=== PATIENT | female | born 1945 | race Caucasian/White ===

== ENCOUNTER 2019-05-13 17:05 | Inpatient (IN) | payer MEDICARE ==
[2019-05-13] MEDS ORDERED: TYLENOL 325 MG PO PRN (17:15)
[2019-05-13 18:03] LABS: Absolute Neutrophil Ct (ANC) 7.57 (1.4-6.9); BASOPHIL % 0.3 % (0.0-0.4); Basophil (Absolute #) 0.03 (0-0.4); Eosinophil % 3.5 % (0.00-5.0); Eosinophil (Absolute #) 0.37 (0-0.5); Hematocrit 41.5 % (35-47); Hemoglobin 13.1 gm/dl (12.0-16.0); Lymphocyte (Absolute #) 1.43 (1.0-4.6); Lymphocytes % 13.6 % (24.0-44.0); Mean Cell Volume 96.1 fl (78-100); Mean Corpuscular Hemoglobin 30.3 pg (26-32); Mean Corpuscular Hgb Concent. 31.6 g/dl (32-36); Mean Platelet Volume 10.7 fl (7.5-11.0); Monocyte (Absolute #) 1.12 (0.0-1.3); Monocytes % 10.6 % (0.0-12.0); Platelet Count 299 K/mm3 (150-450); Red Blood Count 4.32 M/mm3 (4.1-5.4); Red Cell Distribution Width 14.1 % (11.5-14.0); White Blood Count 10.5 K/mm3 (4.0-10.5)
[2019-05-13 18:15] LABS: ALBUMIN 4.3 g/dL (3.5-5.0); ALKALINE PHOSPHATASE 70 U/L (38-126); ANION GAP 9.5 MEQ/L (5-15); BLOOD UREA NITROGEN 13 mg/dL (7-17); CHLORIDE 98 mmol/L (98-107); Calcium 9.9 mg/dL (8.4-10.2); Carbon Dioxide 32 mmol/L (22-30); Creatinine 1 0.55 mg/dL (0.52-1.04); Glucose 132 mg/dL (74-106); Potassium 3.7 mmol/L (3.5-5.1); SGOT/AST 41 U/L (14-36); SGPT/ALT 16 U/L (0-35); SODIUM 136 mmol/L (137-145)
[2019-05-13] MEDS: ROCEPHIN 1 Gm-D5w 50 ml Bag** 1 G/50 ML IVPB IV SCH (20:09)
[2019-05-13] MEDS ORDERED: OXYCODONE-ACETAMINOPHEN 10-325 PO PRN (20:38)
[2019-05-13] MEDS: Zyvox 600 MG IV PREMIX*** 300 ML IV SCH (21:20)
[2019-05-13] MEDS ORDERED: NON-FORMULARY ITEM PO PRN (21:34)
--- NOTE | 2019-05-13 21:47 | XRAY ---
Indication: Enlarging heel ulcer 2 months. Comparison: April 05, 2019. 3 nonweightbearing views of the right foot unchanged again demonstrating osteopenia, old distal 5th metatarsal fracture, and tiny heel spurs. No new/acute findings. Comment: Preliminary interpretation was made by [facility]. No critical discrepancy.
--- NOTE | 2019-05-13 21:49 | XRAY ---
Indication: Right leg swelling and erythema. Two-dimensional sonogram and color Doppler imaging of the major venous vessels of the right leg was performed. Comparison: None No thrombus seen of the examined deep venous vessels of the right leg including greater saphenous vein. Veins demonstrate normal compressibility. Venous waveforms are normal with and without augmentation. Impression: Right leg negative for DVT. Comment: Preliminary report was given.
[2019-05-13] MEDS ORDERED: NEURONTIN 300 MG PO ONE (22:00)
[2019-05-13] MEDS ORDERED: ZOCOR 20MG PO ONE (22:00)
[2019-05-13] MEDS ORDERED: Cyclobenzaprine 10 MG PO ONE (22:00)
[2019-05-13] MEDS: DESYREL 50 MG PO SCH (22:29)
[2019-05-13] MEDS: ECOTRIN 81 MG PO SCH (22:30)
[2019-05-13] MEDS: DILAUDID 2 MG INJECTION IV PRN (22:31)
[2019-05-13] MEDS: Sodium Chloride 0.9% 10 ML FLUSH Syringe IV SCH (23:28)
[2019-05-14] MEDS: Zyvox 600 MG IV PREMIX*** 300 ML IV SCH ×2 (05:40→17:49)
[2019-05-14] MEDS: Sodium Chloride 0.9% 10 ML FLUSH Syringe IV SCH ×3 (05:41→21:34)
[2019-05-14] MEDS: DILAUDID 2 MG INJECTION IV PRN ×3 (07:23→18:12)
[2019-05-14] MEDS: PERCOCET TABLET 5/325MG PO PRN ×2 (08:54→14:53)
[2019-05-14] MEDS ORDERED: MEDICATION INTERVENTION MC SCH (10:45)
[2019-05-14] MEDS: Fosamax 70 MG PO SCH (10:56)
[2019-05-14] MEDS: ROCEPHIN 1 Gm-D5w 50 ml Bag** 1 G/50 ML IVPB IV SCH (10:56)
[2019-05-14] MEDS: Cyclobenzaprine 10 MG PO SCH ×3 (11:34→21:33)
[2019-05-14] MEDS: ECOTRIN 81 MG PO SCH ×2 (11:34→21:34)
[2019-05-14] MEDS: PLAVIX 75 MG Tablet PO SCH (11:34)
[2019-05-14] MEDS: Lasix 40 MG PO SCH (11:34)
[2019-05-14] MEDS: Toprol-Xl 25MG Tablets PO SCH (11:34)
[2019-05-14] MEDS: NEURONTIN 300 MG PO SCH ×3 (11:34→21:34)
[2019-05-14] MEDS: Protonix 40MG Tablet PO SCH (12:45)
[2019-05-14] MEDS: PATIENT OWN MEDICATION PO SCH (14:53)
[2019-05-14] MEDS ORDERED: ZOCOR 20MG ONE (19:55)
[2019-05-14] MEDS: DESYREL 50 MG PO SCH (21:33)
[2019-05-14] MEDS: NovoLOG Insulin SQ PRN (21:33)
[2019-05-14] MEDS: ZOCOR 20MG PO SCH (21:34)
[2019-05-14] MEDS ORDERED: NON-FORMULARY ITEM (Pravastatin Sodium [Pravastatin Sodium] 80 MG) PO SCH (22:00)
[2019-05-15] MEDS: PERCOCET TABLET 5/325MG PO PRN ×4 (03:20→21:29)
[2019-05-15] MEDS: Zyvox 600 MG IV PREMIX*** 300 ML IV SCH ×2 (05:28→17:29)
[2019-05-15] MEDS: Sodium Chloride 0.9% 10 ML FLUSH Syringe IV SCH ×3 (05:29→21:28)
[2019-05-15] MEDS ORDERED: PHARMACY DOSING REQUEST MC ONE (08:48)
[2019-05-15] MEDS: DILAUDID 2 MG INJECTION IV PRN ×2 (09:17→14:24)
[2019-05-15] MEDS: Zosyn INJ 4.5 GM in Sodium Chloride 100ML MINI-BAG PLUS 100 ML IV SCH ×2 (09:18→16:40)
[2019-05-15] MEDS: Protonix 40MG Tablet PO SCH (09:19)
[2019-05-15] MEDS: PLAVIX 75 MG Tablet PO SCH (09:19)
[2019-05-15] MEDS: Toprol-Xl 25MG Tablets PO SCH (09:19)
[2019-05-15] MEDS: Cyclobenzaprine 10 MG PO SCH ×3 (09:19→21:27)
[2019-05-15] MEDS: ECOTRIN 81 MG PO SCH ×2 (09:19→21:27)
[2019-05-15] MEDS: Lasix 40 MG PO SCH (09:19)
[2019-05-15] MEDS: NEURONTIN 300 MG PO SCH ×3 (09:20→21:28)
[2019-05-15] MEDS: PATIENT OWN MEDICATION PO SCH (09:20)
[2019-05-15] MEDS ORDERED: DULCOLAX 5 MG PO PRN (09:47)
[2019-05-15] MEDS ORDERED: Colace 100 MG PO PRN (09:47)
--- NOTE | 2019-05-15 09:53 | PCM.NOTE ---
Date and Time: 05/15/19 0990 Subjective Assessment: Patient reports no stool since admission but feels like she may need to have one today. Continuing to have trouble with pain control and states it takes a while for percoet to work. She does not seem to want to change to oral dilaudid today. She has told nursing that higher doses of percocet such as 10 mg gives her itching. - Review of Systems Constitutional: No Symptoms Ears, Nose, & Throat: No Symptoms Respiratory: No Symptoms Cardiac: No Symptoms Abdominal/Gastrointestinal: No Symptoms Genitourinary Symptoms: No Symptoms Musculoskeletal: Other (right foot pain) Skin: Other (blue discoloration of right 2nd toe) Objective Exam General Appearance: no apparent distress Neurologic Exam: alert, cooperative, normal mood/affect Skin Exam: normal color, warm Wound Assessment: Skin/Wound Assessment Wound/Incision Assessment Start: 05/13/19 18: 36 Text: Status: Active Freq: Q6H Protocol: Document 05/15/19 08:00 BA (Rec: 05/15/19 08:32 BA [id number]) Wound/Incision Assessment Right Heel Wound Assessment Admission Wound Type Stasis Ulcer Wound Stage Non Pressure Wound Dressing Status Changed Drainage Amount Minimal Drainage Description Yellow Drainage Odor None/Absent General Appearance Draining Length (cm) (cm) 5.0 Width (cm) (cm) 2.5 Depth (cm) (cm) 0.5 Wound Bed Greatest Portion Dusky Red Wound Bed Lesser Portion Dusky Red Yellow (Slough) Surrounding Tissue Edematous Primary Dressing Non-Adherent Gauze Pads Secondary Dressing Gauze Roll/Wrap Comment barrier ointment applied to surrounding wound site. Wound Photo Photo Taken Yes Date: 05/13/19 Time: 18:50 Respiratory Exam: normal breath sounds, lungs clear, No crackles/rales, No rhonchi, No wheezing Cardiovascular Exam: regular rate/rhythm, No murmur, No friction rub, No gallop Gastrointestinal/Abdomen Exam: soft, normal bowel sounds, No tenderness, No distention, No mass Extremity Exam: other (mild swelling of right lower ext with mild redness; blueish discoloration of 2nd right toe and medial aspect of right big toe; wound dressed on heel. left above the knee amputation) OBJECTIVE DATA Vital Signs: Vital Signs - 24 hr Temp Pulse Resp BP Pulse Ox 05/15/19 08:15 98.5 F 91 H 22 162/89 93 L 05/15/19 04:42 97.7 F 101 H 20 134/62 93 L 05/15/19 00:31 98.0 F 106 H 22 114/72 93 L 05/14/19 21:16 108/56 05/14/19 20:00 98.2 F 81 24 100 05/14/19 16:23 98.4 F 102 H 20 113/56 96 05/14/19 12:16 98.1 F 87 20 127/59 90 L Pain Assessment - Last Documented Pain Intensity 8 Pain Scale Used 0-10 Pain Scale Intake and Output: Intake & Output 05/13/19 05/14/19 05/15/19 05/16/19 06:59 06:59 06:59 06:59 Intake Total 878 600 240 Output Total 450 1000 Balance 428 -400 240 Weight 69.4 kg 70.1 kg Lab Results: Accuchecks Date 05/15/19 Date 05/14/19 Date 05/14/19 Time 07:30 Time 16:30 Time 11:30 Accucheck Value: 187 Accucheck Value: 256 Accucheck Value: 143 Accucheck Value: 190 Radiology Exams: Radiology Procedures Category Date Time Status FOOT (MINIMUM 3 VIEWS) Urgent Exams 05/13/19 19:21 Completed VENOUS UNILAT/LIMITED EXTREMIT [US] Urgent Exams 05/13/19 20:09 Completed Assessment/Plan (1) Ulcer of right foot Current Visit: Yes Status: Acute Assessment & Plan: Due to PAD. PT consulted. Code(s): L97.519 - NON-PRS CHRONIC ULCER OTH PRT RIGHT FOOT W UNSP SEVERITY (2) Cellulitis of right foot due to methicillin-resistant Staphylococcus aureus Current Visit: Yes Status: Acute Assessment & Plan: Most likely colonized with pseudomonas. On linezolid (Day 3) and now zosyn ( Day 1). She has improved clinically. Code(s): L03.115 - CELLULITIS OF RIGHT LOWER LIMB; B95.62 - METHICILLIN RESIS STAPH INFCT CAUSING DISEASES CLASSD ELSWHR (3) PAD (peripheral artery disease) Current Visit: No Status: Acute Assessment & Plan: No intervention available from promotions director or CV surgeon. Continue plavix and aspirin. Code(s): I73.9 - PERIPHERAL VASCULAR DISEASE, UNSPECIFIED (4) Type II diabetes mellitus, well controlled Current Visit: Yes Status: Acute Assessment & Plan: Continue home medication. Blood glucose this am 130's. Code(s): E11.9 - TYPE 2 DIABETES MELLITUS WITHOUT COMPLICATIONS (5) Chronic pain Current Visit: Yes Status: Acute Assessment & Plan: Due to PAD; increase frequency of percocet and she still has dilaudid ordered as needed. Code(s): G89.29 - OTHER CHRONIC PAIN (6) CAD (coronary artery disease) Current Visit: Yes Status: Acute Assessment & Plan: Continue home medication. Code(s): I25.10 - ATHSCL HEART DISEASE OF [place] CORONARY ARTERY W/O ANG PCTRS
[2019-05-15] MEDS ORDERED: NON-FORMULARY ITEM (Mirabegron [Myrbetriq] 50 MG) PO SCH (10:00)
[2019-05-15] MEDS: DESYREL 50 MG PO SCH (21:27)
[2019-05-15] MEDS: ZOCOR 20MG PO SCH (21:27)
[2019-05-15] MEDS: NovoLOG Insulin SQ PRN (21:28)
[2019-05-16] MEDS: Zosyn INJ 4.5 GM in Sodium Chloride 100ML MINI-BAG PLUS 100 ML IV SCH ×3 (00:32→16:36)
[2019-05-16] MEDS: DILAUDID 2 MG INJECTION IV PRN ×5 (00:42→23:10)
[2019-05-16] MEDS: Sodium Chloride 0.9% 10 ML FLUSH Syringe IV PRN (00:43)
[2019-05-16] MEDS: PERCOCET TABLET 5/325MG PO PRN ×5 (02:45→20:55)
[2019-05-16] MEDS: Zyvox 600 MG IV PREMIX*** 300 ML IV SCH ×2 (05:43→17:19)
[2019-05-16] MEDS: Sodium Chloride 0.9% 10 ML FLUSH Syringe IV SCH ×3 (05:43→20:57)
--- NOTE | 2019-05-16 08:32 | PCM.NOTE ---
Date and Time: 05/16/19826 Subjective Assessment: Patient reports that she is having some pain just above her right ankle. PT has not been able to see her yet. Patient wants to wait on consultation with surgeon until after PT sees her. Her appetite is good; she was able to have a stool yesterday. Her nurse notes they have had to replace her IV x 2 and that she is a difficult patient to obtain IV access on. - Review of Systems Constitutional: No Symptoms Respiratory: No Symptoms Cardiac: No Symptoms Abdominal/Gastrointestinal: No Symptoms Genitourinary Symptoms: No Symptoms Musculoskeletal: Other (right ankle pain) Objective Exam General Appearance: no apparent distress, obese, other (left above the knee amputation) Neurologic Exam: alert Skin Exam: normal color, other (large open ulcer of right heel with thick yellow /white over top; left 2nd toe is blue with concern for small blister trying to develop) Wound Assessment: Skin/Wound Assessment Wound/Incision Assessment Start: 05/13/19 18: 36 Text: Status: Active Freq: Q6H Protocol: Document 05/16/19 04:00 AW (Rec: 05/16/19 05:55 AW [id number]) Wound/Incision Assessment Right Heel Wound Assessment Shift Assessment Wound Type Stasis Ulcer Wound Stage Non Pressure Wound Dressing Status Dry & Intact Drainage Odor None/Absent Length (cm) (cm) 5.0 Width (cm) (cm) 2.5 Depth (cm) (cm) 0.5 Surrounding Tissue Edematous Primary Dressing Non-Adherent Gauze Pads Secondary Dressing Gauze Roll/Wrap Comment dressing cdi Wound Photo Photo Taken Yes Date: 05/13/19 Time: 18:50 Cardiovascular Exam: regular rate/rhythm, normal heart sounds, No murmur, No friction rub, No gallop Extremity Exam: other (erythema of right lower extremity is improved) OBJECTIVE DATA Vital Signs: Vital Signs - 24 hr Temp Pulse Resp BP Pulse Ox 05/16/19 07:09 95 05/16/19 04:00 18 95 05/16/19 00:25 98.4 F 82 18 138/70 94 L 05/15/19 21:20 95 05/15/19 19:55 99.0 F 88 18 106/52 93 L 05/15/19 18:22 93 L 05/15/19 16:00 98.8 F 87 18 110/54 92 L 05/15/19 12:00 97.5 F 54 L 20 131/84 98 Oxygen-Last 24 hours Oxygen Flowrate (L/min)-RT 2 Oxygen Flowrate (L/min)-RT 2 Oxygen Flowrate (L/min)-RT 2 Pain Assessment - Last Documented Pain Intensity 4 Pain Scale Used 0-10 Pain Scale Intake and Output: Intake & Output 05/14/19 05/15/19 05/16/19 05/17/19 06:59 06:59 06:59 06:59 Intake Total 984 134 8153 Output Total 450 1000 3000 Balance 428 400 -3329 Weight 69.4 kg 71.8 kg 71.9 kg Lab Results: Accuchecks Date 05/15/19 Date 05/15/19 Date 05/15/19 Date 05/15/19 Time 07:30 Time 22:00 Time 16:30 Time 11:30 Accucheck Value: 137 Accucheck Value: 229 Accucheck Value: 173 Accucheck Value: 170 Radiology Exams: Radiology Procedures Category Date Time Status ANKLE (3 VIEWS) Routine Exams 05/16/19 Ordered PICC LINE PLACEMENT Routine Exams 05/16/19 Ordered Assessment/Plan (1) Ulcer of right foot Current Visit: Yes Status: Acute Assessment & Plan: PT consulted. Awaiting their evaluation. Patient has seen hr receptionist and CV surgeon and there is no intervention available for her PAD. Code(s): L97.519 - NON-PRS CHRONIC ULCER OTH PRT RIGHT FOOT W UNSP SEVERITY (2) Cellulitis of right foot due to methicillin-resistant Staphylococcus aureus Current Visit: Yes Status: Acute Assessment & Plan: Continue Zosyn (Day 2) and vanc (Day 4). Will ask for PICC placement today. Will check labs today. Code(s): L03.115 - CELLULITIS OF RIGHT LOWER LIMB; B95.62 - METHICILLIN RESIS STAPH INFCT CAUSING DISEASES CLASSD ELSWHR (3) PAD (peripheral artery disease) Current Visit: No Status: Acute Code(s): I73.9 - PERIPHERAL VASCULAR DISEASE , UNSPECIFIED (4) Type II diabetes mellitus, well controlled Current Visit: Yes Status: Acute Assessment & Plan: Continue to monitor; may had small dose of lantus to help better control blood glucose. Code(s): E11.9 - TYPE 2 DIABETES MELLITUS WITHOUT COMPLICATIONS (5) Chronic pain Current Visit: Yes Status: Acute Assessment & Plan: Increased frequency of percocet is helping. Code(s): G89.29 - OTHER CHRONIC PAIN (6) CAD (coronary artery disease) Current Visit: Yes Status: Acute Assessment & Plan: Stable on home medication. Code(s): I25.10 - ATHSCL HEART DISEASE OF [place] CORONARY ARTERY W/O ANG PCTRS
[2019-05-16 09:08] LABS: Hematocrit 38.5 % (35-47); Hemoglobin 12.2 gm/dl (12.0-16.0); Mean Corpuscular Hemoglobin 30.4 pg (26-32); Mean Corpuscular Hgb Concent. 31.7 g/dl (32-36); Mean Platelet Volume 10.3 fl (7.5-11.0); Platelet Count 282 K/mm3 (150-450); Red Blood Count 4.01 M/mm3 (4.1-5.4); Red Cell Distribution Width 13.7 % (11.5-14.0); White Blood Count 12.8 K/mm3 (4.0-10.5)
[2019-05-16] MEDS: Lasix 40 MG PO SCH (09:10)
[2019-05-16] MEDS: NEURONTIN 300 MG PO SCH ×3 (09:11→20:56)
[2019-05-16] MEDS: Toprol-Xl 25MG Tablets PO SCH (09:11)
[2019-05-16] MEDS: PATIENT OWN MEDICATION PO SCH (09:11)
[2019-05-16] MEDS: Cyclobenzaprine 10 MG PO SCH ×3 (09:11→20:56)
[2019-05-16] MEDS: Protonix 40MG Tablet PO SCH (09:11)
[2019-05-16 09:29] LABS: INR 1.14 (0.8-3.0); PROTIME 12.9 SECONDS (9.95-12.35)
[2019-05-16 09:31] LABS: PTT 29.4 SECONDS (25.3-37.0)
[2019-05-16 09:44] LABS: ALBUMIN 3.7 g/dL (3.5-5.0); ALKALINE PHOSPHATASE 79 U/L (38-126); ANION GAP 9.1 MEQ/L (5-15); BLOOD UREA NITROGEN 8 mg/dL (7-17); CHLORIDE 98 mmol/L (98-107); Calcium 8.6 mg/dL (8.4-10.2); Carbon Dioxide 29 mmol/L (22-30); Creatinine 1 0.56 mg/dL (0.52-1.04); Glucose 120 mg/dL (74-106); Potassium 3.6 mmol/L (3.5-5.1); SGOT/AST 69 U/L (14-36); SGPT/ALT 31 U/L (0-35); SODIUM 132 mmol/L (137-145); Total Protein 7.1 g/dL (6.3-8.2)
[2019-05-16 09:58] LABS: Eosinophil 9 % (0.00-3.0); Lymphocytes 4 % (24-44); Monocyte 5 % (0.0-12.0); Neutrophils 82 % (36.0-66.0); Total Cells Counted 100
[2019-05-16 09:59] LABS: Platelet Estimate NORMAL (NORMAL)
--- NOTE | 2019-05-16 10:56 | HP ---
HISTORY OF PRESENT ILLNESS: This is a 74 year-old patient of mine with a history of extensive peripheral artery disease in the lower extremity resulting in amputation of her left leg above the knee in 2016. She had continued problems with her right leg what appears to be clinically to be worsening disease with an ulcer opening up on her food and enlarging. She had seen Dr. Trey Shah, [employer], and they were unable to do any intervention. She then saw a cardiovascular surgeon recently, Dr. Cortes, and they could not do anything either. The patient has been following for wound care with infectious doctor, Dr. Lim, but did not see him last week as she saw the cardiovascular surgeon. She plans to see him this coming week. She has been on two different courses or oral antibiotic, as I had given her Clindamycin about a month ago and she reports that sometime since then Dr. Lim had given her doxycycline. Her home health care nurse had called the day of her appointment to let us know that her ulcer was worsening and there was redness of the skin of her leg. When I saw her in the office, she had some swelling and redness of her leg up to just below her knee as well as ulcer of her right foot that measured 6.5 x 2.5 cm. The patient had been using MediHoney on it and leaving that on for two to three days and then changing the dressing. She has home health care that comes in and sees her. REVIEW OF SYSTEMS: No chest pain. No shortness of breath. She sometimes falls asleep in her chair and falls out. She has a bruise on her left upper shoulder from this. She reports continued pain in her foot despite Percocet. She is urinating fine, good appetite. No constipation. MEDICATIONS: Please see the home medication reconciliation form which I have reviewed. ALLERGIES: CODEINE. MORPHINE. TETANUS. VANCOMYCIN. PAST MEDICAL HISTORY: Chronic obstructive pulmonary disease, congestive heart failure, diabetes mellitus type 2 well controlled. Coronary artery disease with history of atrial fibrillation in 2008, stents placed in 2008. Hypertension. Peripheral artery disease. Back pain. PAST SURGICAL HISTORY: Amputation of left leg above the knee, one month after amputation of her left leg below the knee. Right knee scope. Stents in July [address] Jesus Shah. Femoral artery replaced [address] Luis. Left carotid endarterectomy. Hysterectomy for endometriosis. Back surgery with laminectomy. Replacement of both lens of her eyes. Tonsillectomy. Femoral bypass on the right side 2014 at [facility]. Colonoscopy 2012 with one small sigmoid polyp with Dr. Thibodeaux. SOCIAL HISTORY: She lives by herself. She has family in the area. She continues to smoke one pack per day of cigarettes. FAMILY HISTORY: Noncontributory. PHYSICAL EXAMINATION: VITAL SIGNS: Temperature current 98.1F, temperature max 98.7F, heart rate 87, respiratory rate 20, blood pressure 127/58. Oxygen saturation 90% on room air. GENERAL: The patient is a pleasant talkative lady sitting up in her bed in no acute distress. One of her daughters at the bedside. CVS: She has a regular rate and rhythm. No murmurs, gallops or rubs. CHEST: Clear to auscultation bilaterally. No crackles or wheezes. ABDOMEN: Soft, nontender, nondistended with normal bowel sounds. EXTREMITIES: Her right leg ulcer is wrapped and dressed. There is a picture of it in her chart. The redness has improved from when I admitted her from the clinic. She has some mild erythema from above her ankle down. Her toes are bright red but with good capillary refill. No pulses palpable in her foot. ASSESSMENT AND PLAN: 1) RIGHT LOWER EXTREMITY ULCER DUE TO PERIPHERAL ARTERY DISEASE WITH CELLULITIS: She was started on Linezolid and Ceftriaxone. A wound culture was taken and was growing a gram-positive organism. She has had clinical improvement since admission, will plan to continue with IV antibiotics while we await the culture results. We discussed at length that she does not seem to be a candidate for any kind of intervention and will have to see how continued wound care goes. The main goal of this admission was to treat the infection and then she can continue to follow up with wound care with Dr. Lim. She is considering amputation in the future as there does not seem to be any other option if this ulcer does not heal up. She reports that she would like to either see someone in [place] or local surgeon if comes to that. 2) DIABETES MELLITUS TYPE 2: Currently well controlled. 3) CORONARY ARTERY DISEASE: Will continue on her home medications. 4) CODE STATUS: I confirmed that she does not want to have any heroic measures taken if her heart would stop beating or she would stop breathing. She would want to be allowed to occur naturally without intervention.
[2019-05-16] MEDS ORDERED: Heparin 1000 units/ml (10 Ml vial) 1,000 U in Sodium Chloride 0.9% 500 ML 500 ML IV ONE (11:20)
[2019-05-16] MEDS: PLAVIX 75 MG Tablet PO SCH (11:54)
[2019-05-16] MEDS: ECOTRIN 81 MG PO SCH ×2 (11:54→20:56)
--- NOTE | 2019-05-16 12:11 | XRAY ---
Indication: Cellulitis. Ulcer. Comparison: None 3 views of the right ankle demonstrates osteopenia, 1st tarsometatarsal degenerative changes, tiny heel spurs, old distal 5th metatarsal fracture, and diffuse soft tissue swelling. Lateral malleolus demonstrates cortical thinning/irregularity worrisome for osteomyelitis given history of cellulitis. Remaining ankle unremarkable.
--- NOTE | 2019-05-16 12:15 | XRAY ---
Indication: Long-term IV access and therapy for right leg cellulitis, ulcer, and MRSA. Informed consent obtained. Patient was placed on the fluoroscopic table in a supine position. Initial sonographic imaging of the right upper extremity was performed for localization of patent veins. The right upper extremity was then prepped and draped in sterile fashion. Tourniquet applied. 1% lidocaine plain used for local anesthesia. Using ultrasound guidance and a micropuncture needle, a basilic vein above the elbow was successfully percutaneously cannulized. A floppy tip 0.018 guidewire inserted. Tourniquet released. Needle was exchanged for a 5 Singaporean dilator peel-away sheath catheter. Ultimately a 5 [place]an double-lumen PICC line was inserted over a longer 0.018 guidewire with the tip positioned in the distal SVC using fluoroscopic guidance. Guidewire removed. Both ports flushed with heparinized saline. Catheter was secured. Postoperative instructions and orders given. Patient discharged in good condition. Impression: Technically successful right upper extremity PICC line placement using ultrasound and fluoroscopic guidance. No immediate complications. Approximately 3 cc blood loss. Approximately 0.8 minute of fluoroscopy used. Catheter length is 40 cm.
--- NOTE | 2019-05-16 13:43 | XRAY ---
Indication: Ultrasound guidance for PICC line placement. Initial sonographic imaging of the right upper extremity was performed for localization of patent veins. A patent basilic vein identified above the elbow. Ultrasound guidance was then used for PICC line insertion. Full PICC line insertion is reported separately.
[2019-05-16] MEDS ORDERED: DILAUDID 2 MG INJECTION IV ONE (14:45)
[2019-05-16] MEDS: ZOCOR 20MG PO SCH (20:56)
[2019-05-16] MEDS: DESYREL 50 MG PO SCH (20:56)
[2019-05-17] MEDS: PERCOCET TABLET 5/325MG PO PRN ×5 (00:57→21:18)
[2019-05-17] MEDS: Zosyn INJ 4.5 GM in Sodium Chloride 100ML MINI-BAG PLUS 100 ML IV SCH ×3 (00:58→16:35)
[2019-05-17] MEDS: DILAUDID 2 MG INJECTION IV PRN ×5 (02:15→23:33)
[2019-05-17] MEDS: Zyvox 600 MG IV PREMIX*** 300 ML IV SCH ×2 (05:26→18:00)
[2019-05-17] MEDS: Sodium Chloride 0.9% 10 ML FLUSH Syringe IV SCH ×3 (05:50→21:17)
[2019-05-17] MEDS ORDERED: Lasix 40 MG/4 ML IV ONE (08:44)
--- NOTE | 2019-05-17 09:00 | PCM.NOTE ---
Date and Time: 05/17/19 0845 Subjective Assessment: Patient was unable to tolerate MRI of right ankle yesterday due to pain. She is tearful talking about this today. Nursing staff reports nuclear scan cannot be done until to verify whether or not she has osteomyelitis in her right ankle. Patient notes increased swelling in her right ankle and 2 lbs weight gain. - Review of Systems Constitutional: No Symptoms Respiratory: No Symptoms Cardiac: No Symptoms Musculoskeletal: Other (right leg pain) Objective Exam General Appearance: no apparent distress, other (left above the knee amputation ; right foot dressed, blue discoloration of toes, +2 pitting edema to mid stewart, no erythema of skin above bandage.) Neurologic Exam: alert Wound Assessment: Skin/Wound Assessment Wound/Incision Assessment Start: 05/13/19 18: 36 Text: Status: Active Freq: Q6H Protocol: Document 05/17/19 04:00 AW (Rec: 05/17/19 04:42 AW [id number]) Wound/Incision Assessment Right Heel Wound Assessment Shift Assessment Wound Type Stasis Ulcer Wound Stage Non Pressure Wound Dressing Status Dry & Intact Drainage Odor None/Absent Length (cm) (cm) 5.0 Width (cm) (cm) 2.5 Depth (cm) (cm) 0.5 Surrounding Tissue Edematous Primary Dressing Non-Adherent Gauze Pads Secondary Dressing Gauze Roll/Wrap Comment dressing changed per PT on , dressing cdi Wound Photo Photo Taken Yes Respiratory Exam: normal breath sounds, lungs clear, No crackles/rales, No rhonchi, No wheezing Cardiovascular Exam: regular rate/rhythm, normal heart sounds, No murmur, No friction rub, No gallop OBJECTIVE DATA Vital Signs: Vital Signs - 24 hr Temp Pulse Resp BP BP Pulse Ox 05/17/19 07:07 98 F 111 H 18 138/62 93 L 05/17/19 04:00 98.4 F 106 H 24 136/61 91 L 05/16/19 23:25 98.4 F 96 H 18 114/56 93 L 05/16/19 20:00 97.6 F 91 H 22 119/53 05/16/19 19:48 92 L 05/16/19 17:47 77 L 05/16/19 16:00 98.5 F 92 H 18 111/56 92 L 05/16/19 12:00 97.5 F 89 18 121/58 95 Oxygen-Last 24 hours Oxygen Flowrate (L/min)-RT 2 Pain Assessment - Last Documented Pain Intensity 5 Pain Scale Used 0-10 Pain Scale Intake and Output: Intake & Output 05/15/19 05/16/19 05/17/19 05/18/19 06:59 06:59 06:59 06:59 Intake Total 600 1712 1321 Output Total 1000 3000 3200 Balance -865 -0043 -0318 Weight 71.8 kg 71.9 kg 72.4 kg Lab Results: Accuchecks Date 05/16/19 Date 05/16/19 Date 05/16/19 Time 22:00 Time 16:30 Time 11:30 Accucheck Value: 183 Accucheck Value: 167 Accucheck Value: 100 Lab Results-Last 24 Hours 05/16/19 05/16/19 05/16/19 Range/Units 08:34 08:34 08:51 WBC 12.8 H (4.0-10.5) K/mm3 RBC 4.01 L (4.1-5.4) M/mm3 Hgb 12.2 (12.0-16.0) gm/dl Hct 38.5 (35-47) % MCV 96.0 (78-100) fl MCH 30.4 (26-32) pg MCHC 31.7 L (32-36) g/dl RDW 13.7 (11.5-14.0) % Plt Count 282 (150-450) K/mm3 MPV 10.3 (7.5-11.0) fl Segmented Neutrophils 82 H (36.0-66.0) % Lymphocytes (Manual) 4 L (24-44) % Monocytes (Manual) 5 (0.0-12.0) % Eosinophils (Manual) 9 H (0.00-3.0) % Platelet Estimate NORMAL (NORMAL) RBC Morphology NORMAL PT 12.9 H (9.95-12.35) SECONDS INR 1.14 (0.8-3.0) APTT 29.4 (25.3-37.0) SECONDS Sodium 132 L (137-145) mmol/L Potassium 3.6 (3.5-5.1) mmol/L Chloride 98 (98-107) mmol/L Carbon Dioxide 29 (22-30) mmol/L Anion Gap 9.1 (5-15) MEQ/L BUN 8 (7-17) mg/dL Creatinine 0.56 (0.52-1.04) mg/dL Estimated GFR > 60.0 ML/MIN Glucose 120 H (74-106) mg/dL Calcium 8.6 (8.4-10.2) mg/dL Total Bilirubin 0.60 (0.2-1.3) mg/dL AST 69 H (14-36) U/L ALT 31 (0-35) U/L Alkaline Phosphatase 79 (38-126) U/L Serum Total Protein 7.1 (6.3-8.2) g/dL Albumin 3.7 (3.5-5.0) g/dL Radiology Exams: Radiology Procedures Category Date Time Status ANKLE (3 VIEWS) Routine Exams 05/16/19 11:50 Completed BONE THREE PHASE [NUCMED] Routine Exams 05/17/19 08:42 Ordered GUIDE FOR VASCULAR ACCESS [US] Routine Exams 05/16/19 10:21 Completed PICC LINE PLACEMENT Routine Exams 05/16/19 11:49 Completed Multi-Disciplinary Progress Notes: Multi-Disciplinary Progress Notes 05/16/19 09:25 Case Management Note by Lou De León AT [facility] NOTIFIED THAT PATIENT IS HERE INPT. SHE VERIFIED UNDERSTANDING Initialized on 05/16/19 09:25 - END OF NOTE Assessment/Plan (1) Ulcer of right foot Current Visit: Yes Status: Acute Assessment & Plan: Continue PT; Continue IV antibiotic; nuclear bone scan ordered to rule out osteomyelitis. This cannot be done until . Code(s): L97.519 - NON-PRS CHRONIC ULCER OTH PRT RIGHT FOOT W UNSP SEVERITY (2) Cellulitis of right foot due to methicillin-resistant Staphylococcus aureus Current Visit: Yes Status: Acute Assessment & Plan: Erythema has improved with IV antibiotics and bacteria grown in culture sensitive to current antibiotics. Code(s): L03.115 - CELLULITIS OF RIGHT LOWER LIMB; B95.62 - METHICILLIN RESIS STAPH INFCT CAUSING DISEASES CLASSD ELSWHR (3) PAD (peripheral artery disease) Current Visit: No Status: Acute Assessment & Plan: Severe and not candidate for intervention per bilingual manager and CV surgeon. Code(s): I73.9 - PERIPHERAL VASCULAR DISEASE, UNSPECIFIED (4) Type II diabetes mellitus, well controlled Current Visit: Yes Status: Acute Assessment & Plan: Currently well controlled. Code(s): E11.9 - TYPE 2 DIABETES MELLITUS WITHOUT COMPLICATIONS (5) Chronic pain Current Visit: Yes Status: Acute Code(s): G89.29 - OTHER CHRONIC PAIN (6) CAD (coronary artery disease) Current Visit: Yes Status: Acute Code(s): I25.10 - ATHSCL HEART DISEASE OF [place] CORONARY ARTERY W/O ANG PCTRS
[2019-05-17] MEDS: PLAVIX 75 MG Tablet PO SCH (09:53)
[2019-05-17] MEDS: Toprol-Xl 25MG Tablets PO SCH (09:53)
[2019-05-17] MEDS: Cyclobenzaprine 10 MG PO SCH ×3 (09:53→21:17)
[2019-05-17] MEDS: Protonix 40MG Tablet PO SCH (09:53)
[2019-05-17] MEDS: PATIENT OWN MEDICATION PO SCH (09:53)
[2019-05-17] MEDS: ECOTRIN 81 MG PO SCH (09:53)
[2019-05-17] MEDS: NEURONTIN 300 MG PO SCH ×3 (09:55→21:17)
[2019-05-17] MEDS: NovoLOG Insulin SQ PRN (11:41)
[2019-05-17] MEDS ORDERED: Klor Con 10 MEQ PO ONE (13:39)
[2019-05-17] MEDS: NITRO-BID 2% UD PACKETS TOP SCH (14:28)
[2019-05-17] MEDS ORDERED: HUMALOG SQ PRN (16:30)
[2019-05-17] MEDS: XARELTO 10 MG TABLET PO SCH (21:16)
[2019-05-17] MEDS: DESYREL 50 MG PO SCH (21:17)
[2019-05-17] MEDS: ZOCOR 20MG PO SCH (21:17)
[2019-05-17 22:17] LABS: Appearance CLEAR (CLEAR); Bacteria RARE /HPF (NEGATIVE); Bilirubin NEGATIVE (NEGATIVE); Blood SMALL Ery/ul (0-5); Glucose NEGATIVE (NEGATIVE); Ketones NEGATIVE (NEGATIVE); Leukocyte Esterase SMALL (NEGATIVE); Mucus SLIGHT /HPF (NEGATIVE); Nitrite NEGATIVE (NEGATIVE); Protein,Urine Dip NEGATIVE (Negative); RBC 0-2 /HPF (0-2); Specific Gravity 1.004 (1.005-1.025); Urobilinogen NEGATIVE mg/dL (0-1)
[2019-05-17] MEDS ORDERED: DILAUDID 2 MG INJECTION IV ONE (23:55)
[2019-05-18] MEDS: Ativan 2 MG/1 ML VIAL IV PRN (00:03)
[2019-05-18] MEDS: Zosyn INJ 4.5 GM in Sodium Chloride 100ML MINI-BAG PLUS 100 ML IV SCH ×3 (00:29→17:14)
[2019-05-18] MEDS: DILAUDID 2 MG INJECTION IV PRN ×4 (03:36→20:03)
[2019-05-18 05:20] LABS: BASOPHIL % 0.1 % (0.0-0.4); Basophil (Absolute #) 0.01 (0-0.4); Eosinophil (Absolute #) 1.78 (0-0.5); Hemoglobin 11.5 gm/dl (12.0-16.0); Lymphocyte (Absolute #) 0.75 (1.0-4.6); Lymphocytes % 7.6 % (24.0-44.0); Mean Cell Volume 96.9 fl (78-100); Mean Corpuscular Hemoglobin 30.1 pg (26-32); Mean Corpuscular Hgb Concent. 31.1 g/dl (32-36); Mean Platelet Volume 10.1 fl (7.5-11.0); Monocyte (Absolute #) 0.57 (0.0-1.3); Monocytes % 5.8 % (0.0-12.0); Neutrophil % 68.5 % (36.0-66.0); Platelet Count 301 K/mm3 (150-450); Red Blood Count 3.82 M/mm3 (4.1-5.4); Red Cell Distribution Width 13.7 % (11.5-14.0); White Blood Count 9.9 K/mm3 (4.0-10.5)
[2019-05-18 05:39] LABS: ANION GAP 6.7 MEQ/L (5-15); BLOOD UREA NITROGEN 8 mg/dL (7-17); CHLORIDE 98 mmol/L (98-107); Calcium 8.3 mg/dL (8.4-10.2); Carbon Dioxide 36 mmol/L (22-30); Creatinine 1 0.56 mg/dL (0.52-1.04); Glucose 107 mg/dL (74-106); Potassium 3.1 mmol/L (3.5-5.1); SODIUM 137 mmol/L (137-145)
[2019-05-18] MEDS: Zyvox 600 MG IV PREMIX*** 300 ML IV SCH ×2 (05:41→17:49)
[2019-05-18] MEDS: Sodium Chloride 0.9% 10 ML FLUSH Syringe IV SCH ×3 (05:42→21:19)
[2019-05-18] MEDS ORDERED: Klor Con 10 MEQ PO ONE (08:11)
--- NOTE | 2019-05-18 08:46 | PCM.NOTE ---
Date and Time: 05/18/19 0835 Subjective Assessment: Patient had increased pain in her foot last night. States medications helped. She is sleepy this Am. Sleeps with her leg hanging off the bed. Small stool yesterday but states probably needs stool softener today. - Review of Systems Constitutional: Fatigue Eyes: No Symptoms Ears, Nose, & Throat: No Symptoms Respiratory: No Symptoms Cardiac: No Symptoms Abdominal/Gastrointestinal: Constipation Genitourinary Symptoms: Other (catheter in place) Musculoskeletal: Other (right leg pain) Objective Exam General Appearance: no apparent distress, other (falling asleep while I am talking to her; left above the knee amputation) Neurologic Exam: cooperative, other (arouses easily) Skin Exam: other (right foot wrapped and dressed, toes dusky, +2 edema to mid stewart bilat) Wound Assessment: Skin/Wound Assessment Wound/Incision Assessment Start: 05/13/19 18: 36 Text: Status: Active Freq: Q6H Protocol: Document 05/18/19 03:49 BW (Rec: 05/18/19 03:49 BW [id number]) Wound/Incision Assessment Right Heel Wound Assessment Shift Assessment Wound Type Stasis Ulcer Wound Stage Non Pressure Wound Dressing Status Dry & Intact Drainage Amount None Drainage Odor None/Absent Surrounding Tissue Edematous Primary Dressing Non-Adherent Gauze Pads Comment dressing changed per PT on , dressing/stockinette CDI Wound Photo Photo Taken Yes Distance from Wound: bedside Respiratory Exam: normal breath sounds, lungs clear, No crackles/rales, No rhonchi, No wheezing Cardiovascular Exam: regular rate/rhythm, normal heart sounds, No murmur, No friction rub, No gallop OBJECTIVE DATA Vital Signs: Vital Signs - 24 hr Temp Pulse Resp BP Pulse Ox 05/18/19 07:25 98 F 111 H 20 142/63 93 L 05/18/19 03:47 98.2 F 100 H 18 116/55 93 L 05/18/19 00:00 97.9 F 102 H 20 122/56 92 L 05/17/19 20:00 98.5 F 85 19 117/56 93 L 05/17/19 16:23 97.9 F 86 20 144/100 91 L 05/17/19 12:11 97.8 F 80 20 144/63 92 L Pain Assessment - Last Documented Pain Intensity 3 Pain Scale Used 0-10 Pain Scale,FLACC Intake and Output: Intake & Output 05/16/19 05/17/19 05/18/19 05/19/19 06:59 06:59 06:59 06:59 Intake Total 1710 1322 2631 Output Total 8228 2633 0636 Balance -4129 -6377 -0962 Weight 71.9 kg 72.4 kg 71.2 kg Lab Results: Accuchecks Date 05/17/19 Date 05/17/19 Date 05/17/19 Time 22:00 Time 16:30 Time 11:30 Accucheck Value: 121 Accucheck Value: 112 Accucheck Value: 183 Accucheck Value: 214 Lab Results-Last 24 Hours 05/17/19 05/18/19 05/18/19 Range/Units 21:52 04:43 04:43 WBC 9.9 (4.0-10.5) K/mm3 RBC 3.82 L (4.1-5.4) M/mm3 Hgb 11.5 L (12.0-16.0) gm/dl Hct 37.0 (35-47) % MCV 96.9 (78-100) fl MCH 30.1 (26-32) pg MCHC 31.1 L (32-36) g/dl RDW 13.7 (11.5-14.0) % Plt Count 301 (150-450) K/mm3 MPV 10.1 (7.5-11.0) fl Gran % 68.5 H (36.0-66.0) % Eos # (Auto) 1.78 H (0-0.5) Absolute Lymphs (auto) 0.75 L (1.0-4.6) Absolute Monos (auto) 0.57 (0.0-1.3) Lymphocytes % 7.6 L (24.0-44.0) % Monocytes % 5.8 (0.0-12.0) % Eosinophils % 18.0 H (0.00-5.0) % Basophils % 0.1 (0.0-0.4) % Absolute Granulocytes 6.80 (1.4-6.9) Basophils # 0.01 (0-0.4) Sodium 137 (137-145) mmol/L Potassium 3.1 L (3.5-5.1) mmol/L Chloride 98 (98-107) mmol/L Carbon Dioxide 36 H (22-30) mmol/L Anion Gap 6.7 (5-15) MEQ/L BUN 8 (7-17) mg/dL Creatinine 0.56 (0.52-1.04) mg/dL Estimated GFR > 60.0 ML/MIN Glucose 107 H (74-106) mg/dL Calcium 8.3 L (8.4-10.2) mg/dL Urine Color STRAW (YELLOW) Urine Appearance CLEAR (CLEAR) Urine pH 7.0 (5-6) Ur Specific [place] 1.004 (1.005-1.025) Urine Protein NEGATIVE (Negative) Urine Ketones NEGATIVE (NEGATIVE) Urine Blood SMALL (0-5) Jose Daniel/ul Urine Nitrite NEGATIVE (NEGATIVE) Urine Bilirubin NEGATIVE (NEGATIVE) Urine Urobilinogen NEGATIVE (0-1) mg/dL Ur Leukocyte Esterase SMALL (NEGATIVE) Urine WBC (Auto) 3-5 (0-5) /HPF Urine RBC (Auto) 0-2 (0-2) /HPF U Epithel Cells (Auto) NONE (FEW) /HPF Urine Bacteria (Auto) RARE (NEGATIVE) /HPF Urine Mucus (Auto) SLIGHT (NEGATIVE) /HPF Urine Culture Reflexed ORDERED SEPARATELY (NO) Urine Glucose NEGATIVE (NEGATIVE) mg/dL Radiology Exams: Radiology Procedures Category Date Time Status ANKLE (3 VIEWS) Routine Exams 05/16/19 11:50 Completed BONE THREE PHASE [NUCMED] Routine Exams 05/19/19 08:42 Ordered GUIDE FOR VASCULAR ACCESS [US] Routine Exams 05/16/19 10:21 Completed PICC LINE PLACEMENT Routine Exams 05/16/19 11:49 Completed Multi-Disciplinary Progress Notes: Multi-Disciplinary Progress Notes 05/17/19 14:19 Case Management Note by Romelia Shepherd REVIEWED DISCHARGE PLAN WITH PT. REPORTS THAT SHE WOULD BE INTERESTED IN RETURNING HOME WITH HOSPICE. REPORTS THAT [facility] HAD DISCHARGED HER TO [facility], BUT SHE IS WANTING TO HAVE HOSPICE SERVICES SHE HAD MORE SUPPORT WITH HOSPICE. DISCUSSED THE DIFFERENT HOSPICE PROVIDERS, AND PT REPORTS THAT SHE WANTS TO STAY WITH [facility]. WILL UPDATE [facility] ON PT NEEDS WHEN CLOSER TO TIME OF DISCHARGE. [facility] CHECKED ON PT TODAY AND DISCUSSED WITH [facility] THAT PT'S NEEDS MAY CHANGE ON DISCHARGE. WILL CONTINUE TO FOLLOW FOR ALL DC NEEDS. Initialized on 05/17/19 14:19 - END OF NOTE 05/17/19 14:04 Physical Therapy Note by Lore Martines PT. SEATED ON SIDE OF BED. DR. MONTAÑO HAD JUST FINISHED ROUNDING W/ PATIENT. PT. REPORTS R FOOT PN CONTINUES; IS GETTING PN MEDS REGULARLY. DRESSING INTACT FROM YESTERDAY. DR. MONTAÑO REPORTED TO P.T. THAT DR. SHAH THOUGHT THAT SOME MINOR DEBRIDEMENT OF ESCHAR WOULD BE INDICATED. MIN SEROUS DRAINAGE NOTED ON DRESSING. CLEANSED WOUND W/ HIBICLENS/STERILE WATER, DEBRIDED LOOSE SKIN FROM 2ND, 3RD, AND 4TH TOES W/ SCISSORS WELL A VERY SMALL AMOUNT OF BROWNISH- YELLOW ESCHAR FROM PERIWOUND ON R ACHILLES' AREA. PT. HAD A VERY DIFFICULT TIME TOLERATING DEBRIDEMENT OF ACHILLES' WOUND D/T PN EVEN W/ PN MEDS. WILL CONT. W/C TOLERATED. WILL ATTEMPT TO COORDINATE PN MED DELIVERY W/ DEBRIDEMENT TO HOPEFULLY IMPROVE TOLERANCE. PT. WAS TEARY AND UPSET W/ HER PN AND CURRENT SITUATION. TO BEGIN NITRO OINTMENT TO R LL TO PROMOTE SOME INCREASE IN PERFUSION. CALL LIGHT WITHIN REACH. LORE MARTINES PT Initialized on 05/17/19 14:04 - END OF NOTE 05/17/19 09:55 Case Management Note by Lou De León NO CHANGE IN DC PLANS AT THIS TIME Initialized on 05/17/19 09:55 - END OF NOTE Assessment/Plan (1) Ulcer of right foot Current Visit: Yes Status: Acute Assessment & Plan: Continue PT, I plan to update her licensed psychiatric technician Dr. Trey Shah after bone scan tomorrow. He said he would check with a vascular surgeon in [facility] to see if they could look at her studies and see if there was anything they could offer for revascularization. Code(s): L97.519 - NON-PRS CHRONIC ULCER OTH PRT RIGHT FOOT W UNSP SEVERITY (2) Cellulitis of right foot due to methicillin-resistant Staphylococcus aureus Current Visit: Yes Status: Acute Assessment & Plan: Continue vancomycin and zosyn. Code(s): L03.115 - CELLULITIS OF RIGHT LOWER LIMB; B95.62 - METHICILLIN RESIS STAPH INFCT CAUSING DISEASES CLASSD ELSWHR (3) PAD (peripheral artery disease) Current Visit: No Status: Acute Assessment & Plan: Severe and CV surgeon in [place] said he did not have anything to offer her. Code(s): I73.9 - PERIPHERAL VASCULAR DISEASE, UNSPECIFIED (4) Type II diabetes mellitus, well controlled Current Visit: Yes Status: Acute Assessment & Plan: Continue current treatment. Code(s): E11.9 - TYPE 2 DIABETES MELLITUS WITHOUT COMPLICATIONS (5) Chronic pain Current Visit: Yes Status: Acute Assessment & Plan: Patient has had increased pain with leg and wound. Pain medication has been adjusted. Code(s): G89.29 - OTHER CHRONIC PAIN (6) CAD (coronary artery disease) Current Visit: Yes Status: Acute Assessment & Plan: Follows with licensed psychiatric technician as outpatient. Continue home medication. Code(s): I25.10 - ATHSCL HEART DISEASE OF [place] CORONARY ARTERY W/O ANG PCTRS
[2019-05-18] MEDS: ECOTRIN 81 MG PO SCH (09:03)
[2019-05-18] MEDS: PLAVIX 75 MG Tablet PO SCH (09:03)
[2019-05-18] MEDS: Protonix 40MG Tablet PO SCH (09:03)
[2019-05-18] MEDS: XARELTO 10 MG TABLET PO SCH ×2 (09:03→21:18)
[2019-05-18] MEDS: Cyclobenzaprine 10 MG PO SCH ×3 (09:04→21:19)
[2019-05-18] MEDS: Lasix 40 MG PO SCH (09:04)
[2019-05-18] MEDS: NITRO-BID 2% UD PACKETS TOP SCH (09:04)
[2019-05-18] MEDS: NEURONTIN 300 MG PO SCH ×3 (09:04→21:19)
[2019-05-18] MEDS: Toprol-Xl 25MG Tablets PO SCH (09:04)
[2019-05-18] MEDS: PATIENT OWN MEDICATION PO SCH (09:05)
[2019-05-18] MEDS: PERCOCET TABLET 5/325MG PO PRN ×2 (11:14→15:19)
[2019-05-18] MEDS: ZOCOR 20MG PO SCH (21:18)
[2019-05-18] MEDS: DESYREL 50 MG PO SCH (21:18)
[2019-05-19] MEDS: PERCOCET TABLET 5/325MG PO PRN ×5 (00:15→22:38)
[2019-05-19] MEDS: Ativan 2 MG/1 ML VIAL IV PRN ×3 (00:47→07:49)
[2019-05-19] MEDS: Zosyn INJ 4.5 GM in Sodium Chloride 100ML MINI-BAG PLUS 100 ML IV SCH ×3 (00:47→16:15)
[2019-05-19] MEDS: Sodium Chloride 0.9% 10 ML FLUSH Syringe IV SCH ×3 (05:33→22:38)
[2019-05-19] MEDS: Zyvox 600 MG IV PREMIX*** 300 ML IV SCH ×2 (05:33→17:00)
[2019-05-19] MEDS: DILAUDID 2 MG INJECTION IV PRN ×7 (07:33→23:26)
[2019-05-19] MEDS: Sodium Chloride 0.9% 10 ML FLUSH Syringe IV PRN ×2 (07:50→12:35)
[2019-05-19] MEDS ORDERED: DILAUDID 2 MG INJECTION IV ONE (08:30)
--- NOTE | 2019-05-19 08:31 | PCM.NOTE ---
Date and Time: 05/19/19823 Subjective Assessment: Patient in more pain this AM. PT notes that she is not tolerating debridement. Discussed with Dr. Trey Shah. He is asking CV surgeon at [facility], Dr. Nino, to review his films from the lab analyst to see if there is any other intervention. If he thinks there is something that can be done, she will need to be transferred to [facility] for that. If not, most likely with amount of pain will need to be seen by General Surgery for amputation. Dr. Trey Shah says if she does need surgery, that she is clear from his standpoint for this. Objective Exam General Appearance: moderate distress, other (moaning in pain, says right ankle/ leg hurts) Neurologic Exam: alert, cooperative Skin Exam: normal color, other (right foot wrapped and dressed, no swelling of right leg and no erythema of upper leg) Wound Assessment: Skin/Wound Assessment Wound/Incision Assessment Start: 05/13/19 18: 36 Text: Status: Active Freq: Q6H Protocol: Document 05/19/19 07:00 CARMELO (Rec: 05/19/19 07:40 [id number]) Wound/Incision Assessment Right Heel Wound Assessment Shift Assessment Wound Type Stasis Ulcer Wound Stage Non Pressure Wound Dressing Status Dry & Intact Drainage Amount None Drainage Odor None/Absent Surrounding Tissue Edematous Primary Dressing Non-Adherent Gauze Pads Comment dressing in place CDI Wound Photo Photo Taken Yes Distance from Wound: bedside Respiratory Exam: normal breath sounds, lungs clear, No crackles/rales, No rhonchi, No wheezing Cardiovascular Exam: regular rate/rhythm, normal heart sounds, No murmur, No friction rub, No gallop Gastrointestinal/Abdomen Exam: soft, normal bowel sounds, No tenderness, No distention, No mass Extremity Exam: other (left above knee amputation) OBJECTIVE DATA Vital Signs: Vital Signs - 24 hr Temp Pulse Resp BP Pulse Ox 05/19/19 07:34 95 05/19/19 07:24 98.5 F 122 H 20 119/95 92 L 05/19/19 04:11 97.9 F 98 H 17 135/60 92 L 05/18/19 23:53 97.8 F 92 H 18 116/56 94 L 05/18/19 20:32 97.7 F 106 H 19 135/58 92 L 05/18/19 19:26 92 L 05/18/19 17:23 97.8 F 91 H 20 127/54 92 L 05/18/19 13:53 98 F 100 H 20 143/72 92 L 05/18/19 09:24 92 L Pain Assessment - Last Documented Pain Intensity 10 Pain Scale Used 0-10 Pain Scale Intake and Output: Intake & Output 05/17/19 05/18/19 05/19/19 05/20/19 06:59 06:59 06:59 06:59 Intake Total 1321 2631 1145 Output Total 3200 5150 3100 Balance -3820 -7676 -5715 Weight 72.4 kg 73.7 kg Lab Results: Accuchecks Date 05/19/19 Date 05/18/19 Time 07:41 Time 22:00 Accucheck Value: 124 Accucheck Value: 123 Accucheck Value: 133 Accucheck Value: 173 Radiology Exams: Radiology Procedures Category Date Time Status BONE THREE PHASE [NUCMED] Routine Exams 05/19/19 08:42 Ordered Multi-Disciplinary Progress Notes: Multi-Disciplinary Progress Notes 05/18/19 15:21 Physical Therapy Note by Mir Cotto PT. IS IN SIGNIFICANT PN AGAIN TODAY. RATES 5/10 W/ DOES OF DILAUDID PRIOR TO DRESSING CHANGE. PT. IS TEARFUL AND ANXIOUS ABOUT NUCLEAR MED TEST TOMORROW. NOTED CONT. BROWNISH YELLOW ESCHAR IN WOUND BED R SCHILLES INSERTION. 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 CLEANSED WOUND W/ HIBICLENS/STERILE WATER MIXTURE AND SOAKED FOR 2-3 MINS. DEBRIDED LOOSE, MACERATED TISSUE ON DORSAL R TOES W/ SCISSORS AND FORCEPS. ALSO DEBRIDED A VERY SMALL AREA OF BROWN ESCHAR IN ACHILLES WOUND BED. PT.'S TOLERANCE TO MECHANICAL DEBRIDEMENT IS VERY POOR D/T SEVERE PN. PT. IS NOT ABLE TO HOLD STILL TO ALLOW FOR SAFE REMOVAL OF TISSUE. WILL CONT. W / WOUND MANAGEMENT. FEEL SURGICAL CONSULT MAY BE WARRANTED SOON AND/OR PN MANAGEMENT. MIR COTTO PT Initialized on 05/18/19 15:21 - END OF NOTE Assessment/Plan (1) Ulcer of right foot Current Visit: Yes Status: Acute Assessment & Plan: Dr. Trey Shah is to let me know about what CV surgeon says to know if we need to transfer her to [facility] for procedure or consider amputation here. Code(s): L97.519 - NON-PRS CHRONIC ULCER OTH PRT RIGHT FOOT W UNSP SEVERITY (2) Cellulitis of right foot due to methicillin-resistant Staphylococcus aureus Current Visit: Yes Status: Acute Assessment & Plan: Continue IV antibiotics. She is on Zosyn (Day 5) and Vancomycin (Day 7). Code(s): L03.115 - CELLULITIS OF RIGHT LOWER LIMB; B95.62 - METHICILLIN RESIS STAPH INFCT CAUSING DISEASES CLASSD ELSWHR (3) PAD (peripheral artery disease) Current Visit: No Status: Acute Assessment & Plan: She is on Xarelto 2.5 mg po bid per Dr. Trey Shah's recommendation. Continue aspirin 81 mg. Continue plavix 75 mg. Code(s): I73.9 - PERIPHERAL VASCULAR DISEASE, UNSPECIFIED (4) Type II diabetes mellitus, well controlled Current Visit: Yes Status: Acute Assessment & Plan: Currently well controlled. Code(s): E11.9 - TYPE 2 DIABETES MELLITUS WITHOUT COMPLICATIONS (5) Chronic pain Current Visit: Yes Status: Acute Assessment & Plan: On IV dilaudid and oral percocet. Code(s): G89.29 - OTHER CHRONIC PAIN (6) CAD (coronary artery disease) Current Visit: Yes Status: Acute Assessment & Plan: Stable. Code(s): I25.10 - ATHSCL HEART DISEASE OF [place] CORONARY ARTERY W/O ANG PCTRS
[2019-05-19] MEDS: Lasix 40 MG PO SCH (08:58)
[2019-05-19] MEDS: Cyclobenzaprine 10 MG PO SCH ×3 (08:58→22:38)
[2019-05-19] MEDS: Protonix 40MG Tablet PO SCH (08:59)
[2019-05-19] MEDS: NEURONTIN 300 MG PO SCH ×3 (08:59→22:38)
[2019-05-19] MEDS: PATIENT OWN MEDICATION PO SCH (08:59)
[2019-05-19] MEDS: NITRO-BID 2% UD PACKETS TOP SCH (08:59)
[2019-05-19] MEDS: Toprol-Xl 25MG Tablets PO SCH (09:00)
[2019-05-19] MEDS: XARELTO 10 MG TABLET PO SCH ×2 (09:22→22:38)
[2019-05-19] MEDS: ECOTRIN 81 MG PO SCH (09:22)
[2019-05-19] MEDS: PLAVIX 75 MG Tablet PO SCH (09:22)
[2019-05-19 09:23] LABS: Hematocrit 36.9 % (35-47); Hemoglobin 11.5 gm/dl (12.0-16.0); Mean Cell Volume 96.6 fl (78-100); Mean Corpuscular Hemoglobin 30.1 pg (26-32); Mean Corpuscular Hgb Concent. 31.2 g/dl (32-36); Mean Platelet Volume 9.5 fl (7.5-11.0); Platelet Count 288 K/mm3 (150-450); Red Blood Count 3.82 M/mm3 (4.1-5.4); Red Cell Distribution Width 13.9 % (11.5-14.0); White Blood Count 11.8 K/mm3 (4.0-10.5)
[2019-05-19 09:41] LABS: ANION GAP 9.3 MEQ/L (5-15); BLOOD UREA NITROGEN 7 mg/dL (7-17); CHLORIDE 101 mmol/L (98-107); Calcium 8.8 mg/dL (8.4-10.2); Carbon Dioxide 30 mmol/L (22-30); Glucose 123 mg/dL (74-106); Potassium 3.4 mmol/L (3.5-5.1); SODIUM 137 mmol/L (137-145)
[2019-05-19 14:14] LABS: BAND 2 % (0.0-2.0); Eosinophil 13 % (0.00-3.0); Lymphocytes 6 % (24-44); Monocyte 2 % (0.0-12.0); Neutrophils 77 % (36.0-66.0); Platelet Estimate NORMAL (NORMAL); Total Cells Counted 100
--- NOTE | 2019-05-19 15:40 | XRAY ---
Exam: Limited 3 phase radionuclide bone scan with attention to the right foot from 05/19/2019. Comparison: 3 views the right foot from 05/13/2019 and 3 views of the right ankle from 05/16/2019. Indication: Wound just proximal to right ankle joint posteriorly, positive for MRSA, has had wound since January,. Patient has severe pain in this area. Right ankle radiographs from 05/16/2019 revealed some questionable cortical thinning at the lateral margin of the distal right fibula suggesting the possibility of osteomyelitis. 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 Dose: 26 mCi of technetium 99m MDP IV. Findings: Medial and lateral blood flow images of the distal right lower leg, ankle, and foot were obtained at 3 seconds per frame for approximately 90 seconds. Subsequently, post vascular flow blood pool images were obtained in the medial and lateral projections. Lastly, three-hour delay medial and lateral images of the distal right lower leg, ankle, and foot were obtained as well as a plantar delay image of the right ankle and foot. I see no significant increased blood flow within the visualized distal right lower leg. The blood pool images appear unremarkable as well. Delay images reveal no abnormality at the level of the distal right fibula. Nor do I see any significant increased activity to suggest focal osteomyelitis. Impression: 1. No significant increased abnormal bone activity is seen to suggest osteomyelitis within the distal right lower leg, ankle, and foot. Specifically, the area of the distal right fibula at the lateral right ankle appears unremarkable.
[2019-05-19] MEDS: ZOCOR 20MG PO SCH (22:38)
[2019-05-19] MEDS: DESYREL 50 MG PO SCH (22:38)
[2019-05-20] MEDS: Zosyn INJ 4.5 GM in Sodium Chloride 100ML MINI-BAG PLUS 100 ML IV SCH ×3 (00:27→16:25)
[2019-05-20] MEDS: DILAUDID 2 MG INJECTION IV PRN ×4 (01:37→21:57)
[2019-05-20] MEDS: PERCOCET TABLET 5/325MG PO PRN ×4 (02:41→23:24)
[2019-05-20] MEDS: Sodium Chloride 0.9% 10 ML FLUSH Syringe IV SCH ×4 (05:56→23:08)
[2019-05-20] MEDS: Zyvox 600 MG IV PREMIX*** 300 ML IV SCH ×2 (05:56→17:12)
[2019-05-20] MEDS: XARELTO 10 MG TABLET PO SCH ×2 (08:10→23:05)
[2019-05-20] MEDS: NITRO-BID 2% UD PACKETS TOP SCH (08:10)
[2019-05-20] MEDS: Cyclobenzaprine 10 MG PO SCH ×3 (08:11→23:04)
[2019-05-20] MEDS: Toprol-Xl 25MG Tablets PO SCH (08:11)
[2019-05-20] MEDS: Protonix 40MG Tablet PO SCH (08:11)
[2019-05-20] MEDS: PLAVIX 75 MG Tablet PO SCH (08:12)
[2019-05-20] MEDS: NEURONTIN 300 MG PO SCH ×3 (08:13→23:04)
[2019-05-20] MEDS: ECOTRIN 81 MG PO SCH (08:13)
[2019-05-20] MEDS: Lasix 40 MG PO SCH (08:13)
[2019-05-20] MEDS: PATIENT OWN MEDICATION PO SCH (08:26)
[2019-05-20] MEDS: Sodium Chloride 0.9% 10 ML FLUSH Syringe IV PRN (11:00)
--- NOTE | 2019-05-20 11:23 | CONS ---
CONSULT DATE: 05/19/2019 HISTORY: The patient was seen and examined at the bedside. She has had amputation on the left side already. On the right side she has a 1.5 x 1.0 inch ankle ulcer. Half of this is pink and half of this is slightly foul. It is not very deep. It is 2 to 3 mm. The tendon is not exposed yet. Her foot is intact but ischemic but there are no ulcerations. She is resuming wound care for her eliezer-Achilles tendon area ulcer. She had been in [facility] recently in March. She had evaluation by her assistant credit manager, Dr. Shah. She apparently had arterial Doppler which was 0 at the ankle on the right at [facility]. She had venous Doppler at [facility]. Álvaro initial discussion concerning amputation. She is certainly totally dependent on this leg at this time. She is not very anxious for amputation. Our younger partner, Dr. Derrick Luis, is particularly interested in this subject. We will try to obtain the information that she has had and see whether she is a candidate for CT angiogram or arteriogram as I think the known course of this over the next three to six months is certainly continued deterioration and amputation.
--- NOTE | 2019-05-20 12:19 | PCM.NOTE ---
Date and Time: 05/20/19 1214 Subjective Assessment: Patient reports pain is better and wants to go home. Discussed needs to be able to have pain controlled without IV pain medication. Nurse called me later and said she was not able to control pain with oral medication. Dr. Trey Shah has not heard back from CV surgeon at yet. - Review of Systems Constitutional: No Symptoms Respiratory: No Symptoms Cardiac: No Symptoms Abdominal/Gastrointestinal: No Symptoms Musculoskeletal: Other (pain in right leg/foot) Objective Exam General Appearance: no apparent distress Neurologic Exam: alert, cooperative Skin Exam: normal color, warm, dry Wound Assessment: Skin/Wound Assessment Wound/Incision Assessment Start: 05/13/19 18: 36 Text: Status: Active Freq: Q6H Protocol: Document 05/20/19 07:00 CARMELO (Rec: 05/20/19 07:12 CARMELO [id number]) Wound/Incision Assessment Right Heel Wound Assessment Shift Assessment Wound Type Stasis Ulcer Wound Stage Non Pressure Wound Dressing Status Dry & Intact Drainage Amount None Drainage Odor None/Absent Surrounding Tissue Edematous Primary Dressing Non-Adherent Gauze Pads Comment dressing/stockinette in place CDI Wound Photo Photo Taken Yes Distance from Wound: bedside Respiratory Exam: normal breath sounds, lungs clear, No crackles/rales, No rhonchi, No wheezing Cardiovascular Exam: regular rate/rhythm, No murmur, No friction rub, No gallop Extremity Exam: other (right foot wrapped and dressed, no swelling above bandage , no redness of skin of lower leg.) OBJECTIVE DATA Vital Signs: Vital Signs - 24 hr Temp Pulse Resp BP Pulse Ox 05/20/19 09:21 94 L 05/20/19 07:16 97.7 F 58 L 20 127/65 91 L 05/20/19 03:56 97.9 F 102 H 17 137/61 91 L 05/19/19 23:52 97.7 F 116 H 19 145/65 91 L 05/19/19 21:00 97.9 F 60 17 120/60 96 05/19/19 20:16 92 L 05/19/19 16:30 98.6 F 105 H 18 123/57 92 L 05/19/19 13:00 98.7 F 91 H 18 141/64 92 L Pain Assessment - Last Documented Pain Intensity 4 Pain Scale Used 0-10 Pain Scale Intake and Output: Intake & Output 05/18/19 05/19/19 05/20/19 05/21/19 06:59 06:59 06:59 06:59 Intake Total 2631 1145 1103 Output Total 515 3108 2770 Balance -399 1954 Weight 72.4 kg 73.7 kg 73.3 kg Lab Results: Accuchecks Date 05/20/19 Date 05/20/19 Date 05/19/19 Date 05/19/19 Time 11:46 Time 08:28 Time 22:00 Time 16:24 Accucheck Value: 108 Accucheck Value: 132 Accucheck Value: 97 Accucheck Value: 83 Lab Results-Last 24 Hours 05/19/19 Range/Units 09:15 Segmented Neutrophils 77 H (36.0-66.0) % Band Neutrophils 2 (0.0-2.0) % Lymphocytes (Manual) 6 L (24-44) % Monocytes (Manual) 2 (0.0-12.0) % Eosinophils (Manual) 13 H (0.00-3.0) % Platelet Estimate NORMAL (NORMAL) RBC Morphology NORMAL Radiology Exams: Radiology Procedures Category Date Time Status BONE THREE PHASE [NUCMED] Routine Exams 05/19/19 08:42 Completed Multi-Disciplinary Progress Notes: Multi-Disciplinary Progress Notes 05/20/19 10:53 Nutrition Note by Rachel Almeida F/u Note: 1800 ADA diet with prostat 64 con't. Pt refused meals yesterday; pt in a lot of pain. Consumed 75% of breakfast this morning. Admission weight 72.4 kg; current weight 73.3 kg. neg fluid balance 1847 mls. Labs 05/19= K+ 3.4, Cr 0.50 , glu 123, hgb 11.5. goals not met and ongoing. Will con't to monitor and f/u prn. T.BELINDA Almeida Initialized on 05/20/19 10:53 - END OF NOTE 05/20/19 10:34 Case Management Note by Lou De León AFTER Kermit ORTEGA SEEN PATIENT HE SUGGESTED THAT PATIENT NEEDS REHAB FOR PROPER WOUND CARE. S/W PATIENT ABOUT THAT AND IS AWARE OF HER NEED FOR REHAB. PATIENT WOULD LIKE TO S/W HER DAUGHTER THEN LET US KNOW WHICH REHAB FACILITY SHE WOULD LIKE TO GO TO Initialized on 05/20/19 10:34 - END OF NOTE Assessment/Plan (1) Ulcer of right foot Current Visit: Yes Status: Acute Assessment & Plan: General surgeon consulted and nursing staff reports saw patient. Discussing possible debridement. Code(s): L97.519 - NON-PRS CHRONIC ULCER OTH PRT RIGHT FOOT W UNSP SEVERITY (2) Cellulitis of right foot due to methicillin-resistant Staphylococcus aureus Current Visit: Yes Status: Acute Assessment & Plan: This is Day 6 of zosyn and Day 8 of vancomycin. At this time, will plan on 10 day course of antibiotics for both. Bone scan was negative for osteomyelitis. Code(s): L03.115 - CELLULITIS OF RIGHT LOWER LIMB; B95.62 - METHICILLIN RESIS STAPH INFCT CAUSING DISEASES CLASSD ELSWHR (3) PAD (peripheral artery disease) Current Visit: No Status: Acute Assessment & Plan: Dr. Trey Shah has not heard back yet from CV surgeon at reviewing images from lab courier that he took recently of her vasculature. Code(s): I73.9 - PERIPHERAL VASCULAR DISEASE, UNSPECIFIED (4) Type II diabetes mellitus, well controlled Current Visit: Yes Status: Acute Assessment & Plan: Well controlled; continue currrent treatment. Code(s): E11.9 - TYPE 2 DIABETES MELLITUS WITHOUT COMPLICATIONS (5) Chronic pain Current Visit: Yes Status: Acute Code(s): G89.29 - OTHER CHRONIC PAIN (6) CAD (coronary artery disease) Current Visit: Yes Status: Acute Assessment & Plan: Stable. Dr. Trey Shah said she was stable from his standpoint for surgery if needed. Code(s): I25.10 - ATHSCL HEART DISEASE OF [place] CORONARY ARTERY W/O ANG PCTRS
--- NOTE | 2019-05-20 17:17 | PCM.NOTE ---
Date and Time: 05/20/19 1710 Subjective Assessment: no acute issues overnight. redness of foot improved. some pain right foot. before admission was at home alone, using right leg for transfers from bed to wheelchair, able to fix herself food and live independently with home health aids 3x per week. wound in january. had arteriogram with covington. No endovascular option. Sent to [facility] and no bypass possible per patient. - Review of Systems Constitutional: No Fever, No Chills Respiratory: No Symptoms Cardiac: No Symptoms Abdominal/Gastrointestinal: No Abdominal Pain Skin: Skin Lesions Objective Exam Wound Assessment: Skin/Wound Assessment Wound/Incision Assessment Start: 05/13/19 18: 36 Text: Status: Active Freq: Q6H Protocol: Document 05/20/19 13:00 CARMELO (Rec: 05/20/19 13:37 CARMELO [id number]) Wound/Incision Assessment Right Heel Wound Assessment Shift Assessment Wound Type Stasis Ulcer Wound Stage Non Pressure Wound Dressing Status Dry & Intact Drainage Amount None Drainage Odor None/Absent Surrounding Tissue Edematous Primary Dressing Non-Adherent Gauze Pads Comment dressing/stockinette in place CDI Wound Photo Photo Taken Yes Distance from Wound: bedside OBJECTIVE DATA Vital Signs: Vital Signs - 24 hr Temp Pulse Resp BP Pulse Ox 05/20/19 15:20 97.8 F 104 H 20 139/66 93 L 05/20/19 12:21 98 F 68 20 116/62 92 L 05/20/19 09:21 94 L 05/20/19 07:16 97.7 F 58 L 20 127/65 91 L 05/20/19 03:56 97.9 F 102 H 17 137/61 91 L 05/19/19 23:52 97.7 F 116 H 19 145/65 91 L 05/19/19 21:00 97.9 F 60 17 120/60 96 05/19/19 20:16 92 L Pain Assessment - Last Documented Pain Intensity 7 Pain Scale Used 0-10 Pain Scale Intake and Output: Intake & Output 05/18/19 05/19/19 05/20/19 05/21/19 06:59 06:59 06:59 06:59 Intake Total 2631 1145 1103 120 Output Total 5375 3100 2950 Balance -3293 -0288 -1875 120 Weight 72.4 kg 73.7 kg 73.3 kg Lab Results: Accuchecks Date 05/20/19 Date 05/20/19 Date 05/20/19 Date 05/19/19 Time 16:13 Time 11:46 Time 08:28 Time 22:00 Accucheck Value: 136 Accucheck Value: 108 Accucheck Value: 132 Accucheck Value: 97 Radiology Exams: Radiology Procedures Category Date Time Status BONE THREE PHASE [NUCMED] Routine Exams 05/19/19 08:42 Completed Multi-Disciplinary Progress Notes: Multi-Disciplinary Progress Notes 05/20/19 16:10 Physical Therapy Note by Lore Martines DRESSING INSTRUCTIONS FOR NURSING OVER THE WEEKEND - 05/21 1.CLEANSE WOUND W/ HIBICLENS/STERILE WATER - MAY HAVE TO USE THIS SOLUTION TO SOAK OFF GAUZE 2. APPLY BARRIER CREAM TO PERIPHERY OF ACHILLES' WOUND AND TOES 3. USE BETADYNE SWABS TO APPLY BETADYNE TO WOUND BED AND SQUEEZE SOME OF THE BETADYNE FROM ANOTHER SWAB ONTO A 4X4 (CAN ALSO GET SOME OF THE BETADYNE FROM THE BOTTOM OF THE PACKAGING) PLACE 1-2 DRY 4X4S ON TOP AND COVER W/ KERLIX ( JUST 1-2 TURNS/LAYERS) 4. SECURE W/ TAPE AND DON TUBIGRIP SOCK IF EDEMA STILL PRESENT - WATCH FOR INDENTATION IN LL FROM SOCK. USING BETADYNE TO MAINTAIN LEATHER CARVER WOUND BED D/T POOR ARTERIAL FLOW. LORE MARTINES, PT Initialized on 05/20/19 16:10 - END OF NOTE 05/20/19 15:35 Physical Therapy Note by Lore Martines PT REPORTS R FOOT PN AT 7-9/10 UPON P.T. ARRIVAL TO ROOM. PT. UPSET RE: DISCUSSION W/ NEIL ORTEGA RE: POTENTIAL R LE AMPUTATION/SURGICAL DEBRIDMENT. NO DRAINAGE NOTED ON DRESSING BUT NSG HAD CHANGED DRSG AFTER SUGERY CONSULT THIS A.M. ALL TOES ARE PURPLISH IN COLOR. WOUND BED STILL COVERED IN 95% BROWN ESCHAR. HAS SOME SLIGHT GRANULATION IN DISTAL WOUND BED. CLEANSED WOUND W/ HIBICLENS/STERILE WATER, DEBRIDED A VERY SMALL AMOUNT OF BROWN ESCHAR FROM PERIPHERU OF WOUND W/ SCISSORS AND FORCEPS. SCORED WOUND BED W/ SCALPAL TO PROMOTE ESCHAR SLOUGHING. DRESSED W/ BETADYNE SOAKED 4 X 4, KERLIX, AND SIZE "G " TUBIGRIP SOCK. NOTED AREA ON INDENTATION MID CALF D/T EDEMA SO FELT SOCK SIZE NEEDED TO BE LARGER. PT. STILL IS NOT TOLERATING MECHANICAL DEBRIDEMENT WELL D/T PN EVEN W/ PN MEDS. WILL CONT. P.T. FOR WOUND MG'T. LORE MARTINES, PT Initialized on 05/20/19 15:35 - END OF NOTE 05/20/19 10:53 Nutrition Note by Rachel Almeida F/u Note: 1800 ADA diet with prostat 64 con't. Pt refused meals yesterday; pt in a lot of pain. Consumed 75% of breakfast this morning. Admission weight 72.4 kg; current weight 73.3 kg. neg fluid balance 1847 mls. Labs 05/19= K+ 3.4, Cr 0.50 , glu 123, hgb 11.5. goals not met and ongoing. Will con't to monitor and f/u prn. T.BELINDA Almeida Initialized on 05/20/19 10:53 - END OF NOTE 05/20/19 10:34 Case Management Note by Lou De León AFTER Kerimt ORTEGA SEEN PATIENT HE SUGGESTED THAT PATIENT NEEDS REHAB FOR PROPER WOUND CARE. S/W PATIENT ABOUT THAT AND IS AWARE OF HER NEED FOR REHAB. PATIENT WOULD LIKE TO S/W HER DAUGHTER THEN LET US KNOW WHICH REHAB FACILITY SHE WOULD LIKE TO GO TO Initialized on 05/20/19 10:34 - END OF NOTE Assessment/Plan (1) Cellulitis of right foot due to methicillin-resistant Staphylococcus aureus Current Visit: Yes Status: Acute Assessment & Plan: 74yo female nonhealing right foot wound 3cm posterior heel due to PVD. Still actively smoking prior to coming in. Pt states she has had arteriogram with adria and saw keyona for possible surgery and they said there was nothing that could be done and that they would just manage the wound. -obtaining Arteriogram, duplex reports -I discussed with the patient that if there is no revascularization option that she would need either amputation (AKA) as BKA is not recommended in nonambulating patients vs wound debridement with daily wound care to maintain some level of independence in transfers. However she will undoubtedly progress and eventually need amputation. -will rediscuss with patient after studies reviewed. Code(s): L03.115 - CELLULITIS OF RIGHT LOWER LIMB; B95.62 - METHICILLIN RESIS STAPH INFCT CAUSING DISEASES CLASSD ELSWHR
--- NOTE | 2019-05-20 18:02 | PCM.NOTE ---
Date and Time: 05/20/19 175 Objective Exam Wound Assessment: Skin/Wound Assessment Wound/Incision Assessment Start: 05/13/19 18: 36 Text: Status: Active Freq: Q6H Protocol: Document 05/20/19 13:00 CARMELO (Rec: 05/20/19 13:37 CARMELO [id number]) Wound/Incision Assessment Right Heel Wound Assessment Shift Assessment Wound Type Stasis Ulcer Wound Stage Non Pressure Wound Dressing Status Dry & Intact Drainage Amount None Drainage Odor None/Absent Surrounding Tissue Edematous Primary Dressing Non-Adherent Gauze Pads Comment dressing/stockinette in place CDI Wound Photo Photo Taken Yes Distance from Wound: bedside OBJECTIVE DATA Vital Signs: Vital Signs - 24 hr Temp Pulse Resp BP Pulse Ox 05/20/19 15:20 97.8 F 104 H 20 139/66 93 L 05/20/19 12:21 98 F 68 20 116/62 92 L 05/20/19 09:21 94 L 05/20/19 07:16 97.7 F 58 L 20 127/65 91 L 05/20/19 03:56 97.9 F 102 H 17 137/61 91 L 05/19/19 23:52 97.7 F 116 H 19 145/65 91 L 05/19/19 21:00 97.9 F 60 17 120/60 96 05/19/19 20:16 92 L Pain Assessment - Last Documented Pain Intensity 7 Pain Scale Used 0-10 Pain Scale Intake and Output: Intake & Output 05/18/19 05/19/19 05/20/19 05/21/19 06:59 06:59 06:59 06:59 Intake Total 2631 1145 1103 120 Output Total 4265 3107 4654 Balance -3702 -3386 -9474 120 Weight 72.4 kg 73.7 kg 73.3 kg Lab Results: Accuchecks Date 05/20/19 Date 05/20/19 Date 05/20/19 Date 05/19/19 Time 16:13 Time 11:46 Time 08:28 Time 22:00 Accucheck Value: 136 Accucheck Value: 108 Accucheck Value: 132 Accucheck Value: 97 Radiology Exams: Radiology Procedures Category Date Time Status BONE THREE PHASE [NUCMED] Routine Exams 05/19/19 08:42 Completed CTA ABD/PEL W FEM RUNOFF [CT] Routine Exams 05/20/19 17:49 Ordered Multi-Disciplinary Progress Notes: Multi-Disciplinary Progress Notes 05/20/19 16:10 Physical Therapy Note by Lore Martines DRESSING INSTRUCTIONS FOR NURSING OVER THE WEEKEND - 05/21 1.CLEANSE WOUND W/ HIBICLENS/STERILE WATER - MAY HAVE TO USE THIS SOLUTION TO SOAK OFF GAUZE 2. APPLY BARRIER CREAM TO PERIPHERY OF ACHILLES' WOUND AND TOES 3. USE BETADYNE SWABS TO APPLY BETADYNE TO WOUND BED AND SQUEEZE SOME OF THE BETADYNE FROM ANOTHER SWAB ONTO A 4X4 (CAN ALSO GET SOME OF THE BETADYNE FROM THE BOTTOM OF THE PACKAGING) PLACE 1-2 DRY 4X4S ON TOP AND COVER W/ KERLIX ( JUST 1-2 TURNS/LAYERS) 4. SECURE W/ TAPE AND DON TUBIGRIP SOCK IF EDEMA STILL PRESENT - WATCH FOR INDENTATION IN LL FROM SOCK. USING BETADYNE TO MAINTAIN VECTOR CONTROL SPECIALIST WOUND BED D/T POOR ARTERIAL FLOW. LORE MARTINES PT Initialized on 05/20/19 16:10 - END OF NOTE 05/20/19 15:35 Physical Therapy Note by Lore Martines PT REPORTS R FOOT PN AT 7-9/10 UPON P.T. ARRIVAL TO ROOM. PT. UPSET RE: DISCUSSION W/ NEIL ORTEGA RE: POTENTIAL R LE AMPUTATION/SURGICAL DEBRIDMENT. NO DRAINAGE NOTED ON DRESSING BUT NSG HAD CHANGED DRSG AFTER SUGERY CONSULT THIS A.M. ALL TOES ARE PURPLISH IN COLOR. WOUND BED STILL COVERED IN 95% BROWN ESCHAR. HAS SOME SLIGHT GRANULATION IN DISTAL WOUND BED. CLEANSED WOUND W/ HIBICLENS/STERILE WATER, DEBRIDED A VERY SMALL AMOUNT OF BROWN ESCHAR FROM PERIPHERU OF WOUND W/ SCISSORS AND FORCEPS. SCORED WOUND BED W/ SCALPAL TO PROMOTE ESCHAR SLOUGHING. DRESSED W/ BETADYNE SOAKED 4 X 4, KERLIX, AND SIZE "G " TUBIGRIP SOCK. NOTED AREA ON INDENTATION MID CALF D/T EDEMA SO FELT SOCK SIZE NEEDED TO BE LARGER. PT. STILL IS NOT TOLERATING MECHANICAL DEBRIDEMENT WELL D/T PN EVEN W/ PN MEDS. WILL CONT. P.T. FOR WOUND MG'T. LORE MARTINES PT Initialized on 05/20/19 15:35 - END OF NOTE 05/20/19 10:53 Nutrition Note by Ray,Rachel F/u Note: 1800 ADA diet with prostat 64 con't. Pt refused meals yesterday; pt in a lot of pain. Consumed 75% of breakfast this morning. Admission weight 72.4 kg; current weight 73.3 kg. neg fluid balance 1847 mls. Labs 05/19= K+ 3.4, Cr 0.50 , glu 123, hgb 11.5. goals not met and ongoing. Will con't to monitor and f/u prn. BELINDA Manzo Initialized on 05/20/19 10:53 - END OF NOTE 05/20/19 10:34 Case Management Note by Lou De León AFTER Kermit ORTEGA SEEN PATIENT HE SUGGESTED THAT PATIENT NEEDS REHAB FOR PROPER WOUND CARE. S/W PATIENT ABOUT THAT AND IS AWARE OF HER NEED FOR REHAB. PATIENT WOULD LIKE TO S/W HER DAUGHTER THEN LET US KNOW WHICH REHAB FACILITY SHE WOULD LIKE TO GO TO Initialized on 05/20/19 10:34 - END OF NOTE Assessment/Plan (1) Cellulitis of right foot due to methicillin-resistant Staphylococcus aureus Current Visit: Yes Status: Acute Assessment & Plan: arteriogram from jan 2019 reviewed. at that time L common femoral severe stenosis. patent left fem to right profunda graft. occluded right common fem, sfa. 2 vessel runoff to foot. On physical exam today right profunda dop, pop monophasic, unable to obtain ankle signals. maybe a faint pt monophasic. does wiggle her toes. and sensation in tact. -will get CTA to reevaluate. May benefit from left femoral endart to try and improve inflow. Code(s): L03.115 - CELLULITIS OF RIGHT LOWER LIMB; B95.62 - METHICILLIN RESIS STAPH INFCT CAUSING DISEASES CLASSD ELSR
[2019-05-20] MEDS: DESYREL 50 MG PO SCH (23:04)
[2019-05-20] MEDS: ZOCOR 20MG PO SCH (23:06)
[2019-05-21] MEDS: Zosyn INJ 4.5 GM in Sodium Chloride 100ML MINI-BAG PLUS 100 ML IV SCH ×3 (01:02→16:32)
[2019-05-21] MEDS: DILAUDID 2 MG INJECTION IV PRN ×6 (01:22→22:50)
[2019-05-21] MEDS: PERCOCET TABLET 5/325MG PO PRN ×5 (04:09→20:49)
[2019-05-21] MEDS: Zyvox 600 MG IV PREMIX*** 300 ML IV SCH ×2 (06:05→17:28)
[2019-05-21] MEDS: Sodium Chloride 0.9% 10 ML FLUSH Syringe IV SCH ×2 (06:05→22:50)
[2019-05-21] MEDS: Fosamax 70 MG PO SCH (06:54)
[2019-05-21] MEDS: Lasix 40 MG PO SCH (09:05)
[2019-05-21] MEDS: Cyclobenzaprine 10 MG PO SCH ×3 (09:05→22:32)
[2019-05-21] MEDS: ECOTRIN 81 MG PO SCH (09:05)
[2019-05-21] MEDS: PLAVIX 75 MG Tablet PO SCH (09:06)
[2019-05-21] MEDS: Toprol-Xl 25MG Tablets PO SCH (09:06)
[2019-05-21] MEDS: NEURONTIN 300 MG PO SCH ×3 (09:06→22:34)
[2019-05-21] MEDS: Protonix 40MG Tablet PO SCH (09:06)
[2019-05-21] MEDS: PATIENT OWN MEDICATION PO SCH (09:06)
[2019-05-21] MEDS: XARELTO 10 MG TABLET PO SCH ×2 (09:08→22:32)
--- NOTE | 2019-05-21 09:19 | XRAY ---
Indication: Right ankle ulcer with possible osteomyelitis. Elevated WBC. Conventional contrast enhanced CTA abdomen/pelvis with bilateral runoff was performed using 100 cc Isovue 370 contrast. Two-dimensional sagittal and coronal reformatted images obtained. Additional 3-dimensional reformatted images obtained using a separate workstation. Comparison: None Abdominal aorta is moderately arteriosclerotic/ectatic. Just inferior to the renal arteries is focal eccentric calcified plaquing producing 40-50% stenosis. Superior mesenteric artery also demonstrates moderate calcified plaquing with focal plaquing in the proximal segment producing 60-70% stenosis. Minimal scattered arteriosclerotic calcification of the celiac artery. Inferior mesenteric artery appears normal in CTA appearance. A single renal artery supplies each kidney with mild/moderate scattered arteriosclerotic calcifications without critical stenosis/obstruction. Right leg runoff demonstrates moderate/advanced arteriosclerotic calcifications. The iliac arteries are occluded. Left femoral to femoral bypass stent graft appears patent.. Deep femoral artery appears normal in CTA appearance. Superficial and majority of the popliteal arteries are occluded along its entire length. There is reconstitution in the distal popliteal artery which appears attenuated. Trifurcation vessels demonstrates minimal calcifications proximally without critical stenosis/occlusion. Peroneal artery tapers off by ankle level. Only the anterior and posterior tibial arteries cross the ankle joint to supply the right foot. Left leg runoff demonstrates moderate/advanced calcifications of the iliac vessels. Distal common femoral artery just proximal to the stent graft anastomosis demonstrates significant arteriosclerotic calcifications. Remaining superficial femoral artery appears occluded. Deep femoral artery appears normal in CTA appearance. 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 Noncontrasted stomach and bowel loops appear nonobstructed. Numerous tiny calcified splenic granulomas. 4 mm left upper renal cortical cyst. Farmer balloon catheter in situ. Remaining liver, gallbladder, pancreas, adrenal glands, kidneys, and ureters appear unremarkable. No pathologic retroperitoneal lymphadenopathy. Osseous structures demonstrates osteopenia, moderate/advanced degenerative changes throughout the spine, and moderate right knee tricompartmental degenerative changes. Moderate levorotoscoliosis centered at L4. Right ankle demonstrates soft tissue swelling/edema but no suspicious bony lesions or osseous destructive process. Lung bases demonstrates bibasilar subsegmental atelectasis/scarring, right greater than left. Heart is not enlarged. Impression: 1. Moderately arteriosclerotic abdominal aorta with focal infrarenal stenosis. Additional arteriosclerotic disease predominantly in the celiac, superior mesenteric, and both main renal arteries as detailed. 2. Patent femoral to femoral bypass graft. 3. Right leg runoff demonstrates occluded femoral to popliteal bypass. There is reconstitution in the distal popliteal artery which appears attenuated. Minimal disease in the proximal trifurcation vessels with 2 vessel runoff into the right foot. 4. Left leg runoff demonstrates moderate/advanced disease in the iliac vessels and occlusion of the superficial femoral artery. Only deep femoral artery is normal in CTA appearance. There has been above-knee amputation with indeterminate fluid collection around the femur stump. 5. Incidental tiny left renal cyst, calcified splenic granulomas, and bibasilar atelectasis/scarring. Comment: Preliminary interpretation was made by C. No critical discrepancy.
--- NOTE | 2019-05-21 10:22 | PCM.NOTE ---
Date and Time: 05/21/19 1016 Subjective Assessment: no acute issues overnight. right foot pain. Objective Exam Wound Assessment: Skin/Wound Assessment Wound/Incision Assessment Start: 05/13/19 18: 36 Text: Status: Active Freq: Q6H Protocol: Document 05/21/19 07:00 RDUHNE (Rec: 05/21/19 09:43 RDUHNE [id number]) Wound/Incision Assessment Right Heel Wound Assessment Shift Assessment Wound Type Stasis Ulcer Wound Stage Non Pressure Wound Dressing Status Dry & Intact Drainage Amount None Drainage Odor None/Absent Surrounding Tissue Edematous Primary Dressing Non-Adherent Gauze Pads Comment dressing/stockinette in place, CDI Wound Photo Photo Taken Yes Distance from Wound: bedside Comments: 05/21/19 10:17 cap refill 2sec wiggles toes. OBJECTIVE DATA Vital Signs: Vital Signs - 24 hr Temp Pulse Resp BP Pulse Ox 05/21/19 07:51 98.8 F 94 H 18 143/66 92 L 05/21/19 06:46 94 L 05/21/19 04:00 99.0 F 105 H 20 128/60 92 L 05/21/19 00:00 99.2 F 91 H 20 145/65 94 L 05/20/19 19:57 98.9 F 111 H 18 112/61 91 L 05/20/19 18:45 92 L 05/20/19 15:20 97.8 F 104 H 20 139/66 93 L 05/20/19 12:21 98 F 68 20 116/62 92 L Pain Assessment - Last Documented Pain Intensity 8 Pain Scale Used 0-10 Pain Scale Intake and Output: Intake & Output 05/19/19 05/20/19 05/21/19 05/22/19 06:59 06:59 06:59 06:59 Intake Total 1145 1103 1137 Output Total 3100 2950 2200 Balance -1952 -1827 -2653 Weight 73.7 kg 72.7 kg Lab Results: Accuchecks Date 05/20/19 Date 05/20/19 Time 16:13 Time 11:46 Accucheck Value: 118 Accucheck Value: 157 Accucheck Value: 136 Accucheck Value: 108 Radiology Exams: Radiology Procedures Category Date Time Status CTA ABD/PEL W FEM RUNOFF [CT] Routine Exams 05/20/19 17:49 Completed Multi-Disciplinary Progress Notes: Multi-Disciplinary Progress Notes 05/20/19 16:10 Physical Therapy Note by Lore Martines DRESSING INSTRUCTIONS FOR NURSING OVER THE WEEKEND - 05/21 1.CLEANSE WOUND W/ HIBICLENS/STERILE WATER - MAY HAVE TO USE THIS SOLUTION TO SOAK OFF GAUZE 2. APPLY BARRIER CREAM TO PERIPHERY OF ACHILLES' WOUND AND TOES 3. USE BETADYNE SWABS TO APPLY BETADYNE TO WOUND BED AND SQUEEZE SOME OF THE BETADYNE FROM ANOTHER SWAB ONTO A 4X4 (CAN ALSO GET SOME OF THE BETADYNE FROM THE BOTTOM OF THE PACKAGING) PLACE 1-2 DRY 4X4S ON TOP AND COVER W/ KERLIX ( JUST 1-2 TURNS/LAYERS) 4. SECURE W/ TAPE AND DON TUBIGRIP SOCK IF EDEMA STILL PRESENT - WATCH FOR INDENTATION IN LL FROM SOCK. USING BETADYNE TO MAINTAIN COYOTE HUNTER WOUND BED D/T POOR ARTERIAL FLOW. LORE MARTINES PT Initialized on 05/20/19 16:10 - END OF NOTE 05/20/19 15:35 Physical Therapy Note by Lore Martines PT REPORTS R FOOT PN AT 7-9/10 UPON P.T. ARRIVAL TO ROOM. PT. UPSET RE: DISCUSSION W/ NIEL ORTEGA RE: POTENTIAL R LE AMPUTATION/SURGICAL DEBRIDMENT. NO DRAINAGE NOTED ON DRESSING BUT NSG HAD CHANGED DRSG AFTER SUGERY CONSULT THIS A.M. ALL TOES ARE PURPLISH IN COLOR. WOUND BED STILL COVERED IN 95% BROWN ESCHAR. HAS SOME SLIGHT GRANULATION IN DISTAL WOUND BED. CLEANSED WOUND W/ HIBICLENS/STERILE WATER, DEBRIDED A VERY SMALL AMOUNT OF BROWN ESCHAR FROM PERIPHERU OF WOUND W/ SCISSORS AND FORCEPS. SCORED WOUND BED W/ SCALPAL TO PROMOTE ESCHAR SLOUGHING. DRESSED W/ BETADYNE SOAKED 4 X 4, KERLIX, AND SIZE "G " TUBIGRIP SOCK. NOTED AREA ON INDENTATION MID CALF D/T EDEMA SO FELT SOCK SIZE NEEDED TO BE LARGER. PT. STILL IS NOT TOLERATING MECHANICAL DEBRIDEMENT WELL D/T PN EVEN W/ PN MEDS. WILL CONT. P.T. FOR WOUND MG'T. LORE MARTINES PT Initialized on 05/20/19 15:35 - END OF NOTE 05/20/19 10:53 Nutrition Note by Rachel Almeida F/u Note: 1800 ADA diet with prostat 64 con't. Pt refused meals yesterday; pt in a lot of pain. Consumed 75% of breakfast this morning. Admission weight 72.4 kg; current weight 73.3 kg. neg fluid balance 1847 mls. Labs 05/19= K+ 3.4, Cr 0.50 , glu 123, hgb 11.5. goals not met and ongoing. Will con't to monitor and f/u prn. BELINDA Manzo Initialized on 05/20/19 10:53 - END OF NOTE 05/20/19 10:34 Case Management Note by Lou De León AFTER Kermit ORTEGA SEEN PATIENT HE SUGGESTED THAT PATIENT NEEDS REHAB FOR PROPER WOUND CARE. S/W PATIENT ABOUT THAT AND IS AWARE OF HER NEED FOR REHAB. PATIENT WOULD LIKE TO S/W HER DAUGHTER THEN LET US KNOW WHICH REHAB FACILITY SHE WOULD LIKE TO GO TO Initialized on 05/20/19 10:34 - END OF NOTE Assessment/Plan (1) Cellulitis of right foot due to methicillin-resistant Staphylococcus aureus Current Visit: Yes Status: Acute Assessment & Plan: 74 yo female nonhealing right foot wound, cellulitis improve with abx, pvd. cta reviewed. case discussed with leeroy covington who did her arteriogram. arteriogram results reviewed. She has extensive common femoral disease on the left proximal to her left femoral to right profunda bypass. Profunda is supplying the right leg. there is reconstitution of pt, at distally. -will plan for transfer to [facility] tomorrow, schedule for right femoral endarterectomy revision of fem-profunda bypass. Improved inflow should allow this wound to heal. otherwise she is looking at fem distal bypass not sure if she has vein to use. -she says she is completely done with smoking. >60minutes reviewing films, coordinating care Code(s): L03.115 - CELLULITIS OF RIGHT LOWER LIMB; B95.62 - METHICILLIN RESIS STAPH INFCT CAUSING DISEASES CLASSD [id number]
--- NOTE | 2019-05-21 10:46 | PCM.NOTE ---
Date and Time: 05/21/19 1009 Subjective Assessment: Dr Derrick Luis is here seeing patient today and has phoned patient's Clinical Writer, Dr Brandon Shah to discuss treatment plan,trying to preserve right LE. Plan is to transfer patient to [place] to Dr Kermit Luis's service for surgery, left femoral endarterectomy, which will improve flow to right LE . Patient is pleased with this plan . Transfer tomorrow is in the works. Patient is a daily smoker but had quit for 17 months in the past on Chantix. She will reach out if she needs . Patient states she has a smokers cough in the morning but has not had an increase in mucus or shortness of breath or chest pain. BM daily ,is eating but had decreased appetite. Pain is releived if laying still and pain med on board but goes up to 6 with movement . Objective Exam General Appearance: mild distress (a little anxious after talking about surgey) Neurologic Exam: alert, oriented x 3, cooperative Skin Exam: warm, dry, other (skin is dusky) Wound Assessment: Skin/Wound Assessment Wound/Incision Assessment Start: 05/13/19 18: 36 Text: Status: Active Freq: Q6H Protocol: Document 05/21/19 07:00 RDUHNE (Rec: 05/21/19 09:43 [email or web address] [id number]) Wound/Incision Assessment Right Heel Wound Assessment Shift Assessment Wound Type Stasis Ulcer Wound Stage Non Pressure Wound Dressing Status Dry & Intact Drainage Amount None Drainage Odor None/Absent Surrounding Tissue Edematous Primary Dressing Non-Adherent Gauze Pads Comment dressing/stockinette in place, CDI Wound Photo Photo Taken Yes Distance from Wound: bedside Eye Exam: eyes nml inspection Respiratory Exam: diminished breath sounds (bases,no wheeze,no rales,no ronchi) Cardiovascular Exam: regular rate/rhythm Gastrointestinal/Abdomen Exam: soft (nontender) Extremity Exam: other (left LE amputee, right ankle/foot dressing is clean and dry- toes red,chronic discoloration(open wound lateral foot/ankle not viewed today) ,dressing change and description -see wound care note 05/20/2019) OBJECTIVE DATA Vital Signs: Vital Signs - 24 hr Temp Pulse Resp BP Pulse Ox 05/21/19 07:51 98.8 F 94 H 18 143/66 92 L 02/29/20 06:46 94 L 05/21/19 04:00 99.0 F 105 H 20 128/60 92 L 05/21/19 00:00 99.2 F 91 H 20 145/65 94 L 05/20/19 19:57 98.9 F 111 H 18 112/61 91 L 05/20/19 18:45 92 L 05/20/19 15:20 97.8 F 104 H 20 139/66 93 L 05/20/19 12:21 98 F 68 20 116/62 92 L Pain Assessment - Last Documented Pain Intensity 8 Pain Scale Used 0-10 Pain Scale Intake and Output: Intake & Output 05/18/19 05/19/19 05/20/19 05/21/19 11:59 11:59 11:59 11:59 Intake Total 2751 1025 1103 1137 Output Total 4350 3100 2950 2200 Balance -1599 -2075 -1847 -1063 Weight 71.2 kg 73.7 kg 73.3 kg 72.7 kg Lab Results: Accuchecks Date 05/20/19 Date 05/20/19 Time 16:13 Time 11:46 Accucheck Value: 118 Accucheck Value: 157 Accucheck Value: 136 Accucheck Value: 108 Radiology Exams: Radiology Procedures Category Date Time Status CTA ABD/PEL W FEM RUNOFF [CT] Routine Exams 05/20/19 17:49 Completed Multi-Disciplinary Progress Notes: Multi-Disciplinary Progress Notes 05/20/19 16:10 Physical Therapy Note by Lore Martines DRESSING INSTRUCTIONS FOR NURSING OVER THE WEEKEND - 05/21 1.CLEANSE WOUND W/ HIBICLENS/STERILE WATER - MAY HAVE TO USE THIS SOLUTION TO SOAK OFF GAUZE 2. APPLY BARRIER CREAM TO PERIPHERY OF ACHILLES' WOUND AND TOES 3. USE BETADYNE SWABS TO APPLY BETADYNE TO WOUND BED AND SQUEEZE SOME OF THE BETADYNE FROM ANOTHER SWAB ONTO A 4X4 (CAN ALSO GET SOME OF THE BETADYNE FROM THE BOTTOM OF THE PACKAGING) PLACE 1-2 DRY 4X4S ON TOP AND COVER W/ KERLIX ( JUST 1-2 TURNS/LAYERS) 4. SECURE W/ TAPE AND DON TUBIGRIP SOCK IF EDEMA STILL PRESENT - WATCH FOR INDENTATION IN LL FROM SOCK. USING BETADYNE TO MAINTAIN TRIAL CONSULTANT WOUND BED D/T POOR ARTERIAL FLOW. LORE MARTINES PT Initialized on 05/20/19 16:10 - END OF NOTE 05/20/19 15:35 Physical Therapy Note by Lore Martines PT REPORTS R FOOT PN AT 7-9/10 UPON P.T. ARRIVAL TO ROOM. PT. UPSET RE: DISCUSSION W/ DERRICK LUIS RE: POTENTIAL R LE AMPUTATION/SURGICAL DEBRIDMENT. NO DRAINAGE NOTED ON DRESSING BUT NSG HAD CHANGED DRSG AFTER SUGERY CONSULT THIS A.M. ALL TOES ARE PURPLISH IN COLOR. WOUND BED STILL COVERED IN 95% BROWN ESCHAR. HAS SOME SLIGHT GRANULATION IN DISTAL WOUND BED. CLEANSED WOUND W/ HIBICLENS/STERILE WATER, DEBRIDED A VERY SMALL AMOUNT OF BROWN ESCHAR FROM PERIPHERU OF WOUND W/ SCISSORS AND FORCEPS. SCORED WOUND BED W/ SCALPAL TO PROMOTE ESCHAR SLOUGHING. DRESSED W/ BETADYNE SOAKED 4 X 4, KERLIX, AND SIZE "G " TUBIGRIP SOCK. NOTED AREA ON INDENTATION MID CALF D/T EDEMA SO FELT SOCK SIZE NEEDED TO BE LARGER. PT. STILL IS NOT TOLERATING MECHANICAL DEBRIDEMENT WELL D/T PN EVEN W/ PN MEDS. WILL CONT. P.T. FOR WOUND MG'T. LORE MARTINES PT Initialized on 05/20/19 15:35 - END OF NOTE 05/20/19 10:53 Nutrition Note by Rachel Almeida F/u Note: 1800 ADA diet with prostat 64 con't. Pt refused meals yesterday; pt in a lot of pain. Consumed 75% of breakfast this morning. Admission weight 72.4 kg; current weight 73.3 kg. neg fluid balance 1847 mls. Labs 05/19= K+ 3.4, Cr 0.50 , glu 123, hgb 11.5. goals not met and ongoing. Will con't to monitor and f/u prn. T.BELINDA Almeida Initialized on 05/20/19 10:53 - END OF NOTE 05/20/19 10:34 Case Management Note by Lou De León AFTER Kermit LUIS SEEN PATIENT HE SUGGESTED THAT PATIENT NEEDS REHAB FOR PROPER WOUND CARE. S/W PATIENT ABOUT THAT AND IS AWARE OF HER NEED FOR REHAB. PATIENT WOULD LIKE TO S/W HER DAUGHTER THEN LET US KNOW WHICH REHAB FACILITY SHE WOULD LIKE TO GO TO Initialized on 05/20/19 10:34 - END OF NOTE Assessment/Plan (1) Cellulitis of right foot due to methicillin-resistant Staphylococcus aureus Current Visit: Yes Status: Acute Assessment & Plan: on IV antibiotics,recent Bone scan was negative for bone involvement Code(s): L03.115 - CELLULITIS OF RIGHT LOWER LIMB; B95.62 - METHICILLIN RESIS STAPH INFCT CAUSING DISEASES CLASSD ELSWHR (2) Ulcer of right foot Current Visit: Yes Status: Acute Assessment & Plan: due to PVD-plan is to do vascular surgery to improve flow to RLE,transfer to [facility] per Dr Luis. Code(s): L97.519 - NON-PRS CHRONIC ULCER OTH PRT RIGHT FOOT W UNSP SEVERITY (3) DM2 (diabetes mellitus, type 2) Current Visit: Yes Status: Chronic Assessment & Plan: A1C today,has had hypoglycemia
[2019-05-21 14:17] LABS: Absolute Neutrophil Ct (ANC) 6.63 (1.4-6.9); BASOPHIL % 0.3 % (0.0-0.4); Basophil (Absolute #) 0.03 (0-0.4); Eosinophil % 12.3 % (0.00-5.0); Eosinophil (Absolute #) 1.25 (0-0.5); Hematocrit 34.6 % (35-47); Hemoglobin 10.9 gm/dl (12.0-16.0); Lymphocyte (Absolute #) 1.35 (1.0-4.6); Lymphocytes % 13.3 % (24.0-44.0); Mean Cell Volume 96.1 fl (78-100); Mean Corpuscular Hemoglobin 30.3 pg (26-32); Mean Corpuscular Hgb Concent. 31.5 g/dl (32-36); Mean Platelet Volume 8.9 fl (7.5-11.0); Monocyte (Absolute #) 0.88 (0.0-1.3); Monocytes % 8.7 % (0.0-12.0); Neutrophil % 65.4 % (36.0-66.0); Platelet Count 265 K/mm3 (150-450); Red Cell Distribution Width 13.8 % (11.5-14.0); White Blood Count 10.1 K/mm3 (4.0-10.5)
[2019-05-21 14:57] LABS: ALBUMIN 3.2 g/dL (3.5-5.0); ALKALINE PHOSPHATASE 60 U/L (38-126); ANION GAP 8.3 MEQ/L (5-15); BLOOD UREA NITROGEN 10 mg/dL (7-17); CHLORIDE 95 mmol/L (98-107); Calcium 8.6 mg/dL (8.4-10.2); Carbon Dioxide 35 mmol/L (22-30); Creatinine 1 0.61 mg/dL (0.52-1.04); Glucose 143 mg/dL (74-106); SGOT/AST 41 U/L (14-36); SGPT/ALT 26 U/L (0-35); SODIUM 135 mmol/L (137-145); Total Protein 6.3 g/dL (6.3-8.2)
[2019-05-21] MEDS ORDERED: K-LYTE 25 MEQ PO ONE ×2 (15:06→17:30)
[2019-05-21] MEDS: NITRO-BID 2% UD PACKETS TOP SCH (18:02)
[2019-05-21] MEDS: ZOCOR 20MG PO SCH (22:32)
[2019-05-21] MEDS: DESYREL 50 MG PO SCH (22:34)
[2019-05-22] MEDS: PERCOCET TABLET 5/325MG PO PRN ×3 (01:16→11:13)
[2019-05-22] MEDS: Zosyn INJ 4.5 GM in Sodium Chloride 100ML MINI-BAG PLUS 100 ML IV SCH ×2 (01:16→08:25)
[2019-05-22] MEDS: DILAUDID 2 MG INJECTION IV PRN ×3 (03:44→12:42)
[2019-05-22] MEDS: Zyvox 600 MG IV PREMIX*** 300 ML IV SCH (06:00)
[2019-05-22] MEDS: Sodium Chloride 0.9% 10 ML FLUSH Syringe IV SCH ×2 (07:29→08:26)
[2019-05-22] MEDS ORDERED: Klor Con 10 MEQ PO SCH (10:00)
[2019-05-22] MEDS: XARELTO 10 MG TABLET PO SCH (10:09)
[2019-05-22] MEDS: Cyclobenzaprine 10 MG PO SCH (10:11)
[2019-05-22] MEDS: NEURONTIN 300 MG PO SCH (10:12)
[2019-05-22] MEDS: Lasix 40 MG PO SCH (10:12)
[2019-05-22] MEDS: PLAVIX 75 MG Tablet PO SCH (10:12)
[2019-05-22] MEDS: ECOTRIN 81 MG PO SCH (10:12)
[2019-05-22] MEDS: PATIENT OWN MEDICATION PO SCH (10:12)
[2019-05-22] MEDS: Protonix 40MG Tablet PO SCH (10:13)
[2019-05-22] MEDS: Toprol-Xl 25MG Tablets PO SCH (10:13)
[2019-05-22] MEDS: NITRO-BID 2% UD PACKETS TOP SCH (11:59)
--- NOTE | 2019-05-22 12:28 | PCM.NOTE ---
Date and Time: 05/22/19 1228 Objective Exam Wound Assessment: Skin/Wound Assessment Wound/Incision Assessment Start: 05/13/19 18: 36 Text: Status: Active Freq: Q6H Protocol: Document 05/22/19 07:00 AR (Rec: 05/22/19 08:46 AR [id number]) Wound/Incision Assessment Right Heel Wound Assessment Shift Assessment Wound Type Stasis Ulcer Wound Stage Non Pressure Wound Dressing Status Dry & Intact Surrounding Tissue Edematous Primary Dressing Non-Adherent Gauze Pads Comment Dressing CDI Wound Photo Photo Taken Yes Distance from Wound: bedside OBJECTIVE DATA Vital Signs: Vital Signs - 24 hr Temp Pulse Resp BP Pulse Ox 05/22/19 08:05 94 L 05/22/19 08:00 98.3 F 93 H 22 127/60 94 L 05/22/19 04:00 98.0 F 91 H 18 118/63 95 05/22/19 00:00 98.5 F 95 H 20 127/65 94 L 05/21/19 20:48 95 05/21/19 20:00 98.6 F 98 H 20 107/63 93 L 05/21/19 16:00 98.6 F 94 H 18 129/71 91 L Pain Assessment - Last Documented Pain Intensity 8 Pain Scale Used 0-10 Pain Scale Intake and Output: Intake & Output 05/20/19 05/21/19 05/22/19 05/23/19 06:59 06:59 06:59 06:59 Intake Total 1103 1137 1769 240 Output Total 2950 2200 1726 Balance -1847 -1063 43 240 Weight 72.7 kg 73.3 kg Lab Results: Accuchecks Date 05/22/19 Time 08:00 Accucheck Value: 172 Accucheck Value: 172 Accucheck Value: 137 Lab Results-Last 24 Hours 05/21/19 05/21/19 05/21/19 Range/Units 14:00 14:00 14:00 WBC 10.1 (4.0-10.5) K/mm3 RBC 3.60 L (4.1-5.4) M/mm3 Hgb 10.9 L (12.0-16.0) gm/dl Hct 34.6 L (35-47) % MCV 96.1 (78-100) fl MCH 30.3 (26-32) pg MCHC 31.5 L (32-36) g/dl RDW 13.8 (11.5-14.0) % Plt Count 265 (150-450) K/mm3 MPV 8.9 (7.5-11.0) fl Gran % 65.4 (36.0-66.0) % Eos # (Auto) 1.25 H (0-0.5) Absolute Lymphs (auto) 1.35 (1.0-4.6) Absolute Monos (auto) 0.88 (0.0-1.3) Lymphocytes % 13.3 L (24.0-44.0) % Monocytes % 8.7 (0.0-12.0) % Eosinophils % 12.3 H (0.00-5.0) % Basophils % 0.3 (0.0-0.4) % Absolute Granulocytes 6.63 (1.4-6.9) Basophils # 0.03 (0-0.4) Sodium 135 L (137-145) mmol/L Potassium 3.0 L (3.5-5.1) mmol/L Chloride 95 L (98-107) mmol/L Carbon Dioxide 35 H (22-30) mmol/L Anion Gap 8.3 (5-15) MEQ/L BUN 10 (7-17) mg/dL Creatinine 0.61 (0.52-1.04) mg/dL Estimated GFR > 60.0 ML/MIN Glucose 143 H (74-106) mg/dL Hemoglobin A1c 6.18 H (4.5-6.0) % Calcium 8.6 (8.4-10.2) mg/dL Total Bilirubin 0.50 (0.2-1.3) mg/dL AST 41 H (14-36) U/L ALT 26 (0-35) U/L Alkaline Phosphatase 60 (38-126) U/L Serum Total Protein 6.3 (6.3-8.2) g/dL Albumin 3.2 L (3.5-5.0) g/dL TSH 3rd Generation (0.47-4.68) mIU/L 05/21/19 Range/Units 14:00 WBC (4.0-10.5) K/mm3 RBC (4.1-5.4) M/mm3 Hgb (12.0-16.0) gm/dl Hct (35-47) % MCV (78-100) fl MCH (26-32) pg MCHC (32-36) g/dl RDW (11.5-14.0) % Plt Count (150-450) K/mm3 MPV (7.5-11.0) fl Gran % (36.0-66.0) % Eos # (Auto) (0-0.5) Absolute Lymphs (auto) (1.0-4.6) Absolute Monos (auto) (0.0-1.3) Lymphocytes % (24.0-44.0) % Monocytes % (0.0-12.0) % Eosinophils % (0.00-5.0) % Basophils % (0.0-0.4) % Absolute Granulocytes (1.4-6.9) Basophils # (0-0.4) Sodium (137-145) mmol/L Potassium (3.5-5.1) mmol/L Chloride (98-107) mmol/L Carbon Dioxide (22-30) mmol/L Anion Gap (5-15) MEQ/L BUN (7-17) mg/dL Creatinine (0.52-1.04) mg/dL Estimated GFR ML/MIN Glucose (74-106) mg/dL Hemoglobin A1c (4.5-6.0) % Calcium (8.4-10.2) mg/dL Total Bilirubin (0.2-1.3) mg/dL AST (14-36) U/L ALT (0-35) U/L Alkaline Phosphatase (38-126) U/L Serum Total Protein (6.3-8.2) g/dL Albumin (3.5-5.0) g/dL TSH 3rd Generation 1.590 (0.47-4.68) mIU/L Radiology Exams: Radiology Procedures Category Date Time Status CTA ABD/PEL W FEM RUNOFF [CT] Routine Exams 05/20/19 17:49 Completed Assessment/Plan (1) Cellulitis of right foot due to methicillin-resistant Staphylococcus aureus Current Visit: Yes Status: Acute Assessment & Plan: no change to plan. transfer to [facility] today. likely left FEA revision fem fem tomorrow vs thursday. Code(s): L03.115 - CELLULITIS OF RIGHT LOWER LIMB; B95.62 - METHICILLIN RESIS STAPH INFCT CAUSING DISEASES CLASSD ELSWHR
[2019-05-22 13:36] VITALS: BP 122/81; PULSE 97; O2SAT 93
== END 2019-05-22 13:30 | disposition home or self-care (01) | DRG 593 ==
LOC: MED SURG 17:05 → OBSVTOIN 05-15 09:47
PROVIDERS: ADMIT Internal Medicine; ATTEND Internal Medicine
DX: L97.519 Non-pressure chronic ulcer of other part of right foot with unspecified severity (principal); L03.115 Cellulitis of right lower limb; I73.9 Peripheral vascular disease, unspecified; E11.9 Type 2 diabetes mellitus without complications; I25.10 Atherosclerotic heart disease of native coronary artery without angina pectoris; Z89.612 Acquired absence of left leg above knee; B95.62 Methicillin resistant Staphylococcus aureus infection as the cause of diseases classified elsewhere; G89.29 Other chronic pain; J44.9 Chronic obstructive pulmonary disease, unspecified; I10 Essential (primary) hypertension; F17.210 Nicotine dependence, cigarettes, uncomplicated
CPT/HCPCS: 36415; 36573; 73610; 73630; 75635; 76937; 77001; 78315; 80048; 80053; 81001; 82962; 83036; 84134; 84443; 85025; 85610; 85730; 87070; 87077; 87086; 87186; 93005; 93971; 94760; 97161; 97597; A9503; G0378; A6457; C1769; J0696; J1170; J1642; J1644; J1940; J2020; J2060; J2543; A9270-GY

== ENCOUNTER 2019-07-06 06:22 | Inpatient (IN) | payer MEDICARE ==
--- NOTE | 2019-07-06 06:39 | ERPHSYRPT ---
- History of Present Illness Source: patient, EMS Exam Limitations: no limitations Occurred: just prior to arrival Reason for Fall: fell from height (Fell asleep in a recliner onto her left hip) Injuries/Pain Location: pelvis, lower extremity (Left hip) Loss of Consciousness: no loss of consciousness Quality: throbbing Severity of Pain-Max: moderate Severity of Pain-Current: moderate Modifying Factors: Improves With: movement, other (Palpation, pressure) Associated Symptoms (Fall): denies symptoms Hx Tetanus, Diphtheria Vaccination/Date Given: No Hx Influenza Vaccination/Date Given: Yes Hx Pneumococcal Vaccination/Date Given: Yes <JC TINSLEY - Last Filed: 07/06/19 06:51> <JOSE ELIZONDO - Last Filed: 07/06/19 10:47> - History of Present Illness Time Seen by Provider: 07/06/19 06:36 Physician History: This is a 74-year-old white female who is diabetic, has hypertension and elevated cholesterol. She has history of peripheral vascular disease and coronary artery disease. Patient presents via EMS because of left sided hip and pelvis pain that came on suddenly after she slipped and fell out of her recliner that she was sleeping on. This occurred prior to arrival. Patient also has an open wound in the right Achilles area that is draining fluid. Patient is allergic to morphine and vancomycin. However, patient states that she has had Dilaudid in the past that helped her pain and she did not have any problems with. Does take Percocet and her last medication was taken last evening. She is also on Plavix. Patient does not monitor her blood sugar. Patient continues to smoke approximately 1 pack a day of cigarettes. Patient started clindamycin yesterday. Patient had an appointment this morning to see Dr. Sampson, general surgeon. (JC TINSLEY) Allergies/Adverse Reactions: morphine Allergy (Intermediate, Verified 07/06/19 09:48) severe itching, SOB- decreased resp rate Tetanus Vaccines and Toxoid [Tetanus Vaccines & Toxoid] Allergy (Intermediate, Verified 07/06/19 09:48) localized swelling codeine Allergy (Mild, Verified 07/06/19 09:48) Itching vancomycin Allergy (Verified 07/06/19 09:48) Home Medications: Clopidogrel Bisulfate 75 mg [PLAVIX 75 MG Tablet] 75 mg PO DAILY 04/22/15 [History] Alendronate Sodium 70 mg [Fosamax 70 MG] 70 mg PO Q7D@0600 05/13/19 [ History] Aspirin EC 81 mg [Ecotrin 81 mg] 81 mg PO BID 05/13/19 [History] Cyclobenzaprine HCl 10 mg [Cyclobenzaprine 10 MG] 10 mg PO TID 05/13/19 [ History] Gabapentin [Neurontin] 300 mg PO TID 05/13/19 [History] Metoprolol Succinate 25 mg Xl* [Toprol-Xl 25MG Tablets] 25 mg PO DAILY [History] Mirabegron [Myrbetriq] 50 mg PO DAILY 05/13/19 [History] Oxycodone HCl/Acetaminophen [Percocet 7.5-325 mg Tablet] 1 tab PO QIDPRN PRN [History] Pravastatin Sodium 80 mg PO HS 05/13/19 [History] Trazodone HCl 50 mg [Desyrel 50 mg] 50 mg PO HS 05/13/19 [History] Clindamycin HCl 300 mg PO QID 07/06/19 [History] Travel Risk - International Travel Have you traveled outside of the country in past 3 weeks: No Have you or anyone close to you been diagnosed with or: No Do your reside in a community with a known COVID-19 case?: Yes If Yes where:: [facility] <JC TINSLEY - Last Filed: 07/06/19 06:51> - Review of Systems Constitutional: No Symptoms Eyes: No Symptoms Ears, Nose, & Throat: No Symptoms Respiratory: No Symptoms Cardiac: No Symptoms Abdominal/Gastrointestinal: No Symptoms Genitourinary Symptoms: No Symptoms Musculoskeletal: Injury (Left hip and pelvis) Skin: Cellulitis (Right foot and ankle and lower extremity), Other (Open wound/ ulcer right Achilles region) Neurological: No Symptoms Psychological: No Symptoms Endocrine: No Symptoms Hematologic/Lymphatic: No Symptoms Immunological/Allergic: No Symptoms All Other Systems: Reviewed and Negative <JC TINSLEY - Last Filed: 07/06/19 06:51> - Past Medical History Pertinent Past Medical History: Yes Neurological History: No Pertinent History ENT History: Cataracts Cardiac History: Congestive Heart Failure, High Cholesterol, Hypertension, Other Respiratory History: Asthma Endocrine Medical History: Diabetes Type II Musculoskeletal History: Osteoarthritis GI Medical History: No Pertinent History History: Other Psycho-Social History: No Pertinent History Female Reproductive Disorders: Endometriosis Other Medical History: femorial artery graft in R LE, nearly lost that leg. Heart stent - Past Surgical History Past Surgical History: Yes Neuro Surgical History: No Pertinent History Cardiac: Cardiac Catheterization, Cardiac Stent Respiratory: No Pertinent History Gastrointestinal: No Pertinent History Genitourinary: No Pertinent History Musculoskeletal: Orthopedic Surgery Female Surgical History: Hysterectomy Other Surgical History: stentx1, carotid endardectomy, foot , tonsil, back surgery, femeral artery replaced UPDATED 05/24/15 aka left 06/27/2015 cataract surgery with implants bilat - Social History Smoking Status: Current every day smoker How long have you smoked: 50 y Exposure to second hand smoke: No Drug Use: none Patient Lives Alone: No <JC TINSLEY - Last Filed: 07/06/19 06:51> - [place] Coma Score Best Eye Response ([place]): (4) open spontaneously Best Verbal Response ([place]): (5) oriented Best Motor Response ([place]): (6) obeys commands [place] Total: 15 - Physical Exam General Appearance: moderate distress, alert, anxiety Head Injury: no evidence of injury Eye Exam: PERRL/EOMI, eyes nml inspection ENT Exam: airway nml Neck Exam: supple, trachea midline, full range of motion, normal alignment, normal inspection Respiratory/Chest Exam: normal breath sounds, respiratory distress, No chest tenderness Cardiovascular Exam: normal heart sounds, tachycardia Gastrointestinal Exam: soft, normal bowel sounds, No tenderness Rectal Exam: not done Back Exam: normal inspection, normal range of motion, No CVA tenderness, No vertebral tenderness Extremity Exam: bony point tenderness (Left hip), hip tenderness, tenderness ( Left hip and left side of pelvis.) Neurologic Exam: alert, oriented x 3 Skin Exam: other (Wound with drainage present right Achilles region.) SpO2 Interpretation: borderline oxygenation SpO2: 91 O2 Delivery: Room Air <JC TINSLEY - Last Filed: 07/06/19 06:51> - Nursing Vital Signs Nursing Vital Signs: Initial Vital Signs Temperature 98.3 F 07/06/19 06:26 Pulse Rate 114 H 07/06/19 06:26 Respiratory Rate 18 07/06/19 06:26 Blood Pressure 147/64 07/06/19 06:26 O2 Sat by Pulse Oximetry 91 L 07/06/19 06:26 Pain Scale Pain Intensity 8 - Radiology Exams Hip X-ray Interpretation: Teleradiologist Report (Nondisplaced left intertrochanteric fracture.) Femur X-ray Interpretation: Teleradiologist Report (Nondisplaced left intertrochanteric fracture.) - CT Exams Lower Extremity CT Interpretation: Tele-radiologist Report (Nondisplaced left intertrochanteric fracture.) <JOSE ELIZONDO - Last Filed: 07/06/19 10:47> Ordered Tests: Active Orders 24 hr Category Date Time Status Catheter-Parker Farmer STAT Care 07/06/19 06:48 Active Isolation, Initiate & Maintain Q4H Care 07/06/19 06:36 Active Pulse Oximetry (ED) STAT Care 07/06/19 06:48 Active FEMUR Stat Exams 07/06/19 06:56 Completed HIP UNI (2V) INCL PEL IF DONE Stat Exams 07/06/19 06:55 Completed LOWER EXTREMITY WO CONTRAST [CT] Stat Exams 07/06/19 09:54 Completed BLOOD CULTURE Stat Lab 07/06/19 07:10 Received CBC W DIFF Stat Lab 07/06/19 06:35 Completed CK (IN-HOUSE) [CK-Creatinine Phosphokinase] Stat Lab 07/06/19 08:30 Completed CMP Stat Lab 07/06/19 06:35 Completed CULTURE,WOUND Stat Lab 07/06/19 06:35 Received Lactic Acid Stat Lab 07/06/19 07:21 Completed UA W/RFX UR CULTURE Stat Lab 07/06/19 07:15 Completed Transfer Order Routine Transfer 07/06/19 Ordered Medication Summary Generic Name Dose Route Start Last Admin Trade Name Freq PRN Reason Stop Dose Admin Sodium Chloride 1,000 mls @ 100 mls/hr 07/06/19 07:00 07/06/19 06:54 Sodium Chloride 0.9% 1000 Ml IV 08/05/19 06:59 100 mls/hr .Q10H AYE Administration Clindamycin HCl/Dextrose 600 mg in 50 mls @ 100 mls/hr 07/06/19 10:27 10:37 Clindamycin-D5w 600 Mg/50 Ml IV 07/06/19 10:56 100 ml/hr STAT STA 100 mls/hr Administration Discontinued Medications Generic Name Dose Route Start Last Admin Trade Name Gregq PRN Reason Stop Dose Admin Hydromorphone HCl 1 mg 07/06/19 06:50 07/06/19 06:54 Hydromorphone 1 Mg/Ml Ampule IV 07/06/19 06:51 1 mg STAT ONE Administration Hydromorphone HCl Confirm 07/06/19 06:53 Hydromorphone 1 Mg/Ml Ampule Administered 07/06/19 06:54 Dose 1 mg .ROUTE .STK-MED ONE Hydromorphone HCl 0.5 mg 07/06/19 07:55 07/06/19 07:59 Hydromorphone 1 Mg/Ml Ampule IV 07/06/19 07:56 0.5 mg STAT ONE Administration Hydromorphone HCl Confirm 07/06/19 07:58 Hydromorphone 1 Mg/Ml Ampule Administered 07/06/19 07:59 Dose 1 mg .ROUTE .STK-MED ONE Ondansetron HCl 4 mg 07/06/19 06:48 07/06/19 06:55 Zofran 4 Mg/2 Ml Vial IV 07/06/19 06:49 4 mg STAT STA Administration Ondansetron HCl Confirm 07/06/19 06:53 Zofran 4 Mg/2 Ml Vial Administered 07/06/19 06:54 Dose 4 mg .ROUTE .STK-MED ONE Lab/Rad Data: Laboratory Result Diagrams 07/06/19 06:35 07/06/19 06:35 Laboratory Results 07/06/19 07/06/19 07/06/19 Range/Units 08:30 07:21 07:15 WBC (4.0-10.5) K/mm3 RBC (4.1-5.4) M/mm3 Hgb (12.0-16.0) gm/dl Hct (35-47) % MCV (78-100) fl MCH (26-32) pg MCHC (32-36) g/dl RDW (11.5-14.0) % Plt Count (150-450) K/mm3 MPV (7.5-11.0) fl Gran % (36.0-66.0) % Eos # (Auto) (0-0.5) Absolute Lymphs (auto) (1.0-4.6) Absolute Monos (auto) (0.0-1.3) Lymphocytes % (24.0-44.0) % Monocytes % (0.0-12.0) % Eosinophils % (0.00-5.0) % Basophils % (0.0-0.4) % Absolute Granulocytes (1.4-6.9) Basophils # (0-0.4) Sodium (137-145) mmol/L Potassium (3.5-5.1) mmol/L Chloride (98-107) mmol/L Carbon Dioxide (22-30) mmol/L Anion Gap (5-15) MEQ/L BUN (7-17) mg/dL Creatinine (0.52-1.04) mg/dL Estimated GFR ML/MIN Glucose (74-106) mg/dL Lactic Acid 1.4 (0.4-2.0) Calcium (8.4-10.2) mg/dL Total Bilirubin (0.2-1.3) mg/dL AST (14-36) U/L ALT (0-35) U/L Alkaline Phosphatase (38-126) U/L Creatine Kinase 97 (30-135) U/L Serum Total Protein (6.3-8.2) g/dL Albumin (3.5-5.0) g/dL Urine Color YELLOW (YELLOW) Urine Appearance CLEAR (CLEAR) Urine pH 7.0 (5-6) Ur Specific [place] 1.006 (1.005-1.025) Urine Protein NEGATIVE (Negative) Urine Ketones NEGATIVE (NEGATIVE) Urine Blood NEGATIVE (0-5) Jose Daniel/ul Urine Nitrite NEGATIVE (NEGATIVE) Urine Bilirubin NEGATIVE (NEGATIVE) Urine Urobilinogen NEGATIVE (0-1) mg/dL Ur Leukocyte Esterase NEGATIVE (NEGATIVE) Urine WBC (Auto) NONE (0-5) /HPF Urine RBC (Auto) NONE (0-2) /HPF U Epithel Cells (Auto) NONE (FEW) /HPF Urine Bacteria (Auto) NONE (NEGATIVE) /HPF Urine Mucus (Auto) SLIGHT (NEGATIVE) /HPF Urine Culture Reflexed NO (NO) Urine Glucose NEGATIVE (NEGATIVE) mg/dL 07/06/19 07/06/19 Range/Units 06:35 06:35 WBC 10.5 (4.0-10.5) K/mm3 RBC 4.24 (4.1-5.4) M/mm3 Hgb 12.5 (12.0-16.0) gm/dl Hct 39.8 (35-47) % MCV 93.9 (78-100) fl MCH 29.5 (26-32) pg MCHC 31.4 L (32-36) g/dl RDW 15.2 H (11.5-14.0) % Plt Count 415 (150-450) K/mm3 MPV 9.5 (7.5-11.0) fl Gran % 72.5 H (36.0-66.0) % Eos # (Auto) 0.49 (0-0.5) Absolute Lymphs (auto) 1.44 (1.0-4.6) Absolute Monos (auto) 0.94 (0.0-1.3) Lymphocytes % 13.7 L (24.0-44.0) % Monocytes % 8.9 (0.0-12.0) % Eosinophils % 4.6 (0.00-5.0) % Basophils % 0.3 (0.0-0.4) % Absolute Granulocytes 7.64 H (1.4-6.9) Basophils # 0.03 (0-0.4) Sodium 138 (137-145) mmol/L Potassium 3.9 (3.5-5.1) mmol/L Chloride 100 (98-107) mmol/L Carbon Dioxide 29 (22-30) mmol/L Anion Gap 13.8 (5-15) MEQ/L BUN 10 (7-17) mg/dL Creatinine 0.55 (0.52-1.04) mg/dL Estimated GFR > 60.0 ML/MIN Glucose 126 H (74-106) mg/dL Lactic Acid (0.4-2.0) Calcium 9.8 (8.4-10.2) mg/dL Total Bilirubin 0.90 (0.2-1.3) mg/dL AST 33 (14-36) U/L ALT 16 (0-35) U/L Alkaline Phosphatase 97 (38-126) U/L Creatine Kinase (30-135) U/L Serum Total Protein 8.6 H (6.3-8.2) g/dL Albumin 4.5 (3.5-5.0) g/dL Urine Color (YELLOW) Urine Appearance (CLEAR) Urine pH (5-6) Ur Specific [place] (1.005-1.025) Urine Protein (Negative) Urine Ketones (NEGATIVE) Urine Blood (0-5) Jose Daniel/ul Urine Nitrite (NEGATIVE) Urine Bilirubin (NEGATIVE) Urine Urobilinogen (0-1) mg/dL Ur Leukocyte Esterase (NEGATIVE) Urine WBC (Auto) (0-5) /HPF Urine RBC (Auto) (0-2) /HPF U Epithel Cells (Auto) (FEW) /HPF Urine Bacteria (Auto) (NEGATIVE) /HPF Urine Mucus (Auto) (NEGATIVE) /HPF Urine Culture Reflexed (NO) Urine Glucose (NEGATIVE) mg/dL <JC TINSLEY - Last Filed: 07/06/19 06:51> - Progress Counseled pt/family regarding: lab results, diagnosis, rad results <JOSE ELIZONDO - Last Filed: 07/06/19 10:47> - Progress Progress Note: 07/06/19 06:46 Patient patient care and pending laboratory and radiographic studies that are pending was discussed with Dr. Elizondo at shift change. He is assuming care of this patient. (JC TINSLEY) Patient endorsed to Dr. Elizondo at approximately [address] Elizondo advised to follow- up on pending x-rays of left hip. Patient to be admitted for further evaluation and treatment of right foot wound and cellulitis. Work-up reveals a nondisplaced left intertrochanteric fracture. Case discussed with orthopedic surgeon Dr. Portillo out of . In light of patient's nondisplaced fracture, wheelchair-bound status, and minimal pain at this time we will treat patient conservatively. We will admit patient to [facility] and treat her right leg pain and cellulitis. If patient's left hip fracture becomes displaced or if she develops worsening pain we will transfer her over to for a hip pinning per Dr. Flores. Plan of care discussed with Dr. Combs who accepts admission to observation. Plan of care discussed with patient. She agrees to plan of care. Patient agrees admission to [facility] for further evaluation and treatment. Patient received her clindamycin dose today via IV piggyback Dr. Portillo requested a CT of the left hip fracture. 07/06/19 10:39 (JOSE ELIZONDO) <JC TINSLEY - Last Filed: 07/06/19 06:51> - Departure Departure Disposition: Transfer Critical Care Time: No <JOSE ELIZONDO - Last Filed: 07/06/19 10:47> - Departure Clinical Impression: Cellulitis, Wound of foot, Intertrochanteric fracture of left femur, Vascular calcification, Constipation, Limb pain Condition: Stable Referrals: SUSANA MONTAÑO [Primary Care Provider] -
[2019-07-06] MEDS ORDERED: Zofran 4 MG/2 ML VIAL IV STA (06:48)
[2019-07-06] MEDS ORDERED: Hydromorphone 1 mg/ml Ampule IV ONE ×2 (06:50→07:55)
[2019-07-06] MEDS ORDERED: Sodium Chloride 0.9% 1000 ML 1,000 ML ONE (06:52)
[2019-07-06] MEDS ORDERED: Hydromorphone 1 mg/ml Ampule ONE ×2 (06:53→07:58)
[2019-07-06] MEDS ORDERED: Zofran 4 MG/2 ML VIAL ONE (06:53)
[2019-07-06] MEDS ORDERED: Sodium Chloride 0.9% 1000 ML 1,000 ML IV SCH (07:00)
[2019-07-06 07:22] LABS: Absolute Neutrophil Ct (ANC) 7.64 (1.4-6.9); BASOPHIL % 0.3 % (0.0-0.4); Basophil (Absolute #) 0.03 (0-0.4); Eosinophil % 4.6 % (0.00-5.0); Eosinophil (Absolute #) 0.49 (0-0.5); Hematocrit 39.8 % (35-47); Hemoglobin 12.5 gm/dl (12.0-16.0); Lymphocyte (Absolute #) 1.44 (1.0-4.6); Lymphocytes % 13.7 % (24.0-44.0); Mean Cell Volume 93.9 fl (78-100); Mean Corpuscular Hemoglobin 29.5 pg (26-32); Mean Corpuscular Hgb Concent. 31.4 g/dl (32-36); Mean Platelet Volume 9.5 fl (7.5-11.0); Monocyte (Absolute #) 0.94 (0.0-1.3); Monocytes % 8.9 % (0.0-12.0); Neutrophil % 72.5 % (36.0-66.0); Platelet Count 415 K/mm3 (150-450); Red Blood Count 4.24 M/mm3 (4.1-5.4); Red Cell Distribution Width 15.2 % (11.5-14.0); White Blood Count 10.5 K/mm3 (4.0-10.5)
[2019-07-06 07:28] LABS: ALBUMIN 4.5 g/dL (3.5-5.0); ALKALINE PHOSPHATASE 97 U/L (38-126); ANION GAP 13.8 MEQ/L (5-15); BLOOD UREA NITROGEN 10 mg/dL (7-17); CHLORIDE 100 mmol/L (98-107); Calcium 9.8 mg/dL (8.4-10.2); Carbon Dioxide 29 mmol/L (22-30); Creatinine 1 0.55 mg/dL (0.52-1.04); Glucose 126 mg/dL (74-106); Potassium 3.9 mmol/L (3.5-5.1); SGOT/AST 33 U/L (14-36); SGPT/ALT 16 U/L (0-35); SODIUM 138 mmol/L (137-145); Total Protein 8.6 g/dL (6.3-8.2)
[2019-07-06 07:28] LABS: Appearance CLEAR (CLEAR); Bilirubin NEGATIVE (NEGATIVE); Blood NEGATIVE Ery/ul (0-5); Glucose NEGATIVE (NEGATIVE); Ketones NEGATIVE (NEGATIVE); Leukocyte Esterase NEGATIVE (NEGATIVE); Mucus SLIGHT /HPF (NEGATIVE); Nitrite NEGATIVE (NEGATIVE); Protein,Urine Dip NEGATIVE (Negative); Specific Gravity 1.006 (1.005-1.025); Urobilinogen NEGATIVE mg/dL (0-1)
--- NOTE | 2019-07-06 08:13 | XRAY ---
Indication: Pain following fall. Comparison: None 2 views of the left femur demonstrates nondisplaced intertrochanteric fracture. Elsewhere osteopenia, above knee amputation, extensive vascular calcifications, and inguinal vascular clips.
--- NOTE | 2019-07-06 08:16 | XRAY ---
Indication: Pain following fall. Comparison: None AP pelvis and 2 views of the left hip demonstrates nondisplaced left intertrochanteric fracture. Elsewhere osteopenia, advanced lower lumbar degenerative spondylosis with levorotoscoliosis, extensive scattered vascular calcifications, bilateral inguinal vascular clips, and fecal stasis.
[2019-07-06] MEDS ORDERED: CLINDAMYCIN-D5W 600 MG/50 ML*** 600 MG/50 ML BAG IV STA (10:27)
--- NOTE | 2019-07-06 10:28 | XRAY ---
Indication: Pain following fall. Multiple contiguous axial images obtained through the left hip. Two-dimensional sagittal and coronal reformatted images obtained. Comparison: None Age-related osteopenia. There is nondisplaced non-angulated intertrochanteric fracture. No other acute fracture, dislocation, or suspicious bony lesions. Extensive scattered vascular calcifications including partially visualized femoral-femoral bypass stent graft. Farmer balloon catheter drains empty urinary bladder. Remaining visualized noncontrasted soft tissues unremarkable. Impression: 1. Nondisplaced intertrochanteric fracture. 2. Osteopenia and extensive arteriosclerotic disease.
[2019-07-06] MEDS ORDERED: CLINDAMYCIN-D5W 600 MG/50 ML*** 600 MG/50 ML BAG IV ONE (10:35)
[2019-07-06] MEDS ORDERED: DILAUDID 2 MG INJECTION IV PRN (11:02)
[2019-07-06] MEDS ORDERED: DILAUDID 2 MG INJECTION IV STA (11:46)
[2019-07-06] MEDS ORDERED: DILAUDID 2 MG INJECTION ONE (11:59)
[2019-07-06] MEDS ORDERED: DILAUDID 1 MG/1ML PCA IV PRN (12:13)
--- NOTE | 2019-07-06 12:18 | PCM.BN ---
Brief Admission Note - Admission Note Brief Admisson Note: Patient admitted @ 07/06/19 11:00 to [facility] SUR[facility]. Medication List reviewed and reconciled.Patient is pain 8-10/10 left foot ulcer,severe PVD. [employer] pain pump ordered. Dr Luis gen surg group has been following-consult requested.
[2019-07-06 12:58] LABS: Hematocrit 36.5 % (35-47); Hemoglobin 11.2 gm/dl (12.0-16.0); Mean Cell Volume 96.3 fl (78-100); Mean Corpuscular Hemoglobin 29.6 pg (26-32); Mean Corpuscular Hgb Concent. 30.7 g/dl (32-36); Mean Platelet Volume 9.3 fl (7.5-11.0); Platelet Count 338 K/mm3 (150-450); Red Blood Count 3.79 M/mm3 (4.1-5.4); Red Cell Distribution Width 15.2 % (11.5-14.0); White Blood Count 12.3 K/mm3 (4.0-10.5)
[2019-07-06] MEDS: NEURONTIN 300 MG PO SCH ×3 (13:51→23:09)
[2019-07-06] MEDS: Toprol-Xl 25MG Tablets PO SCH (13:52)
[2019-07-06] MEDS: CLINDAMYCIN-D5W 600 MG/50 ML*** 600 MG/50 ML BAG IV SCH ×2 (13:52→22:25)
[2019-07-06] MEDS: Lasix 40 MG PO SCH (13:52)
[2019-07-06] MEDS: MYRBETRIQ PO SCH (13:52)
[2019-07-06 14:04] LABS: ANION GAP 10.8 MEQ/L (5-15); BLOOD UREA NITROGEN 10 mg/dL (7-17); CHLORIDE 102 mmol/L (98-107); Calcium 8.9 mg/dL (8.4-10.2); Carbon Dioxide 30 mmol/L (22-30); Creatinine 1 0.54 mg/dL (0.52-1.04); Glucose 114 mg/dL (74-106); PREALBUMIN 13.23 mg/dL (17.6-36.0); Potassium 3.7 mmol/L (3.5-5.1); SODIUM 138 mmol/L (137-145)
[2019-07-06] MEDS ORDERED: NEURONTIN 300 MG PO SCH (15:00)
[2019-07-06] MEDS: Cyclobenzaprine 10 MG PO SCH ×3 (16:38→22:25)
[2019-07-06] MEDS: Sodium Chloride 0.9% 1000 ML 1,000 ML IV SCH (17:50)
[2019-07-06] MEDS ORDERED: NON-FORMULARY ITEM (Pravastatin Sodium [Pravastatin Sodium] 80 MG) PO SCH (22:00)
[2019-07-06] MEDS: ZOCOR 20MG PO SCH (22:25)
[2019-07-06] MEDS: ECOTRIN 81 MG PO SCH (22:25)
[2019-07-06] MEDS: DESYREL 50 MG PO SCH (22:25)
[2019-07-07 04:39] LABS: Absolute Neutrophil Ct (ANC) 9.72 (1.4-6.9); BASOPHIL % 0.3 % (0.0-0.4); Basophil (Absolute #) 0.03 (0-0.4); Eosinophil % 4.4 % (0.00-5.0); Eosinophil (Absolute #) 0.51 (0-0.5); Hematocrit 33.4 % (35-47); Hemoglobin 10.3 gm/dl (12.0-16.0); Lymphocyte (Absolute #) 0.55 (1.0-4.6); Lymphocytes % 4.8 % (24.0-44.0); Mean Cell Volume 97.4 fl (78-100); Mean Corpuscular Hgb Concent. 30.8 g/dl (32-36); Monocyte (Absolute #) 0.67 (0.0-1.3); Monocytes % 5.8 % (0.0-12.0); Neutrophil % 84.7 % (36.0-66.0); Platelet Count 309 K/mm3 (150-450); Red Blood Count 3.43 M/mm3 (4.1-5.4); Red Cell Distribution Width 15.2 % (11.5-14.0); White Blood Count 11.5 K/mm3 (4.0-10.5)
[2019-07-07 04:58] LABS: ALBUMIN 3.5 g/dL (3.5-5.0); ALKALINE PHOSPHATASE 63 U/L (38-126); ANION GAP 11.1 MEQ/L (5-15); BLOOD UREA NITROGEN 8 mg/dL (7-17); CHLORIDE 102 mmol/L (98-107); Calcium 8.2 mg/dL (8.4-10.2); Carbon Dioxide 28 mmol/L (22-30); Creatinine 1 0.51 mg/dL (0.52-1.04); Glucose 97 mg/dL (74-106); SGOT/AST 23 U/L (14-36); SGPT/ALT 11 U/L (0-35); SODIUM 139 mmol/L (137-145); Total Protein 6.9 g/dL (6.3-8.2)
[2019-07-07 05:12] LABS: Potassium 2.9 mmol/L (3.5-5.1)
[2019-07-07] MEDS: CLINDAMYCIN-D5W 600 MG/50 ML*** 600 MG/50 ML BAG IV SCH ×3 (05:32→21:38)
[2019-07-07] MEDS: NEURONTIN 300 MG PO SCH ×4 (05:32→23:57)
[2019-07-07] MEDS: POTASSIUM CHLORIDE 20 mEq IN WATER 100ML 20 MEQ/100 ML BAG IV SCH ×2 (06:54→09:11)
[2019-07-07] MEDS: Toprol-Xl 25MG Tablets PO SCH (09:10)
[2019-07-07] MEDS: PLAVIX 75 MG Tablet PO SCH (09:10)
[2019-07-07] MEDS: Lasix 40 MG PO SCH (09:10)
[2019-07-07] MEDS: ECOTRIN 81 MG PO SCH ×2 (09:10→21:38)
[2019-07-07] MEDS: Cyclobenzaprine 10 MG PO SCH ×3 (09:10→21:38)
[2019-07-07] MEDS: MYRBETRIQ PO SCH (09:11)
[2019-07-07] MEDS ORDERED: NON-FORMULARY ITEM (Mirabegron [Myrbetriq] 50 MG) PO SCH (10:00)
[2019-07-07 10:18] LABS: Slide Review 1 YES
[2019-07-07] MEDS: ROCEPHIN 1 Gm-D5w 50 ml Bag** 1 G/50 ML IVPB IV SCH (11:06)
[2019-07-07] MEDS: Sodium Chloride 0.9% W/ 20 mEq KCl/LITER 1,000 ML IV SCH (12:47)
[2019-07-07] MEDS: TYLENOL 325 MG PO PRN (16:58)
--- NOTE | 2019-07-07 17:56 | PCM.CONS ---
History of Present Illness - Reason for Consult Chief Complaint: fall, left hip pain Reason for Consult: right ankle wound Requesting Provider: DANISHA KIMBLE DO Consulting Provider: NEIL ORTEGA MD History of Present Illness: is a 74 year old female was in her wheelchair when she fell asleep and fell out of the wheel chair. left intertroch fx. no plan for orthopedic fixation. she is well known to me for PVD, recent left femoral endarterectomy revision of left to right fem-fem bypass for nonheeling right ankle wound. there has been exposed achilles. the rest of the wound has improved, but unable to heal over the tendon. She has left hip pain as well asright ankle pain but it is quite bearable other than during dressing changes. - Review of Systems Constitutional: No Fever, No Chills Eyes: No Vision Changes Respiratory: No No Symptoms Cardiac: No No Symptoms Abdominal/Gastrointestinal: No Abdominal Pain Musculoskeletal: Fall, Injury, Joint Pain Skin: Skin Lesions, Other Neurological: No Dizziness, No Focal Weakness Medications & Allergies Home Medications: Home Medication List Furosemide 40 mg PO QAM #30 tablet 05/25/13 [Rx Confirmed 07/06/19] Clopidogrel Bisulfate 75 mg [PLAVIX 75 MG Tablet] 75 mg PO DAILY 04/22/15 [History Confirmed 07/06/19] Alendronate Sodium 70 mg [Fosamax 70 MG] 70 mg PO Q7D@0600 05/13/19 [ History Confirmed 07/06/19] Aspirin EC 81 mg [Ecotrin 81 mg] 81 mg PO BID 05/13/19 [History Confirmed 07/06/19] Cyclobenzaprine HCl 10 mg [Cyclobenzaprine 10 MG] 10 mg PO TID 05/13/19 [ History Confirmed 07/06/19] Gabapentin [Neurontin] 300 mg PO TID 05/13/19 [History Confirmed 07/06/19] Metoprolol Succinate 25 mg Xl* [Toprol-Xl 25MG Tablets] 25 mg PO DAILY [History Confirmed 07/06/19] Mirabegron [Myrbetriq] 50 mg PO DAILY 05/13/19 [History Confirmed 07/06/19] Oxycodone HCl/Acetaminophen [Percocet 7.5-325 mg Tablet] 1 tab PO QIDPRN PRN [History Confirmed 07/06/19] Pravastatin Sodium 80 mg PO HS 05/13/19 [History Confirmed 07/06/19] Trazodone HCl 50 mg [Desyrel 50 mg] 50 mg PO HS 05/13/19 [History Confirmed 07/06/19] Clindamycin HCl 300 mg PO QID 07/06/19 [History Confirmed 07/06/19] Allergies/Adverse Reactions: Allergies Allergy/AdvReac Type Severity Reaction Status Date / Time morphine Allergy Intermediate severe Verified 07/06/19 09:48 itching, SOB- decreased resp rate Tetanus Vaccines and Toxoid Allergy Intermediate localized Verified 07/06/19 09: 48 [Tetanus Vaccines & Toxoid] swelling codeine Allergy Mild Itching Verified 07/06/19 09:48 vancomycin Allergy Verified 07/06/19 09:48 - Past Medical History Past Medical History: Yes Neurological History: No Pertinent History ENT History: Cataracts Cardiac History: Congestive Heart Failure, High Cholesterol, Hypertension, Other Respiratory History: Asthma Endocrine Medical History: Diabetes Type II Musculoskelatal History: Osteoarthritis GI Medical History: No Pertinent History History: Other Pyscho-Social History: No Pertinent History Reproductive Disorders: Endometriosis Comment: femorial artery graft in R LE, nearly lost that leg. Heart stent - Female History Are you now?: No - Past Surgical History Past Surgical History: Yes Neuro Surgical History: No Pertinent History Cardiac History: Cardiac Catheterization, Cardiac Stent Respiratory Surgery: No Pertinent History GI Surgical History: No Pertinent History Genitourinary Surgical Hx: No Pertinent History Musculskeletal Surgical Hx: Orthopedic Surgery Female Surgical History: Hysterectomy Other Surgical History: stentx1, carotid endardectomy, foot , tonsil, back surgery, femeral artery replaced UPDATED 05/24/15 aka left 06/27/2015 cataract surgery with implants bilat - Social History Smoking Status: Current every day smoker How long have you smoked: 50 y Exposure to second hand smoke: No Alcohol: Rarely Drug Use: none - Physical Exam Vital Signs: Vital Signs - 24 hr Temp Pulse Resp BP Pulse Ox 07/07/19 16:00 101.3 F 107 H 20 142/58 94 L 07/07/19 12:00 91 L 07/07/19 11:48 99.1 F 89 18 130/60 91 L 07/07/19 08:00 91 L 07/07/19 07:23 100.6 F 112 H 18 119/53 91 L 07/07/19 06:45 92 L 07/07/19 04:30 99.4 F 104 H 22 124/60 93 L 07/07/19 04:00 93 L 07/07/19 00:00 91 L 07/06/19 23:58 99.6 F 95 H 18 99/43 91 L 07/06/19 21:00 92 L 07/06/19 20:57 92 L 07/06/19 20:00 99.7 F 105 H 18 118/56 92 L 07/06/19 18:37 93 L Oxygen-Last 24 hours Oxygen Flowrate (L/min)-RT 4 Oxygen Flowrate (L/min)-RT 4 General Appearance: no apparent distress Neurologic Exam: alert, oriented x 3, cooperative, normal mood/affect Eye Exam: eyes nml inspection Neck Exam: normal inspection Respiratory Exam: No respiratory distress Gastrointestinal/Abdomen Exam: soft, No tenderness (left hip ecchymosis, local tenderness. left groin incision completely healed. right foot motorsens intact cap refill <1sec, right heel wound with ~2cm area exposed fibrinous achilles) Wound Assessment: Skin/Wound Assessment Wound/Incision Assessment Start: 07/06/19 11: 58 Text: Status: Active Freq: Q6H Protocol: Document 07/07/19 10:00 AR (Rec: 07/07/19 10:12 AR [id number]) Wound/Incision Assessment Right Heel Wound Assessment Shift Assessment Wound Type Stasis Ulcer Dressing Status Changed Drainage Amount None Wound Bed Lesser Portion Yellow (Slough) Surrounding Tissue [place] Primary Dressing wet to dry Secondary Dressing Gauze Roll/Wrap Comment Cleaned with hibiclens, wet to dry dressing applied and wrapped with gauze fluff roll Wound Photo Photo Taken Yes Results - Labs Lab/Micro Results: Accuchecks Date 07/06/19 Time 21:00 Accucheck Value: 161 Accucheck Value: 102 Accucheck Value: 110 Lab Results-Last 24 Hours 07/07/19 07/07/19 07/07/19 Range/Units 04:30 04:30 14:10 WBC 11.5 H (4.0-10.5) K/mm3 RBC 3.43 L (4.1-5.4) M/mm3 Hgb 10.3 L (12.0-16.0) gm/dl Hct 33.4 L (35-47) % MCV 97.4 (78-100) fl MCH 30.0 (26-32) pg MCHC 30.8 L (32-36) g/dl RDW 15.2 H (11.5-14.0) % Plt Count 309 (150-450) K/mm3 MPV 9.0 (7.5-11.0) fl Gran % 84.7 H (36.0-66.0) % Eos # (Auto) 0.51 H (0-0.5) Absolute Lymphs (auto) 0.55 L (1.0-4.6) Absolute Monos (auto) 0.67 (0.0-1.3) Lymphocytes % 4.8 L (24.0-44.0) % Monocytes % 5.8 (0.0-12.0) % Eosinophils % 4.4 (0.00-5.0) % Basophils % 0.3 (0.0-0.4) % Absolute Granulocytes 9.72 H (1.4-6.9) Basophils # 0.03 (0-0.4) Sodium 139 (137-145) mmol/L Potassium 2.9 L* D 3.5 D (3.5-5.1) mmol/L Chloride 102 (98-107) mmol/L Carbon Dioxide 28 (22-30) mmol/L Anion Gap 11.1 (5-15) MEQ/L BUN 8 (7-17) mg/dL Creatinine 0.51 L (0.52-1.04) mg/dL Estimated GFR > 60.0 ML/MIN Glucose 97 (74-106) mg/dL Calcium 8.2 L (8.4-10.2) mg/dL Total Bilirubin 0.60 (0.2-1.3) mg/dL AST 23 (14-36) U/L ALT 11 (0-35) U/L Alkaline Phosphatase 63 (38-126) U/L Serum Total Protein 6.9 (6.3-8.2) g/dL Albumin 3.5 (3.5-5.0) g/dL Slides for Path Review YES Microbiology 04/15/20 06:35 Wound Culture - Preliminary Ankle - Right GRAM NEGATIVE ID AND SENSITIVITY PENDING Accuchecks Date 07/06/19 Time 21:00 Accucheck Value: 161 Accucheck Value: 102 Accucheck Value: 110 - Radiology Impressions Radiology Exams & Impressions: Radiology Procedures Category Date Time Status FEMUR Stat Exams 07/06/19 06:56 Completed HIP UNI (2V) INCL PEL IF DONE Stat Exams 07/06/19 06:55 Completed LOWER EXTREMITY WO CONTRAST [CT] Stat Exams 07/06/19 09:54 Completed Assessment/Plan (1) PAD (peripheral artery disease) Current Visit: Yes Status: Acute Assessment & Plan: 74yo female fall from wheelchair while sleeping with left introch fracture, no plans for orthopedic intervention. also with slowly healing right ankle wound. The wound made initial progress after revascularization but unable to heal over exposed tendon. -on a nonurgent basis she will need right ankle debridement likely excision of the achilles with possible skin graft. As the goal of treatment is wound closure and continued use for transfers wheelchair to bed etc, tendon will likely be sacrificed. -continue moist to dry dressing changes BID for now. we will arrange a time for debridement in OR as she is quite sensate. Code(s): I73.9 - PERIPHERAL VASCULAR DISEASE, UNSPECIFIED (2) Ulcer of right foot Current Visit: Yes Status: Acute Code(s): L97.519 - NON-PRS CHRONIC ULCER OTH PRT RIGHT FOOT W UNSP SEVERITY
[2019-07-07] MEDS: ZOCOR 20MG PO SCH (21:38)
[2019-07-07] MEDS: DESYREL 50 MG PO SCH (21:38)
[2019-07-08] MEDS: Sodium Chloride 0.9% W/ 20 mEq KCl/LITER 1,000 ML IV SCH ×2 (00:02→10:17)
[2019-07-08] MEDS: NEURONTIN 300 MG PO SCH ×3 (05:09→18:32)
[2019-07-08] MEDS: TYLENOL 325 MG PO PRN ×3 (05:09→19:39)
[2019-07-08] MEDS: CLINDAMYCIN-D5W 600 MG/50 ML*** 600 MG/50 ML BAG IV SCH (05:09)
[2019-07-08 08:52] LABS: Absolute Neutrophil Ct (ANC) 17.11 (1.4-6.9); BASOPHIL % 0.2 % (0.0-0.4); Basophil (Absolute #) 0.03 (0-0.4); Eosinophil % 4.4 % (0.00-5.0); Eosinophil (Absolute #) 0.86 (0-0.5); Hematocrit 30.7 % (35-47); Hemoglobin 9.6 gm/dl (12.0-16.0); Lymphocyte (Absolute #) 0.62 (1.0-4.6); Lymphocytes % 3.2 % (24.0-44.0); Mean Cell Volume 96.5 fl (78-100); Mean Corpuscular Hemoglobin 30.2 pg (26-32); Mean Corpuscular Hgb Concent. 31.3 g/dl (32-36); Mean Platelet Volume 9.3 fl (7.5-11.0); Monocyte (Absolute #) 0.77 (0.0-1.3); Neutrophil % 88.2 % (36.0-66.0); Platelet Count 253 K/mm3 (150-450); Red Blood Count 3.18 M/mm3 (4.1-5.4); Red Cell Distribution Width 14.9 % (11.5-14.0); White Blood Count 19.4 K/mm3 (4.0-10.5)
[2019-07-08 09:03] LABS: ANION GAP 9.3 MEQ/L (5-15); BLOOD UREA NITROGEN 11 mg/dL (7-17); CHLORIDE 103 mmol/L (98-107); Calcium 7.7 mg/dL (8.4-10.2); Carbon Dioxide 28 mmol/L (22-30); Creatinine 1 0.63 mg/dL (0.52-1.04); Glucose 133 mg/dL (74-106); Potassium 3.9 mmol/L (3.5-5.1); SODIUM 136 mmol/L (137-145)
[2019-07-08] MEDS: Toprol-Xl 25MG Tablets PO SCH ×3 (10:10→15:24)
[2019-07-08] MEDS: Lasix 40 MG PO SCH (10:10)
[2019-07-08] MEDS: ECOTRIN 81 MG PO SCH ×2 (10:10→19:40)
[2019-07-08] MEDS: Cyclobenzaprine 10 MG PO SCH ×3 (10:10→19:40)
[2019-07-08] MEDS: PLAVIX 75 MG Tablet PO SCH (10:10)
[2019-07-08] MEDS: MYRBETRIQ PO SCH (10:11)
[2019-07-08] MEDS: ROCEPHIN 1 Gm-D5w 50 ml Bag** 1 G/50 ML IVPB IV SCH (10:32)
[2019-07-08] MEDS: Levofloxacin 500MG/100ML D5W 500 MG/100 ML BAG IV SCH (11:01)
[2019-07-08] MEDS: LOTRIMIN CREAM 30 GM TP PRN (11:02)
--- NOTE | 2019-07-08 12:11 | XRAY ---
Indication: Worsening O2 saturation. Comparison: April 23, 2015. Portable chest is rotated. No focal infiltrate, consolidation, or large effusion. Heart is not enlarged for AP portable technique. Stable mediastinal calcified nodes. Bony thorax intact again with mild osteopenia and degenerative changes. Impression: Continued nonacute chest with chronic features.
--- NOTE | 2019-07-08 16:39 | PCM.HP ---
History of Present Illness - Chief Complaint Chief Complaint: fall, left hip pain Date: 07/07/19 History of Present Illness: is a 74 year old female with IDDM ,severe PVD and COPD and continues to smoke. She fell at home,slid out of her chair and suffered a non displaced left femoral intertrochanteric fracture.It is nondisplaced and patient does not weight bear on this amputated leg so Ortho will not to surgical intervention. She has intractable pain due to her left hip and right heel stasis ulcer. Her left leg is amputated and she had vascular surgery with Dr. Kermit Luis several weeks ago trying to save her right foot. The large right heel ulcer was debrided by Dr Sepulveda and cultures were pending on admission.She has been on oral Clindamycin. - Review of Systems Constitutional: Chills, Weakness Eyes: Other (no discharge or irritation ) Ears, Nose, & Throat: No Symptoms Respiratory: Other (COPD aactive smoker and has chronic mild cough) Cardiac: No Symptoms Abdominal/Gastrointestinal: No Symptoms Genitourinary Symptoms: No Symptoms Musculoskeletal: Fall (fracture left femur, remote left AKA) Skin: Cellulitis Neurological: No Symptoms Psychological: No Symptoms Endocrine: Other (IDDM2) Hematologic/Lymphatic: No Symptoms Immunological/Allergic: No Symptoms Medications & Allergies Home Medications: Home Medication List Furosemide 40 mg PO QAM #30 tablet 05/25/13 [Rx Confirmed 07/06/19] Clopidogrel Bisulfate 75 mg [PLAVIX 75 MG Tablet] 75 mg PO DAILY 04/22/15 [History Confirmed 07/06/19] Alendronate Sodium 70 mg [Fosamax 70 MG] 70 mg PO Q7D@0600 05/13/19 [ History Confirmed 07/06/19] Aspirin EC 81 mg [Ecotrin 81 mg] 81 mg PO BID 05/13/19 [History Confirmed 07/06/19] Cyclobenzaprine HCl 10 mg [Cyclobenzaprine 10 MG] 10 mg PO TID 05/13/19 [ History Confirmed 07/06/19] Gabapentin [Neurontin] 300 mg PO TID 05/13/19 [History Confirmed 07/06/19] Metoprolol Succinate 25 mg Xl* [Toprol-Xl 25MG Tablets] 25 mg PO DAILY [History Confirmed 07/06/19] Mirabegron [Myrbetriq] 50 mg PO DAILY 05/13/19 [History Confirmed 07/06/19] Oxycodone HCl/Acetaminophen [Percocet 7.5-325 mg Tablet] 1 tab PO QIDPRN PRN [History Confirmed 07/06/19] Pravastatin Sodium 80 mg PO HS 05/13/19 [History Confirmed 07/06/19] Trazodone HCl 50 mg [Desyrel 50 mg] 50 mg PO HS 05/13/19 [History Confirmed 07/06/19] Clindamycin HCl 300 mg PO QID 07/06/19 [History Confirmed 07/06/19] Allergies/Adverse Reactions: Allergies Allergy/AdvReac Type Severity Reaction Status Date / Time morphine Allergy Intermediate severe Verified 07/06/19 09:48 itching, SOB- decreased resp rate Tetanus Vaccines and Toxoid Allergy Intermediate localized Verified 07/06/19 09: 48 [Tetanus Vaccines & Toxoid] swelling codeine Allergy Mild Itching Verified 07/06/19 09:48 vancomycin Allergy Verified 07/06/19 09:48 - Past Medical History Past Medical History: Yes Neurological History: No Pertinent History ENT History: Cataracts Cardiac History: Congestive Heart Failure, High Cholesterol, Hypertension, Other Respiratory History: Asthma Endocrine Medical History: Diabetes Type II Musculoskelatal History: Osteoarthritis GI Medical History: No Pertinent History History: Other Pyscho-Social History: No Pertinent History Reproductive Disorders: Endometriosis Comment: femorial artery graft in R LE, nearly lost that leg. Heart stent - Female History Are you now?: No - Past Surgical History Past Surgical History: Yes Neuro Surgical History: No Pertinent History Cardiac History: Cardiac Catheterization, Cardiac Stent Respiratory Surgery: No Pertinent History GI Surgical History: No Pertinent History Genitourinary Surgical Hx: No Pertinent History Musculskeletal Surgical Hx: Orthopedic Surgery Female Surgical History: Hysterectomy Other Surgical History: stentx1, carotid endardectomy, foot , tonsil, back surgery, femeral artery replaced UPDATED 05/24/15 aka left 06/27/2015 cataract surgery with implants bilat - Social History Smoking Status: Current every day smoker How long have you smoked: 50 y Exposure to second hand smoke: No Alcohol: Rarely Drug Use: none - Physical Exam Vital Signs: Vital Signs - 24 hr Temp Pulse Resp BP Pulse Ox 07/08/19 14:00 90 L 07/08/19 12:00 99 F 102 H 18 110/51 90 L 07/08/19 10:00 92 L 07/08/19 08:00 98.9 F 91 H 18 104/54 92 L 07/08/19 06:54 91 L 07/08/19 05:59 94 L 07/08/19 04:00 99.9 F 112 H 22 120/63 94 L 07/08/19 02:00 94 L 07/08/19 00:00 97.7 F 94 H 18 91/46 94 L 07/07/19 22:00 92 L 07/07/19 19:53 98.6 F 97 H 18 95/44 92 L 07/07/19 19:44 92 L 07/07/19 18:07 94 L Oxygen-Last 24 hours Oxygen Flowrate (L/min)-RT 5 General Appearance: moderate distress (in pain right leg cellulitis ,right heel ulcer and dressing change painful) Eye Exam: PERRL/EOMI Ears, Nose, Throat Exam: normal ENT inspection Neck Exam: normal inspection Respiratory Exam: diminished breath sounds (bibasilar no ronchi or rales ,fine eew left mid) Cardiovascular Exam: regular rate/rhythm Gastrointestinal/Abdomen Exam: soft (nontender) Extremity Exam: inflammation (right low leg ,large ulcer right heel S/P debridement), swelling (lateral hip with ecchymosis ,skin intact) Wound Assessment: Skin/Wound Assessment Wound/Incision Assessment Start: 07/06/19 11: 58 Text: Status: Active Freq: Q6H Protocol: Document 07/08/19 10:00 BE (Rec: 07/08/19 11:57 BE [id number]) Wound/Incision Assessment Posterior Sacrum Wound Assessment New Finding Wound Type Pressure Ulcer Wound Stage Stage II Drainage Amount None Drainage Odor None/Absent General Appearance Open to air Clean/Dry Surrounding Tissue [place] Comment open to air, non blanchable, small open area, barrier cream applied at this time Right Heel Wound Assessment Shift Assessment Wound Type Stasis Ulcer Dressing Status Dry & Intact Changed Drainage Amount None Primary Dressing wet to dry Secondary Dressing Gauze Roll/Wrap Comment W/D dressing/dressing CDI- extremity up on pillow. Results - Labs Lab/Micro Results: Accuchecks Date 07/08/19 Date 07/08/19 Time 11:30 Time 08:00 Accucheck Value: 143 Accucheck Value: 109 Accucheck Value: 158 Lab Results-Last 24 Hours 07/08/19 07/08/19 Range/Units 08:45 08:45 WBC 19.4 H (4.0-10.5) K/mm3 RBC 3.18 L (4.1-5.4) M/mm3 Hgb 9.6 L (12.0-16.0) gm/dl Hct 30.7 L (35-47) % MCV 96.5 (78-100) fl MCH 30.2 (26-32) pg MCHC 31.3 L (32-36) g/dl RDW 14.9 H (11.5-14.0) % Plt Count 253 (150-450) K/mm3 MPV 9.3 (7.5-11.0) fl Gran % 88.2 H (36.0-66.0) % Eos # (Auto) 0.86 H (0-0.5) Absolute Lymphs (auto) 0.62 L (1.0-4.6) Absolute Monos (auto) 0.77 (0.0-1.3) Lymphocytes % 3.2 L (24.0-44.0) % Monocytes % 4.0 (0.0-12.0) % Eosinophils % 4.4 (0.00-5.0) % Basophils % 0.2 (0.0-0.4) % Absolute Granulocytes 17.11 H (1.4-6.9) Basophils # 0.03 (0-0.4) Sodium 136 L (137-145) mmol/L Potassium 3.9 (3.5-5.1) mmol/L Chloride 103 (98-107) mmol/L Carbon Dioxide 28 (22-30) mmol/L Anion Gap 9.3 (5-15) MEQ/L BUN 11 (7-17) mg/dL Creatinine 0.63 (0.52-1.04) mg/dL Estimated GFR > 60.0 ML/MIN Glucose 133 H (74-106) mg/dL Calcium 7.7 L (8.4-10.2) mg/dL Microbiology 07/06/19 06:35 Wound Culture - Final Ankle - Right Pseudomonas Aeruginosa 07/06/19 07:10 Blood Culture - Preliminary Blood NO GROWTH TO DATE 07/06/19 07:00 Blood Culture - Preliminary Blood NO GROWTH TO DATE Accuchecks Date 07/08/19 Date 07/08/19 Time 11:30 Time 08:00 Accucheck Value: 143 Accucheck Value: 109 Accucheck Value: 158 - Radiology Impressions Radiology Exams & Impressions: Radiology Procedures Category Date Time Status CHEST 1 VIEW (PORTABLE) Urgent Exams 07/08/19 11:24 Completed Assessment/Plan (1) Fall at home Current Visit: Yes Status: Acute Qualifiers: Encounter type: subsequent encounter Qualified Code(s): W19.XXXD - Unspecified fall, subsequent encounter; Y92.009 - Unspecified place in unspecified non-institutional (private) residence as the place of occurrence of the external cause Assessment & Plan: slide out of recliner and fractured left hip,Ortho evaluated,no surgery Code(s): W19.XXXA - UNSPECIFIED FALL, INITIAL ENCOUNTER; Y92.009 - UNSP PLACE IN UNSP NON-INSTITUT (PRIVATE) RESIDENCE PLACE (2) Intertrochanteric fracture of left femur Current Visit: Yes Status: Acute Qualifiers: Encounter type: subsequent encounter Fracture type: closed Fracture alignment: nondisplaced Assessment & Plan: nonweightbearing due to AKA same side so no Ortho surgery Code(s): S72.142A - DISPLACED INTERTROCHANTERIC FRACTURE OF LEFT FEMUR, INIT (3) Peripheral vascular disease Current Visit: Yes Status: Chronic Assessment & Plan: followed by Dr Derrick Luis,recent vascular surgery to improve flow to [facility]. Code(s): I73.9 - PERIPHERAL VASCULAR DISEASE, UNSPECIFIED (4) COPD (chronic obstructive pulmonary disease) Current Visit: Yes Status: Chronic Assessment & Plan: smoke cessation discussed (5) IDDM (insulin dependent diabetes mellitus) Current Visit: Yes Status: Chronic Assessment & Plan: controlled Code(s): [id number] - (6) Cellulitis of right lower leg Current Visit: Yes Status: Acute Code(s): L03.115 - CELLULITIS OF RIGHT LOWER LIMB (7) Chronic heel ulcer Current Visit: Yes Status: Chronic Qualifiers: Laterality: right Assessment & Plan: dressing changes wet to dry Code(s): L97.409 - NON-PRS CHRONIC ULCER OF UNSP HEEL AND MIDFOOT W UNSP SEVERT
--- NOTE | 2019-07-08 17:09 | PCM.NOTE ---
Date and Time: 07/08/19 1649 Subjective Assessment: Med Surg nurse called to report patient's O2 sats were dropping and her temp was 100.4 .She has coughed some cloudy mucus but does have some cough chronically from COPD. STAT portable CXR did not show effusion or infiltrate. Cultures right heel grew gram neg while on Clindamycin so Rocephin was added yesterday but Pseudamonas reported today and IV Levaquin was started in place of Rocephin and Clindamycin.I discussed case with Dr Jean and he agreed patient should have Covid testing and patient was transferred to negative pressure room . Patient is on [employer] pump to help control pain from right heel ulcer and left intertrochanteric nondisplaced femur fracture in her right amputated leg.No Ortho surgery for the nondisplaced fracture. Patient had vascular surgery with Dr Shari Luis a month or more ago and was in Rehab for 20 days last month. See Dr Luis consult from yesterday for spaecifics. Objective Exam Neurologic Exam: alert, oriented x 3 Wound Assessment: Skin/Wound Assessment Wound/Incision Assessment Start: 07/06/19 11: 58 Text: Status: Active Freq: Q6H Protocol: Document 07/08/19 10:00 BE (Rec: 07/08/19 11:57 BE [id number]) Wound/Incision Assessment Posterior Sacrum Wound Assessment New Finding Wound Type Pressure Ulcer Wound Stage Stage II Drainage Amount None Drainage Odor None/Absent General Appearance Open to air Clean/Dry Surrounding Tissue [place] Comment open to air, non blanchable, small open area, barrier cream applied at this time Right Heel Wound Assessment Shift Assessment Wound Type Stasis Ulcer Dressing Status Dry & Intact Changed Drainage Amount None Primary Dressing wet to dry Secondary Dressing Gauze Roll/Wrap Comment W/D dressing/dressing CDI- extremity up on pillow. Respiratory Exam: diminished breath sounds (see RT note) Cardiovascular Exam: tachycardia Extremity Exam: other (right heel ulcer dressed dry clean wet to dry dressing in place, See cult and sens reported today) OBJECTIVE DATA Vital Signs: Vital Signs - 24 hr Temp Pulse Resp BP Pulse Ox 07/08/19 16:00 99.8 F 108 H 17 112/63 93 L 07/08/19 14:00 90 L 07/08/19 12:00 99 F 102 H 18 110/51 90 L 07/08/19 10:00 92 L 07/08/19 08:00 98.9 F 91 H 18 104/54 92 L 07/08/19 06:54 91 L 07/08/19 05:59 94 L 07/08/19 04:00 99.9 F 112 H 22 120/63 94 L 07/08/19 02:00 94 L 07/08/19 00:00 97.7 F 94 H 18 91/46 94 L 07/07/19 22:00 92 L 07/07/19 19:53 98.6 F 97 H 18 95/44 92 L 07/07/19 19:44 92 L 07/07/19 18:07 94 L Oxygen-Last 24 hours Oxygen Flowrate (L/min)-RT 5 Pain Assessment - Last Documented Pain Intensity 4 Pain Scale Used 0-10 Pain Scale,FLACC Intake and Output: Intake & Output 07/06/19 07/07/19 07/08/19 07/09/19 11:59 11:59 11:59 11:59 Intake Total 2005 3581 Output Total 1799 1500 Balance 206 2082 Weight 71.2 kg Lab Results: Accuchecks Date 07/08/19 Date 07/08/19 Date 07/08/19 Time 16:30 Time 11:30 Time 08:00 Accucheck Value: 111 Accucheck Value: 143 Accucheck Value: 109 Accucheck Value: 158 Lab Results-Last 24 Hours 07/08/19 07/08/19 Range/Units 08:45 08:45 WBC 19.4 H (4.0-10.5) K/mm3 RBC 3.18 L (4.1-5.4) M/mm3 Hgb 9.6 L (12.0-16.0) gm/dl Hct 30.7 L (35-47) % MCV 96.5 (78-100) fl MCH 30.2 (26-32) pg MCHC 31.3 L (32-36) g/dl RDW 14.9 H (11.5-14.0) % Plt Count 253 (150-450) K/mm3 MPV 9.3 (7.5-11.0) fl Gran % 88.2 H (36.0-66.0) % Eos # (Auto) 0.86 H (0-0.5) Absolute Lymphs (auto) 0.62 L (1.0-4.6) Absolute Monos (auto) 0.77 (0.0-1.3) Lymphocytes % 3.2 L (24.0-44.0) % Monocytes % 4.0 (0.0-12.0) % Eosinophils % 4.4 (0.00-5.0) % Basophils % 0.2 (0.0-0.4) % Absolute Granulocytes 17.11 H (1.4-6.9) Basophils # 0.03 (0-0.4) Sodium 136 L (137-145) mmol/L Potassium 3.9 (3.5-5.1) mmol/L Chloride 103 (98-107) mmol/L Carbon Dioxide 28 (22-30) mmol/L Anion Gap 9.3 (5-15) MEQ/L BUN 11 (7-17) mg/dL Creatinine 0.63 (0.52-1.04) mg/dL Estimated GFR > 60.0 ML/MIN Glucose 133 H (74-106) mg/dL Calcium 7.7 L (8.4-10.2) mg/dL Radiology Exams: Radiology Procedures Category Date Time Status CHEST 1 VIEW (PORTABLE) Urgent Exams 07/08/19 11:24 Completed Multi-Disciplinary Progress Notes: Multi-Disciplinary Progress Notes 07/08/19 13:19 Physical Therapy Note by Lore Martines P.T. EVAL HELD THIS DATE PT. IS BEING TESTED FOR COVID-19 D/T INCREASED DIFFICULTY BREATHING AND FEVER. PT. NOT MEDICALLY APPOPRIATE FOR P.T. INTERVENTION TODAY. WILL EVAL NEXT WEEK TO HELP ASSESS APPROPRIATE D/C PLACEMENT. LORE MARTINES, PT Initialized on 07/08/19 13:19 - END OF NOTE 07/08/19 09:53 Case Management Note by Lou De León S/W PATIENT- SHE IS STILL VERY RESISTENT TO THE IDEA OF GOING TO A FACILITY FOR REHAB. SHE STATES SHE HAS PEOPLE THAT COME HELP HER WITH DRESSING CHANGES IF NEEDED. WILL CONTINUE TO FOLLOW FOR NEEDS Initialized on 07/08/19 09:53 - END OF NOTE 07/08/19 01:39 Respiratory Note by Tomás Deleon NURSING CALLED FOR RT TO ASSESS PT SATS APPEARED TO BE DROPPING. I MOVED BAND AID PROBE TO DIFFERENT FINGERS BUT IT GETS THE BEST READING ON HER THUMB. SATS WERE IN THE HIGH 80'S ON 4LPM OXYMASK. I INCREASED PT FROM 4LPM TO 5LPM AND SATS MAINTAINED AROUND 93-93%. INFORMED NURSING. Initialized on 07/08/19 01:39 - END OF NOTE Assessment/Plan (1) Acute respiratory failure with hypoxemia Current Visit: Yes Status: Acute Assessment & Plan: transfer to to [facility] pressure room for Covid testing. RT moitoring . Code(s): J96.01 - ACUTE RESPIRATORY FAILURE WITH HYPOXIA (2) Fever Current Visit: Yes Status: Acute Assessment & Plan: patient was afebrile on addmission 07/07/2019,spiked today Code(s): R50.9 - FEVER, UNSPECIFIED (3) Cellulitis Current Visit: Yes Status: Chronic Qualifiers: Site of cellulitis: extremity Site of cellulitis of extremity: lower extremity Laterality: right Qualified Code(s): L03.115 - Cellulitis of right lower limb Assessment & Plan: recent debridement by Dr Sepulveda right heel ulcer and was on oral Clindamycin prior to admission Code(s): L03.90 - CELLULITIS, UNSPECIFIED (4) Intertrochanteric fracture of left femur Current Visit: Yes Status: Acute Qualifiers: Encounter type: subsequent encounter Fracture alignment: displaced Assessment & Plan: plan no surgery for fixation since patient does not weight bear on left leg due to remote amputation. Code(s): S72.142A - DISPLACED INTERTROCHANTERIC FRACTURE OF LEFT FEMUR, INIT (5) PAD (peripheral artery disease) Current Visit: Yes Status: Chronic Assessment & Plan: recent surgery early May 2019-see Dr Luis note Code(s): I73.9 - PERIPHERAL VASCULAR DISEASE, UNSPECIFIED (6) Diabetes mellitus type 2 Current Visit: No Status: Chronic Assessment & Plan: IDDM2 Code(s): E11.9 - TYPE 2 DIABETES MELLITUS WITHOUT COMPLICATIONS
[2019-07-08] MEDS ORDERED: VENTOLIN COMMON CANISTER IH PRN (17:22)
[2019-07-08] MEDS ORDERED: Toprol-Xl 25MG Tablets PO ONE (18:42)
[2019-07-08] MEDS: ZOCOR 20MG PO SCH (19:40)
[2019-07-08] MEDS: DESYREL 50 MG PO SCH (19:40)
[2019-07-09] MEDS: NEURONTIN 300 MG PO SCH ×5 (00:27→22:46)
[2019-07-09] MEDS: Sodium Chloride 0.9% W/ 20 mEq KCl/LITER 1,000 ML IV SCH ×2 (03:07→09:11)
[2019-07-09 05:32] LABS: Absolute Neutrophil Ct (ANC) 11.16 (1.4-6.9); BASOPHIL % 0.1 % (0.0-0.4); Basophil (Absolute #) 0.02 (0-0.4); Eosinophil % 9.7 % (0.00-5.0); Eosinophil (Absolute #) 1.37 (0-0.5); Hematocrit 30.8 % (35-47); Hemoglobin 9.4 gm/dl (12.0-16.0); Lymphocyte (Absolute #) 0.78 (1.0-4.6); Lymphocytes % 5.5 % (24.0-44.0); Mean Cell Volume 97.2 fl (78-100); Mean Corpuscular Hemoglobin 29.7 pg (26-32); Mean Corpuscular Hgb Concent. 30.5 g/dl (32-36); Mean Platelet Volume 9.8 fl (7.5-11.0); Monocyte (Absolute #) 0.74 (0.0-1.3); Monocytes % 5.3 % (0.0-12.0); Neutrophil % 79.4 % (36.0-66.0); Platelet Count 240 K/mm3 (150-450); Red Blood Count 3.17 M/mm3 (4.1-5.4); Red Cell Distribution Width 14.9 % (11.5-14.0); White Blood Count 14.1 K/mm3 (4.0-10.5)
[2019-07-09] MEDS ORDERED: Fosamax 70 MG PO SCH (06:00)
[2019-07-09 06:33] LABS: ANION GAP 10.4 MEQ/L (5-15); BLOOD UREA NITROGEN 11 mg/dL (7-17); CHLORIDE 100 mmol/L (98-107); Calcium 7.8 mg/dL (8.4-10.2); Carbon Dioxide 28 mmol/L (22-30); Creatinine 1 0.62 mg/dL (0.52-1.04); Glucose 91 mg/dL (74-106); NT PRO BNP 6080 pg/mL (0-900); Potassium 3.8 mmol/L (3.5-5.1); SODIUM 135 mmol/L (137-145)
[2019-07-09] MEDS: Levofloxacin 500MG/100ML D5W 500 MG/100 ML BAG IV SCH (09:02)
[2019-07-09] MEDS: ECOTRIN 81 MG PO SCH ×2 (09:03→20:17)
[2019-07-09] MEDS: PLAVIX 75 MG Tablet PO SCH (09:03)
[2019-07-09] MEDS: Cyclobenzaprine 10 MG PO SCH ×3 (09:04→20:17)
[2019-07-09] MEDS: Toprol-Xl 25MG Tablets PO SCH (09:04)
[2019-07-09] MEDS: Lasix 40 MG PO SCH (09:04)
[2019-07-09] MEDS: MYRBETRIQ PO SCH (09:07)
[2019-07-09] MEDS: Sodium Chloride 0.9% 1000 ML 1,000 ML IV SCH (10:23)
--- NOTE | 2019-07-09 11:45 | PCM.NOTE ---
Date and Time: 07/09/19 1140 Subjective Assessment: patient reports her breathing is comfortable on oxygen via facemask, she continues to have significant pain in her stump on the left but her pain is currently well controlled. Objective Exam General Appearance: no apparent distress Neurologic Exam: alert, oriented x 3, cooperative Wound Assessment: Skin/Wound Assessment Wound/Incision Assessment Start: 07/06/19 11: 58 Text: Status: Active Freq: Q6H Protocol: Document 07/09/19 10:00 CARMELO (Rec: 07/09/19 10:03 CARMELO [id number]) Wound/Incision Assessment Posterior Sacrum Wound Assessment Shift Assessment Wound Type Pressure Ulcer Wound Stage Stage II Dressing Status Dry & Intact Drainage Amount None Drainage Odor None/Absent Surrounding Tissue [place] Comment open to air, non blanchable, small open area, barrier cream applied at this time Right Heel Wound Assessment Shift Assessment Wound Type Stasis Ulcer Dressing Status Dry & Intact Changed Drainage Amount Minimal Drainage Description Yellow Drainage Odor None/Absent Wound Bed Greatest Portion Yellow (Slough) Wound Bed Lesser Portion Red (Granulation) % Granulated (Red) 10 % Slough (Yellow) 90 Surrounding Tissue [place] Primary Dressing wet to dry Secondary Dressing Gauze Roll/Wrap Comment W/D dressing/dressing CDI- extremity up on pillow. Respiratory Exam: crackles/rales Cardiovascular Exam: regular rate/rhythm, normal heart sounds Gastrointestinal/Abdomen Exam: soft, No tenderness, No mass Extremity Exam: other (right foot with dressing clean/dry/intact. has been monitored so not undressed today.) OBJECTIVE DATA Vital Signs: Vital Signs - 24 hr Temp Pulse Resp BP Pulse Ox 07/09/19 11:00 99.2 F 101 H 18 106/49 99 07/09/19 10:00 98.6 F 108 H 101/65 95 07/09/19 09:00 98.6 F 108 H 18 101/65 92 L 07/09/19 07:44 84 18 95 07/09/19 06:05 97.8 F 87 18 122/61 100 07/09/19 06:00 100 07/09/19 04:58 98.2 F 78 17 102/60 96 07/09/19 03:02 98.0 F 80 18 95 07/09/19 02:23 76 12 94 L 07/09/19 01:56 95 04/17/20 23:44 98.5 F 99 H 14 95/51 95 07/08/19 21:37 92 L 07/08/19 21:22 110 H 22 92 L 07/08/19 19:41 101.3 F 67 12 106/41 93 L 07/08/19 18:49 92 L 07/08/19 18:00 98 07/08/19 17:25 96 H 18 98 07/08/19 16:00 99.8 F 108 H 17 112/63 93 L 07/08/19 14:00 90 L 07/08/19 12:00 99 F 102 H 18 110/51 90 L Pain Assessment - Last Documented Pain Intensity 3 Pain Scale Used 0-10 Pain Scale Intake and Output: Intake & Output 07/06/19 07/07/19 07/08/19 07/09/19 11:59 11:59 11:59 11:59 Intake Total 2005 3582 2100 Output Total 1800 1500 1450 Balance 206 2082 650 Weight 71.2 kg Lab Results: Accuchecks Date 07/09/19 Date 07/08/19 Date 07/08/19 Time 07:20 Time 20:00 Time 16:30 Accucheck Value: 137 Accucheck Value: 111 Lab Results-Last 24 Hours 07/09/19 07/09/19 Range/Units 05:20 05:20 WBC 14.1 H (4.0-10.5) K/mm3 RBC 3.17 L (4.1-5.4) M/mm3 Hgb 9.4 L (12.0-16.0) gm/dl Hct 30.8 L (35-47) % MCV 97.2 (78-100) fl MCH 29.7 (26-32) pg MCHC 30.5 L (32-36) g/dl RDW 14.9 H (11.5-14.0) % Plt Count 240 (150-450) K/mm3 MPV 9.8 (7.5-11.0) fl Gran % 79.4 H (36.0-66.0) % Eos # (Auto) 1.37 H (0-0.5) Absolute Lymphs (auto) 0.78 L (1.0-4.6) Absolute Monos (auto) 0.74 (0.0-1.3) Lymphocytes % 5.5 L (24.0-44.0) % Monocytes % 5.3 (0.0-12.0) % Eosinophils % 9.7 H (0.00-5.0) % Basophils % 0.1 (0.0-0.4) % Absolute Granulocytes 11.16 H (1.4-6.9) Basophils # 0.02 (0-0.4) Sodium 135 L (137-145) mmol/L Potassium 3.8 (3.5-5.1) mmol/L Chloride 100 (98-107) mmol/L Carbon Dioxide 28 (22-30) mmol/L Anion Gap 10.4 (5-15) MEQ/L BUN 11 (7-17) mg/dL Creatinine 0.62 (0.52-1.04) mg/dL Estimated GFR > 60.0 ML/MIN Glucose 91 (74-106) mg/dL Calcium 7.8 L (8.4-10.2) mg/dL NT-Pro-B Natriuret Pep 6080 H (0-900) pg/mL Radiology Exams: Radiology Procedures Category Date Time Status CHEST 1 VIEW (PORTABLE) Urgent Exams 07/08/19 11:24 Completed Multi-Disciplinary Progress Notes: Multi-Disciplinary Progress Notes 07/08/19 13:19 Physical Therapy Note by Mir Cotto P.T. EVAL HELD THIS DATE PT. IS BEING TESTED FOR COVID-19 D/T INCREASED DIFFICULTY BREATHING AND FEVER. PT. NOT MEDICALLY APPOPRIATE FOR P.T. INTERVENTION TODAY. WILL EVAL NEXT WEEK TO HELP ASSESS APPROPRIATE D/C PLACEMENT. MIR COTTO, PT Initialized on 07/08/19 13:19 - END OF NOTE Assessment/Plan (1) Acute respiratory failure with hypoxemia Current Visit: Yes Status: Acute Assessment & Plan: appears volume overloaded, consistent with elevated pro-bnp and history. will d/ c fluids and change to IV lasix today in attempt to diurese. Code(s): J96.01 - ACUTE RESPIRATORY FAILURE WITH HYPOXIA (2) Wound of foot Current Visit: Yes Status: Acute Assessment & Plan: on levaquin for pseudomonas in wound but feel she would benefit from something with more direct anti-pseudomonal activity, change to Fortaz 1g IV q8hrs Code(s): S91.309A - UNSPECIFIED OPEN WOUND, UNSPECIFIED FOOT, INITIAL ENCOUNTER (3) DM2 (diabetes mellitus, type 2) Current Visit: Yes Status: Chronic (4) Peripheral vascular disease Current Visit: Yes Status: Chronic Code(s): I73.9 - PERIPHERAL VASCULAR DISEASE, UNSPECIFIED (5) CAD (coronary artery disease) Current Visit: No Status: Acute Code(s): I25.10 - ATHSCL HEART DISEASE OF [place] CORONARY ARTERY W/O ANG PCTRS (6) Congestive heart failure Current Visit: No Status: Chronic Code(s): I50.9 - HEART FAILURE, UNSPECIFIED
[2019-07-09] MEDS: Klor Con 10 MEQ PO SCH ×2 (12:22→20:17)
[2019-07-09] MEDS: Fortaz/Tazicef 1 GM** 1 G in Dextrose 5%/Water IV Soln. 100ML PLUS BAG 100 ML IV SCH ×2 (13:39→20:17)
[2019-07-09] MEDS: Lasix 40 MG/4 ML IV SCH (17:05)
[2019-07-09] MEDS: TYLENOL 325 MG PO PRN ×2 (18:37→22:46)
[2019-07-09] MEDS: ZOCOR 20MG PO SCH (20:17)
[2019-07-09] MEDS: DESYREL 50 MG PO SCH (20:17)
[2019-07-10] MEDS: NEURONTIN 300 MG PO SCH ×3 (05:33→17:16)
[2019-07-10 05:55] LABS: BASOPHIL % 0.1 % (0.0-0.4); Basophil (Absolute #) 0.01 (0-0.4); Eosinophil % 16.8 % (0.00-5.0); Eosinophil (Absolute #) 1.46 (0-0.5); Hematocrit 30.8 % (35-47); Hemoglobin 9.5 gm/dl (12.0-16.0); Lymphocyte (Absolute #) 0.82 (1.0-4.6); Lymphocytes % 9.4 % (24.0-44.0); Mean Corpuscular Hemoglobin 29.6 pg (26-32); Mean Corpuscular Hgb Concent. 30.8 g/dl (32-36); Mean Platelet Volume 10.1 fl (7.5-11.0); Monocytes % 8.1 % (0.0-12.0); Neutrophil % 65.6 % (36.0-66.0); Platelet Count 258 K/mm3 (150-450); Red Blood Count 3.21 M/mm3 (4.1-5.4); Red Cell Distribution Width 14.7 % (11.5-14.0); White Blood Count 8.7 K/mm3 (4.0-10.5)
[2019-07-10 06:08] LABS: ANION GAP 10.9 MEQ/L (5-15); BLOOD UREA NITROGEN 9 mg/dL (7-17); CHLORIDE 100 mmol/L (98-107); Calcium 8.1 mg/dL (8.4-10.2); Carbon Dioxide 31 mmol/L (22-30); Creatinine 1 0.44 mg/dL (0.52-1.04); Glucose 111 mg/dL (74-106); Potassium 3.3 mmol/L (3.5-5.1); SODIUM 139 mmol/L (137-145)
[2019-07-10] MEDS: Fortaz/Tazicef 1 GM** 1 G in Dextrose 5%/Water IV Soln. 100ML PLUS BAG 100 ML IV SCH ×3 (06:26→23:35)
[2019-07-10] MEDS: Lasix 40 MG/4 ML IV SCH ×2 (08:47→17:16)
[2019-07-10] MEDS: ECOTRIN 81 MG PO SCH ×2 (08:48→21:42)
[2019-07-10] MEDS: Toprol-Xl 25MG Tablets PO SCH (08:48)
[2019-07-10] MEDS: Klor Con 10 MEQ PO SCH ×4 (08:48→21:44)
[2019-07-10] MEDS: PLAVIX 75 MG Tablet PO SCH (08:48)
[2019-07-10] MEDS: Cyclobenzaprine 10 MG PO SCH ×3 (08:48→21:42)
[2019-07-10] MEDS: MYRBETRIQ PO SCH (08:49)
--- NOTE | 2019-07-10 09:03 | PCM.NOTE ---
Date and Time: 07/10/19 09 Subjective Assessment: patient denies shortness of breath. oxygen sat has been higher on oxymask. states she is doing well today Objective Exam General Appearance: no apparent distress Neurologic Exam: alert, oriented x 3 Skin Exam: normal color, warm, dry Wound Assessment: Skin/Wound Assessment Wound/Incision Assessment Start: 07/06/19 11: 58 Text: Status: Active Freq: Q6H Protocol: Document 07/10/19 08:23 MW (Rec: 07/10/19 08:43 MW [id number]) Wound/Incision Assessment Posterior Sacrum Wound Assessment Shift Assessment Wound Type Pressure Ulcer Wound Stage Stage II Dressing Status Dry & Intact Drainage Amount None Drainage Odor None/Absent Surrounding Tissue [place] Comment open to air, non blanchable, small open area, barrier cream applied at this time Right Heel Wound Assessment Shift Assessment Wound Type Stasis Ulcer Dressing Status Dry & Intact Changed Drainage Amount Minimal Drainage Description Yellow Drainage Odor None/Absent Wound Bed Greatest Portion Yellow (Slough) Wound Bed Lesser Portion Red (Granulation) % Granulated (Red) 10 % Slough (Yellow) 90 Surrounding Tissue [place] Primary Dressing wet to dry Secondary Dressing Gauze Roll/Wrap Comment W/D dressing CDI to right foot . Wound Photo Photo Taken Yes Comment: on chart Respiratory Exam: crackles/rales, No respiratory distress, No accessory muscle use Cardiovascular Exam: regular rate/rhythm, normal heart sounds Gastrointestinal/Abdomen Exam: soft, No tenderness, No mass Extremity Exam: other (dressing to right heel intact) OBJECTIVE DATA Vital Signs: Vital Signs - 24 hr Temp Pulse Resp BP Pulse Ox 07/10/19 07:57 97.4 F 98 H 16 07/10/19 06:50 91 H 16 97 07/10/19 05:44 97.8 F 99 H 13 143/66 92 L 07/10/19 05:29 96 07/10/19 04:34 95 H 16 96 07/10/19 03:56 97.8 F 128 H 25 H 111/67 90 L 07/10/19 02:51 90 12 93 L 07/10/19 01:54 88 21 93 L 07/10/19 01:52 87 22 93 L 07/10/19 00:50 100 H 22 89 L 07/10/19 00:00 91 H 20 91 L 07/09/19 22:56 97.9 F 120 H 12 123/72 92 L 07/09/19 22:00 98.0 F 97 H 14 93/49 92 L 07/09/19 21:24 92 L 07/09/19 21:00 99.1 F 110 H 17 95/58 92 L 07/09/19 20:24 100 H 20 91 L 07/09/19 20:00 98.8 F 115 H 17 115/64 93 L 07/09/19 19:00 88 12 93 L 07/09/19 18:00 100.0 F 115 H 23 87/52 90 L 07/09/19 17:19 99.7 F 112 H 14 100/56 85 L 07/09/19 15:47 98.4 F 98 H 16 117/75 93 L 07/09/19 15:17 98.0 F 92 H 16 137/78 07/09/19 14:59 99 H 18 96 07/09/19 14:00 103 H 18 93 L 07/09/19 13:00 99.5 F 80 18 112/53 96 07/09/19 11:42 99.1 F 83 18 113/59 97 07/09/19 11:00 99.2 F 101 H 18 106/49 99 07/09/19 10:00 98.6 F 108 H 101/65 95 Oxygen-Last 24 hours Oxygen Flowrate (L/min)-RT 3 Pain Assessment - Last Documented Pain Intensity 4 Pain Scale Used 0-10 Pain Scale Intake and Output: Intake & Output 07/07/19 07/08/19 07/09/19 07/10/19 11:59 11:59 11:59 11:59 Intake Total 2005 3582 2100 586 Output Total 1799 1500 1450 4800 Balance 206 4879 011 -2437 Lab Results: Accuchecks Date 07/10/19 Date 07/09/19 Date 07/09/19 Date 07/09/19 Time 08:03 Time 21:00 Time 16:24 Time 11:41 Accucheck Value: 111 Accucheck Value: 147 Accucheck Value: 118 Accucheck Value: 144 Lab Results-Last 24 Hours 07/10/19 07/10/19 07/10/19 Range/Units 04:45 04:45 04:45 WBC 8.7 (4.0-10.5) K/mm3 RBC 3.21 L (4.1-5.4) M/mm3 Hgb 9.5 L (12.0-16.0) gm/dl Hct 30.8 L (35-47) % MCV 96.0 (78-100) fl MCH 29.6 (26-32) pg MCHC 30.8 L (32-36) g/dl RDW 14.7 H (11.5-14.0) % Plt Count 258 (150-450) K/mm3 MPV 10.1 (7.5-11.0) fl Gran % 65.6 (36.0-66.0) % Eos # (Auto) 1.46 H (0-0.5) Absolute Lymphs (auto) 0.82 L (1.0-4.6) Absolute Monos (auto) 0.70 (0.0-1.3) Lymphocytes % 9.4 L (24.0-44.0) % Monocytes % 8.1 (0.0-12.0) % Eosinophils % 16.8 H (0.00-5.0) % Basophils % 0.1 (0.0-0.4) % Absolute Granulocytes 5.70 (1.4-6.9) Basophils # 0.01 (0-0.4) Sodium 139 (137-145) mmol/L Potassium 3.3 L (3.5-5.1) mmol/L Chloride 100 (98-107) mmol/L Carbon Dioxide 31 H (22-30) mmol/L Anion Gap 10.9 (5-15) MEQ/L BUN 9 (7-17) mg/dL Creatinine 0.44 L (0.52-1.04) mg/dL Estimated GFR > 60.0 ML/MIN Glucose 111 H (74-106) mg/dL Calcium 8.1 L (8.4-10.2) mg/dL Magnesium 1.9 (1.6-2.3) mg/dL Radiology Exams: Radiology Procedures Category Date Time Status CHEST 1 VIEW (PORTABLE) Urgent Exams 07/08/19 11:24 Completed Assessment/Plan (1) Acute respiratory failure with hypoxemia Current Visit: Yes Status: Acute Assessment & Plan: improved with diuresis, continue Code(s): J96.01 - ACUTE RESPIRATORY FAILURE WITH HYPOXIA (2) Congestive heart failure Current Visit: No Status: Chronic Code(s): I50.9 - HEART FAILURE, UNSPECIFIED (3) Wound of foot Current Visit: Yes Status: Acute Assessment & Plan: on fortaz for pseudomonas in wound Code(s): S91.309A - UNSPECIFIED OPEN WOUND, UNSPECIFIED FOOT, INITIAL ENCOUNTER (4) DM2 (diabetes mellitus, type 2) Current Visit: Yes Status: Chronic (5) Peripheral vascular disease Current Visit: Yes Status: Chronic Code(s): I73.9 - PERIPHERAL VASCULAR DISEASE, UNSPECIFIED (6) CAD (coronary artery disease) Current Visit: No Status: Acute Code(s): I25.10 - ATHSCL HEART DISEASE OF [place] CORONARY ARTERY W/O ANG PCTRS
[2019-07-10] MEDS: ZOCOR 20MG PO SCH (21:42)
[2019-07-10] MEDS: DESYREL 50 MG PO SCH (21:42)
[2019-07-10] MEDS: TYLENOL 325 MG PO PRN (23:30)
[2019-07-11 04:38] LABS: Absolute Neutrophil Ct (ANC) 5.28 (1.4-6.9); BASOPHIL % 0.2 % (0.0-0.4); Basophil (Absolute #) 0.02 (0-0.4); Eosinophil % 19.3 % (0.00-5.0); Eosinophil (Absolute #) 1.71 (0-0.5); Hematocrit 29.7 % (35-47); Hemoglobin 9.1 gm/dl (12.0-16.0); Lymphocyte (Absolute #) 1.07 (1.0-4.6); Lymphocytes % 12.1 % (24.0-44.0); Mean Cell Volume 95.5 fl (78-100); Mean Corpuscular Hemoglobin 29.3 pg (26-32); Mean Corpuscular Hgb Concent. 30.6 g/dl (32-36); Mean Platelet Volume 9.8 fl (7.5-11.0); Monocyte (Absolute #) 0.77 (0.0-1.3); Monocytes % 8.7 % (0.0-12.0); Neutrophil % 59.7 % (36.0-66.0); Platelet Count 285 K/mm3 (150-450); Red Blood Count 3.11 M/mm3 (4.1-5.4); Red Cell Distribution Width 14.9 % (11.5-14.0); White Blood Count 8.9 K/mm3 (4.0-10.5)
[2019-07-11] MEDS: NEURONTIN 300 MG PO SCH ×5 (04:45→23:21)
[2019-07-11 05:23] LABS: ANION GAP 7.4 MEQ/L (5-15); BLOOD UREA NITROGEN 6 mg/dL (7-17); CHLORIDE 98 mmol/L (98-107); Calcium 8.6 mg/dL (8.4-10.2); Carbon Dioxide 35 mmol/L (22-30); Glucose 123 mg/dL (74-106); MAGNESIUM 1.7 mg/dL (1.6-2.3); Potassium 3.7 mmol/L (3.5-5.1); SODIUM 137 mmol/L (137-145)
[2019-07-11] MEDS: Fortaz/Tazicef 1 GM** 1 G in Dextrose 5%/Water IV Soln. 100ML PLUS BAG 100 ML IV SCH ×3 (05:23→21:03)
--- NOTE | 2019-07-11 08:32 | PCM.NOTE ---
Date and Time: 07/11/19828 Subjective Assessment: patient denies shortness of breath but requiring 5L via oxygen mask, she is having a lot of pain in her left hip region. no other new complaints Objective Exam General Appearance: no apparent distress Wound Assessment: Skin/Wound Assessment Wound/Incision Assessment Start: 07/06/19 11: 58 Text: Status: Active Freq: Q6H Protocol: Document 07/11/19 04:00 LM (Rec: 07/11/19 04:21 LM [id number]) Wound/Incision Assessment Posterior Sacrum Wound Assessment Shift Assessment Wound Type Pressure Ulcer Wound Stage Stage II Dressing Status Dry & Intact Drainage Amount None Drainage Odor None/Absent General Appearance Reddened Blackened Surrounding Tissue [place] Packing Type Gauze Pads Primary Dressing Gauze Pads Secondary Dressing Gauze Roll/Wrap Comment Barrier cream applied Right Heel Wound Assessment Shift Assessment Wound Type Stasis Ulcer Dressing Status Dry & Intact Changed Drainage Amount Minimal Drainage Description Yellow Drainage Odor None/Absent Wound Bed Greatest Portion Yellow (Slough) Wound Bed Lesser Portion Red (Granulation) % Granulated (Red) 10 % Slough (Yellow) 90 Surrounding Tissue [place] Primary Dressing wet to dry Secondary Dressing Gauze Roll/Wrap Wound Photo Photo Taken Yes Comment: on chart, no photo taken during am assessment Respiratory Exam: crackles/rales Cardiovascular Exam: regular rate/rhythm, normal heart sounds Gastrointestinal/Abdomen Exam: soft, No tenderness, No mass Extremity Exam: other (dressing clean/dry/intact to right foot. no streaking) OBJECTIVE DATA Vital Signs: Vital Signs - 24 hr Temp Pulse Resp BP Pulse Ox 07/11/19 07:34 107 H 20 93 L 07/11/19 05:37 91 L 07/11/19 04:00 99.2 F 102 H 12 103/64 92 L 07/11/19 02:00 92 L 07/10/19 23:33 99.2 F 102 H 16 103/64 90 L 07/10/19 22:00 91 L 07/10/19 21:00 97.9 F 104 H 20 141/72 91 L 07/10/19 20:57 103 H 16 93 L 07/10/19 19:00 97.9 F 96 H 14 126/66 91 L 07/10/19 18:00 98.4 F 100 H 16 103/76 93 L 07/10/19 17:28 91 L 07/10/19 16:09 98.8 F 91 H 131/63 07/10/19 15:00 98.7 F 102 H 07/10/19 14:00 92 L 07/10/19 13:00 97.4 F 105 H 16 135/66 92 L 07/10/19 10:41 97.6 F 106 H 18 116/65 07/10/19 10:00 93 L 07/10/19 09:16 98.0 F 108 H 18 104/58 92 L Oxygen-Last 24 hours Oxygen Flowrate (L/min)-RT 5 Pain Assessment - Last Documented Pain Intensity 2 Pain Scale Used 0-10 Pain Scale Intake and Output: Intake & Output 07/08/19 07/09/19 07/10/19 07/11/19 11:59 11:59 11:59 11:59 Intake Total 3582 2100 586 1038 Output Total 1500 1450 4800 4850 Balance 2082 789 -3494 -3634 Lab Results: Accuchecks Date 07/11/19 Date 07/10/19 Date 07/10/19 Date 07/10/19 Time 21:00 Time 16:13 Time 11:30 Accucheck Value: 171 Accucheck Value: 225 Accucheck Value: 218 Lab Results-Last 24 Hours 07/09/19 07/11/19 07/11/19 Range/Units 04:30 04:15 04:15 WBC 8.9 (4.0-10.5) K/mm3 RBC 3.11 L (4.1-5.4) M/mm3 Hgb 9.1 L (12.0-16.0) gm/dl Hct 29.7 L (35-47) % MCV 95.5 (78-100) fl MCH 29.3 (26-32) pg MCHC 30.6 L (32-36) g/dl RDW 14.9 H (11.5-14.0) % Plt Count 285 (150-450) K/mm3 MPV 9.8 (7.5-11.0) fl Gran % 59.7 (36.0-66.0) % Eos # (Auto) 1.71 H (0-0.5) Absolute Lymphs (auto) 1.07 (1.0-4.6) Absolute Monos (auto) 0.77 (0.0-1.3) Lymphocytes % 12.1 L (24.0-44.0) % Monocytes % 8.7 (0.0-12.0) % Eosinophils % 19.3 H (0.00-5.0) % Basophils % 0.2 (0.0-0.4) % Absolute Granulocytes 5.28 (1.4-6.9) Basophils # 0.02 (0-0.4) Sodium 137 (137-145) mmol/L Potassium 3.7 (3.5-5.1) mmol/L Chloride 98 (98-107) mmol/L Carbon Dioxide 35 H (22-30) mmol/L Anion Gap 7.4 (5-15) MEQ/L BUN 6 L (7-17) mg/dL Creatinine 0.50 L (0.52-1.04) mg/dL Estimated GFR > 60.0 ML/MIN Glucose 123 H (74-106) mg/dL Calcium 8.6 (8.4-10.2) mg/dL Magnesium 1.7 (1.6-2.3) mg/dL COVID-19 ([place]) SEE SEPARATE REPORT Radiology Exams: Radiology Procedures Category Date Time Status CHEST 1 VIEW (PORTABLE) Routine Exams 07/11/19 08:28 Ordered Assessment/Plan (1) Acute respiratory failure with hypoxemia Current Visit: Yes Status: Acute Code(s): J96.01 - ACUTE RESPIRATORY FAILURE WITH HYPOXIA (2) Congestive heart failure Current Visit: No Status: Chronic Assessment & Plan: negative fluid balance, appears to be diuresing well. still has crackles on exam , renal function stable. continue to diurese. covid-19 swab negative, may transfer back to regular med/surg room Code(s): I50.9 - HEART FAILURE, UNSPECIFIED (3) Wound of foot Current Visit: Yes Status: Acute Assessment & Plan: on , culture with pseudomonas, has been seen by surgery. Code(s): S91.309A - UNSPECIFIED OPEN WOUND, UNSPECIFIED FOOT, INITIAL ENCOUNTER (4) DM2 (diabetes mellitus, type 2) Current Visit: Yes Status: Chronic (5) Peripheral vascular disease Current Visit: Yes Status: Chronic Code(s): I73.9 - PERIPHERAL VASCULAR DISEASE, UNSPECIFIED (6) CAD (coronary artery disease) Current Visit: No Status: Acute Code(s): I25.10 - ATHSCL HEART DISEASE OF [place] CORONARY ARTERY W/O ANG PCTRS
--- NOTE | 2019-07-11 08:57 | XRAY ---
Indication: Hypoxia. Comparison: July 08, 2019. Portable chest remains rotated again with chronic lung markings, right mid lung fibrosis/scarring, and mediastinal calcified nodes. No focal infiltrate, consolidation, or large effusion. Heart and mediastinal structures within normal limits. Impression: Continued nonacute chest with chronic features.
[2019-07-11] MEDS: Lasix 40 MG/4 ML IV SCH ×2 (09:16→17:17)
[2019-07-11] MEDS: ECOTRIN 81 MG PO SCH ×2 (09:16→21:03)
[2019-07-11] MEDS: PLAVIX 75 MG Tablet PO SCH (09:16)
[2019-07-11] MEDS: Klor Con 10 MEQ PO SCH ×3 (09:16→21:24)
[2019-07-11] MEDS: MYRBETRIQ PO SCH (09:17)
[2019-07-11] MEDS: Cyclobenzaprine 10 MG PO SCH ×3 (09:17→21:03)
[2019-07-11] MEDS ORDERED: Sodium Chloride 0.9% 10 ML FLUSH Syringe IV PRN (12:45)
[2019-07-11] MEDS ORDERED: Sodium Chloride 0.9% W/ 20 mEq KCl/LITER 1,000 ML IV ONE (13:49)
[2019-07-11] MEDS ORDERED: Sodium Chloride 0.9% 10 ML FLUSH Syringe IV SCH (14:00)
[2019-07-11] MEDS: Sodium Chloride 0.9% W/ 20 mEq KCl/LITER 1,000 ML IV SCH (14:30)
[2019-07-11] MEDS: DILAUDID 1 MG/1ML PCA IV PRN (14:30)
[2019-07-11] MEDS: DESYREL 50 MG PO SCH (21:03)
[2019-07-11] MEDS: ZOCOR 20MG PO SCH (21:03)
[2019-07-11] MEDS: LOTRIMIN CREAM 30 GM TP PRN (21:59)
[2019-07-12] MEDS: Fortaz/Tazicef 1 GM** 1 G in Dextrose 5%/Water IV Soln. 100ML PLUS BAG 100 ML IV SCH ×3 (05:08→21:53)
[2019-07-12] MEDS: NEURONTIN 300 MG PO SCH ×4 (05:10→23:20)
[2019-07-12 05:21] LABS: Hematocrit 33.5 % (35-47); Hemoglobin 10.4 gm/dl (12.0-16.0); Mean Cell Volume 94.6 fl (78-100); Mean Corpuscular Hemoglobin 29.4 pg (26-32); Mean Platelet Volume 9.8 fl (7.5-11.0); Platelet Count 341 K/mm3 (150-450); Red Blood Count 3.54 M/mm3 (4.1-5.4); Red Cell Distribution Width 14.9 % (11.5-14.0); White Blood Count 9.4 K/mm3 (4.0-10.5)
[2019-07-12 05:32] LABS: ANION GAP 8.7 MEQ/L (5-15); BLOOD UREA NITROGEN 4 mg/dL (7-17); CHLORIDE 93 mmol/L (98-107); Calcium 9.5 mg/dL (8.4-10.2); Carbon Dioxide 39 mmol/L (22-30); Creatinine 1 0.45 mg/dL (0.52-1.04); Glucose 114 mg/dL (74-106); MAGNESIUM 1.7 mg/dL (1.6-2.3); Potassium 3.8 mmol/L (3.5-5.1); SODIUM 137 mmol/L (137-145)
[2019-07-12 07:05] LABS: BAND 1 % (0.0-2.0); Eosinophil 31 % (0.00-3.0); Lymphocytes 9 % (24-44); Monocyte 9 % (0.0-12.0); Neutrophils 50 % (36.0-66.0); Total Cells Counted 100
[2019-07-12 07:06] LABS: Platelet Estimate NORMAL (NORMAL)
[2019-07-12] MEDS: TYLENOL 325 MG PO PRN (08:08)
--- NOTE | 2019-07-12 08:48 | PCM.NOTE ---
Date and Time: 07/12/19847 Subjective Assessment: Patient has continued to need oxygen often with oxymask since shortly after admission due to hypoxia. She was tested for covid and found to be neg and moved out of the covid unit yesterday. She has pain in her right foot and pain in her left hip which was fractured when she fell out of her wheelchair which is why she came to the ER. She is scheduled for surgery on her right foot tomorrow with the general surgeon. - Review of Systems Constitutional: Malaise Respiratory: No Symptoms Cardiac: No Symptoms Additional Findings: right foot pain; left hip pain; she and her nurse report she is able to turn well. SHe denies feeling bloated or swollen anywhere. Objective Exam General Appearance: no apparent distress Neurologic Exam: alert, cooperative Skin Exam: other (toes of right foot normal color, dressing in place around right foot and ankle, no swelling) Wound Assessment: Skin/Wound Assessment Wound/Incision Assessment Start: 07/06/19 11: 58 Text: Status: Active Freq: Q6H Protocol: Document 07/12/19 04:00 CAROLYN (Rec: 07/12/19 04:07 CAROLYN [id number]) Wound/Incision Assessment Posterior Sacrum Wound Assessment Shift Assessment Wound Type Pressure Ulcer Wound Stage Stage II Drainage Amount None General Appearance Reddened Surrounding Tissue [place] Comment BARRIER CREAM APPLIED, NEW SHEARING/BRUISING NOTED TO LEFT BUTTOCK Right Heel Wound Assessment Shift Assessment Wound Type Stasis Ulcer Dressing Status Changed Drainage Amount Moderate Drainage Description Yellow Drainage Odor None/Absent General Appearance Clean/Dry Reddened Tendon Visible Surrounding Tissue [place] Topical Solution/Irrigant Saline Irrigant Primary Dressing WET TO DRY GAUZE Secondary Dressing Gauze Pads Comment BARRIER CREAM APPLIED TO DRY INTACT AREAS Wound Photo Photo Taken No Respiratory Exam: normal breath sounds, lungs clear, No prolonged expirations, No rhonchi Cardiovascular Exam: normal heart sounds, tachycardia, No murmur, No friction rub, No gallop Gastrointestinal/Abdomen Exam: soft, normal bowel sounds, No tenderness, No distention Extremity Exam: other (no swelling of right lower leg.) OBJECTIVE DATA Vital Signs: Vital Signs - 24 hr Temp Pulse Resp BP BP Pulse Ox 07/12/19 07:57 99.6 F 108 H 17 112/63 95 07/12/19 06:33 99 07/12/19 04:00 98 F 107 H 16 128/64 99 07/12/19 03:57 95 07/12/19 02:00 94 L 07/11/19 23:47 95 07/11/19 23:14 98.2 F 106 H 14 130/62 95 07/11/19 22:00 90 L 07/11/19 19:45 114 H 16 95 07/11/19 19:13 96.8 F 103 H 14 148/68 90 L 07/11/19 17:23 96 07/11/19 16:00 98.2 F 98 H 16 141/68 95 07/11/19 14:30 92 L 07/11/19 14:00 92 L 07/11/19 11:41 98.5 F 95 H 14 124/59 92 L 07/11/19 10:00 84 L Oxygen-Last 24 hours Oxygen Flowrate (L/min)-RT 8 Pain Assessment - Last Documented Pain Intensity 4 Pain Scale Used 0-10 Pain Scale Intake and Output: Intake & Output 07/10/19 07/11/19 07/12/19 07/13/19 06:59 06:59 06:59 06:59 Intake Total 586 1038 2362 Output Total 1811 3563 5747 Balance -4762 -4693 -1588 Weight 70.5 kg Lab Results: Accuchecks Date 07/12/19 Date 07/11/19 Date 07/11/19 Time 05:00 Time 16:30 Time 11:30 Accucheck Value: 133 Accucheck Value: 157 Accucheck Value: 114 Lab Results-Last 24 Hours 07/12/19 07/12/19 Range/Units 04:57 04:57 WBC 9.4 (4.0-10.5) K/mm3 RBC 3.54 L (4.1-5.4) M/mm3 Hgb 10.4 L (12.0-16.0) gm/dl Hct 33.5 L (35-47) % MCV 94.6 (78-100) fl MCH 29.4 (26-32) pg MCHC 31.0 L (32-36) g/dl RDW 14.9 H (11.5-14.0) % Plt Count 341 (150-450) K/mm3 MPV 9.8 (7.5-11.0) fl Segmented Neutrophils 50 (36.0-66.0) % Band Neutrophils 1 (0.0-2.0) % Lymphocytes (Manual) 9 L (24-44) % Monocytes (Manual) 9 (0.0-12.0) % Eosinophils (Manual) 31 H (0.00-3.0) % Platelet Estimate NORMAL (NORMAL) RBC Morphology NORMAL Sodium 137 (137-145) mmol/L Potassium 3.8 (3.5-5.1) mmol/L Chloride 93 L (98-107) mmol/L Carbon Dioxide 39 H (22-30) mmol/L Anion Gap 8.7 (5-15) MEQ/L BUN 4 L (7-17) mg/dL Creatinine 0.45 L (0.52-1.04) mg/dL Estimated GFR > 60.0 ML/MIN Glucose 114 H (74-106) mg/dL Calcium 9.5 (8.4-10.2) mg/dL Magnesium 1.7 (1.6-2.3) mg/dL Radiology Exams: Radiology Procedures Category Date Time Status CHEST 1 VIEW (PORTABLE) Routine Exams 07/11/19 08:28 Completed Multi-Disciplinary Progress Notes: Multi-Disciplinary Progress Notes 07/11/19 13:35 Physical Therapy Note by Donna Keenan PT was sent an order for eval and treat today. Her nurse was spoken to regarding her current status. Pt tested negative for COVID-19 and has been moved to room 115. Her antibiotics have been changed and she is scheduled for an I&D on 07/13/19. Her dressing had already been changed by nursing this AM. She has also been in a lot of pain today and the nurse didn't think she would be able to tolerate any PT today. She will be reassessed by PT tomorrow and if she feels better the eval will be completed. Donna Keenan PT Initialized on 07/11/19 13:35 - END OF NOTE 07/11/19 10:19 Case Management Note by Lou De León UNSURE WHAT DC PLAN IS AT THIS TIME (HOME VS REHAB STAY) PATIENT STILL ACUTELY ILL. WILL CONTINUE TO FOLLOW. Initialized on 07/11/19 10:19 - END OF NOTE Assessment/Plan (1) Acute respiratory failure with hypoxemia Current Visit: Yes Status: Acute Assessment & Plan: Covid 19 negative but symptoms continue to be concerning for this viral infection. Discussed with Dr. Trey Shah who recommends checking a chest CT with contrast if her renal function is ok and he plans to consult later today. Dr. Kelsie Johnson consulted also and plans to see patient tomorrow. Will continue supportive care. No PE on chest CT but some new scarring/fibrosis. Code(s): J96.01 - ACUTE RESPIRATORY FAILURE WITH HYPOXIA (2) Intertrochanteric fracture of left femur Current Visit: Yes Status: Acute Qualifiers: Encounter type: subsequent encounter Fracture alignment: displaced Assessment & Plan: Plan was not to have surgery if her pain was bearable although she is having some pain in her hip today. Code(s): S72.142A - DISPLACED INTERTROCHANTERIC FRACTURE OF LEFT FEMUR, INIT (3) Wound of foot Current Visit: Yes Status: Acute Assessment & Plan: Continue IV antibiotics; general surgeons would like to do I and D tomorrow. Code(s): S91.309A - UNSPECIFIED OPEN WOUND, UNSPECIFIED FOOT, INITIAL ENCOUNTER (4) COPD (chronic obstructive pulmonary disease) Current Visit: Yes Status: Acute (5) CHF (congestive heart failure) Current Visit: Yes Status: Acute Assessment & Plan: BNP was elevated a few days ago. She has had good diuresis but continues to have hypoxia. 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 (7) PAD (peripheral artery disease) Current Visit: Yes Status: Chronic Assessment & Plan: Patient has been followed closely by Dr. Trey Shah and also had recent vascular intervention with the general surgeon. Code(s): I73.9 - PERIPHERAL VASCULAR DISEASE, UNSPECIFIED
[2019-07-12] MEDS: Lasix 40 MG/4 ML IV SCH ×2 (10:14→17:14)
[2019-07-12] MEDS: ECOTRIN 81 MG PO SCH ×2 (10:14→21:53)
[2019-07-12] MEDS: Klor Con 10 MEQ PO SCH ×2 (10:14→21:54)
[2019-07-12] MEDS: Cyclobenzaprine 10 MG PO SCH ×3 (10:14→21:53)
[2019-07-12] MEDS: MYRBETRIQ PO SCH (10:15)
[2019-07-12] MEDS: Toprol-Xl 25MG Tablets PO SCH (10:15)
[2019-07-12] MEDS: PLAVIX 75 MG Tablet PO SCH (10:15)
--- NOTE | 2019-07-12 13:32 | XRAY ---
Indication: Hypoxia. Multiple contiguous axial images obtained through the chest using 80 cc Isovue 370 contrast. Comparison: CT PE study April 22, 2015. Lungs again demonstrates tiny right effusion and mild bibasilar dependent atelectasis. Inferior right upper lobe demonstrates new peripheral fibrosis/scarring. No suspicious pulmonary mass or infiltrates. Heart is not enlarged. Aorta remains moderately arteriosclerotic without aneurysm/dissection. No central pulmonary embolus. Stable mediastinal calcified nodes. No pathologic mediastinal/hilar lymphadenopathy. Bony thorax again demonstrates mild osteopenia and mild degenerative changes throughout the spine. Limited upper abdomen again demonstrates hepatic/splenic calcified granulomas. Impression: 1. New right upper lobe peripheral fibrosis/scarring. 2. Again incidental bibasilar atelectasis, tiny right effusion, and evidence for old granulomatous disease. 3. Remaining CT chest with contrast exam is negative.
[2019-07-12] MEDS: LOTRIMIN CREAM 30 GM TP PRN (15:32)
[2019-07-12] MEDS: ZOCOR 20MG PO SCH (21:53)
[2019-07-12] MEDS: DESYREL 50 MG PO SCH (21:53)
[2019-07-13 05:17] LABS: Hematocrit 33.3 % (35-47); Hemoglobin 10.3 gm/dl (12.0-16.0); Mean Cell Volume 93.5 fl (78-100); Mean Corpuscular Hemoglobin 28.9 pg (26-32); Mean Corpuscular Hgb Concent. 30.9 g/dl (32-36); Mean Platelet Volume 9.9 fl (7.5-11.0); Platelet Count 367 K/mm3 (150-450); Red Blood Count 3.56 M/mm3 (4.1-5.4); Red Cell Distribution Width 14.9 % (11.5-14.0); White Blood Count 9.6 K/mm3 (4.0-10.5)
[2019-07-13] MEDS: Fortaz/Tazicef 1 GM** 1 G in Dextrose 5%/Water IV Soln. 100ML PLUS BAG 100 ML IV SCH ×3 (05:42→21:30)
[2019-07-13] MEDS: NEURONTIN 300 MG PO SCH ×4 (05:42→23:27)
[2019-07-13 05:44] LABS: ANION GAP 8.3 MEQ/L (5-15); BLOOD UREA NITROGEN 6 mg/dL (7-17); CHLORIDE 93 mmol/L (98-107); Calcium 9.7 mg/dL (8.4-10.2); Carbon Dioxide 39 mmol/L (22-30); Creatinine 1 0.52 mg/dL (0.52-1.04); Glucose 126 mg/dL (74-106); Potassium 3.8 mmol/L (3.5-5.1); SODIUM 136 mmol/L (137-145)
[2019-07-13 07:33] LABS: BAND 1 % (0.0-2.0); Eosinophil 21 % (0.00-3.0); Lymphocytes 9 % (24-44); Monocyte 15 % (0.0-12.0); Neutrophils 54 % (36.0-66.0); Total Cells Counted 100
[2019-07-13 07:34] LABS: ANISOCYTOSIS 1+; Platelet Estimate NORMAL (NORMAL); Poikilocytosis RARE
[2019-07-13 07:35] LABS: Toxic Granulation 1+
--- NOTE | 2019-07-13 08:43 | PCM.NOTE ---
Date and Time: 07/13/19833 Subjective Assessment: Patient reports that she did not sleep well. She has not had a chance to talk to the surgeon yet about the planned surgery for today. She reports she has not had a stool for a couple of days. - Review of Systems Constitutional: No Symptoms Respiratory: No Symptoms Cardiac: No Symptoms Abdominal/Gastrointestinal: Constipation Musculoskeletal: Other (right foot pain) Objective Exam General Appearance: no apparent distress, alert Neurologic Exam: alert, cooperative, normal mood/affect Skin Exam: normal color, warm, other (right foot/ankle wrapped) Wound Assessment: Skin/Wound Assessment Wound/Incision Assessment Start: 07/06/19 11: 58 Text: Status: Active Freq: Q6H Protocol: Document 07/13/19 04:00 JOSE (Rec: 07/13/19 05:19 JOSE [id number]) Wound/Incision Assessment Posterior Sacrum Wound Assessment Shift Assessment Wound Type Pressure Ulcer Wound Stage Stage II Drainage Amount None General Appearance Reddened Surrounding Tissue [place] Comment BARRIER CREAM APPLIED, Right Heel Wound Assessment Shift Assessment Wound Type Stasis Ulcer Wound Stage Non Pressure Wound Dressing Status Changed Drainage Amount Moderate Drainage Description Yellow Drainage Odor None/Absent General Appearance Clean/Dry Reddened Tendon Visible Wound Bed Greatest Portion Red (Granulation) Wound Bed Lesser Portion Yellow (Slough) % Granulated (Red) 50 % Slough (Yellow) 50 Surrounding Tissue [place] Topical Solution/Irrigant Saline Irrigant Primary Dressing WET TO DRY GAUZE Secondary Dressing Gauze Roll/Wrap Comment Drsg c/d/i Wound Photo Photo Taken Yes Respiratory Exam: normal breath sounds, lungs clear, other (on oxymask), No crackles/rales, No rhonchi, No wheezing Cardiovascular Exam: regular rate/rhythm, No murmur, No friction rub, No gallop Gastrointestinal/Abdomen Exam: soft, normal bowel sounds, No tenderness, No distention Extremity Exam: other (left above the knee amputation) OBJECTIVE DATA Vital Signs: Vital Signs - 24 hr Temp Pulse Resp BP BP Pulse Ox 07/13/19 08:00 98.9 F 100 H 20 109/74 94 L 07/13/19 06:56 92 H 16 92 L 07/13/19 06:00 94 L 07/13/19 04:00 99 F 102 H 18 140/68 114/60 96 07/13/19 02:00 93 L 07/13/19 00:00 98.0 F 95 H 18 140/68 111/59 93 L 07/12/19 22:00 96 07/12/19 19:50 98 H 18 96 07/12/19 19:46 99.1 F 98 H 18 140/68 108/57 91 L 07/12/19 17:57 92 L 07/12/19 16:00 98.8 F 98 H 18 140/68 93 L 07/12/19 14:00 93 L 07/12/19 12:00 98.0 F 102 H 18 126/63 93 L 07/12/19 10:00 92 L 07/12/19 08:48 108 H 18 90 L Oxygen-Last 24 hours Oxygen Flowrate (L/min)-RT 7 Oxygen Flowrate (L/min)-RT 5 Pain Assessment - Last Documented Pain Intensity 6 Pain Scale Used 0-10 Pain Scale,FLACC Intake and Output: Intake & Output 07/11/19 07/12/19 07/13/19 07/14/19 06:59 06:59 06:59 06:59 Intake Total 1038 2362 1847 Output Total 0888 7200 5275 Balance -6030 -3911 -2013 Weight 70.5 kg Lab Results: Accuchecks Date 07/12/19 Date 07/12/19 Date 07/12/19 Time 21:30 Time 16:30 Time 11:30 Accucheck Value: 132 Accucheck Value: 120 Accucheck Value: 120 Accucheck Value: 196 Lab Results-Last 24 Hours 07/13/19 07/13/19 Range/Units 04:25 04:25 WBC 9.6 (4.0-10.5) K/mm3 RBC 3.56 L (4.1-5.4) M/mm3 Hgb 10.3 L (12.0-16.0) gm/dl Hct 33.3 L (35-47) % MCV 93.5 (78-100) fl MCH 28.9 (26-32) pg MCHC 30.9 L (32-36) g/dl RDW 14.9 H (11.5-14.0) % Plt Count 367 (150-450) K/mm3 MPV 9.9 (7.5-11.0) fl Segmented Neutrophils 54 (36.0-66.0) % Band Neutrophils 1 (0.0-2.0) % Lymphocytes (Manual) 9 L (24-44) % Monocytes (Manual) 15 H (0.0-12.0) % Eosinophils (Manual) 21 H (0.00-3.0) % Toxic Granulation 1+ Platelet Estimate NORMAL (NORMAL) RBC Morphology ABNORMAL Poikilocytosis RARE Anisocytosis 1+ Sodium 136 L (137-145) mmol/L Potassium 3.8 (3.5-5.1) mmol/L Chloride 93 L (98-107) mmol/L Carbon Dioxide 39 H (22-30) mmol/L Anion Gap 8.3 (5-15) MEQ/L BUN 6 L (7-17) mg/dL Creatinine 0.52 (0.52-1.04) mg/dL Estimated GFR > 60.0 ML/MIN Glucose 126 H (74-106) mg/dL Calcium 9.7 (8.4-10.2) mg/dL Radiology Exams: Radiology Procedures Category Date Time Status CHEST 1 VIEW (PORTABLE) Routine Exams 07/11/19 08:28 Completed CHEST WITH CONTRAST [CT] Stat Exams 07/12/19 10:30 Completed ECHO W/2D AND DOPPLER [US] Routine Exams 07/12/19 16:18 Taken Multi-Disciplinary Progress Notes: Multi-Disciplinary Progress Notes 07/12/19 10:09 Case Management Note by Lou De León PATIENT SCHEDULED FOR I&D TOMORROW, WILL CONTINUE TO FOLLLOW FOR DC NEEDS CLOSER TO TIME OF DC WHEN TREATMENT PLAN IS ESTABLISHED Initialized on 07/12/19 10:09 - END OF NOTE Assessment/Plan (1) Acute respiratory failure with hypoxemia Current Visit: Yes Status: Acute Assessment & Plan: Continue with oxygen. Chest CT was neg for PE. Echo ordered for today and Dr. Trey Shah said he would read this when it was completed. Dr. Kelsie Johnson consulted and plans to see patient today per floor staff. Code(s): J96.01 - ACUTE RESPIRATORY FAILURE WITH HYPOXIA (2) Intertrochanteric fracture of left femur Current Visit: Yes Status: Acute Assessment & Plan: Not planning on surgery unless patient cannot tolerate pain per ER doctor's note from when he discussed with orthopedic surgeon. Code(s): S72.142A - DISPLACED INTERTROCHANTERIC FRACTURE OF LEFT FEMUR, INIT (3) Wound of foot Current Visit: Yes Status: Acute Assessment & Plan: General surgeon planning on intervention today. Continue IV antibiotics. Code(s): S91.309A - UNSPECIFIED OPEN WOUND, UNSPECIFIED FOOT, INITIAL ENCOUNTER (4) COPD (chronic obstructive pulmonary disease) Current Visit: Yes Status: Acute Assessment & Plan: Continue oxygen and supportive care. (5) CHF (congestive heart failure) Current Visit: Yes Status: Acute Assessment & Plan: Patient has had good diuresis with lasix IV bid. Code(s): I50.9 - HEART FAILURE, UNSPECIFIED (6) DM2 (diabetes mellitus, type 2) Current Visit: Yes Status: Chronic Qualifiers: Qualified Code(s): E11.51 - Type 2 diabetes mellitus with diabetic peripheral angiopathy without gangrene Assessment & Plan: Currently fairly well controlled. (7) PAD (peripheral artery disease) Current Visit: Yes Status: Chronic Assessment & Plan: s/p recent procedure with general surgeon for revascularization. Code(s): I73.9 - PERIPHERAL VASCULAR DISEASE, UNSPECIFIED
[2019-07-13] MEDS: PLAVIX 75 MG Tablet PO SCH (09:52)
[2019-07-13] MEDS: ECOTRIN 81 MG PO SCH ×2 (09:53→21:32)
[2019-07-13] MEDS: Toprol-Xl 25MG Tablets PO SCH (09:53)
[2019-07-13] MEDS: Cyclobenzaprine 10 MG PO SCH ×3 (09:53→21:31)
[2019-07-13] MEDS: Lasix 40 MG/4 ML IV SCH ×2 (09:53→16:43)
[2019-07-13] MEDS ORDERED: Lactated Ringers 1,000 ML IV SCH (10:00)
[2019-07-13] MEDS ORDERED: MARCAINE 0.5%-EPI 1:200,000 VL IJ ONE (12:47)
[2019-07-13] MEDS ORDERED: Naropin 0.5% 30 ML VIAL ONE (12:47)
[2019-07-13] MEDS ORDERED: Versed 2 MG/2 ML Injection ONE (12:58)
[2019-07-13] MEDS ORDERED: Amidate 20 MG/10 ML IV ONE (14:17)
[2019-07-13] MEDS ORDERED: SUBLIMAZE 100 MCG/2 ML ONE (14:17)
[2019-07-13] MEDS ORDERED: PHENYLEPHRINE HCL ONE (14:38)
[2019-07-13] MEDS ORDERED: Sensorcaine 0.25% 10 ML ONE (15:26)
[2019-07-13] MEDS ORDERED: MINERAL OIL LIGHT 10 ML FOR SURGERY ONE (15:26)
[2019-07-13] MEDS ORDERED: Lactated Ringers 1,000 ML IV ONE (16:22)
[2019-07-13] MEDS ORDERED: BACIGUENT 30 GM ONE (16:32)
[2019-07-13] MEDS: Sodium Chloride 0.9% W/ 20 mEq KCl/LITER 1,000 ML IV SCH (16:43)
[2019-07-13] MEDS: Klor Con 10 MEQ PO SCH ×2 (17:13→21:31)
[2019-07-13] MEDS: MYRBETRIQ PO SCH (17:13)
[2019-07-13] MEDS: Colace 100 MG PO SCH ×2 (17:13→21:31)
--- NOTE | 2019-07-13 17:37 | XRAY ---
Indication: Follow-up fracture. Comparison: July 06, 2019. Portable 2 view left hip demonstrates stable nondisplaced intertrochanteric fracture without obvious healing, osteopenia, distal femur amputation, lower lumbar degenerative changes, extensive vascular calcifications, inguinal vascular clips, and Farmer catheter. No new bony, articular, or soft tissue abnormalities.
[2019-07-13] MEDS: DUONEB 0.5-3 MG/3 ml Neb IH SCH (19:26)
[2019-07-13] MEDS: ZOCOR 20MG PO SCH (21:31)
[2019-07-13] MEDS: DESYREL 50 MG PO SCH (21:31)
[2019-07-13] MEDS: LOTRIMIN CREAM 30 GM TP PRN (23:28)
[2019-07-14 05:06] LABS: Absolute Neutrophil Ct (ANC) 5.49 (1.4-6.9); BASOPHIL % 0.3 % (0.0-0.4); Basophil (Absolute #) 0.03 (0-0.4); Eosinophil % 19.4 % (0.00-5.0); Eosinophil (Absolute #) 2.02 (0-0.5); Hematocrit 33.1 % (35-47); Hemoglobin 10.2 gm/dl (12.0-16.0); Lymphocyte (Absolute #) 1.55 (1.0-4.6); Lymphocytes % 14.9 % (24.0-44.0); Mean Cell Volume 94.8 fl (78-100); Mean Corpuscular Hemoglobin 29.2 pg (26-32); Mean Corpuscular Hgb Concent. 30.8 g/dl (32-36); Mean Platelet Volume 9.8 fl (7.5-11.0); Monocyte (Absolute #) 1.33 (0.0-1.3); Monocytes % 12.8 % (0.0-12.0); Neutrophil % 52.6 % (36.0-66.0); Platelet Count 388 K/mm3 (150-450); Red Blood Count 3.49 M/mm3 (4.1-5.4); White Blood Count 10.4 K/mm3 (4.0-10.5)
[2019-07-14] MEDS: Fortaz/Tazicef 1 GM** 1 G in Dextrose 5%/Water IV Soln. 100ML PLUS BAG 100 ML IV SCH ×3 (05:06→21:14)
[2019-07-14] MEDS: NEURONTIN 300 MG PO SCH ×4 (05:08→18:33)
[2019-07-14 05:22] LABS: ANION GAP 7.8 MEQ/L (5-15); BLOOD UREA NITROGEN 9 mg/dL (7-17); CHLORIDE 93 mmol/L (98-107); Calcium 9.4 mg/dL (8.4-10.2); Carbon Dioxide 40 mmol/L (22-30); Creatinine 1 0.58 mg/dL (0.52-1.04); Glucose 113 mg/dL (74-106); Potassium 4.1 mmol/L (3.5-5.1); SODIUM 137 mmol/L (137-145)
[2019-07-14] MEDS: DUONEB 0.5-3 MG/3 ml Neb IH SCH ×3 (06:55→19:40)
[2019-07-14] MEDS: Sodium Chloride 0.9% W/ 20 mEq KCl/LITER 1,000 ML IV SCH ×2 (07:40→17:10)
[2019-07-14 07:42] LABS: Slide Review 1 YES
--- NOTE | 2019-07-14 08:01 | CONS ---
CONSULT DATE: 07/13/2019 HISTORY: Miss June is a 74 year-old woman with history of chronic obstructive pulmonary disease and chronic hypoxic respiratory failure, seen by me in the past but not followed for over five years who was admitted with right heel wound. The patient was in need of surgical debridement and skin grafting. I was originally requested yesterday to see the patient however due to scheduling conflicts I was unable to see the patient until today. She earlier had debridement performed and has been back in her room. She is currently on 6 liters Ventimask maintaining saturation in low 90's. The patient's CT chest had revealed right upper lobe fibrotic changes which would require monitoring in the future. She unfortunately continues to smoke until this admission. PAST MEDICAL HISTORY: Positive for chronic obstructive pulmonary disease, chronic hypoxemia, severe peripheral vascular disease, neuropathy, hypertension, urinary incontinence, osteoporosis. PAST SURGICAL HISTORY: Surgery for peripheral vascular disease. PERSONAL AND SOCIAL HISTORY: The patient smokes about a pack of cigarettes per day. MEDICATIONS: Home and current medications are reviewed. ALLERGIES: ALLERGIES NOTED. PHYSICAL EXAMINATION: This is an elderly woman who appears fairly comfortable, able to talk, a bit groggy recovering from anesthesia. Vital signs noted, saturating 94% on Ventimask. HEENT: Normocephalic. Oral exam is limited. NECK: Supple. CVS: First and second heart sounds are normal, regular, rhythmic. RESPIRATORY: Shows diminished breath sounds. ABDOMEN: Soft. EXTREMITIES: Right ankle is in dressing. LABORATORY DATA AND TESTS: Labs and x-rays reviewed. ASSESSMENT: This is a 74 year old woman with: 1) Advanced chronic obstructive pulmonary disease. 2) Chronic hypoxemia. 3) Nicotine addiction. 4) Severe peripheral vascular disease. 5) Status post right ankle surgery for complications due to peripheral vascular disease. 6) Comorbidities listed above. RECOMMENDATIONS: 1) The patient reportedly had last cigarette before being admitted to the hospital. Need for complete smoking cessation was stressed. 2) Will have patient on bronchodilator therapy. 3) Incentive spirometer. 4) Wean supplemental oxygen keeping saturations above 90%. 5) Will need follow up PFT as well as CT scan to ascertain stability of right upper lobe fibrotic changes reported on CT. Deep venous thrombosis and GI prophylaxis per primary care physician/surgery. Will continue to follow as needed. If discharged home advised to follow up with me in two weeks or earlier as needed. Thank you, Dr. Huber, for allowing me to participate in the care of this patient.
--- NOTE | 2019-07-14 08:15 | ECHO ---
DATE OF PROCEDURE: 07/12/2019 PROCEDURE: Complete two-dimensional echocardiogram with color Doppler and Spectral analysis. INDICATION FOR STUDY: Congestive heart failure, hypoxia. FINDINGS: The left ventricle is normal size with moderate left ventricular hypertrophy. Normal left ventricular systolic function with ejection fraction of 60 to 65%. Right ventricle is normal size with normal systolic function. The left atrium is mildly dilated. The right atrium is mildly dilated. Inferior vena cava is normal diameter with greater than 50% respiratory variation. The aortic valve is trileaflet and opens well. There is no aortic stenosis. No aortic regurgitation. There is mild mitral annular calcification with no significant mitral regurgitation. The tricuspid valve leaflets are thin and pliable with mild tricuspid regurgitation, estimated right ventricular systolic pressure 52 mm of [place]. There is moderate pulmonary hypertension. The pulmonic valve is not well visualized. The aortic root is normal diameter. There is no pericardial effusion. IMPRESSION: 1) NORMAL LEFT VENTRICULAR SIZE WITH MODERATE LEFT VENTRICULAR HYPERTROPHY. 2) NORMAL LEFT VENTRICULAR SYSTOLIC FUNCTION WITH EJECTION FRACTION 60 TO 65%. 3) GRADE I DIASTOLIC DYSFUNCTION. 4) NORMAL RIGHT VENTRICULAR SIZE AND SYSTOLIC FUNCTION. 5) MILD TRICUSPID REGURGITATION WITH ESTIMATED RIGHT VENTRICULAR SYSTOLIC PRESSURE 52 MM OF MERCURY CONSISTENT WITH MODERATE PULMONARY HYPERTENSION. 6) INFERIOR VENA CAVA IS NORMAL DIAMETER WITH GREATER THAN 50% OF RESPIRATORY VARIATION CONSISTENT WITH NORMAL CENTRAL VENOUS PRESSURE. 7) NO PERICARDIAL EFFUSION.
--- NOTE | 2019-07-14 08:50 | OP ---
SURGERY DATE/TIME: 07/13/2019 1417 PREOPERATIVE DIAGNOSIS: Right ankle wound. POSTOPERATIVE DIAGNOSIS: Right ankle wound. PROCEDURE: Debridement of right ankle wound measuring 5 x 5 cm with split thickness skin graft using abdominal harvest site. SURGEON: Derrick Luis M.D. ANESTHESIA: General. ESTIMATED BLOOD LOSS: 50. PATIENT CONDITION: Stable. COMPLICATIONS: None. SPECIMENS: Right ankle debridement. INDICATIONS: The patient is a 74 year-old female vascular attack who had a nonhealing wound of the right ankle. This did extend down to tendon. She did get revascularized with revision of femoral-femoral bypass. Her ankle-brachial index is significantly improved. She had improvement of the wound with granulation. However the exposed Achilles tendon was not healing over. Risk of infection, bleeding, graft nontake, need to excise Achilles tendon with ankle instability and possible nonhealing wound were discussed with the patient as well as her daughter and they elected to proceed. FINDINGS: A 5 x 5 cm right ankle wound posterior overlying the Achilles. There is exposed Achilles that was nonviable. There is granulation surrounding the Achilles. Ultimately the Achilles was taken. The wound sharply debrided. It was clean and satisfactory. A 5 x 5 cm was there. Abdominal harvest site was selected and split thickness skin graft was harvested with mesh and then placed on the right ankle wound. DESCRIPTION OF PROCEDURE: The patient was brought to the operative room. General anesthesia was induced. She was placed supine with arms out. Bump was placed under the right thigh. The right lower extremity was circumferentially prepped and draped in routine fashion. Abdomen was prepped. She was routinely draped. Time out was performed. The right ankle wound was debrided. This measured 5 x 5 cm, was not that deep but there was exposed Achilles that was black. The Achilles was excised. There was viable tissue deep. There was viable granulation tissue in the rest of the wound bed. This was all debrided. Punctate bleeding healthy tissue. At that point the wound was measured and it was 5 x 5 cm. Abdominal harvest site was selected. Skin graft was taken at . The first pass was suboptimal. The width of the graft was not as wide as planned. An additional pass was required. The skin was meshed. This was inset on the ankle wound. 4-0 chromic suture was used to circumferentially tack the meshed skin graft and center sutures were also placed to secure the graft. The graft was very satisfactory with good hemostasis. Bacitracin was applied to the wound, nonadherent gauze was placed. A sponge bolster was placed and tacked down with mat as well as a bolster suture. Dressing was applied. Adaptic and Tegaderm were placed on the abdominal harvest site. All counts were correct. The patient tolerated the procedure well, extubated and taken to recovery room in stable condition.
[2019-07-14] MEDS: ECOTRIN 81 MG PO SCH ×2 (09:09→21:06)
[2019-07-14] MEDS: TYLENOL 325 MG PO PRN (09:09)
[2019-07-14] MEDS: Klor Con 10 MEQ PO SCH ×2 (09:09→21:08)
[2019-07-14] MEDS: Cyclobenzaprine 10 MG PO SCH ×3 (09:09→21:08)
[2019-07-14] MEDS: Colace 100 MG PO SCH ×2 (09:10→21:06)
[2019-07-14] MEDS: Lasix 40 MG/4 ML IV SCH (09:10)
[2019-07-14] MEDS: Toprol-Xl 25MG Tablets PO SCH (09:10)
[2019-07-14] MEDS: PLAVIX 75 MG Tablet PO SCH (09:10)
[2019-07-14] MEDS: MYRBETRIQ PO SCH (09:10)
--- NOTE | 2019-07-14 10:13 | PCM.NOTE ---
Date and Time: 07/14/19 1008 Subjective Assessment: Patient reports pain in the back of her right calf that is sharp and does not go away and nothing seems to make it much better. She had surgery yesterday with Dr. Kermit Luis with Achilles tendon taken out and skin graft done for right ankle wound. She denies constipation. Dr. Trey Shah reviewed her Echo yesterday and said her EF was good. He told me he did not think her hypoxia was due to her heart. She was seen by Dr. Kelsie Johnson yesterday also, digital product specialist. I appreciate their input. Nurses note that her oxygen saturation was lower today and required her oxygen to be increased. - Review of Systems Constitutional: Weakness Respiratory: No Symptoms Cardiac: No Symptoms Abdominal/Gastrointestinal: No Symptoms Musculoskeletal: Other (pain in right calf) Objective Exam General Appearance: other (Patient moaning with pain at times.) Skin Exam: normal color, other (right ankle wound dressed) Wound Assessment: Skin/Wound Assessment Wound/Incision Assessment Start: 07/06/19 11: 58 Text: Status: Active Freq: Q6H Protocol: Document 07/14/19 04:57 LM (Rec: 07/14/19 05:01 LM [id number]) Wound/Incision Assessment Left Lower Abdomen Wound Assessment Shift Assessment Wound Type SKIN GRAFT SITE Wound Stage Non Pressure Wound Dressing Status Drainage circled Drainage Amount Moderate Drainage Description Serous Drainage Odor None/Absent Primary Dressing TEGADERM Posterior Sacrum Wound Assessment Shift Assessment Wound Type Skin Tear Drainage Amount Minimal Drainage Description Serosanguineous Drainage Odor None/Absent General Appearance Clean/Dry Reddened Wound Bed Greatest Portion Red (Granulation) Wound Bed Lesser Portion Red (Granulation) Surrounding Tissue Barton Comment Pt repositioned with assist of two, back rub given, barrier cream applied to buttocks. pt has been moaning out in pain, encouraged to use CITY SUPERVISOR as needed. Will continue to monitor shanna Right Heel Wound Assessment Shift Assessment Wound Type Stasis Ulcer Wound Stage Non Pressure Wound Dressing Status Dry & Intact Drainage Amount None Comment DRESSING INTACT FROM SURGERY, MAIN DRESSING NOT TO BE REMOVED, MAY CHANGE ABD AND KERLEX NEEDED Wound Photo Photo Taken Yes Respiratory Exam: normal breath sounds, lungs clear, other (on oxy mask; no tachypnea, no retractions, no stridor), No accessory muscle use, No crackles/ rales, No rhonchi, No wheezing Cardiovascular Exam: regular rate/rhythm, normal heart sounds, No murmur, No friction rub, No gallop Gastrointestinal/Abdomen Exam: soft, normal bowel sounds, No tenderness, No distention, No mass OBJECTIVE DATA Vital Signs: Vital Signs - 24 hr Temp Pulse Resp BP BP Pulse Ox 07/14/19 07:17 92 H 16 91 L 07/14/19 06:43 98.8 F 93 H 16 104/48 95/55 91 L 07/14/19 04:00 91 L 07/14/19 03:00 98.8 F 93 H 16 104/48 91 L 07/14/19 00:00 90 L 07/13/19 23:00 98.7 F 87 20 95/55 95/55 90 L 07/13/19 20:00 90 L 07/13/19 19:47 100 H 24 88 L 07/13/19 19:15 98.8 F 97 H 16 104/41 93 L 07/13/19 18:30 93 L 07/13/19 18:29 98.4 F 93 H 16 128/76 93 L 07/13/19 17:49 98.0 F 94 H 16 137/65 92 L 07/13/19 17:15 98.6 F 90 16 108/65 91 L 07/13/19 17:00 98.4 F 94 H 14 133/57 92 L 07/13/19 16:45 95 H 14 115/60 88 L 07/13/19 12:19 98.0 F 94 H 16 114/56 114/56 92 L 07/13/19 12:00 98.0 F 94 H 16 114/56 92 L Oxygen-Last 24 hours Oxygen Flowrate (L/min)-RT 10 Oxygen Flowrate (L/min)-RT 10 Oxygen Flowrate (L/min)-RT 8 Oxygen Flowrate (L/min)-RT 6 Oxygen Flowrate (L/min)-RT 6 Oxygen Flowrate (L/min)-RT 6 Oxygen Flowrate (L/min)-RT 6 Oxygen Flowrate (L/min)-RT 5 Oxygen Flowrate (L/min)-RT 6 Pain Assessment - Last Documented Pain Intensity 2 Pain Scale Used 0-10 Pain Scale Intake and Output: Intake & Output 07/12/19 07/13/19 07/14/19 07/15/19 06:59 06:59 06:59 06:59 Intake Total 4007 6595 590 Output Total 5490 0474 7429 Balance -9064 -6828 -830 Weight 70.5 kg 70.5 kg Lab Results: Accuchecks Date 07/14/19 Date 07/13/19 Time 05:30 Time 20:30 Accucheck Value: 117 Accucheck Value: 84 Accucheck Value: 127 Lab Results-Last 24 Hours 07/14/19 07/14/19 Range/Units 04:40 04:40 WBC 10.4 (4.0-10.5) K/mm3 RBC 3.49 L (4.1-5.4) M/mm3 Hgb 10.2 L (12.0-16.0) gm/dl Hct 33.1 L (35-47) % MCV 94.8 (78-100) fl MCH 29.2 (26-32) pg MCHC 30.8 L (32-36) g/dl RDW 15.0 H (11.5-14.0) % Plt Count 388 (150-450) K/mm3 MPV 9.8 (7.5-11.0) fl Gran % 52.6 (36.0-66.0) % Eos # (Auto) 2.02 H (0-0.5) Absolute Lymphs (auto) 1.55 (1.0-4.6) Absolute Monos (auto) 1.33 H (0.0-1.3) Lymphocytes % 14.9 L (24.0-44.0) % Monocytes % 12.8 H (0.0-12.0) % Eosinophils % 19.4 H (0.00-5.0) % Basophils % 0.3 (0.0-0.4) % Absolute Granulocytes 5.49 (1.4-6.9) Basophils # 0.03 (0-0.4) Sodium 137 (137-145) mmol/L Potassium 4.1 (3.5-5.1) mmol/L Chloride 93 L (98-107) mmol/L Carbon Dioxide 40 H (22-30) mmol/L Anion Gap 7.8 (5-15) MEQ/L BUN 9 (7-17) mg/dL Creatinine 0.58 (0.52-1.04) mg/dL Estimated GFR > 60.0 ML/MIN Glucose 113 H (74-106) mg/dL Calcium 9.4 (8.4-10.2) mg/dL Slides for Path Review YES Radiology Exams: Radiology Procedures Category Date Time Status CHEST WITH CONTRAST [CT] Stat Exams 07/12/19 10:30 Completed ECHO W/2D AND DOPPLER [US] Routine Exams 07/12/19 16:18 Draft HIP UNI (2V) INCL PEL IF DONE Urgent Exams 07/13/19 16:00 Completed Multi-Disciplinary Progress Notes: Multi-Disciplinary Progress Notes 07/13/19 15:17 Physical Therapy Note by Lore Martines P.T. HELD THIS DATE PT. HAD I & D OF R HEEL TODAY. WILL PLAN TO CONT. TOMORROW 07/14/19. LORE MARTINES, PT Initialized on 07/13/19 15:17 - END OF NOTE 07/13/19 11:12 Case Management Note by Lou De León S/W PATIENT ABOUT REHAB FACILITY PLACEMENT AT [place]. PATIENT BECAME VERY TEARFUL WHEN DISCUSSING THIS. PATIENT AGREED SHE WOULD NOT BE ABLE TO CARE FOR HERSELF AT HOME BUT KEEPS STATING "I CAN'T" WHEN DISCUSSING THE SNF. PATIENT STATED SHE DID NOT WANT TO GO TO [facility] AGAIN. PATIENT SAID I COULD S/W HER DAUGHTER ANNE. I CALLED AND DISCUSSED THE NEED FOR REHAB WITH DAUGHTER SHE UNDERSTOOD THAT PATIENT WOULD NOT BE ABLE TO CARE FOR HERSELF AT HOME. SHE WILL DISCUSS WITH PATIENT AND DISCUSS WHERE SHE WOULD LIKE TO GO AND GET BACK WITH US. Initialized on 07/13/19 11:12 - END OF NOTE Assessment/Plan (1) Acute respiratory failure with hypoxemia Current Visit: Yes Status: Acute Assessment & Plan: Patient was seen by Dr. Kelsie Johnson yesterday. Underlying etiology most likely her COPD. Code(s): J96.01 - ACUTE RESPIRATORY FAILURE WITH HYPOXIA (2) Intertrochanteric fracture of left femur Current Visit: Yes Status: Acute Qualifiers: Encounter type: subsequent encounter Fracture type: closed Fracture alignment: nondisplaced Assessment & Plan: She had repeat hip X-ray yesterday that Dr. Epperson requested to review. Fracture is not displaced. Code(s): S72.142A - DISPLACED INTERTROCHANTERIC FRACTURE OF LEFT FEMUR, INIT (3) Wound of foot Current Visit: Yes Status: Acute Assessment & Plan: s/p surgery on 07/13/[address] Kermit luis with excision of achilles tendon and skin graft to open wound. Continue IV antibiotics. This is day 6 of antibiotics. Code(s): S91.309A - UNSPECIFIED OPEN WOUND, UNSPECIFIED FOOT, INITIAL ENCOUNTER (4) COPD (chronic obstructive pulmonary disease) Current Visit: Yes Status: Chronic (5) CHF (congestive heart failure) Current Visit: Yes Status: Acute Assessment & Plan: Patient has had good diuresis with IV lasix. Creatinine stable. Will continue to monitor daily weights and intake and output. Code(s): I50.9 - HEART FAILURE, UNSPECIFIED (6) DM2 (diabetes mellitus, type 2) Current Visit: Yes Status: Chronic Qualifiers: Diabetes mellitus continuous churn buttermaker insulin use: without group home use Diabetes mellitus complication status: with circulatory complication Diabetes mellitus complication detail: with peripheral angiopathy without gangrene Qualified Code(s): E11.51 - Type 2 diabetes mellitus with diabetic peripheral angiopathy without gangrene Assessment & Plan: Well controlled. One glucose to 84 yesterday. (7) PAD (peripheral artery disease) Current Visit: Yes Status: Chronic Assessment & Plan: Continue current management. Code(s): I73.9 - PERIPHERAL VASCULAR DISEASE, UNSPECIFIED
[2019-07-14] MEDS ORDERED: HUMALOG SQ PRN (10:15)
[2019-07-14] MEDS: ZOCOR 20MG PO SCH (21:06)
[2019-07-14] MEDS: DESYREL 50 MG PO SCH (21:08)
[2019-07-15] MEDS: NEURONTIN 300 MG PO SCH ×4 (00:33→17:17)
[2019-07-15 05:07] LABS: Hematocrit 33.9 % (35-47); Hemoglobin 10.3 gm/dl (12.0-16.0); Mean Corpuscular Hemoglobin 29.2 pg (26-32); Mean Corpuscular Hgb Concent. 30.4 g/dl (32-36); Mean Platelet Volume 9.9 fl (7.5-11.0); Platelet Count 420 K/mm3 (150-450); Red Blood Count 3.53 M/mm3 (4.1-5.4); Red Cell Distribution Width 14.9 % (11.5-14.0); White Blood Count 10.2 K/mm3 (4.0-10.5)
[2019-07-15 05:29] LABS: ANION GAP 8.7 MEQ/L (5-15); BLOOD UREA NITROGEN 10 mg/dL (7-17); CHLORIDE 95 mmol/L (98-107); Calcium 9.4 mg/dL (8.4-10.2); Carbon Dioxide 36 mmol/L (22-30); Glucose 78 mg/dL (74-106); Potassium 4.2 mmol/L (3.5-5.1); SODIUM 136 mmol/L (137-145)
[2019-07-15 05:45] LABS: BAND 1 % (0.0-2.0); Eosinophil 16 % (0.00-3.0); Hypochromia 1+; Lymphocytes 13 % (24-44); Monocyte 7 % (0.0-12.0); Neutrophils 63 % (36.0-66.0); Platelet Estimate NORMAL (NORMAL); Polychromasia 1+; Total Cells Counted 100
[2019-07-15 05:46] LABS: ANISOCYTOSIS 1+
[2019-07-15] MEDS: Fortaz/Tazicef 1 GM** 1 G in Dextrose 5%/Water IV Soln. 100ML PLUS BAG 100 ML IV SCH ×2 (07:21→14:12)
[2019-07-15] MEDS: DILAUDID 1 MG/1ML PCA IV PRN (07:25)
[2019-07-15] MEDS: DUONEB 0.5-3 MG/3 ml Neb IH SCH ×3 (07:44→18:20)
[2019-07-15] MEDS ORDERED: PERCOCET TABLET 5/325MG PO PRN (08:11)
--- NOTE | 2019-07-15 08:45 | PCM.NOTE ---
Date and Time: 07/15/19 0840 Subjective Assessment: Patient continues to have pain in her right calf. I explained to her that the surgeon took her Achilles tendon out and she said she did not know this. She did not know she had a skin graft either she stated when I told her this as well. She denies shortness of breath, wheezing or cough. She state she has not had a stool for a couple of days but declines any further stool softner. Her nurse reports she continues to be in quite a bit of pain even with dilaudid manager bridge. - Review of Systems Constitutional: Weakness Respiratory: No Symptoms Cardiac: No Symptoms Abdominal/Gastrointestinal: Constipation Musculoskeletal: Other (right leg and ankle pain) Objective Exam Wound Assessment: Skin/Wound Assessment Wound/Incision Assessment Start: 07/06/19 11: 58 Text: Status: Active Freq: Q6H Protocol: Document 07/15/19 05:00 KS (Rec: 07/15/19 06:05 KS [id number]) Wound/Incision Assessment Left Lower Abdomen Wound Assessment Shift Assessment Wound Type SKIN GRAFT SITE Wound Stage Non Pressure Wound Dressing Status Drainage circled Drainage Amount Moderate Drainage Description Serous Drainage Odor None/Absent Primary Dressing TEGADERM Comment dressing in place, drainage noted Posterior Sacrum Wound Assessment Shift Assessment Wound Type Skin Tear Drainage Amount Minimal Drainage Description Serosanguineous Drainage Odor None/Absent General Appearance Clean/Dry Reddened Wound Bed Greatest Portion Red (Granulation) Wound Bed Lesser Portion Red (Granulation) Surrounding Tissue Eitzen Comment large amt of sanguineous drainage from sacral wound. OBJECTIVE DATA Vital Signs: Vital Signs - 24 hr Temp Pulse Resp BP BP Pulse Ox 07/15/19 07:48 95 H 18 94 L 07/15/19 07:25 94 L 07/15/19 07:17 98.8 F 98 H 22 127/59 94 L 07/15/19 03:47 98.2 F 96 H 18 126/60 92 L 07/15/19 00:24 103/51 07/14/19 23:00 90 17 93/49 94 L 07/14/19 19:53 79 12 92 L 07/14/19 19:00 97.5 F 86 18 111/57 94 L 07/14/19 15:00 97.8 F 68 18 97/55 94 L 07/14/19 13:20 79 14 92 L 07/14/19 11:00 97.9 F 81 18 104/55 93 L Oxygen-Last 24 hours Oxygen Flowrate (L/min)-RT 10 Oxygen Flowrate (L/min)-RT 10 Oxygen Flowrate (L/min)-RT 10 Oxygen Flowrate (L/min)-RT 10 Oxygen Flowrate (L/min)-RT 10 Oxygen Flowrate (L/min)-RT 10 Pain Assessment - Last Documented Pain Intensity 2 Pain Scale Used 0-10 Pain Scale Intake and Output: Intake & Output 07/13/19 07/14/19 07/15/19 07/16/19 06:59 06:59 06:59 06:59 Intake Total 1847 710 517 Output Total 8387 2253 1495 Balance -2231 -730 -699 Weight 70.5 kg Lab Results: Accuchecks Date 07/15/19 Date 07/14/19 Date 07/14/19 Date 07/14/19 Time 07:05 Time 21:00 Time 16:24 Time 11:31 Accucheck Value: 78 Accucheck Value: 90 Accucheck Value: 90 Accucheck Value: 112 Lab Results-Last 24 Hours 07/15/19 07/15/19 Range/Units 04:47 04:47 WBC 10.2 (4.0-10.5) K/mm3 RBC 3.53 L (4.1-5.4) M/mm3 Hgb 10.3 L (12.0-16.0) gm/dl Hct 33.9 L (35-47) % MCV 96.0 (78-100) fl MCH 29.2 (26-32) pg MCHC 30.4 L (32-36) g/dl RDW 14.9 H (11.5-14.0) % Plt Count 420 (150-450) K/mm3 MPV 9.9 (7.5-11.0) fl Segmented Neutrophils 63 (36.0-66.0) % Band Neutrophils 1 (0.0-2.0) % Lymphocytes (Manual) 13 L (24-44) % Monocytes (Manual) 7 (0.0-12.0) % Eosinophils (Manual) 16 H (0.00-3.0) % Hypochromia 1+ Platelet Estimate NORMAL (NORMAL) RBC Morphology ABNORMAL Polychromasia 1+ Anisocytosis 1+ Sodium 136 L (137-145) mmol/L Potassium 4.2 (3.5-5.1) mmol/L Chloride 95 L (98-107) mmol/L Carbon Dioxide 36 H (22-30) mmol/L Anion Gap 8.7 (5-15) MEQ/L BUN 10 (7-17) mg/dL Creatinine 0.60 (0.52-1.04) mg/dL Estimated GFR > 60.0 ML/MIN Glucose 78 (74-106) mg/dL Calcium 9.4 (8.4-10.2) mg/dL Radiology Exams: Radiology Procedures Category Date Time Status HIP UNI (2V) INCL PEL IF DONE Urgent Exams 07/13/19 16:00 Completed Multi-Disciplinary Progress Notes: Multi-Disciplinary Progress Notes 07/14/19 16:27 Physical Therapy Note by Lore Martines P.T. HELD AGAIN TODAY PT. IS TO BE NWB R LE AFTER I & D YESTERDAY. PT. CONT. TO BE IN CONSIDERABLE PN AND O2 SATS ARE LOW AT TIMES EVEN ON O2. FEEL REHAB POTENTIAL IS GUARDED CURRENTLY BUT WILL CONT. TO ATTEMPT TOLERATED. LORE MARTINES, PT Initialized on 07/14/19 16:27 - END OF NOTE 07/14/19 11:44 Case Management Note by Lou De León AT [facility] CALLED BACK AND STATED THEY ARE NOT IN NETWORK. SHE GAVE SOME SUGGESTIONS OF FACILITIES THAT MAY BE IN NETWORK. AFTER CALLING SEVERAL FACILITIES THE ONLY NEW FACILITY IN NETWORK I FOUND WAS [facility]. WHEN DISCUSSING THIS WITH PATIENT SHE WAS STRONGLY AGAINST GOING TO [facility], SHE SAID SHE WOULD JUST RATHER RETURN TO [facility] AT THIS POINT. PATIENT AGREEABLE TO GO TO [facility] AT THIS TIME. CALLED AND S/W KATLYN AT [facility]. THEY ARE ACCEPTING NEW PATIENTS WITH A NEGATIVE COVID TEST. REFERRAL FAX SENT TO THEM AT THIS TIME. CALLED AND UPDATED PATIENT'S DAUGHTER ANNE WELL. KATLYN AWARE A DISCHARGE DATE IS UNKNOWN AT THIS TIME Initialized on 07/14/19 11:44 - END OF NOTE 07/14/19 10:37 Case Management Note by Lou De León S/W DAUGHTER ANNE- SHE AND PATIENT DISCUSSED REHAB AND HAVE DECIDED TO GO TO [facility]. I WENT AND WITH PATIENT AND SHE IS STILL AGREEABLE THIS AM. DR. MONTAÑO NOTIFIED. GOPALRR PAPERWORK COMPLETE, NO LEVEL II REQUIRED. COPY PLACED ON CHART. FACESHEET FAXED TO JOHN AT [facility] SO THEY CAN CHECK BENEFITS. Initialized on 07/14/19 10:37 - END OF NOTE Assessment/Plan (1) Acute respiratory failure with hypoxemia Current Visit: Yes Status: Acute Assessment & Plan: Patient is not in any respiratory distress but continues to require 10 L oxygen at this time. Code(s): J96.01 - ACUTE RESPIRATORY FAILURE WITH HYPOXIA (2) Intertrochanteric fracture of left femur Current Visit: Yes Status: Acute Qualifiers: Encounter type: subsequent encounter Fracture type: closed Fracture alignment: nondisplaced Assessment & Plan: Dr. Holcomb has been following by phone. Code(s): S72.142A - DISPLACED INTERTROCHANTERIC FRACTURE OF LEFT FEMUR, INIT (3) Wound of foot Current Visit: Yes Status: Acute Assessment & Plan: s/p surgery with Dr. Kermit Luis. Further management per his recommendations. On IV antibiotics currently. Perhaps the surgeon who saw her wound during surgery could direct how much longer they would like for her to be on IV antibiotics. Code(s): S91.309A - UNSPECIFIED OPEN WOUND, UNSPECIFIED FOOT, INITIAL ENCOUNTER (4) COPD (chronic obstructive pulmonary disease) Current Visit: Yes Status: Chronic Assessment & Plan: Patient was seen by Dr. Kelsie Johnson. Continue current treatment. (5) CHF (congestive heart failure) Current Visit: Yes Status: Acute Assessment & Plan: Lasix decreased to once a day yesterday. Code(s): I50.9 - HEART FAILURE, UNSPECIFIED (6) DM2 (diabetes mellitus, type 2) Current Visit: Yes Status: Chronic Qualifiers: Diabetes mellitus fdc insulin use: without superintendent terminal use Diabetes mellitus complication status: with circulatory complication Diabetes mellitus complication detail: with peripheral angiopathy without gangrene Qualified Code(s): E11.51 - Type 2 diabetes mellitus with diabetic peripheral angiopathy without gangrene Assessment & Plan: well controlled. (7) PAD (peripheral artery disease) Current Visit: Yes Status: Chronic Assessment & Plan: Continue current management. Code(s): I73.9 - PERIPHERAL VASCULAR DISEASE, UNSPECIFIED (8) Pain in right leg Current Visit: Yes Status: Acute Assessment & Plan: May be due to PAD or post op from achilles tendon removal. Will d/c SLAGGER and change to oral percocet and IV dilaudid prn. Code(s): M79.604 - PAIN IN RIGHT LEG
[2019-07-15] MEDS: PERCOCET TABLET 5/325MG PO PRN ×2 (08:46→15:54)
[2019-07-15] MEDS: PLAVIX 75 MG Tablet PO SCH (08:46)
[2019-07-15] MEDS: ECOTRIN 81 MG PO SCH (08:46)
[2019-07-15] MEDS: Cyclobenzaprine 10 MG PO SCH ×2 (08:46→14:14)
[2019-07-15] MEDS: Klor Con 10 MEQ PO SCH (08:46)
[2019-07-15] MEDS: Colace 100 MG PO SCH (08:46)
[2019-07-15] MEDS: MYRBETRIQ PO SCH (08:47)
[2019-07-15] MEDS: Toprol-Xl 25MG Tablets PO SCH (08:47)
[2019-07-15] MEDS ORDERED: Lasix 40 MG/4 ML IV SCH (10:00)
[2019-07-15] MEDS: DILAUDID 2 MG INJECTION IV PRN ×2 (10:24→13:50)
[2019-07-15] MEDS: Sodium Chloride 0.9% W/ 20 mEq KCl/LITER 1,000 ML IV SCH (14:34)
[2019-07-15 15:59] VITALS: BP 97/50
--- NOTE | 2019-07-15 18:37 | PCM.DCORD ---
- Discharge Discharge Date: 07/15/19 Disposition: DC TO [facility] Condition: Fair Prescriptions: New Docusate Sodium 100 mg [Colace 100 MG] 100 mg PO BID capsule Clotrimazole Cream 30 gm [Lotrimin Cream 30 gm] 30 gm TP UD PRN cream PRN Reason: Redness/Irritation Acetaminophen 325 mg [Tylenol 325 mg] 650 mg PO Q4H PRN PRN tablet PRN Reason: Pain And/Or Fever Oxycodone HCl/Acetaminophen [Percocet 7.5-325 mg Tablet] 1 each PO Q4H PRN # 40 tablet MDD 6 PRN Reason: Pain Ipratropium/Albuterol Sulfate [Combivent Inhaler] 2 puff IH QID #1 aer.w.adap Continue Furosemide 40 mg PO QAM #30 tablet Clopidogrel Bisulfate 75 mg [PLAVIX 75 MG Tablet] 75 mg PO DAILY Metoprolol Succinate 25 mg Xl* [Toprol-Xl 25MG Tablets] 25 mg PO DAILY Aspirin EC 81 mg [Ecotrin 81 mg] 81 mg PO BID Mirabegron [Myrbetriq] 50 mg PO DAILY Cyclobenzaprine HCl 10 mg [Cyclobenzaprine 10 MG] 10 mg PO TID Gabapentin [Neurontin] 300 mg PO TID Pravastatin Sodium 80 mg PO HS Trazodone HCl 50 mg [Desyrel 50 mg] 50 mg PO HS Discontinued Alendronate Sodium 70 mg [Fosamax 70 MG] 70 mg PO Q7D@0600 Oxycodone HCl/Acetaminophen [Percocet 7.5-325 mg Tablet] 1 tab PO QIDPRN PRN PRN Reason: Pain Clindamycin HCl 300 mg PO QID Additional Instructions: [facility]'s Nursing Orders: -1800 ADA diet -Accuchecks AC -See attached for medication orders -Routine rai care - oxygen 8L by nasal cannula. May titrate up to 10 L if needed, dx COPD - Dr. Huber will follow at [facility] - Routine care for pressure sore on left buttocks DR Kermit ORTEGA SURGEON INSTRUCTIONS: BEDREST AND TO REMAIN NON-WEIGHT BEARING UNTIL AFTER F/U APPOINTMENT WITH DR. Shari ORTEGA NEXT WEEK DRESSING CHANGE DAILY TO GRAFT SITE ON ABDOMEN DO NOT TEAR DOWN OR CHANGE DRESSING TO R FOOT, YOU MAY ONLY REMOVE KERLEX OUTER DRESSING AND REPLACE IF WET/SOILED DO NOT USE ICE PACK FOR PAIN RELIEF F/U APPOINTMENT WITH DR. Shari ORTEGA ON 07/19/19 AT 11:00 AM AT THE [facility]. Follow up with: NEIL ORTEGA MD [ASSOCIATE STAFF] - 07/19/19 11:00 am (WITH NEIL ORTEGA AT [facility])
[2019-07-15 19:46] VITALS: PULSE 92; O2SAT 89
--- NOTE | 2019-07-20 08:33 | DS ---
DISCHARGE DIAGNOSES: 1) CHRONIC RESPIRATORY FAILURE WITH HYPOXEMIA. 2) INTERTROCHANTERIC FRACTURE OF LEFT FEMUR. 3) WOUND OF HER RIGHT FOOT STATUS POST DEBRIDEMENT AND SKIN GRAFT. 4) CHRONIC OBSTRUCTIVE PULMONARY DISEASE. 5) CONGESTIVE HEART FAILURE. 6) DIABETES MELLITUS TYPE 2. 7) PERIPHERAL ARTERY DISEASE. 8) PAIN IN HER RIGHT LEG. DISCHARGE PHYSICAL EXAMINATION: VITALS: Temperature current 98.2F, heart rate 96, respiratory rate 18, blood pressure 97/50, weight 70.5 kg. Oxygen saturation 94% on OxyMask. GENERAL: The patient was lying in bed in some discomfort from pain. CVS: She has a regular rate and rhythm. No murmurs, gallops or rubs. CHEST: Clear to auscultation bilaterally. EXTREMITIES: Her right lower extremity was wrapped and dressed after the surgeon's incision, drainage and skin graft. She has a left above the knee amputation. HOSPITAL COURSE: 1) CHRONIC HYPOXIC RESPIRATORY FAILURE: She usually does not use oxygen at home and was up to 10 liters, not in any acute distress though. She had been on the COVID unit and her COVID-19 test was negative. Her chest x-ray did not show any infiltrate. She had a chest CT as well. Please see the radiologist report for that dictation. She was on antibiotic for her foot but was not being treated for pneumonia and was thought to be due to her chronic obstructive pulmonary disease. Dr. Kelsie Johnson did see her. No changes were made at that time. [facility] stated they could supply with the amount of oxygen and so she was discharged to their care for rehabilitation. 2) LEFT INTERTROCHANTERIC FRACTURE OF HER HIP: The orthopedic surgeon from [facility], I believe Dr. Holcomb, was consulted from the emergency room and stated if she had excruciating or uncontrollable pain they could do a pinning otherwise he would suggest not. She did not seem to have left hip pain at the time of discharge. 3) WOUND OF HER RIGHT FOOT: She had surgical intervention with Dr. Derrick Luis. Please see his operative report for full details but he removed part of the Achilles tendon and she had a skin graft to the area. He told the business continuity planner that she did not need any further antibiotics. The wound had grown Pseudomonas and she had been treated during her whole hospitalization with IV antibiotics for that. 4) CHRONIC OBSTRUCTIVE PULMONARY DISEASE: Again, she is more hypoxic than normal. Dr. Kelsie Johnson saw her and no changes were made. Overall her prognosis is guarded and poor. 5) CONGESTIVE HEART FAILURE: She had an echo done that Dr. Trey Shah read. Please see his report. He felt like she was stable from a cardiovascular standpoint was his verbal report to me. 6) DIABETES MELLITUS TYPE 2: Fairly well controlled, will continue current medication. 7) PERIPHERAL ARTERY DISEASE: Continue current medications. 8) RIGHT FOOT PAIN: Her nurse felt like she might do better with oral pain medications. We put her back on Percocet with increased frequency of up to every four hours as needed and stop the IV Dilaudid. Her pain seemed to be better controlled before discharge. DISCHARGE MEDICATIONS: Please see the discharge order. DISPOSITION: The patient was discharged to [facility] in guarded condition. at any time would not be unexpected. The patient is SCO and understands that decision. She will have PT and OT at [facility].
== END 2019-07-15 19:20 | DRG 463 ==
LOC: ED 06:22 → MED SURG 11:00 → OBSVTOIN 07-07 09:00 → MED SURG 07-08 12:45
PROVIDERS: ADMIT Family Medicine; ATTEND Family Medicine
PROC: 0LBS0ZZ Excision of Right Ankle Tendon, Open Approach (ICD-10-PCS; principal; 2019-07-07)
PROC: 0HRMX74 Replacement of Right Foot Skin with Autologous Tissue Substitute, Partial Thickness, External Approach (ICD-10-PCS; 2019-07-07)
PROC: 0HB7XZZ Excision of Abdomen Skin, External Approach (ICD-10-PCS; 2019-07-07)
DX: S72.145A Nondisplaced intertrochanteric fracture of left femur, initial encounter for closed fracture (principal); J96.01 Acute respiratory failure with hypoxia; L03.115 Cellulitis of right lower limb; L97.418 Non-pressure chronic ulcer of right heel and midfoot with other specified severity; I83.014 Varicose veins of right lower extremity with ulcer of heel and midfoot; L97.519 Non-pressure chronic ulcer of other part of right foot with unspecified severity; E78.00 Pure hypercholesterolemia, unspecified; E11.9 Type 2 diabetes mellitus without complications; I73.9 Peripheral vascular disease, unspecified; I25.10 Atherosclerotic heart disease of native coronary artery without angina pectoris; I11.0 Hypertensive heart disease with heart failure; I50.9 Heart failure, unspecified; L89.152 Pressure ulcer of sacral region, stage 2; J44.9 Chronic obstructive pulmonary disease, unspecified; R50.9 Fever, unspecified; L97.419 Non-pressure chronic ulcer of right heel and midfoot with unspecified severity; R53.1 Weakness; K59.00 Constipation, unspecified; F17.200 Nicotine dependence, unspecified, uncomplicated; W07.XXXA Fall from chair, initial encounter; Z79.01 Long term (current) use of anticoagulants; Z79.899 Other long term (current) drug therapy; Y92.009 Unspecified place in unspecified non-institutional (private) residence as the place of occurrence of the external cause
CPT/HCPCS: 11043; 15100; 36000; 36415; 51702; 71045; 71260; 73502; 73552; 73700; 76937; 76942; 80048; 80053; 81001; 82550; 82962; 83605; 83735; 83880; 84132; 84134; 85025; 85027; 87040; 87070; 87077; 87186; 93005; 93268; 93306; 94640; 94760; 94762; 96360; 96361; 96365; 96374; 96375; 96376; 97162; 99285; G0378; U0001; 64450; 88304; 99100; J0696; J0713; J1170; J1940; J1956; J2250; J2370; J2405; J2795; J3010; J3480; U0002; A9270-GY

== ENCOUNTER 2020-02-17 18:50 | Emergency (ER) | payer MEDICARE ==
[2020-02-17] MEDS ORDERED: Sodium Chloride 0.9% 1000 ML 1,000 ML ONE (19:26)
[2020-02-17] MEDS ORDERED: Sodium Chloride 0.9% 1000 ML 1,000 ML IV SCH (19:30)
--- NOTE | 2020-02-17 19:30 | ERPHSYRPT ---
- History of Present Illness Time Seen by Provider: 02/17/20 19:25 Source: patient, family, EMS Exam Limitations: no limitations Patient Subjective Stated Complaint: weakness, lethargy Triage Nursing Assessment: pt to ED with daughter c/o lethargy and weakness x 2 days. daughter states she lives at home alone and normally does not have issues but has had couple falls in last week. 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 denies pain currently. states she just does not feel like herself. fsbs 194 on arrival. Physician History: family and pt state mental status decreased after multiple falls and also weakness genberal no fever , no covid exposures known. no CP but is short of breath no cough no abd pain. SP double amp for PAD and hx DM; O2 sat at 85 on RA - no home O2 ; improved to 97% on 2 L. discussed risk and benefit of head CT and family/pt wish to proceed; [place] decision rule consulted but does not apply due to age and on blood thinner. Timing/Duration: day(s) Severity: moderate Character of Deficits: general (difuse) Deficits: no difficulties Baseline/Normal Cognition: alert oriented x 3 Current Cognition: alert oriented x 3 Baseline Gait: unable to walk Associated Symptoms: confusion (intermit but GCS 15 now), fatigue, weakness Allergies/Adverse Reactions: morphine Allergy (Intermediate, Verified 02/17/20 18:59) severe itching, SOB- decreased resp rate Tetanus Vaccines and Toxoid [Tetanus Vaccines & Toxoid] Allergy (Intermediate, Verified 02/17/20 18:59) localized swelling codeine Allergy (Mild, Verified 02/17/20 18:59) Itching vancomycin Allergy (Verified 02/17/20 18:59) Home Medications: Clopidogrel Bisulfate 75 mg [PLAVIX 75 MG Tablet] 75 mg PO DAILY 04/22/15 [History] Aspirin EC 81 mg [Ecotrin 81 mg] 81 mg PO BID 05/13/19 [History] Gabapentin [Neurontin] 300 mg PO TID 05/13/19 [History] Metoprolol Succinate 25 mg Xl* [Toprol-Xl 25MG Tablets] 25 mg PO BID 05/13/19 [History] Trazodone HCl 50 mg [Desyrel 50 mg] 50 mg PO HS 05/13/19 [History] Esomeprazole Magnesium [Nexium] 40 mg PO DAILY 02/17/20 [History] Hx Tetanus, Diphtheria Vaccination/Date Given: Yes Hx Influenza Vaccination/Date Given: Yes Hx Pneumococcal Vaccination/Date Given: Yes Travel Risk - International Travel Have you traveled outside of the country in past 3 weeks: No - Coronavirus Screening Are you exhibiting any of the following symptoms?: No Close contact with a COVID-19 positive Pt in past 14-21 Days: No - Review of Systems Constitutional: Fatigue, Lethargy, Malaise, Weakness, No Fever, No Chills Eyes: No Symptoms Ears, Nose, & Throat: No Symptoms Respiratory: Dyspnea, No Cough Cardiac: No Chest Pain, No Edema, No Syncope Abdominal/Gastrointestinal: No Abdominal Pain, No Nausea, No Vomiting, No Diarrhea Genitourinary Symptoms: No Dysuria Musculoskeletal: Fall, No Back Pain, No Neck Pain Skin: No Rash Neurological: No Dizziness, No Focal Weakness, No Sensory Changes Psychological: No Symptoms Endocrine: No Symptoms Hematologic/Lymphatic: No Symptoms Immunological/Allergic: No Symptoms All Other Systems: Reviewed and Negative - Past Medical History Pertinent Past Medical History: Yes Neurological History: No Pertinent History ENT History: Cataracts Cardiac History: Congestive Heart Failure, High Cholesterol, Hypertension, Other Respiratory History: Asthma Endocrine Medical History: Diabetes Type II Musculoskeletal History: Osteoarthritis GI Medical History: No Pertinent History History: Other Psycho-Social History: No Pertinent History Female Reproductive Disorders: Endometriosis Other Medical History: femorial artery graft in R LE, nearly lost that leg. Heart stent, states achilles tendon removed early 2019 and skin graft . Graft healed well. Tendon is non healing . bilateral above knee amputee - 2020 - Past Surgical History Past Surgical History: Yes Neuro Surgical History: No Pertinent History Cardiac: Cardiac Catheterization, Cardiac Stent Respiratory: No Pertinent History Gastrointestinal: No Pertinent History Genitourinary: No Pertinent History Musculoskeletal: Amputation, Orthopedic Surgery Female Surgical History: Hysterectomy Other Surgical History: stentx1, carotid endardectomy, foot , tonsil, back surgery, femeral artery replaced UPDATED 05/24/15 aka left 06/27/2015 cataract surgery with implants bilat - Social History Smoking Status: Current every day smoker How long have you smoked: years Exposure to second hand smoke: No Drug Use: none Patient Lives Alone: Yes - Female History Hx Now: No - Nursing Vital Signs Nursing Vital Signs: Initial Vital Signs Temperature 98.2 F 02/17/20 19:02 Pulse Rate 74 02/17/20 19:02 Respiratory Rate 16 02/17/20 19:02 Blood Pressure 104/60 02/17/20 19:02 O2 Sat by Pulse Oximetry 85 L 02/17/20 19:02 Pain Scale Pain Intensity 0 - [place] Coma Scale Best Eye Response ([place]): (4) open spontaneously Best Verbal Response (Patrick): (5) oriented Best Motor Response ([place]): (6) obeys commands [place] Total: 15 - Physical Exam General Appearance: no apparent distress, alert Eye Exam: bilateral eye: PERRL, EOMI Ears, Nose, Throat Exam: normal ENT inspection, moist mucous membranes Neck Exam: normal inspection, non-tender, supple, full range of motion Respiratory: normal breath sounds, lungs clear, airway intact, No respiratory distress Cardiovascular: regular rate/rhythm, No edema Gastrointestinal: soft, No tenderness, No distention Pelvic Exam: deferred Rectal Exam: deferred Back Exam: normal inspection Extremity Exam: normal inspection, No pedal edema Peripheral Pulses: carotid (R): 2+, carotid (L): 2+, femoral (R): 2+, femoral (L): 2+ Mental Status: alert, oriented x 3, cooperative, other (hx of intermit decreaSED COGNITION TODAY OK on exam now( but on O2)) 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 ), No Pneumothorax - CT Exams Head CT Interpretation: Discussed w/radiologist, Tele-radiologist Report, Other (2 mm frontal possible sah or calcif. ) Chest CT Interpretation: Tele-radiologist Report, No PE, Other (atelectasis) Ordered Tests: Active Orders 24 hr Category Date Time Status EKG-ER Only STAT Care 02/17/20 19:20 Active IV Insertion STAT Care 02/17/20 19:20 Active Oxygen-ED Only Nasal Cannula 2 lpm Care 02/17/20 19:20 Active CHEST 1 VIEW (PORTABLE) Stat Exams 02/17/20 19:21 Taken CHEST WITH CONTRAST [CT] Stat Exams 02/17/20 20:58 Taken HEAD WITHOUT CONTRAST [CT] Stat Exams 02/17/20 19:23 Taken BMP/NO GLUCOSE Stat Lab 02/17/20 22:43 Completed CBC W DIFF Stat Lab 02/17/20 19:30 Completed CMP Stat Lab 02/17/20 19:30 Completed CULTURE,URINE Stat Lab 02/17/20 20:57 Received D-DIMER QUANTITATIVE Stat Lab 02/17/20 19:30 Completed Lactic Acid Stat Lab 02/17/20 19:40 Completed Lactic Acid Urgent Lab 02/17/20 20:55 Completed MAG [MAGNESIUM] Stat Lab 02/17/20 19:20 Completed NT PRO BNP Stat Lab 02/17/20 19:30 Completed POCT GLUCOSE Stat Lab 02/17/20 18:54 Completed T4 (Thyroxine) Stat Lab 02/17/20 19:30 Completed TROPONIN Q3H Lab 02/17/20 19:30 Completed TROPONIN Q3H Lab 02/17/20 22:43 Completed TROPONIN Q3H Lab 02/18/20 01:36 Completed TROPONIN Q3H Lab 02/18/20 04:30 Ordered TROPONIN Q3H Lab 02/18/20 07:30 Ordered TSH [TSH, 3RD Generation] Stat Lab 02/17/20 19:30 Completed UA W/RFX UR CULTURE Stat Lab 02/17/20 20:56 Completed VENOUS BLOOD GAS Stat Lab 02/17/20 20:55 Completed Medication Summary Generic Name Dose Route Start Last Admin Trade Name Freq PRN Reason Stop Dose Admin Sodium Chloride 1,000 mls @ 100 mls/hr 02/17/20 19:30 02/17/20 19:27 Sodium Chloride 0.9% 1000 Ml IV 03/18/20 19:29 100 mls/hr .Q10H AYE Administration Potassium Chloride 20 meq in 100 mls @ 50 mls/hr 02/17/20 20:30 02/17/20 22:47 Potassium Chloride 20 Meq In Water 100ml IV 02/18/20 00:29 50 mls/hr Q2H AYE Administration Discontinued Medications Generic Name Dose Route Start Last Admin Trade Name Dodie PRN Reason Stop Dose Admin Ceftriaxone Sodium/Dextrose 1 g in 50 mls @ 100 mls/hr 02/17/20 23:57 02/18/20 00:18 Rocephin 1 Gm-D5w 50 Ml Bag IV 02/18/20 00:26 100 ml/hr STAT STA 100 mls/hr Administration Ceftriaxone Sodium/Dextrose Confirm 02/18/20 00:10 Rocephin 1 Gm-D5w 50 Ml Bag Administered 02/18/20 00:11 Dose 1 g in 50 mls @ ud IV .STK-MED ONE Potassium Bicarbonate 25 meq 02/17/20 20:16 02/17/20 20:23 K-Lyte 25 Meq PO 02/17/20 20:17 25 meq STAT ONE Administration Potassium Bicarbonate Confirm 02/17/20 20:18 K-Lyte 25 Meq Administered 02/17/20 20:19 Dose 25 meq .ROUTE .STK-MED ONE Lab/Rad Data: Laboratory Result Diagrams 02/17/20 19:30 02/17/20 22:43 Laboratory Results 02/18/20 02/17/20 02/17/20 Range/Units 01:36 22:43 22:43 WBC (4.0-10.5) K/mm3 RBC (4.1-5.4) M/mm3 Hgb (12.0-16.0) gm/dl Hct (35-47) % MCV (78-100) fl MCH (26-32) pg MCHC (32-36) g/dl RDW (11.5-14.0) % Plt Count (150-450) K/mm3 MPV (7.5-11.0) fl Gran % (36.0-66.0) % Eos # (Auto) (0-0.5) Absolute Lymphs (auto) (1.0-4.6) Absolute Monos (auto) (0.0-1.3) Lymphocytes % (24.0-44.0) % Monocytes % (0.0-12.0) % Eosinophils % (0.00-5.0) % Basophils % (0.0-0.4) % Absolute Granulocytes (1.4-6.9) Basophils # (0-0.4) D-Dimer (215-500) ng/mL pO2/FiO2 Ratio % VBG pH (7.32-7.42) VBG pCO2 at Pat Temp (42-55) mm/Hg VBG pO2 at Pat Temp (25-40) mm/Hg VBG HCO3 (22-28) meq/L VBG O2 Sat (Jose E) (95-100) VBG Base Excess (-2.0-2.0) VBG Hemoglobin VBG Carboxyhemoglobin (0.0-6.9) % T HGB POC Potassium (3.5-5.1) Sodium 118 L* (137-145) mmol/L Potassium 2.5 L* D (3.5-5.1) mmol/L Chloride 64 L (98-107) mmol/L Carbon Dioxide 48 H (22-30) mmol/L Anion Gap 8.5 (5-15) MEQ/L BUN 19 H (7-17) mg/dL Creatinine 0.45 L (0.52-1.04) mg/dL Estimated GFR > 60.0 ML/MIN Glucose (74-106) mg/dL POC Glucometer (74 to 106) mg/dL Lactic Acid (0.4-2.0) Calcium 8.8 (8.4-10.2) mg/dL Magnesium (1.6-2.3) mg/dL Total Bilirubin (0.2-1.3) mg/dL AST (14-36) U/L ALT (0-35) U/L Alkaline Phosphatase (38-126) U/L Troponin I 0.054 H* 0.055 H* (0.000-0.034) ng/mL NT-Pro-B Natriuret Pep (0-900) pg/mL Serum Total Protein (6.3-8.2) g/dL Albumin (3.5-5.0) g/dL Thyroxine (T4) (5.53-10.96) ug/dL TSH 3rd Generation (0.47-4.68) mIU/L Urine Color (YELLOW) Urine Appearance (CLEAR) Urine pH (5-6) Ur Specific Sinclair (1.005-1.025) Urine Protein (Negative) Urine Ketones (NEGATIVE) Urine Blood (0-5) Jose Daniel/ul Urine Nitrite (NEGATIVE) Urine Bilirubin (NEGATIVE) Urine Urobilinogen (0-1) mg/dL Ur Leukocyte Esterase (NEGATIVE) Urine WBC (Auto) (0-5) /HPF Urine RBC (Auto) (0-2) /HPF U Hyaline Cast (Auto) (0-2) /LPF U Epithel Cells (Auto) (FEW) /HPF Urine Bacteria (Auto) (NEGATIVE) /HPF Urine Mucus (Auto) (NEGATIVE) /HPF Urine Culture Reflexed (NO) Urine Glucose (NEGATIVE) mg/dL SARS-CoV-2 (PCR) (NEGATIVE) 02/17/20 02/17/20 02/17/20 Range/Units 21:05 20:56 20:55 WBC (4.0-10.5) K/mm3 RBC (4.1-5.4) M/mm3 Hgb (12.0-16.0) gm/dl Hct (35-47) % MCV (78-100) fl MCH (26-32) pg MCHC (32-36) g/dl RDW (11.5-14.0) % Plt Count (150-450) K/mm3 MPV (7.5-11.0) fl Gran % (36.0-66.0) % Eos # (Auto) (0-0.5) Absolute Lymphs (auto) (1.0-4.6) Absolute Monos (auto) (0.0-1.3) Lymphocytes % (24.0-44.0) % Monocytes % (0.0-12.0) % Eosinophils % (0.00-5.0) % Basophils % (0.0-0.4) % Absolute Granulocytes (1.4-6.9) Basophils # (0-0.4) D-Dimer (215-500) ng/mL pO2/FiO2 Ratio % VBG pH (7.32-7.42) VBG pCO2 at Pat Temp (42-55) mm/Hg VBG pO2 at Pat Temp (25-40) mm/Hg VBG HCO3 (22-28) meq/L VBG O2 Sat (Jose E) (95-100) VBG Base Excess (-2.0-2.0) VBG Hemoglobin VBG Carboxyhemoglobin (0.0-6.9) % T HGB POC Potassium (3.5-5.1) Sodium (137-145) mmol/L Potassium (3.5-5.1) mmol/L Chloride (98-107) mmol/L Carbon Dioxide (22-30) mmol/L Anion Gap (5-15) MEQ/L BUN (7-17) mg/dL Creatinine (0.52-1.04) mg/dL Estimated GFR ML/MIN Glucose (74-106) mg/dL POC Glucometer (74 to 106) mg/dL Lactic Acid 1.1 (0.4-2.0) Calcium (8.4-10.2) mg/dL Magnesium (1.6-2.3) mg/dL Total Bilirubin (0.2-1.3) mg/dL AST (14-36) U/L ALT (0-35) U/L Alkaline Phosphatase (38-126) U/L Troponin I (0.000-0.034) ng/mL NT-Pro-B Natriuret Pep (0-900) pg/mL Serum Total Protein (6.3-8.2) g/dL Albumin (3.5-5.0) g/dL Thyroxine (T4) (5.53-10.96) ug/dL TSH 3rd Generation (0.47-4.68) mIU/L Urine Color YELLOW (YELLOW) Urine Appearance SLIGHTLY CLOUDY (CLEAR) Urine pH 6.0 (5-6) Ur Specific Sinclair 1.013 (1.005-1.025) Urine Protein 100 (Negative) Urine Ketones NEGATIVE (NEGATIVE) Urine Blood SMALL (0-5) Jose Daniel/ul Urine Nitrite NEGATIVE (NEGATIVE) Urine Bilirubin NEGATIVE (NEGATIVE) Urine Urobilinogen NEGATIVE (0-1) mg/dL Ur Leukocyte Esterase MODERATE (NEGATIVE) Urine WBC (Auto) >100 (0-5) /HPF Urine RBC (Auto) 6-10 (0-2) /HPF U Hyaline Cast (Auto) 6-10 (0-2) /LPF U Epithel Cells (Auto) RARE (FEW) /HPF Urine Bacteria (Auto) RARE (NEGATIVE) /HPF Urine Mucus (Auto) SLIGHT (NEGATIVE) /HPF Urine Culture Reflexed ORDERED SEPARATELY (NO) Urine Glucose NEGATIVE (NEGATIVE) mg/dL SARS-CoV-2 (PCR) NEGATIVE (NEGATIVE) 02/17/20 02/17/20 02/17/20 Range/Units 20:55 19:40 19:30 WBC (4.0-10.5) K/mm3 RBC (4.1-5.4) M/mm3 Hgb (12.0-16.0) gm/dl Hct (35-47) % MCV (78-100) fl MCH (26-32) pg MCHC (32-36) g/dl RDW (11.5-14.0) % Plt Count (150-450) K/mm3 MPV (7.5-11.0) fl Gran % (36.0-66.0) % Eos # (Auto) (0-0.5) Absolute Lymphs (auto) (1.0-4.6) Absolute Monos (auto) (0.0-1.3) Lymphocytes % (24.0-44.0) % Monocytes % (0.0-12.0) % Eosinophils % (0.00-5.0) % Basophils % (0.0-0.4) % Absolute Granulocytes (1.4-6.9) Basophils # (0-0.4) D-Dimer (215-500) ng/mL pO2/FiO2 Ratio 28.0 % VBG pH 7.71 H* (7.32-7.42) VBG pCO2 at Pat Temp 46 (42-55) mm/Hg VBG pO2 at Pat Temp 146 H (25-40) mm/Hg VBG HCO3 58.2 H* (22-28) meq/L VBG O2 Sat (Jose E) 98.8 (95-100) VBG Base Excess 33.9 H (-2.0-2.0) VBG Hemoglobin 13.8 VBG Carboxyhemoglobin 10.2 H* (0.0-6.9) % T HGB POC Potassium 2.8 L* (3.5-5.1) Sodium (137-145) mmol/L Potassium (3.5-5.1) mmol/L Chloride (98-107) mmol/L Carbon Dioxide (22-30) mmol/L Anion Gap (5-15) MEQ/L BUN (7-17) mg/dL Creatinine (0.52-1.04) mg/dL Estimated GFR ML/MIN Glucose (74-106) mg/dL POC Glucometer (74 to 106) mg/dL Lactic Acid 2.4 H (0.4-2.0) Calcium (8.4-10.2) mg/dL Magnesium (1.6-2.3) mg/dL Total Bilirubin (0.2-1.3) mg/dL AST (14-36) U/L ALT (0-35) U/L Alkaline Phosphatase (38-126) U/L Troponin I (0.000-0.034) ng/mL NT-Pro-B Natriuret Pep (0-900) pg/mL Serum Total Protein (6.3-8.2) g/dL Albumin (3.5-5.0) g/dL Thyroxine (T4) 9.45 (5.53-10.96) ug/dL TSH 3rd Generation 1.010 (0.47-4.68) mIU/L Urine Color (YELLOW) Urine Appearance (CLEAR) Urine pH (5-6) Ur Specific Sinclair (1.005-1.025) Urine Protein (Negative) Urine Ketones (NEGATIVE) Urine Blood (0-5) Jose Daniel/ul Urine Nitrite (NEGATIVE) Urine Bilirubin (NEGATIVE) Urine Urobilinogen (0-1) mg/dL Ur Leukocyte Esterase (NEGATIVE) Urine WBC (Auto) (0-5) /HPF Urine RBC (Auto) (0-2) /HPF U Hyaline Cast (Auto) (0-2) /LPF U Epithel Cells (Auto) (FEW) /HPF Urine Bacteria (Auto) (NEGATIVE) /HPF Urine Mucus (Auto) (NEGATIVE) /HPF Urine Culture Reflexed (NO) Urine Glucose (NEGATIVE) mg/dL SARS-CoV-2 (PCR) (NEGATIVE) 02/17/20 02/17/20 02/17/20 Range/Units 19:30 19:30 19:30 WBC (4.0-10.5) K/mm3 RBC (4.1-5.4) M/mm3 Hgb (12.0-16.0) gm/dl Hct (35-47) % MCV (78-100) fl MCH (26-32) pg MCHC (32-36) g/dl RDW (11.5-14.0) % Plt Count (150-450) K/mm3 MPV (7.5-11.0) fl Gran % (36.0-66.0) % Eos # (Auto) (0-0.5) Absolute Lymphs (auto) (1.0-4.6) Absolute Monos (auto) (0.0-1.3) Lymphocytes % (24.0-44.0) % Monocytes % (0.0-12.0) % Eosinophils % (0.00-5.0) % Basophils % (0.0-0.4) % Absolute Granulocytes (1.4-6.9) Basophils # (0-0.4) D-Dimer 738 H* (215-500) ng/mL pO2/FiO2 Ratio % VBG pH (7.32-7.42) VBG pCO2 at Pat Temp (42-55) mm/Hg VBG pO2 at Pat Temp (25-40) mm/Hg VBG HCO3 (22-28) meq/L VBG O2 Sat (Jose E) (95-100) VBG Base Excess (-2.0-2.0) VBG Hemoglobin VBG Carboxyhemoglobin (0.0-6.9) % T HGB POC Potassium (3.5-5.1) Sodium 120 L* (137-145) mmol/L Potassium 1.7 L* (3.5-5.1) mmol/L Chloride 60 L (98-107) mmol/L Carbon Dioxide 51 H (22-30) mmol/L Anion Gap 10.7 (5-15) MEQ/L BUN 21 H (7-17) mg/dL Creatinine 0.66 (0.52-1.04) mg/dL Estimated GFR > 60.0 ML/MIN Glucose 198 H (74-106) mg/dL POC Glucometer (74 to 106) mg/dL Lactic Acid (0.4-2.0) Calcium 9.1 (8.4-10.2) mg/dL Magnesium (1.6-2.3) mg/dL Total Bilirubin 0.80 (0.2-1.3) mg/dL AST 42 H (14-36) U/L ALT 19 (0-35) U/L Alkaline Phosphatase 89 (38-126) U/L Troponin I 0.052 H* (0.000-0.034) ng/mL NT-Pro-B Natriuret Pep 1480 H (0-900) pg/mL Serum Total Protein 7.5 (6.3-8.2) g/dL Albumin 4.1 (3.5-5.0) g/dL Thyroxine (T4) (5.53-10.96) ug/dL TSH 3rd Generation (0.47-4.68) mIU/L Urine Color (YELLOW) Urine Appearance (CLEAR) Urine pH (5-6) Ur Specific Sinclair (1.005-1.025) Urine Protein (Negative) Urine Ketones (NEGATIVE) Urine Blood (0-5) Jose Daniel/ul Urine Nitrite (NEGATIVE) Urine Bilirubin (NEGATIVE) Urine Urobilinogen (0-1) mg/dL Ur Leukocyte Esterase (NEGATIVE) Urine WBC (Auto) (0-5) /HPF Urine RBC (Auto) (0-2) /HPF U Hyaline Cast (Auto) (0-2) /LPF U Epithel Cells (Auto) (FEW) /HPF Urine Bacteria (Auto) (NEGATIVE) /HPF Urine Mucus (Auto) (NEGATIVE) /HPF Urine Culture Reflexed (NO) Urine Glucose (NEGATIVE) mg/dL SARS-CoV-2 (PCR) (NEGATIVE) 02/17/20 02/17/20 02/17/20 Range/Units 19:30 19:20 18:54 WBC 9.5 (4.0-10.5) K/mm3 RBC 4.60 (4.1-5.4) M/mm3 Hgb 14.3 (12.0-16.0) gm/dl Hct 42.1 (35-47) % MCV 91.5 (78-100) fl MCH 31.1 (26-32) pg MCHC 34.0 (32-36) g/dl RDW 14.7 H (11.5-14.0) % Plt Count 393 (150-450) K/mm3 MPV 8.9 (7.5-11.0) fl Gran % 79.9 H (36.0-66.0) % Eos # (Auto) 0.07 (0-0.5) Absolute Lymphs (auto) 0.82 L (1.0-4.6) Absolute Monos (auto) 1.01 (0.0-1.3) Lymphocytes % 8.6 L (24.0-44.0) % Monocytes % 10.6 (0.0-12.0) % Eosinophils % 0.7 (0.00-5.0) % Basophils % 0.2 (0.0-0.4) % Absolute Granulocytes 7.62 H (1.4-6.9) Basophils # 0.02 (0-0.4) D-Dimer (215-500) ng/mL pO2/FiO2 Ratio % VBG pH (7.32-7.42) VBG pCO2 at Pat Temp (42-55) mm/Hg VBG pO2 at Pat Temp (25-40) mm/Hg VBG HCO3 (22-28) meq/L VBG O2 Sat (Jose E) (95-100) VBG Base Excess (-2.0-2.0) VBG Hemoglobin VBG Carboxyhemoglobin (0.0-6.9) % T HGB POC Potassium (3.5-5.1) Sodium (137-145) mmol/L Potassium (3.5-5.1) mmol/L Chloride (98-107) mmol/L Carbon Dioxide (22-30) mmol/L Anion Gap (5-15) MEQ/L BUN (7-17) mg/dL Creatinine (0.52-1.04) mg/dL Estimated GFR ML/MIN Glucose (74-106) mg/dL POC Glucometer 194 H (74 to 106) mg/dL Lactic Acid (0.4-2.0) Calcium (8.4-10.2) mg/dL Magnesium 2.3 (1.6-2.3) mg/dL Total Bilirubin (0.2-1.3) mg/dL AST (14-36) U/L ALT (0-35) U/L Alkaline Phosphatase (38-126) U/L Troponin I (0.000-0.034) ng/mL NT-Pro-B Natriuret Pep (0-900) pg/mL Serum Total Protein (6.3-8.2) g/dL Albumin (3.5-5.0) g/dL Thyroxine (T4) (5.53-10.96) ug/dL TSH 3rd Generation (0.47-4.68) mIU/L Urine Color (YELLOW) Urine Appearance (CLEAR) Urine pH (5-6) Ur Specific Sinclair (1.005-1.025) Urine Protein (Negative) Urine Ketones (NEGATIVE) Urine Blood (0-5) Jose Daniel/ul Urine Nitrite (NEGATIVE) Urine Bilirubin (NEGATIVE) Urine Urobilinogen (0-1) mg/dL Ur Leukocyte Esterase (NEGATIVE) Urine WBC (Auto) (0-5) /HPF Urine RBC (Auto) (0-2) /HPF U Hyaline Cast (Auto) (0-2) /LPF U Epithel Cells (Auto) (FEW) /HPF Urine Bacteria (Auto) (NEGATIVE) /HPF Urine Mucus (Auto) (NEGATIVE) /HPF Urine Culture Reflexed (NO) Urine Glucose (NEGATIVE) mg/dL SARS-CoV-2 (PCR) (NEGATIVE) - Progress Progress: improved, re-examined Progress Note: 02/17/20 20:[address] discussed [address] benefit of Ct angio with pt , family and Dr. Moran and all wish to proceed for elevated D Dimer and also for covid rapid prior to admissi on. 02/17/20 21:49 some delays are being noted from [facility] today and will result in some additional delays in dispo; 02/17/20 23:53 discussed with transfer center and ER Dr. Murphy and he sugested NS consult by phone to look at CT head and we are awaiting this; 02/18/20 00:[address] Marino - Neuro Surgeon at and he read CT and states that the area of concern is not an acute bleed and needs no NS attention and is basically a normal scan for age. does not have any avail beds for other than trauma at this time, including any cardiac concerns. 02/18/20 01:[address] Moran and in view of the troponins levels we will contact [facility] [place] to try to arrange transfer to where a firer automatic stoker would be available. 02/18/20 01:41 [facility] was also called while awaiting [place] response, but also has no beds. awaiting electric[facility] apprent[facility] powerhouse at [place] [facility].. Lack of available beds at [facility] hospitals has resulted in the current delay noted. 02/18/20 02:[address] Puga in [place] and they can accept the pt in transfer Discussed with Dr.: Alta, Other (Dr. Marino) Counseled pt/family regarding: lab results, diagnosis, need for follow-up, rad results, smoking cessation - Departure Departure Disposition: Transfer Clinical Impression: Hypokalemia, Hypoxia, Head Ct abnormalities, Hyponatremia, Elevated troponin, UTI (urinary tract infection), CAD (coronary artery disease), Congestive heart failure, DM2 (diabetes mellitus, type 2), PAD (peripheral artery disease) Condition: Good Critical Care Time: No Referrals: [facility] [Primary Care Provider] -
[2020-02-17 19:42] LABS: Absolute Neutrophil Ct (ANC) 7.62 (1.4-6.9); BASOPHIL % 0.2 % (0.0-0.4); Basophil (Absolute #) 0.02 (0-0.4); Eosinophil % 0.7 % (0.00-5.0); Eosinophil (Absolute #) 0.07 (0-0.5); Hematocrit 42.1 % (35-47); Hemoglobin 14.3 gm/dl (12.0-16.0); Lymphocyte (Absolute #) 0.82 (1.0-4.6); Lymphocytes % 8.6 % (24.0-44.0); Mean Cell Volume 91.5 fl (78-100); Mean Corpuscular Hemoglobin 31.1 pg (26-32); Mean Platelet Volume 8.9 fl (7.5-11.0); Monocyte (Absolute #) 1.01 (0.0-1.3); Monocytes % 10.6 % (0.0-12.0); Neutrophil % 79.9 % (36.0-66.0); Platelet Count 393 K/mm3 (150-450); Red Cell Distribution Width 14.7 % (11.5-14.0); White Blood Count 9.5 K/mm3 (4.0-10.5)
[2020-02-17 20:05] LABS: ALBUMIN 4.1 g/dL (3.5-5.0); ALKALINE PHOSPHATASE 89 U/L (38-126); BLOOD UREA NITROGEN 21 mg/dL (7-17); CHLORIDE 60 mmol/L (98-107); Calcium 9.1 mg/dL (8.4-10.2); Creatinine 1 0.66 mg/dL (0.52-1.04); EST GLOMERULAR FILTRATION RATE > 60.0 ML/MIN; Glucose 198 mg/dL (74-106); NT PRO BNP 1480 pg/mL (0-900); SGOT/AST 42 U/L (14-36); SGPT/ALT 19 U/L (0-35); Total Protein 7.5 g/dL (6.3-8.2)
[2020-02-17 20:14] LABS: ANION GAP 10.7 MEQ/L (5-15); Carbon Dioxide 51 mmol/L (22-30); Potassium 1.7 mmol/L (3.5-5.1); SODIUM 120 mmol/L (137-145)
[2020-02-17] MEDS ORDERED: K-LYTE 25 MEQ PO ONE (20:16)
[2020-02-17] MEDS ORDERED: POTASSIUM CHLORIDE 20 mEq IN WATER 100ML 100 ML IV ONE ×2 (20:17→22:46)
[2020-02-17] MEDS ORDERED: K-LYTE 25 MEQ ONE (20:18)
[2020-02-17] MEDS: POTASSIUM CHLORIDE 20 mEq IN WATER 100ML 20 MEQ/100 ML BAG IV SCH ×2 (20:22→22:47)
[2020-02-17 20:26] LABS: T4 (Thyroxine) 9.45 ug/dL (5.53-10.96); TSH, 3RD Generation 1.01 mIU/L (0.47-4.68)
[2020-02-17 21:03] LABS: VBG BASE EXCESS 33.9 (-2.0-2.0); VBG HCO3- 58.2 meq/L (22-28); VBG HEMOGLOBIN 13.8; VBG O2 SATURATION 98.8 (95-100)
[2020-02-17 21:04] LABS: VBG POTASSIUM 2.8 (3.5-5.1); VBG pH 7.71 (7.32-7.42)
[2020-02-17 21:05] LABS: VBG CARBOXYHEMOGLOBIN 10.2 % T HGB (0.0-6.9)
[2020-02-17 21:18] LABS: Appearance SLIGHTLY CLOUDY (CLEAR); Bacteria RARE /HPF (NEGATIVE); Bilirubin NEGATIVE (NEGATIVE); Blood SMALL Ery/ul (0-5); Epithelial Cells RARE /HPF (FEW); Glucose NEGATIVE (NEGATIVE); Ketones NEGATIVE (NEGATIVE); Leukocyte Esterase MODERATE (NEGATIVE); Mucus SLIGHT /HPF (NEGATIVE); Nitrite NEGATIVE (NEGATIVE); Protein,Urine Dip 100 (Negative); Specific Gravity 1.013 (1.005-1.025); Urobilinogen NEGATIVE mg/dL (0-1); WBC >100 /HPF (0-5)
[2020-02-17 22:57] LABS: BLOOD UREA NITROGEN 19 mg/dL (7-17); CHLORIDE 64 mmol/L (98-107); Calcium 8.8 mg/dL (8.4-10.2); Creatinine 1 0.45 mg/dL (0.52-1.04); EST GLOMERULAR FILTRATION RATE > 60.0 ML/MIN
[2020-02-17 23:11] LABS: ANION GAP 8.5 MEQ/L (5-15); Carbon Dioxide 48 mmol/L (22-30); Potassium 2.5 mmol/L (3.5-5.1); SODIUM 118 mmol/L (137-145)
[2020-02-17] MEDS ORDERED: ROCEPHIN 1 Gm-D5w 50 ml Bag** 1 G/50 ML IVPB IV STA (23:57)
[2020-02-18] MEDS ORDERED: ROCEPHIN 1 Gm-D5w 50 ml Bag** 1 G/50 ML IVPB IV ONE (00:10)
[2020-02-18 03:08] VITALS: O2SAT 95
[2020-02-18 05:06] VITALS: BP 139/88; PULSE 71
--- NOTE | 2020-02-18 07:42 | XRAY ---
Indication: Head injury following fall. Current blood thinner therapy. Multiple contiguous axial images obtained through the head without contrast. Comparison: None Age-appropriate global atrophy and minimal periventricular degenerative micro-ischemia bilaterally. Left eneida demonstrates a 10 x 4 mm hypodense lesion, possible micro-ischemia. No acute intracranial hemorrhage, abnormal extra-axial fluid collection, or mass effect. Fourth ventricle is midline without hydrocephalus. Bony calvarium intact. Visualized paranasal sinuses and mastoid air cells are clear. Impression: 1. Atrophy and degenerative micro-ischemia within normal limits for patient's age. 2. Left eneida hypodense lesion, possible micro-ischemia. Outside comparison studies recommended if available. Alternatively, MRI may yield further information. Comment: Preliminary interpretation was made by [facility] who reports 2 mm right vertex hyperdensity which I believe is a benign calcification. MRI may yield further information if there remains clinical concern.
--- NOTE | 2020-02-18 07:46 | XRAY ---
Indication: Decreased oxygenation. Comparison: July 11, 2019. Portable chest remains hyperinflated and clear. Heart and mediastinal structures within normal limits again with mediastinal calcified nodes. Bony thorax intact again with osteopenia and degenerative changes. Impression: Continued nonacute chest with chronic features.
--- NOTE | 2020-02-18 07:46 | XRAY ---
Indication: Short of breath. Elevated d-dimer. Multiple contiguous axial images obtained through the chest using 80 cc of Isovue-370 contrast and PE protocol. Comparison: July 12, 2019. There is good opacification of the pulmonary arteries to include the lobar and segmental branches. No pulmonary embolus. Heart is not enlarged. Aorta remains moderately arteriosclerotic without aneurysm/dissection. Stable mediastinal calcified nodes. Lungs are inflated with minimal right dependent atelectasis. No suspicious pulmonary mass, infiltrate, or effusion. Bony thorax remains intact and osteopenia and degenerative changes throughout the spine. Limited upper abdomen again demonstrates hepatic/splenic aspect granulomas. Impression: 1. Negative pulmonary embolus. No new/acute cardiopulmonary abnormalities. 2. Again incidental old granulomatous disease. Comment: Preliminary interpretation was made by [facility]. No critical discrepancy.
== END 2020-02-18 05:08 | disposition short-term general hospital (02) ==
LOC: ED 18:50
DX: E87.6 Hypokalemia (principal); R93.0 Abnormal findings on diagnostic imaging of skull and head, not elsewhere classified; E87.1 Hypo-osmolality and hyponatremia; R74.8 Abnormal levels of other serum enzymes; N39.0 Urinary tract infection, site not specified; I25.10 Atherosclerotic heart disease of native coronary artery without angina pectoris; I50.9 Heart failure, unspecified; E11.9 Type 2 diabetes mellitus without complications; I73.9 Peripheral vascular disease, unspecified; R53.1 Weakness; R29.6 Repeated falls; R41.0 Disorientation, unspecified; Z79.899 Other long term (current) drug therapy; I10 Essential (primary) hypertension
CPT/HCPCS: 36000; 36415; 51702; 70450; 71045; 71260; 80048; 80053; 81001; 82805; 82947; 83605; 83735; 83880; 84436; 84443; 84484; 85025; 85379; 87077; 87086; 87186; 93005; 96360; 96361; 96365; 96366; 96367; 99285; U0003; J0696; J3480; A9270-GY

== ENCOUNTER 2020-03-19 12:54 | Observation (INO) | payer MEDICARE ==
--- NOTE | 2020-03-19 13:44 | ERPHSYRPT ---
- History of Present Illness Time Seen by Provider: 03/19/20 13:00 Source: patient Exam Limitations: no limitations Patient Subjective Stated Complaint: pt here for a fall to floor, ems states her daughter found her and put her back to bed.pt now co pain to bottom, Triage Nursing Assessment: pt arrived per ambulance, alert, but does not remember what happened, face mask in place, resp easy; ,skin w/p/d. pt has bruising over entire body yellow and blue in color,, pt is BKA bilat Physician History: Patient is a 74-year-old female presents to our emergency department for an evaluation. Patient is a bilateral amputee. Patient states she rolled off of her bed onto her carpeting. Patient was found sleeping on her carpeting next to her bed. Patient's daughter became alarmed and requested patient come to our ED for an evaluation. Patient has a history of hypokalemia. Daughter requesting we check her potassium. Patient complains of some discomfort in her coccyx region. No other injuries reported. No headache. No nausea or vomiting. Patient denies BHT LOC. No neck pain. Cervical spine cleared clinically. Patient is currently asymptomatic. Patient states that it is not uncommon for her to roll out of her bed onto her carpeting. Will complete medical screening. Patient has no complaints other than soreness at her coccyx region. Timing/Duration: today Severity: mild Modifying Factors: Improves With: nothing Associated Symptoms: No nausea, No vomiting, No abdominal pain, No shortness of breath, No heartburn, No diaphoresis, No cough, No chills, No chest pain, No fever, No headaches, No loss of appetite, No malaise, No rash, No syncope, No seizure, No weakness Allergies/Adverse Reactions: morphine Allergy (Intermediate, Verified 03/19/20 13:07) severe itching, SOB- decreased resp rate Tetanus Vaccines and Toxoid [Tetanus Vaccines & Toxoid] Allergy (Intermediate, Verified 03/19/20 13:07) localized swelling codeine Allergy (Mild, Verified 03/19/20 13:07) Itching vancomycin Allergy (Verified 03/19/20 13:07) Home Medications: Clopidogrel Bisulfate 75 mg [PLAVIX 75 MG Tablet] 75 mg PO DAILY 04/22/15 [History] Aspirin EC 81 mg [Ecotrin 81 mg] 81 mg PO BID 05/13/19 [History] Gabapentin [Neurontin] 300 mg PO TID 05/13/19 [History] Metoprolol Succinate 25 mg Xl* [Toprol-Xl 25MG Tablets] 25 mg PO BID 05/13/19 [History] Trazodone HCl 50 mg [Desyrel 50 mg] 50 mg PO HS 05/13/19 [History] Esomeprazole Magnesium [Nexium] 40 mg PO DAILY 02/17/20 [History] Hx Tetanus, Diphtheria Vaccination/Date Given: Yes Hx Influenza Vaccination/Date Given: Yes Hx Pneumococcal Vaccination/Date Given: Yes Immunizations Up to Date: Yes Travel Risk - International Travel Have you traveled outside of the country in past 3 weeks: No - Coronavirus Screening Are you exhibiting any of the following symptoms?: No Close contact with a COVID-19 positive Pt in past 14-21 Days: No - Review of Systems Constitutional: No Symptoms, No Fever, No Chills Eyes: No Symptoms Ears, Nose, & Throat: No Symptoms Respiratory: No Symptoms, No Cough, No Dyspnea Cardiac: No Symptoms, No Chest Pain, No Edema, No Syncope Abdominal/Gastrointestinal: No Symptoms, No Abdominal Pain, No Nausea, No Vomiting, No Diarrhea Genitourinary Symptoms: No Symptoms, No Dysuria Musculoskeletal: No Symptoms, No Back Pain, No Neck Pain Skin: No Symptoms, No Rash Neurological: No Symptoms, No Dizziness, No Focal Weakness, No Sensory Changes Psychological: No Symptoms Endocrine: No Symptoms Hematologic/Lymphatic: No Symptoms Immunological/Allergic: No Symptoms All Other Systems: Reviewed and Negative - Past Medical History Pertinent Past Medical History: Yes Neurological History: No Pertinent History ENT History: Cataracts Cardiac History: Congestive Heart Failure, High Cholesterol, Hypertension, Other Respiratory History: Asthma Endocrine Medical History: Diabetes Type II Musculoskeletal History: Osteoarthritis GI Medical History: No Pertinent History History: Other Psycho-Social History: No Pertinent History Female Reproductive Disorders: Endometriosis Other Medical History: femorial artery graft in R LE, nearly lost that leg. Heart stent, states achilles tendon removed early 2019 and skin graft . Graft healed well. Tendon is non healing . bilateral above knee amputee - 2019 - Past Surgical History Past Surgical History: Yes Neuro Surgical History: No Pertinent History Cardiac: Cardiac Catheterization, Cardiac Stent Respiratory: No Pertinent History Gastrointestinal: No Pertinent History Genitourinary: No Pertinent History Musculoskeletal: Amputation, Orthopedic Surgery Female Surgical History: Hysterectomy Other Surgical History: stentx1, carotid endardectomy, foot , tonsil, back surgery, femeral artery replaced UPDATED 05/24/15 aka left 06/27/2015 cataract surgery with implants bilat - Social History Smoking Status: Current every day smoker How long have you smoked: years Exposure to second hand smoke: No Drug Use: none Patient Lives Alone: Yes - Female History Hx Last Menstrual Period: post Hx Now: No - Nursing Vital Signs Nursing Vital Signs: Initial Vital Signs Temperature 97.8 F 03/19/20 12:57 Pulse Rate 74 03/19/20 12:57 Respiratory Rate 18 03/19/20 12:57 Blood Pressure 99/47 03/19/20 12:57 O2 Sat by Pulse Oximetry 88 L 03/19/20 12:57 Pain Scale Pain Intensity 5 - Physical Exam General Appearance: no apparent distress, alert Eye Exam: PERRL/EOMI, eyes nml inspection Ears, Nose, Throat Exam: normal ENT inspection, TMs normal, pharynx normal, moist mucous membranes Neck Exam: normal inspection, non-tender, supple, full range of motion Respiratory Exam: normal breath sounds, lungs clear, No respiratory distress Cardiovascular Exam: regular rate/rhythm, normal heart sounds, normal peripheral pulses Gastrointestinal/Abdomen Exam: soft, normal bowel sounds, No tenderness, No mass Back Exam: normal inspection, normal range of motion, No CVA tenderness, No vertebral tenderness Extremity Exam: pelvis stable, other (Bilateral [id number] amputation.) Neurologic Exam: alert, oriented x 3, cooperative, jd edwards developer II-XII nml as tested, normal mood/affect, nml station & gait, sensation nml, No motor deficits Skin Exam: normal color, warm, dry, No rash Lymphatic Exam: No adenopathy SpO2 Interpretation: normal (Patient is 97% on room air. Patient saturation tends to drop when her surgical mask is on her face.) SpO2: 88 O2 Delivery: Room Air - Course Nursing assessment & vital signs reviewed: Yes - Radiology Exams Other X-ray Interpretation: Teleradiologist Report (Sacrum coccyx x-ray demonstrates last coccyx segment slightly subluxed anteriorly. Elsewhere osteopenia, moderate multilevel lumbar degenerative spondylolysis. Marked lumbar levoscoliosis extensive scattered vascular calcifications and bilateral inguinal surgical clips) Ordered Tests: Active Orders 24 hr Category Date Time Status SACRUM AND COCCYX Stat Exams 03/19/20 13:54 Completed CBC W DIFF Stat Lab 03/19/20 13:50 Completed CK-Creatinine Phosphokinase Stat Lab 03/19/20 13:50 Completed CMP Stat Lab 03/19/20 13:50 Completed MAGNESIUM Stat Lab 03/19/20 13:50 Completed Manual Differential NC Stat Lab 03/19/20 13:50 Completed TROPONIN Q3H Lab 03/19/20 13:50 Received TROPONIN Q3H Lab 03/19/20 16:15 Ordered TROPONIN Q3H Lab 03/19/20 19:15 Ordered TROPONIN Q3H Lab 03/19/20 22:15 Ordered TROPONIN Q3H Lab 03/20/20 01:15 Ordered Transfer Order Routine Transfer 03/19/20 Ordered Medication Summary Generic Name Dose Route Start Last Admin Trade Name Freq PRN Reason Stop Dose Admin Potassium Chloride 20 meq in 100 mls @ 50 mls/hr 03/19/20 14:45 Potassium Chloride 20 Meq In Water 100ml IV 03/19/20 18:44 Q2H AYE Discontinued Medications Generic Name Dose Route Start Last Admin Trade Name Freq PRN Reason Stop Dose Admin Potassium Chloride 40 meq 03/19/20 14:32 Klor Con 10 Meq PO 03/19/20 14:33 STAT ONE Lab/Rad Data: Laboratory Result Diagrams 03/19/20 13:50 03/19/20 13:50 Laboratory Results 03/19/20 03/19/20 Range/Units 13:50 13:50 WBC 13.8 H (4.0-10.5) K/mm3 RBC 5.00 (4.1-5.4) M/mm3 Hgb 15.0 (12.0-16.0) gm/dl Hct 45.9 (35-47) % MCV 91.8 (78-100) fl MCH 30.0 (26-32) pg MCHC 32.7 (32-36) g/dl RDW 14.9 H (11.5-14.0) % Plt Count 328 (150-450) K/mm3 MPV 9.9 (7.5-11.0) fl Absolute Granulocytes 11.56 H (1.4-6.9) Segmented Neutrophils 68 H (36.0-66.0) % Band Neutrophils 16 H (0.0-2.0) % Lymphocytes (Manual) 6 L (24-44) % Monocytes (Manual) 10 (0.0-12.0) % Platelet Estimate NORMAL (NORMAL) RBC Morphology NORMAL Sodium 124 L (137-145) mmol/L Potassium 1.9 L* (3.5-5.1) mmol/L Chloride 62 L (98-107) mmol/L Carbon Dioxide 53 H (22-30) mmol/L Anion Gap 10.1 (5-15) MEQ/L BUN 57 H (7-17) mg/dL Creatinine 0.84 (0.52-1.04) mg/dL Estimated GFR > 60.0 ML/MIN Glucose 248 H (74-106) mg/dL Calcium 9.9 (8.4-10.2) mg/dL Magnesium 2.3 (1.6-2.3) mg/dL Total Bilirubin 1.10 (0.2-1.3) mg/dL AST 89 H (14-36) U/L ALT 24 (0-35) U/L Alkaline Phosphatase 88 (38-126) U/L Creatine Kinase 80 (30-135) U/L Serum Total Protein 7.6 (6.3-8.2) g/dL Albumin 4.0 (3.5-5.0) g/dL - Progress Progress: improved Progress Note: 03/19/20 14:58 Reassessed. She feels well. Case discussed with Dr. Stone who accepts ad mission to observation for treatment of hypokalemia. Hypokalemia treatment initiated in our ED. Patient is a DNR. Plan of care discussed with patient. She agrees to admission to [facility] for further evaluation and treatment. We have updated patient's daughter on our plan of care. Discussed with : John Will see patient in: hospital (observation) Counseled pt/family regarding: lab results, diagnosis, rad results - Departure Departure Disposition: Observation Clinical Impression: Hypokalemia, Subluxation of coccyx, Osteopenia, Arthritis, lumbar spine, Levoscoliosis, Vascular calcification Condition: Stable Critical Care Time: No Referrals: DAVID STONE MD [Primary Care Provider] -
[2020-03-19 14:11] LABS: Hematocrit 45.9 % (35-47); Mean Cell Volume 91.8 fl (78-100); Mean Corpuscular Hgb Concent. 32.7 g/dl (32-36); Mean Platelet Volume 9.9 fl (7.5-11.0); Platelet Count 328 K/mm3 (150-450); Red Cell Distribution Width 14.9 % (11.5-14.0); White Blood Count 13.8 K/mm3 (4.0-10.5)
--- NOTE | 2020-03-19 14:12 | XRAY ---
Indication: Pain following fall. Comparison: None 3 view sacrum/coccyx demonstrates last coccyx segment slightly subluxed anteriorly. Elsewhere osteopenia, moderate multilevel lumbar degenerative spondylosis, marked lumbar levorotoscoliosis, extensive scattered vascular calcifications, and bilateral inguinal surgical clips.
[2020-03-19 14:24] LABS: ALKALINE PHOSPHATASE 88 U/L (38-126); BLOOD UREA NITROGEN 57 mg/dL (7-17); CHLORIDE 62 mmol/L (98-107); CK-Creatinine Phosphokinase 80 U/L (30-135); Calcium 9.9 mg/dL (8.4-10.2); Creatinine 1 0.84 mg/dL (0.52-1.04); EST GLOMERULAR FILTRATION RATE > 60.0 ML/MIN; Glucose 248 mg/dL (74-106); MAGNESIUM 2.3 mg/dL (1.6-2.3); SGOT/AST 89 U/L (14-36); SGPT/ALT 24 U/L (0-35); SODIUM 124 mmol/L (137-145); Total Protein 7.6 g/dL (6.3-8.2)
[2020-03-19 14:31] LABS: ANION GAP 10.1 MEQ/L (5-15); Carbon Dioxide 53 mmol/L (22-30); Potassium 1.9 mmol/L (3.5-5.1)
[2020-03-19] MEDS ORDERED: Klor Con 10 MEQ PO ONE ×2 (14:32→15:02)
[2020-03-19 14:43] LABS: BAND 16 % (0.0-2.0); Lymphocytes 6 % (24-44); Monocyte 10 % (0.0-12.0); Neutrophils 68 % (36.0-66.0); Total Cells Counted 100
[2020-03-19 14:44] LABS: Platelet Estimate NORMAL (NORMAL)
[2020-03-19 14:45] LABS: Absolute Neutrophil Ct (ANC) 11.56 (1.4-6.9)
[2020-03-19] MEDS ORDERED: POTASSIUM CHLORIDE 20 mEq IN WATER 100ML 100 ML IV ONE ×2 (15:03→19:36)
[2020-03-19] MEDS: POTASSIUM CHLORIDE 20 mEq IN WATER 100ML 20 MEQ/100 ML BAG IV SCH ×2 (15:08→19:40)
[2020-03-19] MEDS ORDERED: Sodium Chloride 0.9% 1000 ML 1,000 ML ONE (15:09)
[2020-03-19] MEDS ORDERED: FLUZONE HIGH-DOSE QUAD 2020-21 IM ONE (18:04)
[2020-03-19] MEDS ORDERED: Ativan 2 MG/1 ML VIAL IV PRN (18:35)
[2020-03-19] MEDS ORDERED: Combivent Inhaler COMMON CANISTER IH SCH (18:45)
[2020-03-20] MEDS: POTASSIUM CHLORIDE 20 mEq IN WATER 100ML 20 MEQ/100 ML BAG IV SCH ×6 (01:44→22:42)
[2020-03-20] MEDS: DESYREL 50 MG PO SCH ×2 (02:24→22:34)
[2020-03-20] MEDS: Neurontin 100 MG PO SCH ×4 (02:24→22:35)
[2020-03-20 05:37] LABS: Absolute Neutrophil Ct (ANC) 6.08 (1.4-6.9); Basophil (Absolute #) 0.08 (0-0.4); Eosinophil % 1.6 % (0.00-5.0); Eosinophil (Absolute #) 0.13 (0-0.5); Hematocrit 38.5 % (35-47); Hemoglobin 12.4 gm/dl (12.0-16.0); Lymphocyte (Absolute #) 1.21 (1.0-4.6); Lymphocytes % 14.5 % (24.0-44.0); Mean Cell Volume 93.9 fl (78-100); Mean Corpuscular Hemoglobin 30.2 pg (26-32); Mean Corpuscular Hgb Concent. 32.2 g/dl (32-36); Mean Platelet Volume 10.1 fl (7.5-11.0); Monocyte (Absolute #) 0.82 (0.0-1.3); Monocytes % 9.9 % (0.0-12.0); Platelet Count 298 K/mm3 (150-450); Red Cell Distribution Width 14.9 % (11.5-14.0); White Blood Count 8.3 K/mm3 (4.0-10.5)
[2020-03-20 05:57] LABS: BLOOD UREA NITROGEN 37 mg/dL (7-17); CHLORIDE 74 mmol/L (98-107); Calcium 8.9 mg/dL (8.4-10.2); Creatinine 1 0.67 mg/dL (0.52-1.04); EST GLOMERULAR FILTRATION RATE > 60.0 ML/MIN; Glucose 95 mg/dL (74-106); SODIUM 127 mmol/L (137-145)
[2020-03-20 06:10] LABS: Carbon Dioxide 50 mmol/L (22-30); Potassium 2.3 mmol/L (3.5-5.1)
[2020-03-20 06:11] LABS: ANION GAP 5.3 MEQ/L (5-15)
--- NOTE | 2020-03-20 10:41 | PCM.HP ---
History of Present Illness - Chief Complaint Chief Complaint: Hypokalemia History of Present Illness: is a 74 year old female with end-stage vascular disease and bilateral lower extremity amputee, she has been on hospice care at home but was found on the floor by family yesterday who called ems. She was profoundly hypokalemic on arrival, has had minimal po intake it sounds like. She is wearing an oxygen mask, states she is comfortable on exam this morning. She is SCO code status and essentially comfort measures, was admitted to try and correct hypokalemia then will return home to hospice care. - Review of Systems Constitutional: Weakness Respiratory: Short Of Breath, No Cough Cardiac: No Chest Pain, No Edema, No Syncope All Other Systems: Unable due to condition Medications & Allergies Home Medications: Home Medication List Furosemide 40 mg PO QAM #30 tablet 05/25/13 [Rx Confirmed 03/19/20] Clopidogrel Bisulfate 75 mg [PLAVIX 75 MG Tablet] 75 mg PO DAILY 04/22/15 [History Confirmed 03/19/20] Aspirin EC 81 mg [Ecotrin 81 mg] 81 mg PO BID 05/13/19 [History Confirmed 03/19/20] Metoprolol Succinate 25 mg Xl* [Toprol-Xl 25MG Tablets] 25 mg PO DAILY 05/13/19 [History Confirmed 03/19/20] Trazodone HCl 50 mg [Desyrel 50 mg] 50 mg PO HS 05/13/19 [History Confirmed 03/19/20] Ipratropium/Albuterol Sulfate [Combivent Inhaler] 2 puff IH QID #1 aer.w.adap 07/15/19 [Rx Confirmed 03/19/20] Oxycodone HCl/Acetaminophen [Percocet 7.5-325 mg Tablet] 1 each PO Q4H PRN #40 tablet MDD 6 07/15/19 [Rx Confirmed 03/19/20] Acetaminophen 500 mg [Tylenol Extra Strength 500 mg] 500 mg PO Q6H PRN PRN 03/19/20 [History Confirmed 03/19/20] Albuterol Sulfate [Ventolin Hfa] 2 puff IH BID PRN PRN 03/19/20 [History Confirmed 03/19/20] Bisacodyl 5 mg [Dulcolax 5 mg] 10 mg PO DAILY PRN PRN 03/19/20 [History Confirmed 03/19/20] Calcium Carbonate/Vitamin D3 [Calcium 600-Vit D3 200 Tablet] 1 each PO DAILY 03/19/20 [History Confirmed 03/19/20] Calcium/Magnesium/Vitamin D3 [Smooth-Mag Complex 300-150 mg Tab] 1 each PO DAILY 03/19/20 [History Confirmed 03/19/20] Dextromethorphan HBr/Chlor-Mal [Robitussin Cough-Cold Liquid] 10 ml PO Q4HPRN PRN 03/19/20 [History Confirmed 03/19/20] Diazepam [Valium] 2 mg PO DAILY PRN PRN 03/19/20 [History Confirmed 03/19/20] Esomeprazole Magnesium [Nexium] 40 mg PO DAILY 03/19/20 [History Confirmed 03/19/20] Gabapentin 100 mg PO TID 03/19/20 [History Confirmed 03/19/20] Hydroxyzine HCl 25 mg [Atarax 25 mg] 25 mg PO TID PRN 03/19/20 [History Confirmed 03/19/20] Lorazepam 2 mg/1 ml [Ativan 2 MG/1 ML VIAL] 0.25 ml SL Q4HPRN PRN 03/19/20 [History Confirmed 03/19/20] Menthol/Zinc Oxide [Calmoseptine Ointment] 0.5 oz TP UD 03/19/20 [History Confirmed 03/19/20] Metolazone 2.5 mg [Zaroxolyn 2.5 MG] 2.5 mg PO DAILY 03/19/20 [History Confirmed 03/19/20] Mirabegron [Myrbetriq] 50 mg PO DAILY 03/19/20 [History Confirmed 03/19/20] Multivitamin/Iron/Folic Acid [Sentry Tablet] 1 tab PO DAILY 03/19/20 [History Confirmed 03/19/20] Nitroglycerin 0.4 mg Tablet [Nitrostat 0.4 MG Tablet] 0.4 mg SL UD 03/19/20 [History Confirmed 03/19/20] Ondansetron HCl 4 mg PO Q6HPRN PRN 03/19/20 [History Confirmed 03/19/20] Potassium Gluconate [Potassium] 99 mg PO DAILY 03/19/20 [History Confirmed 03/19/20] Pravastatin Sodium 80 mg PO HS 03/19/20 [History Confirmed 03/19/20] Promethazine HCl 12.5 mg PO Q6HPRN PRN 03/19/20 [History Confirmed 03/19/20] Sertraline HCl [Zoloft] 25 mg PO DAILY 03/19/20 [History Confirmed 03/19/20] Allergies/Adverse Reactions: Allergies Allergy/AdvReac Type Severity Reaction Status Date / Time morphine Allergy Intermediate severe Verified 03/19/20 13:07 itching, SOB- decreased resp rate Tetanus Vaccines and Toxoid Allergy Intermediate localized Verified 03/19/20 13:07 [Tetanus Vaccines & Toxoid] swelling codeine Allergy Mild Itching Verified 03/19/20 13:07 vancomycin Allergy Verified 03/19/20 13:07 - Past Medical History Past Medical History: Yes Neurological History: No Pertinent History ENT History: Cataracts Cardiac History: Peripheral Vascular Disease Respiratory History: COPD Endocrine Medical History: No Pertinent History Musculoskelatal History: Other GI Medical History: GERD History: No Pertinent History Pyscho-Social History: No Pertinent History Reproductive Disorders: Fibroids Comment: femorial artery graft in R LE, nearly lost that leg. Heart stent, states achilles tendon removed early 2019 and skin graft . Graft healed well. Tendon is non healing . bilateral above knee amputee - 2020 - Female History Hx Last Menstrual Period: post Are you now?: No - Past Surgical History Past Surgical History: Yes Neuro Surgical History: No Pertinent History Cardiac History: Other Respiratory Surgery: No Pertinent History GI Surgical History: No Pertinent History Genitourinary Surgical Hx: No Pertinent History Musculskeletal Surgical Hx: Amputation Female Surgical History: Hysterectomy Other Surgical History: bilateral above the knee - Social History Smoking Status: Current every day smoker How long have you smoked: 50+ years Exposure to second hand smoke: No Alcohol: Rarely Drug Use: none - Physical Exam Vital Signs: Vital Signs - 24 hr Temp Pulse Resp BP Pulse Ox 03/20/20 07:55 96 03/20/20 07:25 98.6 F 71 16 103/52 92 L 03/20/20 04:00 98.4 F 69 14 108/55 91 L 03/20/20 00:00 98.9 F 68 12 103/51 95 03/19/20 20:14 91 L 03/19/20 20:00 97.7 F 75 14 103/58 93 L 03/19/20 18:04 98.8 F 76 18 101/57 91 L 03/19/20 17:00 98.8 F 76 17 101/57 91 L 03/19/20 16:02 74 18 92/56 98 03/19/20 15:15 68 18 94/52 98 03/19/20 14:59 88 L 03/19/20 14:12 74 83/51 96 03/19/20 12:57 97.8 F 74 18 99/47 88 L Oxygen-Last 24 hours Oxygen Flowrate (L/min)-RT 2 General Appearance: mild distress, cachetic Neurologic Exam: alert, cooperative Respiratory Exam: normal breath sounds, lungs clear, No respiratory distress Cardiovascular Exam: regular rate/rhythm, normal heart sounds, normal peripheral pulses Gastrointestinal/Abdomen Exam: soft, normal bowel sounds, No tenderness, No mass Extremity Exam: other (BLE amputee) Wound Assessment: Skin/Wound Assessment Wound/Incision Assessment Start: 03/19/20 18:19 Text: Status: Active Freq: Q6H Protocol: Document 03/20/20 08:00 DEX (Rec: 03/20/20 09:13 DEX [id number]) Wound/Incision Assessment Anterior Medial Abdomen Wound Assessment Shift Assessment Wound Type REDDENED Wound Stage Non Pressure Wound Comment AREA REDDENED, BARRIER CREAM APPLIED PRN Anterior Medial Other Wound Assessment Shift Assessment Wound Type REDDENED Wound Stage Non Pressure Wound Comment GENERALIZED REDNESS, BARRIER CREAM PRN, BLANCHABLE Posterior Medial Buttock Wound Assessment Shift Assessment Wound Type Pressure Ulcer Wound Stage Stage II General Appearance Well Approximated Surrounding Tissue [employer] Comment BARRIER CREAM APPLIED PRN Results - Labs Lab/Micro Results: Lab Results-Last 24 Hours 03/19/20 03/19/20 03/19/20 Range/Units 13:50 13:50 13:50 WBC 13.8 H (4.0-10.5) K/mm3 RBC 5.00 (4.1-5.4) M/mm3 Hgb 15.0 (12.0-16.0) gm/dl Hct 45.9 (35-47) % MCV 91.8 (78-100) fl MCH 30.0 (26-32) pg MCHC 32.7 (32-36) g/dl RDW 14.9 H (11.5-14.0) % Plt Count 328 (150-450) K/mm3 MPV 9.9 (7.5-11.0) fl Gran % (36.0-66.0) % Eos # (Auto) (0-0.5) Absolute Lymphs (auto) (1.0-4.6) Absolute Monos (auto) (0.0-1.3) Lymphocytes % (24.0-44.0) % Monocytes % (0.0-12.0) % Eosinophils % (0.00-5.0) % Basophils % (0.0-0.4) % Absolute Granulocytes 11.56 H (1.4-6.9) Segmented Neutrophils 68 H (36.0-66.0) % Band Neutrophils 16 H (0.0-2.0) % Lymphocytes (Manual) 6 L (24-44) % Monocytes (Manual) 10 (0.0-12.0) % Basophils # (0-0.4) Platelet Estimate NORMAL (NORMAL) RBC Morphology NORMAL Sodium 124 L (137-145) mmol/L Potassium 1.9 L* (3.5-5.1) mmol/L Chloride 62 L (98-107) mmol/L Carbon Dioxide 53 H (22-30) mmol/L Anion Gap 10.1 (5-15) MEQ/L BUN 57 H (7-17) mg/dL Creatinine 0.84 (0.52-1.04) mg/dL Estimated GFR > 60.0 ML/MIN Glucose 248 H (74-106) mg/dL POC Glucometer (74 to 106) mg/dL Calcium 9.9 (8.4-10.2) mg/dL Magnesium 2.3 (1.6-2.3) mg/dL Total Bilirubin 1.10 (0.2-1.3) mg/dL AST 89 H (14-36) U/L ALT 24 (0-35) U/L Alkaline Phosphatase 88 (38-126) U/L Creatine Kinase 80 (30-135) U/L Troponin I 0.232 H* (0.000-0.034) ng/mL Serum Total Protein 7.6 (6.3-8.2) g/dL Albumin 4.0 (3.5-5.0) g/dL 03/19/20 03/19/20 03/20/20 Range/Units 16:27 22:40 01:00 WBC (4.0-10.5) K/mm3 RBC (4.1-5.4) M/mm3 Hgb (12.0-16.0) gm/dl Hct (35-47) % MCV (78-100) fl MCH (26-32) pg MCHC (32-36) g/dl RDW (11.5-14.0) % Plt Count (150-450) K/mm3 MPV (7.5-11.0) fl Gran % (36.0-66.0) % Eos # (Auto) (0-0.5) Absolute Lymphs (auto) (1.0-4.6) Absolute Monos (auto) (0.0-1.3) Lymphocytes % (24.0-44.0) % Monocytes % (0.0-12.0) % Eosinophils % (0.00-5.0) % Basophils % (0.0-0.4) % Absolute Granulocytes (1.4-6.9) Segmented Neutrophils (36.0-66.0) % Band Neutrophils (0.0-2.0) % Lymphocytes (Manual) (24-44) % Monocytes (Manual) (0.0-12.0) % Basophils # (0-0.4) Platelet Estimate (NORMAL) RBC Morphology Sodium (137-145) mmol/L Potassium 1.9 L* (3.5-5.1) mmol/L Chloride (98-107) mmol/L Carbon Dioxide (22-30) mmol/L Anion Gap (5-15) MEQ/L BUN (7-17) mg/dL Creatinine (0.52-1.04) mg/dL Estimated GFR ML/MIN Glucose (74-106) mg/dL POC Glucometer 95 (74 to 106) mg/dL Calcium (8.4-10.2) mg/dL Magnesium (1.6-2.3) mg/dL Total Bilirubin (0.2-1.3) mg/dL AST (14-36) U/L ALT (0-35) U/L Alkaline Phosphatase (38-126) U/L Creatine Kinase (30-135) U/L Troponin I 0.214 H* (0.000-0.034) ng/mL Serum Total Protein (6.3-8.2) g/dL Albumin (3.5-5.0) g/dL 03/20/20 03/20/20 03/20/20 Range/Units 04:48 04:48 09:37 WBC 8.3 (4.0-10.5) K/mm3 RBC 4.10 (4.1-5.4) M/mm3 Hgb 12.4 (12.0-16.0) gm/dl Hct 38.5 (35-47) % MCV 93.9 (78-100) fl MCH 30.2 (26-32) pg MCHC 32.2 (32-36) g/dl RDW 14.9 H (11.5-14.0) % Plt Count 298 (150-450) K/mm3 MPV 10.1 (7.5-11.0) fl Gran % 73.0 H (36.0-66.0) % Eos # (Auto) 0.13 (0-0.5) Absolute Lymphs (auto) 1.21 (1.0-4.6) Absolute Monos (auto) 0.82 (0.0-1.3) Lymphocytes % 14.5 L (24.0-44.0) % Monocytes % 9.9 (0.0-12.0) % Eosinophils % 1.6 (0.00-5.0) % Basophils % 1.0 (0.0-0.4) % Absolute Granulocytes 6.08 (1.4-6.9) Segmented Neutrophils (36.0-66.0) % Band Neutrophils (0.0-2.0) % Lymphocytes (Manual) (24-44) % Monocytes (Manual) (0.0-12.0) % Basophils # 0.08 (0-0.4) Platelet Estimate (NORMAL) RBC Morphology Sodium 127 L (137-145) mmol/L Potassium 2.3 L* D 2.2 L* (3.5-5.1) mmol/L Chloride 74 L D (98-107) mmol/L Carbon Dioxide 50 H (22-30) mmol/L Anion Gap 5.3 (5-15) MEQ/L BUN 37 H (7-17) mg/dL Creatinine 0.67 (0.52-1.04) mg/dL Estimated GFR > 60.0 ML/MIN Glucose 95 (74-106) mg/dL POC Glucometer (74 to 106) mg/dL Calcium 8.9 (8.4-10.2) mg/dL Magnesium (1.6-2.3) mg/dL Total Bilirubin (0.2-1.3) mg/dL AST (14-36) U/L ALT (0-35) U/L Alkaline Phosphatase (38-126) U/L Creatine Kinase (30-135) U/L Troponin I (0.000-0.034) ng/mL Serum Total Protein (6.3-8.2) g/dL Albumin (3.5-5.0) g/dL - Radiology Impressions Radiology Exams & Impressions: Radiology Procedures Category Date Time Status SACRUM AND COCCYX Stat Exams 03/19/20 13:54 Completed - Other Procedures and Tests Respiratory Therapy 03/19/20 17:19 Oxygen Nasal Cannula 2 lpm Assessment/Plan (1) Hypokalemia Current Visit: Yes Status: Acute Assessment & Plan: holding lasix at this time and zaroxylyn, will resume when hypokalmia resolved, has endstage vascular disease and chf, sco code status. would not be unexpected. Code(s): E87.6 - HYPOKALEMIA (2) Amputation leg, bilat Current Visit: Yes Status: Acute Code(s): S88.911A - COMPLETE TRAUMATIC AMPUTATION OF R LOW LEG, LEVEL UNSP, INIT; S88.912A - COMPLETE TRAUMATIC AMPUTATION OF L LOW LEG, LEVEL UNSP, INIT (3) CAD (coronary artery disease) Current Visit: No Status: Acute Code(s): I25.10 - ATHSCL HEART DISEASE OF [place] CORONARY ARTERY W/O ANG PCTRS (4) CHF (congestive heart failure) Current Visit: No Status: Acute Code(s): I50.9 - HEART FAILURE, UNSPECIFIED (5) Peripheral vascular disease Current Visit: No Status: Chronic Code(s): I73.9 - PERIPHERAL VASCULAR D ISEASE, UNSPECIFIED
[2020-03-20] MEDS: Klor Con 10 MEQ PO SCH ×2 (11:00→22:34)
[2020-03-20] MEDS ORDERED: DULCOLAX 5 MG PO PRN (12:00)
[2020-03-20] MEDS ORDERED: NON-FORMULARY ITEM (Oxycodone Hcl/Acetaminophen [Percocet 7.5-325 Mg Tablet] 1 EACH) PO PRN (12:00)
[2020-03-20] MEDS ORDERED: ZINC OXIDE TP SCH (12:00)
[2020-03-20] MEDS ORDERED: ATARAX 25 MG PO PRN (12:00)
[2020-03-20] MEDS ORDERED: MENTHOL TP SCH (12:00)
[2020-03-20] MEDS ORDERED: ZINC OXIDE OINTMENT 30 GM TP PRN (12:13)
[2020-03-20] MEDS: Protonix 40MG Tablet PO SCH (12:55)
[2020-03-20] MEDS: MYRBETRIQ PO SCH (12:55)
[2020-03-20] MEDS: Toprol-Xl 25MG Tablets PO SCH (12:55)
[2020-03-20] MEDS: PLAVIX 75 MG Tablet PO SCH (12:55)
[2020-03-20] MEDS: ZOLOFT 50 MG TABLET PO SCH (14:10)
[2020-03-20] MEDS: Sodium Chloride 0.9% 1000 ML 1,000 ML IV SCH ×3 (14:59→22:35)
[2020-03-20] MEDS ORDERED: DUONEB 0.5-3 MG/3 ml Neb IH PRN (21:39)
[2020-03-20] MEDS: TYLENOL EXTRA STRENGTH 500 MG PO PRN (22:33)
[2020-03-21 06:22] LABS: BLOOD UREA NITROGEN 15 mg/dL (7-17); CHLORIDE 89 mmol/L (98-107); Calcium 9.1 mg/dL (8.4-10.2); Creatinine 1 0.46 mg/dL (0.52-1.04); EST GLOMERULAR FILTRATION RATE > 60.0 ML/MIN; Glucose 77 mg/dL (74-106); Potassium 3.3 mmol/L (3.5-5.1); SODIUM 130 mmol/L (137-145)
[2020-03-21 06:36] LABS: Carbon Dioxide 37 mmol/L (22-30)
[2020-03-21 06:51] LABS: ANION GAP 7.3 MEQ/L (5-15)
[2020-03-21] MEDS: POTASSIUM CHLORIDE 20 mEq IN WATER 100ML 20 MEQ/100 ML BAG IV SCH ×2 (07:29→10:32)
--- NOTE | 2020-03-21 09:10 | PCM.DS ---
Discharge Summary Date of Admission: 03/19/20 16:30 Admitting Physician: DAVID STONE Primary Care Provider: DAVID STONE Allergies Allergies morphine Allergy (Intermediate, Verified 03/19/20 13:07) severe itching, SOB- decreased resp rate Tetanus Vaccines and Toxoid [Tetanus Vaccines & Toxoid] Allergy (Intermediate, Verified 03/19/20 13:07) localized swelling codeine Allergy (Mild, Verified 03/19/20 13:07) Itching vancomycin Allergy (Verified 03/19/20 13:07) Hospital Summary - Hospital Course Hospital Course: patient with hx of severe vascular disease, hx bilateral lower extremity amputations. she was on hospice but found on the floor so brought to ER, family called EMS. found to have profound hypokalemia, thought to be related to diuretic use. her electrolytes have been corrected, she is alert and tolerating po intake and would like to retun home with hospice care which I believe is appropriate - Vitals & Intake/Output Vital Signs: Vital Signs Temperature 97.6 F 03/21/20 08:00 Pulse Rate 64 03/21/20 08:00 Respiratory Rate 20 03/21/20 08:00 Blood Pressure 114/51 03/21/20 08:00 O2 Sat by Pulse Oximetry 99 03/21/20 08:00 Intake & Output: Intake & Output 03/18/20 03/19/20 03/20/20 03/21/20 11:59 11:59 11:59 11:59 Intake Total 1589 3299 Balance 1589 3299 Weight 44.5 kg - Lab Result Diagrams: 03/20/20 04:48 03/21/20 04:45 Lab Results-Last 24 Hrs: Lab Results-Last 24 Hours 03/20/20 03/20/20 03/21/20 Range/Units 09:37 18:30 04:45 Sodium 130 L (137-145) mmol/L Potassium 2.2 L* 2.9 L* D 3.3 L (3.5-5.1) mmol/L Chloride 89 L D (98-107) mmol/L Carbon Dioxide 37 H (22-30) mmol/L Anion Gap 7.3 (5-15) MEQ/L BUN 15 (7-17) mg/dL Creatinine 0.46 L (0.52-1.04) mg/dL Estimated GFR > 60.0 ML/MIN Glucose 77 (74-106) mg/dL Calcium 9.1 (8.4-10.2) mg/dL Magnesium 2.0 (1.6-2.3) mg/dL - Radiology Exams Ordered Rad Exams-Entire Visit: Radiology Procedures Category Date Time Status SACRUM AND COCCYX Stat Exams 03/19/20 13:54 Completed - Procedures and Test Procedures and Tests throughout Hospitalization: Therapy Orders & Screens 03/19/20 17:19 Oxygen Nasal Cannula 2 lpm Comment: Diagnosis: hypokalemia 03/20/20 21:42 Respiratory Therapy Assessment DAILY Comment: Diagnosis: Hypokalemia Discharge Exam General Appearance: no apparent distress, thin (frail, chronically ill appearing) Neurologic Exam: alert, oriented x 3 Respiratory Exam: normal breath sounds, lungs clear, No respiratory distress Cardiovascular Exam: regular rate/rhythm, normal heart sounds Gastrointestinal/Abdomen Exam: soft, No tenderness, No mass Wound Assessment: Skin/Wound Assessment Wound/Incision Assessment Start: 03/19/20 18:19 Text: Status: Active Freq: Q6H Protocol: Document 03/21/20 07:49 CAROLYN (Rec: 03/21/20 08:00 CAROLYN [id number]) Wound/Incision Assessment Anterior Medial Abdomen Wound Assessment Shift Assessment Wound Type REDDENED Wound Stage Non Pressure Wound Comment AREA REDDENED, BARRIER CREAM APPLIED Anterior Medial Other Wound Assessment Shift Assessment Wound Type REDDENED Wound Stage Non Pressure Wound Comment GENERALIZED REDNESS, BARRIER CREAM APPLIED Posterior Medial Buttock Wound Assessment Shift Assessment Wound Type Pressure Ulcer Wound Stage Stage II General Appearance Well Approximated Surrounding Tissue [place] Comment BARRIER CREAM APPLIED Final Diagnosis/Problem List - Final Discharge Diagnosis/Problem (1) Hypokalemia Current Visit: Yes Status: Acute Code(s): E87.6 - HYPOKALEMIA (2) Amputation leg, bilat Current Visit: Yes Status: Acute Code(s): S88.911A - COMPLETE TRAUMATIC AMPUTATION OF R LOW LEG, LEVEL UNSP, INIT; S88.912A - COMPLETE TRAUMATIC AMPUTATION OF L LOW LEG, LEVEL UNSP, INIT (3) CAD (coronary artery disease) Current Visit: No Status: Acute Code(s): I25.10 - ATHSCL HEART DISEASE OF [place] CORONARY ARTERY W/O ANG PCTRS (4) CHF (congestive heart failure) Current Visit: No Status: Acute Code(s): I50.9 - HEART FAILURE, UNSPECIFIED (5) Peripheral vascular disease Current Visit: No Status: Chronic Code(s): I73.9 - PERIPHERAL VASCULAR DISEASE, UNSPECIFIED - Discharge Disposition: Home, Self-Care Condition: Stable Prescriptions: New Potassium Chloride 20 meq PO BID #60 tab.er.prt Continue Furosemide 40 mg PO QAM #30 tablet Clopidogrel Bisulfate 75 mg [PLAVIX 75 MG Tablet] 75 mg PO DAILY Metoprolol Succinate 25 mg Xl* [Toprol-Xl 25MG Tablets] 25 mg PO DAILY Aspirin EC 81 mg [Ecotrin 81 mg] 81 mg PO BID Trazodone HCl 50 mg [Desyrel 50 mg] 50 mg PO HS Oxycodone HCl/Acetaminophen [Percocet 7.5-325 mg Tablet] 1 each PO Q4H PRN #40 tablet MDD 6 PRN Reason: Pain Ipratropium/Albuterol Sulfate [Combivent Inhaler] 2 puff IH QID #1 aer.w.adap Calcium/Magnesium/Vitamin D3 [Smooth-Mag Complex 300-150 mg Tab] 1 each PO DAILY Calcium Carbonate/Vitamin D3 [Calcium 600-Vit D3 200 Tablet] 1 each PO DAILY Multivitamin/Iron/Folic Acid [Sentry Tablet] 1 tab PO DAILY Acetaminophen 500 mg [Tylenol Extra Strength 500 mg] 500 mg PO Q6H PRN PRN PRN Reason: Fever Albuterol Sulfate [Ventolin Hfa] 2 puff IH BID PRN PRN PRN Reason: Shortness Of Breath Nitroglycerin 0.4 mg Tablet [Nitrostat 0.4 MG Tablet] 0.4 mg SL UD Dextromethorphan HBr/Chlor-Mal [Robitussin Cough-Cold Liquid] 10 ml PO Q4HPRN PRN PRN Reason: Cough Ondansetron HCl 4 mg PO Q6HPRN PRN PRN Reason: Nausea Bisacodyl 5 mg [Dulcolax 5 mg] 10 mg PO DAILY PRN PRN PRN Reason: Constipation Promethazine HCl 12.5 mg PO Q6HPRN PRN PRN Reason: Nausea Diazepam [Valium] 2 mg PO DAILY PRN PRN PRN Reason: Anxiety Esomeprazole Magnesium [Nexium] 40 mg PO DAILY Menthol/Zinc Oxide [Calmoseptine Ointment] 0.5 oz TP UD Sertraline HCl [Zoloft] 25 mg PO DAILY Mirabegron [Myrbetriq] 50 mg PO DAILY Lorazepam 2 mg/1 ml [Ativan 2 MG/1 ML VIAL] 0.25 ml SL Q4HPRN PRN PRN Reason: Anxiety Hydroxyzine HCl 25 mg [Atarax 25 mg] 25 mg PO TID PRN Gabapentin 100 mg PO TID Pravastatin Sodium 80 mg PO HS Discontinued Potassium Gluconate [Potassium] 99 mg PO DAILY Metolazone 2.5 mg [Zaroxolyn 2.5 MG] 2.5 mg PO DAILY Follow up with: DAVID STONE MD [Primary Care Provider] -
[2020-03-21] MEDS: Protonix 40MG Tablet PO SCH (09:17)
[2020-03-21] MEDS: Toprol-Xl 25MG Tablets PO SCH (09:17)
[2020-03-21] MEDS: ZOLOFT 50 MG TABLET PO SCH (09:17)
[2020-03-21] MEDS: Neurontin 100 MG PO SCH ×3 (09:17→21:15)
[2020-03-21] MEDS: PLAVIX 75 MG Tablet PO SCH (09:17)
[2020-03-21] MEDS: Klor Con 10 MEQ PO SCH ×2 (09:17→21:14)
[2020-03-21] MEDS: MYRBETRIQ PO SCH (09:18)
[2020-03-21] MEDS ORDERED: NON-FORMULARY ITEM (Mirabegron [Myrbetriq] 50 MG) PO SCH (10:00)
[2020-03-21] MEDS ORDERED: NON-FORMULARY ITEM (Sertraline Hcl [Zoloft] 25 MG) PO SCH (10:00)
[2020-03-21] MEDS ORDERED: NON-FORMULARY ITEM (Esomeprazole Magnesium [Nexium] 40 MG) PO SCH (10:00)
[2020-03-21 11:19] LABS: Appearance CLEAR (CLEAR); Bilirubin NEGATIVE (NEGATIVE); Blood NEGATIVE Ery/ul (0-5); Glucose NEGATIVE (NEGATIVE); Ketones TRACE (NEGATIVE); Leukocyte Esterase NEGATIVE (NEGATIVE); Nitrite NEGATIVE (NEGATIVE); Protein,Urine Dip 30 (Negative); Specific Gravity 1.012 (1.005-1.025); Urobilinogen NEGATIVE mg/dL (0-1); WBC 0-2 /HPF (0-5)
[2020-03-21 11:36] LABS: Bacteria NONE SEEN /HPF (NEGATIVE)
[2020-03-21] MEDS: Sodium Chloride 0.9% 1000 ML 1,000 ML IV SCH (17:38)
[2020-03-21] MEDS: TYLENOL EXTRA STRENGTH 500 MG PO PRN (20:11)
[2020-03-21] MEDS: PERCOCET TABLET 5/325MG PO PRN (21:14)
[2020-03-21] MEDS: DESYREL 50 MG PO SCH (21:15)
--- NOTE | 2020-03-22 08:31 | PCM.NOTE ---
Date and Time: 03/22/20829 Subjective Assessment: patient with no new complaints, she is comfortable and has no immediate concerns. daughter/POA decided she wants patient to go to [facility] emergency department for care home care rather than returning home on hospice. patient seems unaware of this plan this morning. Objective Exam General Appearance: thin Neurologic Exam: alert, oriented x 3, cooperative Wound Assessment: Skin/Wound Assessment Wound/Incision Assessment Start: 03/19/20 18:19 Text: Status: Active Freq: Q6H Protocol: Document 03/22/20 08:00 CAROLYN (Rec: 03/22/20 08:13 CAROLYN [id number]) Wound/Incision Assessment Anterior Medial Abdomen Wound Assessment Shift Assessment Wound Type REDDENED Wound Stage Non Pressure Wound Drainage Amount None Drainage Odor None/Absent Comment AREA REDDENED,PT TURNED OFF AREA, BARRIER CREAM APPLIED Anterior Medial Other Wound Assessment Shift Assessment Wound Type REDDENED Wound Stage Non Pressure Wound Drainage Amount None Comment GENERALIZED REDNESS Posterior Medial Buttock Wound Assessment Shift Assessment Wound Type Pressure Ulcer Wound Stage Stage II Drainage Amount None General Appearance Clean/Dry,Reddened Surrounding Tissue [place] Comment BARRIER CREAM APPLIED Respiratory Exam: normal breath sounds, lungs clear, No respiratory distress Cardiovascular Exam: regular rate/rhythm, normal heart sounds Gastrointestinal/Abdomen Exam: soft, No tenderness, No mass OBJECTIVE DATA Vital Signs: Vital Signs - 24 hr Temp Pulse Resp BP Pulse Ox 03/22/20 07:49 65 14 93 L 03/22/20 07:42 98.3 F 72 19 130/65 96 03/22/20 04:00 98.4 F 64 15 106/53 92 L 03/22/20 00:00 97.9 F 62 12 101/53 92 L 03/21/20 20:00 98.4 F 70 12 120/58 94 L 03/21/20 19:18 65 14 96 03/21/20 16:00 98.1 F 81 21 143/69 94 L 03/21/20 11:40 98.5 F 74 16 134/62 91 L 03/21/20 09:38 94 L Pain Assessment - Last Documented Pain Intensity 0 Pain Scale Used 0-10 Pain Scale Intake and Output: Intake & Output 03/19/20 03/20/20 03/21/20 03/22/20 11:59 11:59 11:59 11:59 Intake Total 1589 3299 1260 Balance 1589 3299 1260 Weight 44.5 kg Lab Results: Lab Results-Last 24 Hours 03/20/20 03/21/20 03/21/20 Range/Units 12:35 10:40 13:00 Potassium 4.4 D (3.5-5.1) mmol/L Urine Color YELLOW (YELLOW) Urine Appearance CLEAR (CLEAR) Urine pH 9.0 (5-6) Ur Specific [place] 1.012 (1.005-1.025) Urine Protein 30 (Negative) Urine Ketones TRACE (NEGATIVE) Urine Blood NEGATIVE (0-5) Jose Daniel/ul Urine Nitrite NEGATIVE (NEGATIVE) Urine Bilirubin NEGATIVE (NEGATIVE) Urine Urobilinogen NEGATIVE (0-1) mg/dL Ur Leukocyte Esterase NEGATIVE (NEGATIVE) Urine WBC (Auto) 0-2 (0-5) /HPF Urine RBC (Auto) NONE (0-2) /HPF U Epithel Cells (Auto) NONE (FEW) /HPF Urine Bacteria (Auto) NONE SEEN (NEGATIVE) /HPF Urine Culture Reflexed ORDERED SEPARATELY (NO) Urine Glucose NEGATIVE (NEGATIVE) mg/dL SARS-CoV-2 RNA ([place]) Not Detected (Not Detected) Multi-Disciplinary Progress Notes: Multi-Disciplinary Progress Notes 03/21/20 17:38 Respiratory Note by Aniyah Viveros 1400 O2 SAT 96% ON 3LPM NC. DECREASED TO 2LPM NC Initialized on 03/21/20 17:38 - END OF NOTE 03/21/20 16:06 Case Management Note by Lou De León [facility] CALLED BACK AND STATED THEY ARE UNABLE TO VERIFY PATIENT'S PAYER SOURCE CURRENTLY. THE MEDICAID WEBSITE IS NOT SHOWING WHAT PLAN SHE IS CURRENTLY IN [facility]( WHICH REQUIRES A PRECERT VS TRADITIONAL MEDICAID). THEY REPORT THEY CAN CHECK THE WEBSITE AGAIN ON THURSDAY TO FIND OUT IF IT HAS BEEN UNDATED. UNTIL THEY ARE ABLE TO VERIFY PAYER SOURCE THEY WILL NOT BE ABLE TO ACCEPT PATIENT. Initialized on 03/21/20 16:06 - END OF NOTE 03/21/20 14:23 Case Management Note by Lou De León Addendum entered by Lou De León 03/21/20 14:35: TELEPHONE SURVEYOR NUMBER IS [phone] Addendum entered by Lou De León 03/21/20 14:24: [facility] REPORTED THEY HAD INSTRUCTED INTREPID TO DO IT WHEN THEY SENT THE INITIAL REFERRAL RIGHT BEFORE ARRIVAL TO OUR FACILITY Original Note: S/W PATIENT[facility] DIPPING [facility]- HE REPORTS HER PASRR IS ALREADY DONE/ Initialized on 03/21/20 14:23 - END OF NOTE 03/21/20 10:34 Case Management Note by Lou De León FULL REFERRAL PACKET SENT TO [facility] WITH POST ACUTE CARE FORM INCLUDED Initialized on 03/21/20 10:34 - END OF NOTE 03/21/20 10:07 Case Management Note by Lou De León S/W LIZA THIS AM- SHE LOOKED PATIENT'S INSURANCE UP. SHE REPORTS PATIENT WILL HAVE [place] SOURCE [place]CE [place] THEY WILL JUST NEED TO SUBMIT A FORM TO THE GOVERNMENT TO TO PROVE THAT PATIENT NEEDS RESIDENTIAL CARE. I S/W [employer] AT SIGNATURE. SHE WAS NOTIFIED THAT PATIENT DOES SEEM TO HAVE MEDICAID COVERAGE FOR NH STAY. SHE STATED SHE WOULD CALL AND TALK TO THE DAUGHTER AND TALK TO HER BUSINESS OFFICE. THEY WILL LIKELY TAKE PATIENT MEDICAID PENDING. THEY WILL NOT HAVE A BED FOR PATIENT UNTIL TOMORROW AND PATIENTS COVID TEST WILL NEED TO BE BACK BEFORE TRANSFER TO THEIR FACILITY. SHE WILL CALL BACK AFTER SHE DISCUSSES WITH THE DAUGHTER AND FAMILY Initialized on 03/21/20 10:07 - END OF NOTE Assessment/Plan (1) Hypokalemia Current Visit: Yes Status: Acute Assessment & Plan: replaced, stable Code(s): E87.6 - HYPOKALEMIA (2) Amputation leg, bilat Current Visit: Yes Status: Acute Code(s): S88.911A - COMPLETE TRAUMATIC AMPUTATION OF R LOW LEG, LEVEL UNSP, INIT; S88.912A - COMPLETE TRAUMATIC AMPUTATION OF L LOW LEG, LEVEL UNSP, INIT (3) CAD (coronary artery disease) Current Visit: No Status: Acute Code(s): I25.10 - ATHSCL HEART DISEASE OF [place] CORONARY ARTERY W/O ANG PCTRS (4) CHF (congestive heart failure) Current Visit: No Status: Acute Code(s): I50.9 - HEART FAILURE, UNSPECIFIED (5) Peripheral vascular disease Current Visit: No Status: Chronic Code(s): I73.9 - PERIPHERAL VASCULAR DISEASE, UNSPECIFIED
[2020-03-22] MEDS: LASIX 20 MG PO SCH (09:22)
[2020-03-22] MEDS: Neurontin 100 MG PO SCH ×3 (09:22→21:44)
[2020-03-22] MEDS: ZOLOFT 50 MG TABLET PO SCH (09:22)
[2020-03-22] MEDS: Klor Con 10 MEQ PO SCH ×2 (09:22→21:41)
[2020-03-22] MEDS: Toprol-Xl 25MG Tablets PO SCH (09:22)
[2020-03-22] MEDS: Protonix 40MG Tablet PO SCH (09:22)
[2020-03-22] MEDS: MYRBETRIQ PO SCH (09:22)
[2020-03-22] MEDS: PLAVIX 75 MG Tablet PO SCH (09:22)
[2020-03-22] MEDS: PERCOCET TABLET 5/325MG PO PRN ×2 (09:23→16:01)
[2020-03-22] MEDS: DESYREL 50 MG PO SCH (21:44)
[2020-03-23 07:18] LABS: Absolute Neutrophil Ct (ANC) 5.61 (1.4-6.9); BASOPHIL % 0.7 % (0.0-0.4); Basophil (Absolute #) 0.05 (0-0.4); Eosinophil % 2.2 % (0.00-5.0); Eosinophil (Absolute #) 0.17 (0-0.5); Hematocrit 41.3 % (35-47); Hemoglobin 13.3 gm/dl (12.0-16.0); Lymphocytes % 15.7 % (24.0-44.0); Mean Cell Volume 93.9 fl (78-100); Mean Corpuscular Hemoglobin 30.2 pg (26-32); Mean Corpuscular Hgb Concent. 32.2 g/dl (32-36); Mean Platelet Volume 9.8 fl (7.5-11.0); Monocyte (Absolute #) 0.62 (0.0-1.3); Monocytes % 8.1 % (0.0-12.0); Neutrophil % 73.3 % (36.0-66.0); Platelet Count 294 K/mm3 (150-450); Red Cell Distribution Width 14.8 % (11.5-14.0); White Blood Count 7.7 K/mm3 (4.0-10.5)
[2020-03-23 07:47] LABS: BLOOD UREA NITROGEN 10 mg/dL (7-17); CHLORIDE 94 mmol/L (98-107); Calcium 9.6 mg/dL (8.4-10.2); Carbon Dioxide 30 mmol/L (22-30); Creatinine 1 0.36 mg/dL (0.52-1.04); EST GLOMERULAR FILTRATION RATE > 60.0 ML/MIN; Glucose 81 mg/dL (74-106); MAGNESIUM 1.6 mg/dL (1.6-2.3); Potassium 3.9 mmol/L (3.5-5.1); SODIUM 128 mmol/L (137-145)
--- NOTE | 2020-03-23 08:16 | PCM.NOTE ---
Date and Time: 03/23/20813 Subjective Assessment: doing ok. awaiting transfer to [place] - Review of Systems Constitutional: No Fever, No Chills Eyes: No Symptoms Ears, Nose, & Throat: No Symptoms Respiratory: No Cough, No Short Of Breath Cardiac: No Chest Pain, No Edema, No Syncope Abdominal/Gastrointestinal: No Abdominal Pain, No Nausea, No Vomiting, No Diarrhea Genitourinary Symptoms: No Dysuria Musculoskeletal: No Back Pain, No Neck Pain Skin: No Rash Neurological: No Dizziness, No Focal Weakness, No Sensory Changes Psychological: No Symptoms Endocrine: No Symptoms Hematologic/Lymphatic: No Symptoms Immunological/Allergic: No Symptoms Objective Exam General Appearance: no apparent distress, alert Neurologic Exam: alert, oriented x 3, cooperative, normal mood/affect, nml cerebellar function, sensation nml, No motor deficits Skin Exam: normal color, warm, dry Wound Assessment: Skin/Wound Assessment Wound/Incision Assessment Start: 03/19/20 18:19 Text: Status: Active Freq: Q6H Protocol: Document 03/23/20 02:00 SG (Rec: 03/23/20 02:57 [id number]) Wound/Incision Assessment Anterior Medial Abdomen Wound Assessment Shift Assessment Wound Type REDDENED Wound Stage Non Pressure Wound Drainage Amount None Drainage Odor None/Absent Comment AREA REDDENED,PT TURNED OFF AREA, BARRIER CREAM APPLIED Anterior Medial Other Wound Assessment Shift Assessment Wound Type REDDENED Wound Stage Non Pressure Wound Drainage Amount None Comment GENERALIZED REDNESS Posterior Medial Buttock Wound Assessment Shift Assessment Wound Type Pressure Ulcer Wound Stage Stage II Drainage Amount None General Appearance Clean/Dry,Reddened Surrounding Tissue [place] Comment BARRIER CREAM APPLIED Wound Photo Photo Taken No Eye Exam: PERRL, EOMI, eyes nml inspection Ears, Nose, Throat Exam: normal ENT inspection, pharynx normal, moist mucous membranes Neck Exam: normal inspection, non-tender, supple, full range of motion Respiratory Exam: normal breath sounds, lungs clear, No respiratory distress Cardiovascular Exam: regular rate/rhythm, normal heart sounds Gastrointestinal/Abdomen Exam: soft, No tenderness, No mass Extremity Exam: normal inspection, normal range of motion Back Exam: normal inspection, normal range of motion, No CVA tenderness, No vertebral tenderness Pelvic Exam: deferred Rectal Exam: deferred OBJECTIVE DATA Vital Signs: Vital Signs - 24 hr Temp Pulse Resp BP Pulse Ox 03/23/20 06:31 98.2 F 82 17 133/58 93 L 03/23/20 04:03 98.2 F 70 15 131/59 95 03/22/20 23:47 98.1 F 69 17 118/61 91 L 03/22/20 19:23 98.0 F 68 16 106/59 96 03/22/20 19:04 65 14 95 03/22/20 16:00 98.3 F 69 22 134/90 95 03/22/20 12:00 98.6 F 72 18 119/56 95 Pain Assessment - Last Documented Pain Intensity 3 Pain Scale Used 0-10 Pain Scale Intake and Output: Intake & Output 03/20/20 03/21/20 03/22/20 03/23/20 11:59 11:59 11:59 11:59 Intake Total 1589 3299 1260 420 Balance 1589 3299 1260 420 Weight 44.5 kg Lab Results: Lab Results-Last 24 Hours 03/23/20 03/23/20 Range/Units 06:00 06:00 WBC 7.7 (4.0-10.5) K/mm3 RBC 4.40 (4.1-5.4) M/mm3 Hgb 13.3 (12.0-16.0) gm/dl Hct 41.3 (35-47) % MCV 93.9 (78-100) fl MCH 30.2 (26-32) pg MCHC 32.2 (32-36) g/dl RDW 14.8 H (11.5-14.0) % Plt Count 294 (150-450) K/mm3 MPV 9.8 (7.5-11.0) fl Gran % 73.3 H (36.0-66.0) % Eos # (Auto) 0.17 (0-0.5) Absolute Lymphs (auto) 1.20 (1.0-4.6) Absolute Monos (auto) 0.62 (0.0-1.3) Lymphocytes % 15.7 L (24.0-44.0) % Monocytes % 8.1 (0.0-12.0) % Eosinophils % 2.2 (0.00-5.0) % Basophils % 0.7 (0.0-0.4) % Absolute Granulocytes 5.61 (1.4-6.9) Basophils # 0.05 (0-0.4) Sodium 128 L (137-145) mmol/L Potassium 3.9 (3.5-5.1) mmol/L Chloride 94 L (98-107) mmol/L Carbon Dioxide 30 (22-30) mmol/L Anion Gap 8.0 (5-15) MEQ/L BUN 10 (7-17) mg/dL Creatinine 0.36 L (0.52-1.04) mg/dL Estimated GFR > 60.0 ML/MIN Glucose 81 (74-106) mg/dL Calcium 9.6 (8.4-10.2) mg/dL Magnesium 1.6 (1.6-2.3) mg/dL Multi-Disciplinary Progress Notes: Last Vital Signs Temp 98.2 F 03/23/20 06:31 Pulse 82 03/23/20 06:31 Resp 17 03/23/20 06:31 BP 133/58 03/23/20 06:31 Pulse Ox 93 L 03/23/20 06:31 Allergies morphine Allergy (Intermediate, Verified 03/19/20 13:07) severe itching, SOB- decreased resp rate Tetanus Vaccines and Toxoid [Tetanus Vaccines & Toxoid] Allergy (Intermediate, Verified 03/19/20 13:07) localized swelling codeine Allergy (Mild, Verified 03/19/20 13:07) Itching vancomycin Allergy (Verified 03/19/20 13:07) Active Medications Acetaminophen (Tylenol Extra Strength 500 Mg) 500 mg PO Q6H PRN PRN PRN Reason: FEVER Stop: 04/19/20 11:59 Last Admin: 03/21/20 20:11 Dose: 500 mg Documented by: Albuterol/Ipratropium (Duoneb 0.5-3 Mg/3 Ml Neb) 3 ml IH QIDPRN PRN PRN Reason: SHORTNESS OF BREATH/WHEEZING Stop: 04/19/20 21:38 Bisacodyl (Dulcolax 5 Mg) 10 mg PO DAILY PRN PRN PRN Reason: CONSTIPATION Stop: 04/19/20 11:59 Clopidogrel Bisulfate (Plavix 75 Mg Tablet) 75 mg PO DAILY AYE Stop: 04/19/20 12:14 Last Admin: 03/22/20 09:22 Dose: 75 mg Documented by: Furosemide (Lasix 20 Mg) 20 mg PO DAILY [facility] Stop: 04/21/20 09:59 Last Admin: 03/22/20 09:22 Dose: 20 mg Documented by: Gabapentin (Neurontin 100 Mg) 100 mg PO TID [facility] Stop: 04/18/20 21:59 Last Admin: 03/22/20 21:44 Dose: Not Given Documented by: Hydroxyzine HCl (Atarax 25 Mg) 25 mg PO TID PRN PRN Stop: 04/19/20 11:59 Lorazepam (Ativan 2 Mg/1 Ml Vial) 0.5 mg IV Q4H PRN PRN PRN Reason: ANXIETY Stop: 04/18/20 18:34 Metoprolol Succinate (Toprol-Xl 25mg Tablets) 25 mg PO DAILY [facility] Stop: 04/19/20 12:14 Last Admin: 03/22/20 09:22 Dose: 25 mg Documented by: Mirabegron (Myrbetriq) 50 mg PO DAILY [facility] Stop: 04/19/20 12:14 Last Admin: 03/22/20 09:22 Dose: 50 mg Documented by: Multi-Ingredient Ointment (Zinc Oxide Ointment 30 Gm) 0 gm TP BID PRN PRN Stop: 04/19/20 12:12 Oxycodone/Acetaminophen (Percocet Tablet 5/325mg) 1 tab PO Q4H PRN PRN Reason: PAIN Stop: 03/25/20 12:09 Last Admin: 03/22/20 16:01 Dose: 1 tab Documented by: Pantoprazole Sodium (Protonix 40mg Tablet) 40 mg PO DAILY [facility] Stop: 04/19/20 12:14 Last Admin: 03/22/20 09:22 Dose: 40 mg Documented by: Potassium Chloride (Klor Con 10 Meq) 20 meq PO BID [facility] Stop: 04/19/20 10:44 Last Admin: 03/22/20 21:41 Dose: 20 meq Documented by: Sertraline HCl (Zoloft 50 Mg Tablet) 25 mg PO DAILY [facility] Stop: 04/19/20 12:14 Last Admin: 03/22/20 09:22 Dose: 25 mg Documented by: Trazodone HCl (Desyrel 50 Mg) 50 mg PO HS AYE Stop: 04/18/20 21:59 Last Admin: 03/22/20 21:44 Dose: Not Given Documented by: Intake & Output 03/22/20 03/23/20 11:59 11:59 Intake Total 1260 420 Balance 1260 420 Lab Tests 03/23/20 03/23/20 06:00 06:00 WBC 7.7 RBC 4.40 Hgb 13.3 Hct 41.3 MCV 93.9 MCH 30.2 MCHC 32.2 RDW 14.8 H Plt Count 294 MPV 9.8 Gran % 73.3 H Eos # (Auto) 0.17 Absolute Lymphs (auto) 1.20 Absolute Monos (auto) 0.62 Lymphocytes % 15.7 L Monocytes % 8.1 Eosinophils % 2.2 Basophils % 0.7 Absolute Granulocytes 5.61 Basophils # 0.05 Sodium 128 L Potassium 3.9 Chloride 94 L Carbon Dioxide 30 Anion Gap 8.0 BUN 10 Creatinine 0.36 L Estimated GFR > 60.0 Glucose 81 Calcium 9.6 Magnesium 1.6 Microbiology 03/21/20 11:45 Urine, Indwelling Catheter Urine Culture - Preliminary NO GROWTH TO DATE 03/21/20 10:01 Catherized Urine Culture - Preliminary NO GROWTH TO DATE Assessment/Plan (1) DM2 (diabetes mellitus, type 2) Current Visit: No Status: Chronic Qualifiers: Diabetes mellitus terminal block assembler insulin use: unspecified terminal block assembler insulin use status Diabetes mellitus complication status: with circulatory complication Diabetes mellitus complication detail: with other circulatory complications Qualified Code(s): E11.59 - Type 2 diabetes mellitus with other circulatory complications (2) Diabetes mellitus type 2 Current Visit: Yes Status: Chronic Code(s): E11.9 - TYPE 2 DIABETES MELLITUS WITHOUT COMPLICATIONS (3) Peripheral vascular disease Current Visit: Yes Status: Chronic Code(s): I73.9 - PERIPHERAL VASCULAR DISEASE, UNSPECIFIED
[2020-03-23] MEDS: PLAVIX 75 MG Tablet PO SCH (09:16)
[2020-03-23] MEDS: LASIX 20 MG PO SCH (09:16)
[2020-03-23] MEDS: MYRBETRIQ PO SCH (09:16)
[2020-03-23] MEDS: Klor Con 10 MEQ PO SCH ×2 (09:16→21:33)
[2020-03-23] MEDS: Neurontin 100 MG PO SCH ×3 (09:16→21:34)
[2020-03-23] MEDS: Protonix 40MG Tablet PO SCH (09:17)
[2020-03-23] MEDS: Toprol-Xl 25MG Tablets PO SCH (09:17)
[2020-03-23] MEDS: ZOLOFT 50 MG TABLET PO SCH (09:18)
[2020-03-23] MEDS: DESYREL 50 MG PO SCH (21:33)
--- NOTE | 2020-03-24 07:28 | PCM.NOTE ---
Date and Time: 03/24/20727 Subjective Assessment: doing ok. no new complaints - Review of Systems Constitutional: No Fever, No Chills Eyes: No Symptoms Ears, Nose, & Throat: No Symptoms Respiratory: No Cough, No Short Of Breath Cardiac: No Chest Pain, No Edema, No Syncope Abdominal/Gastrointestinal: No Abdominal Pain, No Nausea, No Vomiting, No Diarrhea Genitourinary Symptoms: No Dysuria Musculoskeletal: No Back Pain, No Neck Pain Skin: No Rash Neurological: No Dizziness, No Focal Weakness, No Sensory Changes Psychological: No Symptoms Endocrine: No Symptoms Hematologic/Lymphatic: No Symptoms Immunological/Allergic: No Symptoms Objective Exam General Appearance: no apparent distress, alert Neurologic Exam: alert, oriented x 3, cooperative, normal mood/affect, nml cerebellar function, sensation nml, No motor deficits Skin Exam: normal color, warm, dry Wound Assessment: Skin/Wound Assessment Wound/Incision Assessment Start: 03/19/20 18:19 Text: Status: Active Freq: Q6H Protocol: Document 03/24/20 02:00 MG (Rec: 03/24/20 04:27 MG [id number]) Wound/Incision Assessment Anterior Medial Abdomen Wound Assessment Shift Assessment Wound Type Slightly reddened Wound Stage Non Pressure Wound Drainage Amount None Drainage Odor None/Absent Posterior Medial Buttock Wound Assessment Shift Assessment Wound Type Pressure Ulcer Wound Stage Stage II Drainage Amount None General Appearance Clean/Dry,Reddened Surrounding Tissue [place] Comment barrier cream applied Eye Exam: PERRL, EOMI, eyes nml inspection Ears, Nose, Throat Exam: normal ENT inspection, pharynx normal, moist mucous membranes Neck Exam: normal inspection, non-tender, supple, full range of motion Respiratory Exam: normal breath sounds, lungs clear, No respiratory distress Cardiovascular Exam: regular rate/rhythm, normal heart sounds Gastrointestinal/Abdomen Exam: soft, No tenderness, No mass Extremity Exam: normal inspection, normal range of motion Back Exam: normal inspection, normal range of motion, No CVA tenderness, No vertebral tenderness Pelvic Exam: deferred Rectal Exam: deferred OBJECTIVE DATA Vital Signs: Vital Signs - 24 hr Temp Pulse Resp BP BP Pulse Ox 03/24/20 07:21 96.6 F 74 16 121/56 94 L 03/24/20 04:00 98.4 F 71 12 116/59 91 L 03/24/20 00:00 98.1 F 66 16 90/53 95 03/23/20 20:09 75 20 95 03/23/20 20:00 97.1 F 70 18 110/58 125/60 95 03/23/20 16:00 98.4 F 74 16 125/60 92 L 03/23/20 12:00 97.4 F 72 17 118/57 96 03/23/20 08:34 84 16 94 L Oxygen-Last 24 hours Oxygen Flowrate (L/min)-RT 2 Oxygen Flowrate (L/min)-RT 2 Oxygen Flowrate (L/min)-RT 2 Pain Assessment - Last Documented Pain Intensity 3 Pain Scale Used 0-10 Pain Scale Intake and Output: Intake & Output 03/21/20 03/22/20 03/23/20 03/24/20 11:59 11:59 11:59 11:59 Intake Total 3299 1260 420 640 Balance 3299 1260 420 640 Lab Results: Lab Results-Last 24 Hours 03/23/20 Range/Units 06:00 Sodium 128 L (137-145) mmol/L Potassium 3.9 (3.5-5.1) mmol/L Chloride 94 L (98-107) mmol/L Carbon Dioxide 30 (22-30) mmol/L Anion Gap 8.0 (5-15) MEQ/L BUN 10 (7-17) mg/dL Creatinine 0.36 L (0.52-1.04) mg/dL Estimated GFR > 60.0 ML/MIN Glucose 81 (74-106) mg/dL Calcium 9.6 (8.4-10.2) mg/dL Magnesium 1.6 (1.6-2.3) mg/dL Assessment/Plan (1) DM2 (diabetes mellitus, type 2) Current Visit: No Status: Chronic Qualifiers: Diabetes mellitus rodent exterminator insulin use: unspecified rodent exterminator insulin use status Diabetes mellitus complication status: with circulatory complication Diabetes mellitus complication detail: with other circulatory complications Qualified Code(s): E11.59 - Type 2 diabetes mellitus with other circulatory complications (2) Diabetes mellitus type 2 Current Visit: Yes Status: Chronic Code(s): E11.9 - TYPE 2 DIABETES MELLITUS WITHOUT COMPLICATIONS (3) Peripheral vascular disease Current Visit: Yes Status: Chronic Code(s): I73.9 - PERIPHERAL VASCULAR DISEASE, UNSPECIFIED
[2020-03-24] MEDS: MYRBETRIQ PO SCH (09:18)
[2020-03-24] MEDS: ZOLOFT 50 MG TABLET PO SCH (09:18)
[2020-03-24] MEDS: Toprol-Xl 25MG Tablets PO SCH (09:18)
[2020-03-24] MEDS: Klor Con 10 MEQ PO SCH ×2 (09:19→22:23)
[2020-03-24] MEDS: Protonix 40MG Tablet PO SCH (09:19)
[2020-03-24] MEDS: PLAVIX 75 MG Tablet PO SCH (09:19)
[2020-03-24] MEDS: LASIX 20 MG PO SCH (09:19)
[2020-03-24] MEDS: Neurontin 100 MG PO SCH ×3 (09:19→22:23)
[2020-03-24] MEDS: DESYREL 50 MG PO SCH (22:23)
--- NOTE | 2020-03-25 05:12 | PCM.NOTE ---
Date and Time: 03/25/20 0511 Subjective Assessment: doing better - Review of Systems Constitutional: No Fever, No Chills Eyes: No Symptoms Ears, Nose, & Throat: No Symptoms Respiratory: No Cough, No Short Of Breath Cardiac: No Chest Pain, No Edema, No Syncope Abdominal/Gastrointestinal: No Abdominal Pain, No Nausea, No Vomiting, No Diarrhea Genitourinary Symptoms: No Dysuria Musculoskeletal: No Back Pain, No Neck Pain Skin: No Rash Neurological: No Dizziness, No Focal Weakness, No Sensory Changes Psychological: No Symptoms Endocrine: No Symptoms Hematologic/Lymphatic: No Symptoms Immunological/Allergic: No Symptoms Objective Exam General Appearance: no apparent distress, alert Neurologic Exam: alert, oriented x 3, cooperative, normal mood/affect, nml cerebellar function, sensation nml, No motor deficits Skin Exam: normal color, warm, dry Wound Assessment: Skin/Wound Assessment Wound/Incision Assessment Start: 03/19/20 18:19 Text: Status: Active Freq: Q6H Protocol: Document 03/25/20 02:00 (Rec: 03/25/20 02:23 [id number]) Wound/Incision Assessment Anterior Medial Abdomen Wound Assessment Shift Assessment Wound Type Slightly reddened Wound Stage Non Pressure Wound Drainage Amount None Drainage Odor None/Absent Posterior Medial Buttock Wound Assessment Shift Assessment Wound Type Pressure Ulcer Wound Stage Stage II Drainage Amount None General Appearance Clean/Dry,Reddened Surrounding Tissue [place] Eye Exam: PERRL, EOMI, eyes nml inspection Ears, Nose, Throat Exam: normal ENT inspection, pharynx normal, moist mucous membranes Neck Exam: normal inspection, non-tender, supple, full range of motion Respiratory Exam: normal breath sounds, lungs clear, No respiratory distress Cardiovascular Exam: regular rate/rhythm, normal heart sounds Gastrointestinal/Abdomen Exam: soft, No tenderness, No mass Extremity Exam: normal inspection, normal range of motion Back Exam: normal inspection, normal range of motion, No CVA tenderness, No vertebral tenderness Pelvic Exam: deferred Rectal Exam: deferred OBJECTIVE DATA Vital Signs: Vital Signs - 24 hr Temp Pulse Resp BP Pulse Ox 03/25/20 03:55 97.5 F 69 15 101/55 92 L 03/24/20 23:33 97.0 F 69 16 91/53 92 L 03/24/20 19:35 67 16 94 L 03/24/20 19:13 98.3 F 72 16 103/54 95 03/24/20 16:00 96.6 F 71 16 119/57 90 L 03/24/20 12:00 97.6 F 76 16 120/62 94 L 03/24/20 07:29 73 18 91 L 03/24/20 07:21 96.6 F 74 16 121/56 94 L Pain Assessment - Last Documented Pain Intensity 0 Pain Scale Used 0-10 Pain Scale Intake and Output: Intake & Output 03/22/20 03/23/20 03/24/20 03/25/20 11:59 11:59 11:59 11:59 Intake Total 1260 420 640 440 Balance 1260 420 640 440 Assessment/Plan (1) DM2 (diabetes mellitus, type 2) Current Visit: No Status: Chronic Qualifiers: Diabetes mellitus mcc insulin use: unspecified mcc insulin use status Diabetes mellitus complication status: with circulatory complication Diabetes mellitus complication detail: with other circulatory complications Qualified Code(s): E11.59 - Type 2 diabetes mellitus with other circulatory complications (2) Diabetes mellitus type 2 Current Visit: Yes Status: Chronic Code(s): E11.9 - TYPE 2 DIABETES MELLITUS WITHOUT COMPLICATIONS (3) Peripheral vascular disease Current Visit: Yes Status: Chronic Code(s): I73.9 - PERIPHERAL VASCULAR DISEASE, UNSPECIFIED
[2020-03-25] MEDS: PLAVIX 75 MG Tablet PO SCH (11:57)
[2020-03-25] MEDS: LASIX 20 MG PO SCH (11:57)
[2020-03-25] MEDS: Klor Con 10 MEQ PO SCH ×2 (11:57→22:06)
[2020-03-25] MEDS: Protonix 40MG Tablet PO SCH (11:57)
[2020-03-25] MEDS: Neurontin 100 MG PO SCH ×3 (11:57→22:06)
[2020-03-25] MEDS: Toprol-Xl 25MG Tablets PO SCH (11:58)
[2020-03-25] MEDS: ZOLOFT 50 MG TABLET PO SCH (11:58)
[2020-03-25] MEDS: MYRBETRIQ PO SCH (11:58)
[2020-03-25] MEDS: DESYREL 50 MG PO SCH (22:06)
[2020-03-26] MEDS: Toprol-Xl 25MG Tablets PO SCH (08:40)
[2020-03-26] MEDS: Klor Con 10 MEQ PO SCH ×2 (08:40→21:15)
[2020-03-26] MEDS: PLAVIX 75 MG Tablet PO SCH (08:40)
[2020-03-26] MEDS: LASIX 20 MG PO SCH (08:40)
[2020-03-26] MEDS: Neurontin 100 MG PO SCH ×3 (08:40→21:15)
[2020-03-26] MEDS: Protonix 40MG Tablet PO SCH (08:40)
[2020-03-26] MEDS: ZOLOFT 50 MG TABLET PO SCH (08:40)
[2020-03-26] MEDS: MYRBETRIQ PO SCH ×2 (08:42→08:43)
--- NOTE | 2020-03-26 08:44 | PCM.NOTE ---
Date and Time: 03/26/20 0843 Subjective Assessment: patient reports improvement, she is eating and drinking better. overall feeling good today Objective Exam General Appearance: no apparent distress, alert Skin Exam: normal color, warm, dry Wound Assessment: Skin/Wound Assessment Wound/Incision Assessment Start: 03/19/20 18:19 Text: Status: Active Freq: Q6H Protocol: Document 03/26/20 02:00 SG (Rec: 03/26/20 02:30 SG [id number]) Wound/Incision Assessment Anterior Medial Abdomen Wound Assessment Shift Assessment Wound Type Slightly reddened Wound Stage Non Pressure Wound Drainage Amount None Drainage Odor None/Absent Comment barrier cream applied PRN Posterior Medial Buttock Wound Assessment Shift Assessment Wound Type Pressure Ulcer Wound Stage Stage II Drainage Amount None General Appearance Clean/Dry,Reddened Surrounding Tissue [place] Comment barrier cream applied PRn, frequent weight shifts and position changes Respiratory Exam: normal breath sounds, lungs clear, No respiratory distress Cardiovascular Exam: regular rate/rhythm, normal heart sounds Gastrointestinal/Abdomen Exam: soft, No tenderness, No mass OBJECTIVE DATA Vital Signs: Vital Signs - 24 hr Temp Pulse Resp BP BP Pulse Ox 03/26/20 07:54 98.1 F 62 16 121/58 94 L 03/26/20 07:03 66 16 94 L 03/26/20 04:00 97.7 F 61 12 100/52 96 03/26/20 00:00 98.7 F 63 12 108/51 93 L 03/25/20 20:00 98.5 F 64 14 93/53 95 03/25/20 19:56 64 14 95 03/25/20 16:00 98.5 F 71 18 120/85 92 L 03/25/20 12:00 72 16 116/55 Oxygen-Last 24 hours Oxygen Flowrate (L/min)-RT 2 Oxygen Flowrate (L/min)-RT 2 Oxygen Flowrate (L/min)-RT 2 Pain Assessment - Last Documented Pain Intensity 5 Pain Scale Used 0-10 Pain Scale Intake and Output: Intake & Output 03/23/20 03/24/20 03/25/20 03/26/20 11:59 11:59 11:59 11:59 Intake Total 420 664 322 8908 Balance 420 290 576 1785 Assessment/Plan (1) Hypokalemia Current Visit: Yes Status: Acute Assessment & Plan: replaced, awaiting ecf placement at this time. unable to care for herself at home and family and patient prefers placement vs returning to home on hospice care. Code(s): E87.6 - HYPOKALEMIA (2) Amputation leg, bilat Current Visit: Yes Status: Acute Code(s): S88.911A - COMPLETE TRAUMATIC AMPUTATION OF R LOW LEG, LEVEL UNSP, INIT; S88.912A - COMPLETE TRAUMATIC AMPUTATION OF L LOW LEG, LEVEL UNSP, INIT (3) CAD (coronary artery disease) Current Visit: No Status: Acute Code(s): I25.10 - ATHSCL HEART DISEASE OF [place] CORONARY ARTERY W/O ANG PCTRS (4) CHF (congestive heart failure) Current Visit: No Status: Acute Code(s): I50.9 - HEART FAILURE, UNSPECIFIED (5) Peripheral vascular disease Current Visit: Yes Status: Chronic Code(s): I73.9 - PERIPHERAL VASCULAR DISEASE, UNSPECIFIED
[2020-03-26] MEDS: TYLENOL EXTRA STRENGTH 500 MG PO PRN (20:08)
[2020-03-26] MEDS: DESYREL 50 MG PO SCH (21:15)
[2020-03-27] MEDS: PERCOCET TABLET 5/325MG PO PRN ×2 (04:26→10:26)
[2020-03-27 06:33] LABS: Absolute Neutrophil Ct (ANC) 7.98 (1.4-6.9); BASOPHIL % 0.5 % (0.0-0.4); Basophil (Absolute #) 0.05 (0-0.4); Eosinophil % 0.8 % (0.00-5.0); Eosinophil (Absolute #) 0.08 (0-0.5); Hemoglobin 12.6 gm/dl (12.0-16.0); Lymphocyte (Absolute #) 0.98 (1.0-4.6); Mean Cell Volume 94.9 fl (78-100); Mean Corpuscular Hemoglobin 30.7 pg (26-32); Mean Corpuscular Hgb Concent. 32.3 g/dl (32-36); Mean Platelet Volume 9.6 fl (7.5-11.0); Monocyte (Absolute #) 0.69 (0.0-1.3); Monocytes % 7.1 % (0.0-12.0); Neutrophil % 81.6 % (36.0-66.0); Platelet Count 265 K/mm3 (150-450); Red Blood Count 4.11 M/mm3 (4.1-5.4); Red Cell Distribution Width 14.9 % (11.5-14.0); White Blood Count 9.8 K/mm3 (4.0-10.5)
[2020-03-27 06:55] LABS: ANION GAP 7.2 MEQ/L (5-15); BLOOD UREA NITROGEN 11 mg/dL (7-17); CHLORIDE 100 mmol/L (98-107); Calcium 9.3 mg/dL (8.4-10.2); Carbon Dioxide 30 mmol/L (22-30); Creatinine 1 0.37 mg/dL (0.52-1.04); EST GLOMERULAR FILTRATION RATE > 60.0 ML/MIN; Glucose 86 mg/dL (74-106); Potassium 3.6 mmol/L (3.5-5.1); SODIUM 134 mmol/L (137-145)
--- NOTE | 2020-03-27 09:13 | PCM.NOTE ---
Date and Time: 03/27/20909 Subjective Assessment: Pt without specific c/o. Tolerating po. Automatic BP this morning 82/43; recheck manually 90/51. - Review of Systems Constitutional: No Fever Abdominal/Gastrointestinal: No Vomiting Objective Exam General Appearance: no apparent distress, alert Neurologic Exam: oriented x 3, cooperative Skin Exam: normal color, warm, dry, No rash Wound Assessment: Skin/Wound Assessment Wound/Incision Assessment Start: 03/19/20 18:19 Text: Status: Active Freq: Q6H Protocol: Document 03/27/20 02:00 LL (Rec: 03/27/20 04:00 LL [id number]) Wound/Incision Assessment Anterior Medial Abdomen Wound Assessment Shift Assessment Wound Type RED Wound Stage Non Pressure Wound Drainage Amount None Drainage Odor None/Absent Comment BARRIER CREAM APPLIED REGULARLY , [facility] COMPLETE Posterior Medial Buttock Wound Assessment Shift Assessment Wound Stage Non Pressure Wound Drainage Amount None General Appearance Clean/Dry,Reddened Surrounding Tissue [place] Comment [facility] PT TURNED OFF AREA Wound Photo Photo Taken No Eye Exam: eyes nml inspection Ears, Nose, Throat Exam: moist mucous membranes Neck Exam: normal inspection Respiratory Exam: normal breath sounds, lungs clear, No crackles/rales, No rhonchi, No wheezing Cardiovascular Exam: regular rate/rhythm, normal heart sounds, No murmur Gastrointestinal/Abdomen Exam: soft, normal bowel sounds, No tenderness, No distention, No mass, No guarding, No rebound Extremity Exam: No pedal edema, No swelling Back Exam: normal inspection, No rash OBJECTIVE DATA Vital Signs: Vital Signs - 24 hr Temp Pulse Resp BP BP Pulse Ox 03/27/20 08:25 79 16 91 L 03/27/20 07:39 97.4 F 66 16 82/43 97 03/27/20 04:00 98.9 F 67 12 123/60 99 03/27/20 00:00 98.5 F 59 L 12 106/58 95 03/26/20 21:22 65 14 95 03/26/20 20:00 98.7 F 63 12 128/58 96 03/26/20 16:00 98.0 F 64 20 132/60 93 L 03/26/20 12:00 98.3 F 78 20 115/65 93 L Oxygen-Last 24 hours Oxygen Flowrate (L/min)-RT 2 Pain Assessment - Last Documented Pain Intensity 0 Pain Scale Used [facility] Intake and Output: Intake & Output 03/24/20 03/25/20 03/26/20 03/27/20 11:59 11:59 11:59 11:59 Intake Total 641 698 8696 880 Balance 036 947 7645 880 Lab Results: Lab Results-Last 24 Hours 03/27/20 03/27/20 Range/Units 06:15 06:15 WBC 9.8 (4.0-10.5) K/mm3 RBC 4.11 (4.1-5.4) M/mm3 Hgb 12.6 (12.0-16.0) gm/dl Hct 39.0 (35-47) % MCV 94.9 (78-100) fl MCH 30.7 (26-32) pg MCHC 32.3 (32-36) g/dl RDW 14.9 H (11.5-14.0) % Plt Count 265 (150-450) K/mm3 MPV 9.6 (7.5-11.0) fl Gran % 81.6 H (36.0-66.0) % Eos # (Auto) 0.08 (0-0.5) Absolute Lymphs (auto) 0.98 L (1.0-4.6) Absolute Monos (auto) 0.69 (0.0-1.3) Lymphocytes % 10.0 L (24.0-44.0) % Monocytes % 7.1 (0.0-12.0) % Eosinophils % 0.8 (0.00-5.0) % Basophils % 0.5 (0.0-0.4) % Absolute Granulocytes 7.98 H (1.4-6.9) Basophils # 0.05 (0-0.4) Sodium 134 L (137-145) mmol/L Potassium 3.6 (3.5-5.1) mmol/L Chloride 100 (98-107) mmol/L Carbon Dioxide 30 (22-30) mmol/L Anion Gap 7.2 (5-15) MEQ/L BUN 11 (7-17) mg/dL Creatinine 0.37 L (0.52-1.04) mg/dL Estimated GFR > 60.0 ML/MIN Glucose 86 (74-106) mg/dL Calcium 9.3 (8.4-10.2) mg/dL Multi-Disciplinary Progress Notes: Multi-Disciplinary Progress Notes 03/26/20 15:39 Case Management Note by Lou De León MEDICAID STILL NOT SHOWING UP PROPERLY IN SYSTEM FOR PRISON. PERSONAL LINES ADVISOR FROM [employer] HAS BEEN IN CONTACT WITH [employer]. THEY ARE HOPING THE SYSTEM WILL UPDATE TOMORROW. HOSPICE COULD RESPITE HER AT [facility] STARTING TOMORROW IF MEDICAID IS NOT FIGURED OUT BY THEN. I CALLED AND LEFT A MESSAGE WITH HER DAUGHTER TO UPDATE HER. WILL CHECK AGAIN WITH [facility] IN THE AM Initialized on 03/26/20 15:39 - END OF NOTE Assessment/Plan (1) Hypokalemia Current Visit: Yes Status: Acute Assessment & Plan: Remains normal today. Pt awaits ECF placement. Code(s): E87.6 - HYPOKALEMIA (2) Peripheral vascular disease Current Visit: Yes Status: Chronic Code(s): I73.9 - PERIPHERAL VASCULAR DISEASE, UNSPECIFIED (3) CAD (coronary artery disease) Current Visit: No Status: Chronic Code(s): I25.10 - ATHSCL HEART DISEASE OF [place] CORONARY ARTERY W/O ANG PCTRS (4) CHF (congestive heart failure) Current Visit: No Status: Chronic Code(s): I50.9 - HEART FAILURE, UNSPECIFIED (5) Subluxation of coccyx Current Visit: Yes Status: Acute Qualifiers: Encounter type: subsequent encounter Qualified Code(s): S33.2XXD - Dislocation of sacroiliac and sacrococcygeal joint, subsequent encounter Code(s): S33.2XXA - DISLOCATION OF SACROILIAC AND SACROCOCCYGEAL JOINT, INIT
[2020-03-27] MEDS: MYRBETRIQ PO SCH (10:20)
[2020-03-27] MEDS: Toprol-Xl 25MG Tablets PO SCH (10:20)
[2020-03-27] MEDS: Klor Con 10 MEQ PO SCH (10:20)
[2020-03-27] MEDS: ZOLOFT 50 MG TABLET PO SCH (10:20)
[2020-03-27] MEDS: LASIX 20 MG PO SCH (10:21)
[2020-03-27] MEDS: Protonix 40MG Tablet PO SCH (10:21)
[2020-03-27] MEDS: Neurontin 100 MG PO SCH ×2 (10:21→16:07)
[2020-03-27] MEDS: PLAVIX 75 MG Tablet PO SCH (10:21)
[2020-03-27 12:15] VITALS: BP 102/55; PULSE 62; O2SAT 93
--- NOTE | 2020-03-27 16:13 | PCM.DS ---
Discharge Summary Date of Admission: 03/19/20 16:30 Admitting Physician: DAVID STONE Primary Care Provider: DAVID STONE Allergies Allergies morphine Allergy (Intermediate, Verified 03/19/20 13:07) severe itching, SOB- decreased resp rate Tetanus Vaccines and Toxoid [Tetanus Vaccines & Toxoid] Allergy (Intermediate, Verified 03/19/20 13:07) localized swelling codeine Allergy (Mild, Verified 03/19/20 13:07) Itching vancomycin Allergy (Verified 03/19/20 13:07) Hospital Summary - Hospital Course Hospital Course: Pt is 74 yo female pt of Dr. Maza with end stage peripheral vascular disease, on hospice, with hx bilat LE amputations, CAD, and CHF who was admitted with hypokalemia. She was found down at home and taken to ER where her K+ was 1.9. Her potassium was repleted and is currently 3.6. She is tolerating po. No complaints of pain. Initially she was going to be discharged back home on hospice, but family decided she needed more care so she is going to [facility]. - Vitals & Intake/Output Vital Signs: Vital Signs Temperature 97.9 F 03/27/20 12:14 Pulse Rate 62 03/27/20 12:14 Respiratory Rate 13 03/27/20 12:14 Blood Pressure 102/55 03/27/20 12:14 O2 Sat by Pulse Oximetry 93 L 03/27/20 12:14 Intake & Output: Intake & Output 03/25/20 03/26/20 03/27/20 03/28/20 11:59 11:59 11:59 11:59 Intake Total 440 1090 880 Balance 440 1090 880 - Lab Result Diagrams: 03/27/20 06:15 03/27/20 06:15 Lab Results-Last 24 Hrs: Lab Results-Last 24 Hours 03/27/20 03/27/20 Range/Units 06:15 06:15 WBC 9.8 (4.0-10.5) K/mm3 RBC 4.11 (4.1-5.4) M/mm3 Hgb 12.6 (12.0-16.0) gm/dl Hct 39.0 (35-47) % MCV 94.9 (78-100) fl MCH 30.7 (26-32) pg MCHC 32.3 (32-36) g/dl RDW 14.9 H (11.5-14.0) % Plt Count 265 (150-450) K/mm3 MPV 9.6 (7.5-11.0) fl Gran % 81.6 H (36.0-66.0) % Eos # (Auto) 0.08 (0-0.5) Absolute Lymphs (auto) 0.98 L (1.0-4.6) Absolute Monos (auto) 0.69 (0.0-1.3) Lymphocytes % 10.0 L (24.0-44.0) % Monocytes % 7.1 (0.0-12.0) % Eosinophils % 0.8 (0.00-5.0) % Basophils % 0.5 (0.0-0.4) % Absolute Granulocytes 7.98 H (1.4-6.9) Basophils # 0.05 (0-0.4) Sodium 134 L (137-145) mmol/L Potassium 3.6 (3.5-5.1) mmol/L Chloride 100 (98-107) mmol/L Carbon Dioxide 30 (22-30) mmol/L Anion Gap 7.2 (5-15) MEQ/L BUN 11 (7-17) mg/dL Creatinine 0.37 L (0.52-1.04) mg/dL Estimated GFR > 60.0 ML/MIN Glucose 86 (74-106) mg/dL Calcium 9.3 (8.4-10.2) mg/dL Micro Results-Entire Visit: Microbiology 03/21/20 11:45 Urine Culture - Final Urine, Indwelling Catheter NO GROWTH 03/21/20 10:01 Urine Culture - Final Catherized NO GROWTH - Procedures and Test Procedures and Tests throughout Hospitalization: Therapy Orders & Screens 03/19/20 17:19 Oxygen Nasal Cannula 2 lpm Comment: Diagnosis: hypokalemia 03/20/20 21:42 Respiratory Therapy Assessment DAILY Comment: Diagnosis: Hypokalemia 03/27/20 11:14 PT Eval & Treat ( Order) ONCE Reason for Eval:: longterm placement Diagnosis: Hypokalemia Discharge Exam General Appearance: no apparent distress, alert Neurologic Exam: oriented x 3, cooperative Eye Exam: eyes nml inspection Ears, Nose, Throat Exam: moist mucous membranes Neck Exam: normal inspection Respiratory Exam: normal breath sounds, lungs clear, No crackles/rales, No rhonchi, No wheezing Cardiovascular Exam: regular rate/rhythm, normal heart sounds, No murmur Gastrointestinal/Abdomen Exam: soft, normal bowel sounds, No tenderness, No distention, No mass, No guarding, No rebound Extremity Exam: amputations (bilat LE) Skin Exam: normal color, warm, dry, No rash Wound Assessment: Skin/Wound Assessment Wound/Incision Assessment Start: 03/19/20 18:19 Text: Status: Active Freq: Q6H Protocol: Document 03/27/20 14:00 DS (Rec: 03/27/20 14:29 DS [id number]) Wound/Incision Assessment Anterior Medial Abdomen Wound Assessment Shift Assessment Wound Type RED Wound Stage Non Pressure Wound Drainage Amount None Drainage Odor None/Absent Comment BARRIER CREAM APPLIED REGULARLY , [facility] COMPLETE Posterior Medial Buttock Wound Assessment Shift Assessment Wound Stage Stage I Drainage Amount None General Appearance Clean/Dry,Reddened Surrounding Tissue [place] Comment [facility] [employer] PT TURNED OFF AREA Wound Photo Photo Taken No Final Diagnosis/Problem List - Final Discharge Diagnosis/Problem (1) Hypokalemia Current Visit: Yes Status: Resolved Code(s): E87.6 - HYPOKALEMIA (2) Peripheral vascular disease Current Visit: Yes Status: Chronic Code(s): I73.9 - PERIPHERAL VASCULAR DISEASE, UNSPECIFIED (3) CAD (coronary artery disease) Current Visit: No Status: Chronic Code(s): I25.10 - ATHSCL HEART DISEASE OF [place] CORONARY ARTERY W/O ANG PCTRS (4) CHF (congestive heart failure) Current Visit: No Status: Chronic Code(s): I50.9 - HEART FAILURE, UNSPECIFIED (5) Subluxation of coccyx Current Visit: Yes Status: Acute Code(s): S33.2XXA - DISLOCATION OF SACROILIAC AND SACROCOCCYGEAL JOINT, INIT - Discharge Disposition: DC TO ANY "OTHER" JAIL Condition: Stable Prescriptions: New Potassium Chloride 20 meq PO BID #60 tab.er.prt Continue Furosemide 40 mg PO QAM #30 tablet Clopidogrel Bisulfate 75 mg [PLAVIX 75 MG Tablet] 75 mg PO DAILY Metoprolol Succinate 25 mg Xl* [Toprol-Xl 25MG Tablets] 25 mg PO DAILY Aspirin EC 81 mg [Ecotrin 81 mg] 81 mg PO BID Trazodone HCl 50 mg [Desyrel 50 mg] 50 mg PO HS Oxycodone HCl/Acetaminophen [Percocet 7.5-325 mg Tablet] 1 each PO Q4H PRN #40 tablet MDD 6 PRN Reason: Pain Ipratropium/Albuterol Sulfate [Combivent Inhaler] 2 puff IH QID #1 aer.w.adap Calcium/Magnesium/Vitamin D3 [Smooth-Mag Complex 300-150 mg Tab] 1 each PO DAILY Calcium Carbonate/Vitamin D3 [Calcium 600-Vit D3 200 Tablet] 1 each PO DAILY Multivitamin/Iron/Folic Acid [Sentry Tablet] 1 tab PO DAILY Acetaminophen 500 mg [Tylenol Extra Strength 500 mg] 500 mg PO Q6H PRN PRN PRN Reason: Fever Albuterol Sulfate [Ventolin Hfa] 2 puff IH BID PRN PRN PRN Reason: Shortness Of Breath Nitroglycerin 0.4 mg Tablet [Nitrostat 0.4 MG Tablet] 0.4 mg SL UD Dextromethorphan HBr/Chlor-Mal [Robitussin Cough-Cold Liquid] 10 ml PO Q4HPRN PRN PRN Reason: Cough Ondansetron HCl 4 mg PO Q6HPRN PRN PRN Reason: Nausea Bisacodyl 5 mg [Dulcolax 5 mg] 10 mg PO DAILY PRN PRN PRN Reason: Constipation Promethazine HCl 12.5 mg PO Q6HPRN PRN PRN Reason: Nausea Diazepam [Valium] 2 mg PO DAILY PRN PRN PRN Reason: Anxiety Esomeprazole Magnesium [Nexium] 40 mg PO DAILY Menthol/Zinc Oxide [Calmoseptine Ointment] 0.5 oz TP UD Sertraline HCl [Zoloft] 25 mg PO DAILY Mirabegron [Myrbetriq] 50 mg PO DAILY Lorazepam 2 mg/1 ml [Ativan 2 MG/1 ML VIAL] 0.25 ml SL Q4HPRN PRN PRN Reason: Anxiety Hydroxyzine HCl 25 mg [Atarax 25 mg] 25 mg PO TID PRN Gabapentin 100 mg PO TID Pravastatin Sodium 80 mg PO HS Discontinued Potassium Gluconate [Potassium] 99 mg PO DAILY Metolazone 2.5 mg [Zaroxolyn 2.5 MG] 2.5 mg PO DAILY Additional Instructions: JAIL ORDERS- OXYGEN AT 2L/NC HEART HEALTHY DIET PT/OT EVAL AND TREAT SEE MED LIST Follow up with: DAVID STONE MD [Primary Care Provider] -
== END 2020-03-27 16:35 ==
LOC: ED 12:54 → MED SURG 16:30
PROVIDERS: ADMIT Family Medicine; ATTEND Family Medicine
DX: E87.6 Hypokalemia (principal); I25.10 Atherosclerotic heart disease of native coronary artery without angina pectoris; I50.9 Heart failure, unspecified; E11.59 Type 2 diabetes mellitus with other circulatory complications; I73.9 Peripheral vascular disease, unspecified; Z79.899 Other long term (current) drug therapy; Z79.01 Long term (current) use of anticoagulants; W19.XXXA Unspecified fall, initial encounter; Y92.009 Unspecified place in unspecified non-institutional (private) residence as the place of occurrence of the external cause; S33.2XXA Dislocation of sacroiliac and sacrococcygeal joint, initial encounter; J44.9 Chronic obstructive pulmonary disease, unspecified; Z89.612 Acquired absence of left leg above knee; Z89.611 Acquired absence of right leg above knee; L89.321 Pressure ulcer of left buttock, stage 1; L89.312 Pressure ulcer of right buttock, stage 2
CPT/HCPCS: 36000; 36415; 72220; 80048; 80053; 81001; 82550; 82947; 83735; 84132; 84484; 85025; 87086; 93005; 93041; 93268; 94762; 96365; 97161; 99285; G0378; U0003; 94760; J3480; A9270-GY